=== PATIENT | female | born 1955 | race Caucasian/White ===

== ENCOUNTER 2018-02-05 11:41 | Inpatient (IN) | payer BC, OTHER ==
[2018-02-05] MEDS ORDERED: IBUPROFEN 600 MG TAB PO STA (12:27)
[2018-02-05] MEDS ORDERED: ACETAMINOPHEN TAB 500 MG TAB PO STA (12:27)
[2018-02-05] MEDS ORDERED: IPRATROPIUM-ALBUTEROL 3 ML NEB INHALATION STA (12:29)
--- NOTE | 2018-02-05 12:31 | ED ---
General Adult HPI - General Chief complaint: Shortness of Breath Stated complaint: SOB/Congestion Time Seen by Provider: 02/05/18 11:50 Source: patient, RN notes reviewed Mode of arrival: EMS Limitations: physical limitation - History of Present Illness Initial comments: This is a 62-year-old female who presents emergency Department complaining of difficulty breathing. Patient states symptoms started 2 days been worsening over the last 2 days. Patient states she believes she's had a fever but she's also had the chills. Patient denies any palpitations or chest pain. Patient states she is coughing. No sputum production. Patient states she has edema on her legs but is no worse than normal. Patient denies any headache patient denies numbness weakness. Patient denies any abdominal pain patient denies nausea vomiting diarrhea. - Related Data Home Medications Medication Instructions Recorded Confirmed Aspirin EC [Ecotrin Low Dose] 81 mg PO DAILY 02/05/18 02/05/18 Furosemide [Lasix] 20 mg PO DAILY 02/05/18 02/05/18 Allergies Allergy/AdvReac Type Severity Reaction Status Date / Time metoprolol [From Toprol XL] AdvReac Itching Verified 02/05/18 13:15 band aids Allergy Rash/Hives Uncoded 02/05/18 12:12 Review of Systems ROS Statement: Those systems with pertinent positive or pertinent negative responses have been documented in the HPI. ROS Other: All systems not noted in ROS Statement are negative. Past Medical History Past Medical History: Cancer, COPD, Hypertension, Sleep Apnea/CPAP/BIPAP History of Any Multi-Drug Resistant Organisms: None Reported Additional Past Surgical History / Comment(s): Lung resection for her lung cancer. Resection of a brain metastasis without radiation therapy. Past Anesthesia/Blood Transfusion Reactions: No Reported Reaction Past Psychological History: No Psychological Hx Reported Smoking Status: Former smoker Past Alcohol Use History: None Reported Past Drug Use History: None Reported - Past Family History Father Family Medical History: Cancer General Exam - General Exam Comments Initial Comments: GENERAL: Patient is well-developed and well-nourished. Patient is nontoxic and well- hydrated and is in mild distress. ENT: Neck is soft and supple. No significant lymphadenopathy is noted. Oropharynx is clear. Moist mucous membranes. Neck has full range of motion without eliciting any pain. EYES: The sclera were anicteric and conjunctiva were pink and moist. Extraocular movements were intact and pupils were equal round and reactive to light. Eyelids were unremarkable. PULMONARY: Minutes breath sounds with expiratory wheezing diffusely CARDIOVASCULAR: There is a regular rate and rhythm without any murmurs gallops or rubs. ABDOMEN: Soft and nontender with normal bowel sounds. No palpable organomegaly was noted. There is no palpable pulsatile mass. SKIN: Skin is clear with no lesions or rashes and otherwise unremarkable. NEUROLOGIC: Patient is alert and oriented x3. Cranial nerves II through XII are grossly intact. Motor and sensory are also intact. Normal speech, volume and content. Symmetrical smile. MUSCULOSKELETAL: Normal extremities with adequate strength and full range of motion. 1+ edema bilaterally LYMPHATICS: No significant lymphadenopathy is noted PSYCHIATRIC: Normal psychiatric evaluation. Normal interpersonal interactions appears functionally intact in deals appropriately with others. No signs of depression. No signs of anxiety. Limitations: physical limitation Course Vital Signs 02/05/18 02/05/18 02/05/18 11:50 12:10 12:54 Temperature 100.1 F H Pulse Rate 122 H 115 H Respiratory 32 H Rate Blood Pressure 138/73 O2 Sat by Pulse 65 L 97 Oximetry 02/05/18 13:03 Temperature Pulse Rate 110 H Respiratory Rate Blood Pressure O2 Sat by Pulse Oximetry Medical Decision Making - Medical Decision Making EKG shows sinus tachycardia with occasional PAC at 131 bpm UT interval 124 QRS is 82 QT interval 04 QTC is 448. Patient's EKG shows no ST segment elevation or depression. Patient's chest x-ray is consistent with congestive heart failure and possible infiltrate I started the patient on Rocephin for the possible pneumonia, I started the patient Lasix Nitropaste for congestive heart failure. I spoke with Dr. Moreno he agreed to admit the patient admitted the patient I wrote admitting orders. - Lab Data Result diagrams: 02/05/18 13:00 02/05/18 13:00 Lab Results 02/05/18 02/05/18 02/05/18 Range/Units 13:00 13:00 13:00 WBC 13.2 H (3.8-10.6) k/uL RBC 5.07 (3.80-5.40) m/uL Hgb 14.7 (11.4-16.0) gm/dL Hct 46.3 H (34.0-46.0) % MCV 91.2 (80.0-100.0) fL MCH 29.0 (25.0-35.0) pg MCHC 31.8 (31.0-37.0) g/dL RDW 14.8 (11.5-15.5) % Plt Count 434 (150-450) k/uL Neutrophils % 84 % Lymphocytes % 5 % Monocytes % 8 % Eosinophils % 0 % Basophils % 0 % Neutrophils # 11.1 H (1.3-7.7) k/uL Lymphocytes # 0.7 L (1.0-4.8) k/uL Monocytes # 1.1 H (0-1.0) k/uL Eosinophils # 0.1 (0-0.7) k/uL Basophils # 0.0 (0-0.2) k/uL Hypochromasia Slight PT 10.4 (9.0-12.0) sec INR 1.1 (<1.2) APTT 20.3 L (22.0-30.0) sec Sodium 136 L (137-145) mmol/L Potassium 5.2 H (3.5-5.1) mmol/L Chloride 96 L (98-107) mmol/L Carbon Dioxide 26 (22-30) mmol/L Anion Gap 14 mmol/L BUN 35 H (7-17) mg/dL Creatinine 0.99 (0.52-1.04) mg/dL Est GFR (CKD-EPI)AfAm 70 (>60 ml/min/1.73 sqM) Est GFR (CKD-EPI)NonAf 61 (>60 ml/min/1.73 sqM) Glucose 150 H (74-99) mg/dL Plasma Lactic Acid Tong (0.7-2.0) mmol/L Calcium 8.5 (8.4-10.2) mg/dL Total Bilirubin 1.1 (0.2-1.3) mg/dL AST 70 H (14-36) U/L ALT 37 (9-52) U/L Alkaline Phosphatase 87 (38-126) U/L Total Creatine Kinase (30-135) U/L CK-MB (CK-2) (0.0-2.4) ng/mL CK-MB (CK-2) Rel Index Troponin I (0.000-0.034) ng/mL Total Protein 6.6 (6.3-8.2) g/dL Albumin 3.5 (3.5-5.0) g/dL Urine Color Urine Appearance (Clear) Urine pH (5.0-8.0) Ur Specific [place] (1.001-1.035) Urine Protein (Negative) Urine Glucose (UA) (Negative) Urine Ketones (Negative) Urine Blood (Negative) Urine Nitrite (Negative) Urine Bilirubin (Negative) Urine Urobilinogen (<2.0) mg/dL Ur Leukocyte Esterase (Negative) Urine RBC (0-5) /hpf Urine WBC (0-5) /hpf Ur Squamous Epith Cells (0-4) /hpf Hyaline Casts (0-2) /lpf Granular Casts (0) /lpf Urine Mucus (None) /hpf 02/05/18 02/05/18 02/05/18 Range/Units 13:00 13:00 13:15 WBC (3.8-10.6) k/uL RBC (3.80-5.40) m/uL Hgb (11.4-16.0) gm/dL Hct (34.0-46.0) % MCV (80.0-100.0) fL MCH (25.0-35.0) pg MCHC (31.0-37.0) g/dL RDW (11.5-15.5) % Plt Count (150-450) k/uL Neutrophils % % Lymphocytes % % Monocytes % % Eosinophils % % Basophils % % Neutrophils # (1.3-7.7) k/uL Lymphocytes # (1.0-4.8) k/uL Monocytes # (0-1.0) k/uL Eosinophils # (0-0.7) k/uL Basophils # (0-0.2) k/uL Hypochromasia PT (9.0-12.0) sec INR (<1.2) APTT (22.0-30.0) sec Sodium (137-145) mmol/L Potassium (3.5-5.1) mmol/L Chloride (98-107) mmol/L Carbon Dioxide (22-30) mmol/L Anion Gap mmol/L BUN (7-17) mg/dL Creatinine (0.52-1.04) mg/dL Est GFR (CKD-EPI)AfAm (>60 ml/min/1.73 sqM) Est GFR (CKD-EPI)NonAf (>60 ml/min/1.73 sqM) Glucose (74-99) mg/dL Plasma Lactic Acid Tong 1.3 (0.7-2.0) mmol/L Calcium (8.4-10.2) mg/dL Total Bilirubin (0.2-1.3) mg/dL AST (14-36) U/L ALT (9-52) U/L Alkaline Phosphatase (38-126) U/L Total Creatine Kinase 751 H (30-135) U/L CK-MB (CK-2) 9.7 H* (0.0-2.4) ng/mL CK-MB (CK-2) Rel Index 1.3 Troponin I 0.180 H* (0.000-0.034) ng/mL Total Protein (6.3-8.2) g/dL Albumin (3.5-5.0) g/dL Urine Color Yellow Urine Appearance Cloudy H (Clear) Urine pH 6.0 (5.0-8.0) Ur Specific [place] 1.025 (1.001-1.035) Urine Protein 2+ H (Negative) Urine Glucose (UA) Negative (Negative) Urine Ketones Trace H (Negative) Urine Blood Small H (Negative) Urine Nitrite Negative (Negative) Urine Bilirubin 1+ H (Negative) Urine Urobilinogen 3.0 (<2.0) mg/dL Ur Leukocyte Esterase Negative (Negative) Urine RBC 1 (0-5) /hpf Urine WBC 4 (0-5) /hpf Ur Squamous Epith Cells 1 (0-4) /hpf Hyaline Casts 3 H (0-2) /lpf Granular Casts 3 (0) /lpf Urine Mucus Occasional H (None) /hpf Critical Care Time Critical Care Time: Yes Total Critical Care Time: 35 Disposition Clinical Impression: Acute pulmonary edema, Pneumonia Disposition: ADMITTED IP TO THIS HOSP Referrals: Carmen Dc DO [Primary Care Provider] - 1-2 days Time of Disposition: 14:16
[2018-02-05 13:31] LABS: Basophils % (A) 0 %; Eosinophils # (A) 0.1 k/uL (0-0.7); Eosinophils % (A) 0 %; HCT 46.3 % (34.0-46.0); HGB 14.7 gm/dL (11.4-16.0); Hypochromasia Slight; Lymphocytes # (A) 0.7 k/uL (1.0-4.8); Lymphocytes % (A) 5 %; MCHC 31.8 g/dL (31.0-37.0); MCV 91.2 fL (80.0-100.0); Mean Platelet Volume 7.1; Monocytes # (A) 1.1 k/uL (0-1.0); Monocytes % (A) 8 %; Neutrophils # (A) 11.1 k/uL (1.3-7.7); Neutrophils % (A) 84 %; Platelet Count 434 k/uL (150-450); RBC 5.07 m/uL (3.80-5.40); RDW 14.8 % (11.5-15.5); WBC 13.2 k/uL (3.8-10.6)
[2018-02-05 13:39] LABS: Appearance,Urine Cloudy (Clear); Bilirubin,Urine 1+ (Negative); Blood,Urine Small (Negative); Color,Urine Yellow; Glucose,Urine (UA) Negative (Negative); Granular Casts,Urine 3 /lpf (0); Hyaline Casts,Urine 3 /lpf (0-2); Ketones,Urine Trace (Negative); Leukocyte Esterase,Urine Negative (Negative); Mucus,Urine Occasional /hpf; Nitrite,Urine Negative (Negative); Protein,Urine 2+ (Negative); RBC,Urine 1 /hpf (0-5); Specific Gravity,Urine 1.025 (1.001-1.035); Squamous Epithelial Cell,Urine 1 /hpf (0-4); WBC,Urine 4 /hpf (0-5)
[2018-02-05 13:42] LABS: Albumin 3.5 g/dL (3.5-5.0); Calcium 8.5 mg/dL (8.4-10.2); Total Bilirubin 1.1 mg/dL (0.2-1.3); Total Protein 6.6 g/dL (6.3-8.2)
[2018-02-05 13:48] LABS: Potassium 5.2 mmol/L (3.5-5.1)
--- NOTE | 2018-02-05 13:50 | XR ---
EXAMINATION TYPE: XR chest 2V DATE OF EXAM: 02/05/2018 COMPARISON: Prior chest 05/23/2011 HISTORY: Fever, shortness of breath TECHNIQUE: Frontal and lateral views of the chest are obtained. FINDINGS: Central vascularity is prominent. Interstitium is increased. No evident pneumothorax. Diff icult to exclude small effusion. Heart is enlarged. Patient is rotated. Mixed patchy density is prese nt in the perihilar locations. IMPRESSION: Findings could represent congestive heart failure, pneumonia not excluded. There may be pulmonary artery hypertension, follow-up is recommended.
[2018-02-05 13:56] LABS: Creatine Kinase MB 9.7 ng/mL (0.0-2.4); Troponin I 0.18 ng/mL (0.000-0.034)
[2018-02-05 14:03] LABS: INR 1.1 (<1.2); Prothrombin Time 10.4 sec (9.0-12.0)
[2018-02-05 14:08] LABS: Partial Thromboplastin Time 20.3 sec (22.0-30.0)
[2018-02-05] MEDS ORDERED: FUROSEMIDE 10 MG/ML 4 ML VIAL IV STA ×2 (14:14→19:58)
[2018-02-05] MEDS ORDERED: cefTRIAXone 2,000 MG in SODIUM CHLORIDE 0.9% 100 ML IVPB STA (14:14)
[2018-02-05] MEDS ORDERED: NITROGLYCERIN OINT 1 INCH/GM PACKET TOPICAL STA (14:14)
[2018-02-05] MEDS ORDERED: cefTRIAXone IN SWFI 2,000 MG/20 ML SYRINGE IVP STA (14:15)
[2018-02-05] MEDS ORDERED: PNEUMONIA PROTOCOL UTILIZED 1 EACH MISC PO PRN (14:17)
[2018-02-05] MEDS: AZITHROMYCIN 500 MG TAB PO SCH (15:03)
--- NOTE | 2018-02-05 18:02 | P.HPIM ---
History of Present Illness H&P Date: 02/05/18 Chief Complaint: Shortness of breath Ophelia Ruffin is a 62-year-old female who presented to [facility] emergency room with a chief complaint of worsening shortness of breath patient states that her symptoms started 2 days ago and has been worsening she stated that she had some fever and chills and cough and developed worsening shortness of breath otherwise she denies any other complaints there was no headache no dizziness no chest pain no nausea or vomiting no abdominal pain and no urinary symptoms patient denies having any sputum production was her cough. Patient has a history of lung cancer she underwent partial lung resection in 2000 she also underwent brain metastatic disease removal, she states that she has been stable and cancer free since 2000. Past Medical History Past Medical History: Cancer, COPD, Hypertension, Sleep Apnea/CPAP/BIPAP History of Any Multi-Drug Resistant Organisms: None Reported Additional Past Surgical History / Comment(s): Lung resection for her lung cancer. Resection of a brain metastasis without radiation therapy. Past Anesthesia/Blood Transfusion Reactions: No Reported Reaction Past Psychological History: No Psychological Hx Reported Additional Psychological History / Comment(s): . Lives in the family home with her . 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 Stop tobacco use about 5 years ago. No alcohol use. Has a pet dog and cat in the home that are not new. Tetanus vaccine updated in the emergency center. No international travels. No experience Smoking Status: Former smoker Past Alcohol Use History: None Reported Past Drug Use History: None Reported - Past Family History Father Family Medical History: Cancer Medications and Allergies Home Medications Medication Instructions Recorded Confirmed Type Aspirin EC [Ecotrin Low Dose] 81 mg PO DAILY 02/05/18 02/05/18 History Furosemide [Lasix] 20 mg PO DAILY 02/05/18 02/05/18 History Allergies Allergy/AdvReac Type Severity Reaction Status Date / Time metoprolol [From Toprol XL] AdvReac Itching Verified 02/05/18 13:15 band aids Allergy Rash/Hives Uncoded 02/05/18 12:12 Physical Exam Vitals: Vital Signs Temp Pulse Pulse Resp BP BP Pulse Ox 02/05/18 17:26 98.9 F 96 24 133/86 90 L 02/05/18 16:45 98.0 F 95 24 116/60 94 L 02/05/18 15:08 98.9 F 98 32 H 168/99 95 02/05/18 14:12 99.2 F 101 H 30 H 165/78 96 02/05/18 13:12 99 28 H 155/65 96 02/05/18 13:03 110 H 02/05/18 12:54 115 H 02/05/18 12:10 97 02/05/18 11:50 100.1 F H 122 H 32 H 138/73 65 L Intake and Output 02/05/18 02/05/18 02/05/18 06:59 14:59 22:59 Other: Weight 122.47 kg 122.47 kg In general patient is alert and oriented 3 in no apparent distress HEENT head normocephalic and atraumatic Neck is supple no JVD no goiter no lymphadenopathy Chest exam reveals a scattered crackles bilaterally no wheezing Cardiac exam reveals regular heart sounds S1 and S2 no gallops no murmurs Abdomen is soft nontender no organomegaly with normal bowel sounds Extremity exam reveals minimal edema no cyanosis or clubbing Results CBC & Chem 7: 02/05/18 13:00 02/05/18 13:00 Labs: Abnormal Lab Results - Last 24 Hours (Table) 02/05/18 02/05/18 02/05/18 Range/Units 13:00 13:00 13:00 WBC 13.2 H (3.8-10.6) k/uL Hct 46.3 H (34.0-46.0) % Neutrophils # 11.1 H (1.3-7.7) k/uL Lymphocytes # 0.7 L (1.0-4.8) k/uL Monocytes # 1.1 H (0-1.0) k/uL APTT 20.3 L (22.0-30.0) sec Sodium 136 L (137-145) mmol/L Potassium 5.2 H (3.5-5.1) mmol/L Chloride 96 L (98-107) mmol/L BUN 35 H (7-17) mg/dL Glucose 150 H (74-99) mg/dL AST 70 H (14-36) U/L Total Creatine Kinase (30-135) U/L CK-MB (CK-2) (0.0-2.4) ng/mL Troponin I (0.000-0.034) ng/mL Urine Appearance (Clear) Urine Protein (Negative) Urine Ketones (Negative) Urine Blood (Negative) Urine Bilirubin (Negative) Hyaline Casts (0-2) /lpf Urine Mucus (None) /hpf 02/05/18 02/05/18 Range/Units 13:00 13:15 WBC (3.8-10.6) k/uL Hct (34.0-46.0) % Neutrophils # (1.3-7.7) k/uL Lymphocytes # (1.0-4.8) k/uL Monocytes # (0-1.0) k/uL APTT (22.0-30.0) sec Sodium (137-145) mmol/L Potassium (3.5-5.1) mmol/L Chloride (98-107) mmol/L BUN (7-17) mg/dL Glucose (74-99) mg/dL AST (14-36) U/L Total Creatine Kinase 751 H (30-135) U/L CK-MB (CK-2) 9.7 H* (0.0-2.4) ng/mL Troponin I 0.180 H* (0.000-0.034) ng/mL Urine Appearance Cloudy H (Clear) Urine Protein 2+ H (Negative) Urine Ketones Trace H (Negative) Urine Blood Small H (Negative) Urine Bilirubin 1+ H (Negative) Hyaline Casts 3 H (0-2) /lpf Urine Mucus Occasional H (None) /hpf Thrombosis Risk Factor Assmnt - Choose All That Apply Each Factor Represents 1 point: Heart failure (<1month), Obesity (BMI >25) Each Risk Factor Represents 2 Points: Age 61-74 years Thrombosis Risk Factor Assessment Total Risk Factor Score: 4 Thrombosis Risk Factor Assessment Level: Moderate Risk Assessment and Plan Plan: #1 worsening shortness of breath, multifactorial, could be related to lung infection as evidenced by low grade fever, cough, and leukocytosis, she was started on IV Rocephin and Zithromax in the emergency room will continue with same antibiotic at this time will try to obtain sputum sample for culture and Gram stain. #2 evidence of acute congestive heart failure exacerbation with shortness of breath, chest x-ray evidence of pulmonary congestion, and elevated BNP at 14,100 , at this time patient is receiving IV Lasix will monitor closely, will check echocardiogram #3 previous history of lung cancer status post partial lung resection and resection of metastatic brain disease in 2000. #4 underlying history of COPD patient is a former smoker #5 underlying history of obstructive sleep apnea #6 elevated troponin level at 0.18H and denies chest pain Will obtain repeat troponin level cardiology consultation has been requested At this time continue with current antibiotic and IV Lasix Cardiology and pulmonary consultation are requested Will follow closely
[2018-02-05] MEDS: ASPIRIN 81 MG PO SCH (18:26)
[2018-02-05] MEDS: ALBUTEROL NEBULIZED 2.5 MG/3 ML INHALATION SCH ×2 (19:49→19:56)
[2018-02-06 05:37] LABS: ABG Base Excess 5.6 mmol/L; ABG HCO3 34 mmol/L (21-25); ABG Oxygen Saturation 99.3 % (94-97); ABG PO2 143 mmHg (83-108); ABG TCO2 37 mmol/L (19-24)
[2018-02-06 05:41] LABS: ABG PCO2 90 mmHg (35-45)
[2018-02-06] MEDS: PANTOPRAZOLE 40 MG TABLET PO SCH (05:56)
[2018-02-06] MEDS ORDERED: PROPOFOL 100 ML IV ONE (05:57)
[2018-02-06] MEDS ORDERED: NOREPINEPHRIN 4 MG-0.9% NS PMX 4 MG/250 ML ML IV ONE ×3 (06:19→08:26)
[2018-02-06] MEDS ORDERED: PROPOFOL 10 MG/ML 20 ML VIAL IV ONE (06:30)
[2018-02-06 07:01] LABS: Glucose,Whole Blood 107 mg/dL (75-99)
[2018-02-06] MEDS ORDERED: CISATRACURIUM 2 MG/ML 5 ML VIAL IV ONE ×2 (07:40→07:50)
[2018-02-06] MEDS: PROPOFOL 1,000 MG in EMPTY BAG 1 BAG IV SCH ×5 (08:00→23:30)
--- NOTE | 2018-02-06 08:31 | XR ---
EXAMINATION TYPE: XR chest 1V portable DATE OF EXAM: 02/06/2018 COMPARISON: Prior chest x-ray 02/05/2018 HISTORY: Intubated TECHNIQUE: Single frontal view of the chest is obtained. FINDINGS: There is been interval placement of an endotracheal and NG tube are overlying appropriate positions. No other interval change. IMPRESSION: No evident complication status post intubation.
[2018-02-06 08:46] LABS: ABG Base Excess -0.1 mmol/L; ABG HCO3 28 mmol/L (21-25); ABG PCO2 68 mmHg (35-45); ABG PH 7.22 (7.35-7.45); ABG PO2 >400 mmHg (83-108); ABG TCO2 30 mmol/L (19-24)
[2018-02-06] MEDS ORDERED: cefTRIAXone IN SWFI 1,000 MG/10 ML SYRINGE IVP SCH (09:00)
[2018-02-06] MEDS: SODIUM CHLORIDE 0.9% 1,000 ML IV SCH (09:00)
[2018-02-06 09:18] LABS: Glucose,Whole Blood 163 mg/dL (75-99)
[2018-02-06] MEDS: SODIUM CHLORIDE 0.9% 99 ML with VASOPRESSIN 20 UNIT IV SCH ×4 (09:23→20:27)
[2018-02-06 09:38] LABS: HCT 43.1 % (34.0-46.0); HGB 13.1 gm/dL (11.4-16.0); Hypochromasia Marked; MCH 29.1 pg (25.0-35.0); MCHC 30.4 g/dL (31.0-37.0); MCV 95.8 fL (80.0-100.0); Mean Platelet Volume 6.9; Platelet Count 339 k/uL (150-450)
[2018-02-06 09:41] LABS: Albumin 2.6 g/dL (3.5-5.0); Calcium 7.2 mg/dL (8.4-10.2); Magnesium 2.1 mg/dL (1.6-2.3); Total Bilirubin 0.5 mg/dL (0.2-1.3); Total Protein 5.2 g/dL (6.3-8.2)
[2018-02-06] MEDS ORDERED: SODIUM CHLORIDE 0.9% 1,000 ML IV ONE ×3 (09:56→13:51)
[2018-02-06 10:11] LABS: Creatine Kinase MB 7.7 ng/mL (0.0-2.4); Troponin I 0.048 ng/mL (0.000-0.034)
[2018-02-06] MEDS ORDERED: NALOXONE 0.4 MG/ML 1 ML VIAL IV PRN (10:13)
[2018-02-06] MEDS: ENOXAPARIN 40 MG/0.4 ML SYRINGE SQ SCH (10:30)
[2018-02-06] MEDS: AZITHROMYCIN 500 MG TAB PO SCH (10:31)
[2018-02-06] MEDS: CHLORHEXIDINE GLUCONATE 15 ML CUP MUCOUS MEM SCH ×2 (10:31→20:28)
[2018-02-06 10:52] LABS: Poikilocytosis (M) Present; Polychromasia Present
[2018-02-06 10:56] LABS: Band Neutrophils % 3 %; Lymphocytes # (M) 0.52 k/uL (1.0-4.8); Metamyelocytes # (M) 0.21 k/uL (0); Metamyelocytes % 2 %; Monocytes # (M) 0.72 k/uL (0-1.0); Myelocytes % 1 %; Neutrophils % (M) 84 %; Nucleated Red Blood Cells 1 /100 WBC (0-0); Total Cells Counted 200; WBC 10.3 k/uL (3.8-10.6)
[2018-02-06] MEDS: NOREPINEPHRINE 16 MG in DEXTROSE 5% IN WATER 250 ML IV SCH ×4 (11:17→18:37)
[2018-02-06] MEDS: ALBUTEROL NEBULIZED 2.5 MG/3 ML INHALATION SCH (11:21)
[2018-02-06] MEDS: IPRATROPIUM-ALBUTEROL 3 ML NEB INHALATION SCH ×4 (11:22→23:36)
--- NOTE | 2018-02-06 12:28 | PCN ---
PROCEDURE NOTE PROCEDURE PERFORMED: Placement of a right femoral triple-lumen catheter. PREOPERATIVE DIAGNOSIS: Acute hypercapnic respiratory failure. POSTOPERATIVE DIAGNOSIS: Acute hypercapnic respiratory failure. ANESTHESIA USED: 2 mL of 1% lidocaine. DESCRIPTION OF PROCEDURE: Patient was placed in a supine position, and the right groin was prepared in a sterile fashion and drapes were applied. The right femoral vein was easily cannulated medial to the right femoral artery, and a guidewire was placed. The area over the guidewire was dilated using a dilator, then a triple-lumen catheter was inserted over the guidewire, the guidewire was removed. Good blood flow noted in the 3 different ports of the triple-lumen catheter. The line was secured using 3.0 silk sutures. The procedure was well tolerated, no evidence of any immediate complications. MMODL / IJN: [id number] /
--- NOTE | 2018-02-06 12:28 | PCN ---
PROCEDURE NOTE PROCEDURE PERFORMED: Placement of a left femoral arterial line. PREOPERATIVE DIAGNOSIS: Acute hypercapnic respiratory failure and hypotension. POSTOPERATIVE DIAGNOSIS: Acute hypercapnic respiratory failure and hypotension. ANESTHESIA: None deployed. DESCRIPTION OF PROCEDURE: The area of the left groin was prepared in a sterile fashion and drapes were applied. The left femoral artery was palpated, cannulated, a guidewire was placed, and a femoral catheter was inserted over the guidewire, the guidewire was removed. Good blood flow and good waveform were noted in the arterial tracing, and the line was secured using 3.0 silk sutures. Procedure was well tolerated. No evidence of any immediate complication. MMODL / IJN: [id number] /
--- NOTE | 2018-02-06 12:39 | P.CNPUL ---
History of Present Illness Consult date: 02/06/18 Requesting physician: Erica Moreno Reason for consult: dyspnea, COPD, pneumonia Chief complaint: Shortness of breath and congestion History of present illness: This is a 62-year-old female admitted on 02/05/2018, presented to the ER with mostly a few days' history of increased shortness of breath and congestion. She also had intermittent fever and chills, cough, but no significant sputum production. She had no complaints of chest pain, no palpitations, has been complaining of significant swelling in her lower extremities. She had no headaches, no blurred vision, no dizziness. No abdominal pain no nausea no vomiting. Patient is known to have history of COPD, hypertension, obstructive sleep apnea syndrome. Chest x-ray showed bilateral interstitial infiltrates, admitted with the impression of congestive heart failure, however the possibility of pneumonia was felt to be very likely. Patient was placed on diuretics, she was also placed on empiric antibiotics in the form of Rocephin and Zithromax. While on the medical floor, her condition deteriorated apparently last night, had to be placed on BiPAP. Early this morning the patient became unresponsive, ABG done on BiPAP, 50% FiO2 showed a pO2 of 143 pCO2 of 90 pH of 7.18. I was notified about the patient being unresponsive on BiPAP, I recommended immediate transfer to the ICU and immediate intubation. Patient was intubated, however after intubation she became hypotensive, required high dose of norepinephrine via a peripheral line, and no other lines could be established, and no arterial line could be established by anesthesia. Hence I came in and upon arrival I was able to establish a right femoral triple- lumen catheter, and a left femoral arterial line were both done immediately. Patient was kept on norepinephrine, and this would be titrated, however I was able to cut down on the dose significantly after the lines were established, and after fluid boluses were given. Reviewed the post intubation chest x-ray, and clearly felt that the patient had probably a combination of pneumonia and congestive heart failure. Hence I recommended broadening the spectrum of antibiotics coverage I cut down on her diuretics because of the hypotension, repeated ABG and it showed a pO2 of more than 400 pCO2 of 68, pH of 7.22, this was on 100% FiO2 and PEEP of 8. Hence I cut down her FiO2 to 45%, adjusted her ventilator settings, repeat ABG is pending. Based on the arterial blood gases, the patient developed what seemed to be a picture of hypercapnic respiratory failure most likely the patient has significant underlying COPD, definite obstructive sleep apnea syndrome, and obesity hypoventilation syndrome and clearly she went into CO2 narcosis requiring intubation and mechanical ventilation. All her labs were reviewed, troponin was noted to be slightly elevated, proBNP level was quite elevated upon admission at 14,100. Review of Systems ROS unobtainable: due to endotracheal tube (Review of systems could not be obtained, no family members available, patient is sedated, on mechanical ventilation, I did review the review of system of other physicians on admission. ) Past Medical History Past Medical History: Cancer, COPD, Hypertension, Sleep Apnea/CPAP/BIPAP History of Any Multi-Drug Resistant Organisms: None Reported Additional Past Surgical History / Comment(s): Lung resection for her lung cancer. Resection of a brain metastasis without radiation therapy. Past Anesthesia/Blood Transfusion Reactions: No Reported Reaction Past Psychological History: No Psychological Hx Reported Additional Psychological History / Comment(s): . Lives in the family home with her . 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 Stop tobacco use about 5 years ago. No alcohol use. Has a pet dog and cat in the home that are not new. Tetanus vaccine updated in the emergency center. No international travels. No experience Smoking Status: Former smoker Past Alcohol Use History: None Reported Past Drug Use History: None Reported - Past Family History Father Family Medical History: Cancer Medications and Allergies Home Medications Medication Instructions Recorded Confirmed Type Aspirin EC [Ecotrin Low Dose] 81 mg PO DAILY 02/05/18 02/05/18 History Furosemide [Lasix] 20 mg PO DAILY 02/05/18 02/05/18 History Allergies Allergy/AdvReac Type Severity Reaction Status Date / Time metoprolol [From Toprol XL] AdvReac Itching Verified 02/05/18 13:15 band aids Allergy Rash/Hives Uncoded 02/05/18 12:12 Physical Exam Vitals: Vital Signs Temp Pulse Pulse Resp BP BP Pulse Ox 02/06/18 11:42 85 02/06/18 11:25 86 02/06/18 11:00 72 13 95/57 92 L 02/06/18 10:30 73 13 92/53 95 02/06/18 10:00 81 14 100/55 100 02/06/18 09:30 82 14 83 L 02/06/18 09:20 85 13 93/57 02/06/18 09:00 90 24 99/57 84 L 02/06/18 08:52 28 H 02/06/18 08:40 80 19 101/63 93 L 02/06/18 08:20 91 22 193/84 88 L 02/06/18 08:00 70 21 99/53 91 L 02/06/18 07:40 75 30 H 118/61 98 02/06/18 07:30 71 120/65 100 02/06/18 07:20 78 91/79 02/06/18 07:10 73 86/70 76 L 02/06/18 07:00 70 118/63 100 02/06/18 06:50 75 97 02/06/18 06:40 75 99 02/06/18 06:30 82 95/46 99 02/06/18 06:20 85 83/61 99 02/06/18 06:12 89 100 02/06/18 04:00 96 28 H 126/93 99 02/06/18 00:00 97 F L 80 27 H 144/70 95 02/05/18 20:07 92 02/05/18 20:00 96 26 H 02/05/18 19:58 95 02/05/18 19:43 97 F L 96 26 H 108/66 92 L 02/05/18 17:26 98.9 F 96 24 133/86 90 L 02/05/18 16:45 98.0 F 95 24 116/60 94 L 02/05/18 15:08 98.9 F 98 32 H 168/99 95 02/05/18 14:12 99.2 F 101 H 30 H 165/78 96 02/05/18 13:12 99 28 H 155/65 96 02/05/18 13:03 110 H 02/05/18 12:54 115 H Intake and Output 02/05/18 02/06/18 02/06/18 22:59 06:59 14:59 Intake Total 290 1358.456 Output Total 550 270 Balance 290 -550 1088.456 Intake: Intake, IV Titration 1358.456 Amount Norepinephrine 16 mg In 5.624 Dextrose 5% in Water 250 ml @ Titrate IV .Q0M [facility] Rx#:[id number] Propofol 1,000 mg In 52.832 Empty Bag 1 bag @ Titrate IV .Q0M [facility] Rx#: [id number] Sodium Chloride 0.9% 1, 1300 000 ml @ 100 mls/hr IV . Q10H [facility] Rx#:[id number] Oral 290 Output: Urine 550 270 Other: Voiding Method Bedside Commode Bedside Commode Bedside Commode Weight 122.47 kg 127 kg 127 kg ABP, PAP, CO, CI - Last 8 Hours Arterial Blood Pressure 138/72 Arterial Blood Pressure 124/65 Arterial Blood Pressure 119/60 Arterial Blood Pressure 133/62 Arterial Blood Pressure 134/66 Arterial Blood Pressure 136/67 Arterial Blood Pressure 136/62 Physical Exam: Revealed a 62-year-old female, on mechanical ventilation, sedated , intubated, in no distress. Head: Atraumatic, normocephalic. HEENT:[Neck is supple.] [No neck masses.] [No thyromegaly.] [No JVD.]. PERRLA, EOMI, no icterus, endotracheal tube and orogastric tube were noted to be intact. Chest: [Minimal fine crackles at the bases, no rhonchi, no wheezes. Large chest , evidence of previous right sided chest surgery noted possibly a thoracoscopic surgery done for presumably lung cancer in the past..] Cardiac Exam: [Distant S1 and S2 no S3 gallop, no murmur.] Abdomen: [Obese, Soft, nontender, no megaly, no rebound, no guarding, normal bowel sounds.] Extremities: [1+ bipedal edema, no clubbing, no cyanosis, distal pulses are diminished bilaterally. Neurological Exam: Sedated could not be addressed. Psychiatric: Sedated could not be addressed. Lymphatics: No lymphadenopathy. Results - Laboratory Findings CBC and BMP: 02/06/18 09:17 02/06/18 09:17 ABG ABG pH 7.22 (7.35-7.45) L 02/06/18 08:44 ABG pCO2 68 mmHg (35-45) H 02/06/18 08:44 ABG pO2 >400 mmHg (83-108) H 02/06/18 08:44 ABG O2 Saturation 99.0 % (94-97) H 02/06/18 08:44 PT/INR, D-dimer PT 10.4 sec (9.0-12.0) 02/05/18 13:00 INR 1.1 (<1.2) 02/05/18 13:00 Abnormal lab findings: Abnormal Labs 02/05/18 02/05/18 02/05/18 13:00 13:00 13:00 WBC 13.2 H Hct 46.3 H MCHC Neutrophils # 11.1 H Neutrophils # (Manual) Lymphocytes # 0.7 L Lymphocytes # (Manual) Monocytes # 1.1 H Metamyelocytes # (Man) Myelocytes # (Manual) Nucleated RBCs APTT 20.3 L ABG pH ABG pCO2 ABG pO2 ABG HCO3 ABG Total CO2 ABG O2 Saturation Sodium 136 L Potassium 5.2 H Chloride 96 L BUN 35 H Creatinine Glucose 150 H POC Glucose (mg/dL) Calcium AST 70 H Total Creatine Kinase CK-MB (CK-2) Troponin I Total Protein Albumin Urine Appearance Urine Protein Urine Ketones Urine Blood Urine Bilirubin Hyaline Casts Urine Mucus 02/05/18 02/05/18 02/05/18 13:00 13:15 18:07 WBC Hct MCHC Neutrophils # Neutrophils # (Manual) Lymphocytes # Lymphocytes # (Manual) Monocytes # Metamyelocytes # (Man) Myelocytes # (Manual) Nucleated RBCs APTT ABG pH ABG pCO2 ABG pO2 ABG HCO3 ABG Total CO2 ABG O2 Saturation Sodium Potassium Chloride BUN Creatinine Glucose POC Glucose (mg/dL) Calcium AST Total Creatine Kinase 751 H CK-MB (CK-2) 9.7 H* Troponin I 0.180 H* 0.166 H* Total Protein Albumin Urine Appearance Cloudy H Urine Protein 2+ H Urine Ketones Trace H Urine Blood Small H Urine Bilirubin 1+ H Hyaline Casts 3 H Urine Mucus Occasional H 02/06/18 02/06/18 02/06/18 05:35 07:00 08:44 WBC Hct MCHC Neutrophils # Neutrophils # (Manual) Lymphocytes # Lymphocytes # (Manual) Monocytes # Metamyelocytes # (Man) Myelocytes # (Manual) Nucleated RBCs APTT ABG pH 7.18 L* 7.22 L ABG pCO2 90 H* 68 H ABG pO2 143 H >400 H ABG HCO3 34 H 28 H ABG Total CO2 37 H 30 H ABG O2 Saturation 99.3 H 99.0 H Sodium Potassium Chloride BUN Creatinine Glucose POC Glucose (mg/dL) 107 H Calcium AST Total Creatine Kinase CK-MB (CK-2) Troponin I Total Protein Albumin Urine Appearance Urine Protein Urine Ketones Urine Blood Urine Bilirubin Hyaline Casts Urine Mucus 02/06/18 02/06/18 02/06/18 09:14 09:17 09:17 WBC Hct MCHC 30.4 L Neutrophils # Neutrophils # (Manual) 8.90 H Lymphocytes # Lymphocytes # (Manual) 0.52 L Monocytes # Metamyelocytes # (Man) 0.21 H Myelocytes # (Manual) 0.10 H Nucleated RBCs 1 H APTT ABG pH ABG pCO2 ABG pO2 ABG HCO3 ABG Total CO2 ABG O2 Saturation Sodium Potassium Chloride BUN 39 H Creatinine 1.13 H Glucose 170 H POC Glucose (mg/dL) 163 H Calcium 7.2 L AST 42 H Total Creatine Kinase CK-MB (CK-2) Troponin I Total Protein 5.2 L Albumin 2.6 L Urine Appearance Urine Protein Urine Ketones Urine Blood Urine Bilirubin Hyaline Casts Urine Mucus 02/06/18 09:17 WBC Hct MCHC Neutrophils # Neutrophils # (Manual) Lymphocytes # Lymphocytes # (Manual) Monocytes # Metamyelocytes # (Man) Myelocytes # (Manual) Nucleated RBCs APTT ABG pH ABG pCO2 ABG pO2 ABG HCO3 ABG Total CO2 ABG O2 Saturation Sodium Potassium Chloride BUN Creatinine Glucose POC Glucose (mg/dL) Calcium AST Total Creatine Kinase CK-MB (CK-2) 7.7 H* Troponin I 0.048 H* Total Protein Albumin Urine Appearance Urine Protein Urine Ketones Urine Blood Urine Bilirubin Hyaline Casts Urine Mucus - Diagnostic Findings Chest x-ray: image reviewed (Bilateral interstitial infiltrates, improved compared to the admission chest x-ray.) Assessment and Plan Assessment: Impression: 1 acute hypercapnic respiratory failure secondary to chronic obstructive pulmonary disease, obstructive sleep apnea syndrome and obesity hypoventilation syndrome, congestive heart failure, and possible underlying community-acquired pneumonia. 2 suspect severe underlying COPD and acute hypercapnic respiratory failure 3 suspect diastolic congestive heart failure 4 suspect community-acquired pneumonia 5 obesity hypoventilation syndrome 6 history of lung cancer, previous lobectomy and resection of brain metastasis. This was in 2000. Recommendation: Continue mechanical ventilation, continue antibiotics in the form of Zosyn and Levaquin, fluid boluses were given for hypertension, possibility of sepsis is not entirely ruled out but felt to be less likely, her hypertension was only noted shortly after she was intubated, and could be related to medications given prior to intubation. We will taper and discontinue norepinephrine. Lines were established including a right femoral triple-lumen catheter, and a left femoral arterial line, patient will be closely monitored in the ICU, updrafts were ordered, antibiotics were ordered, GI and DVT prophylaxis ordered. We'll continue to follow closely. Patient is critically ill, critical care time is 45 minutes, not including the time spent on procedures done early this morning upon arrival. Time with Patient: Greater than 30
[2018-02-06] MEDS ORDERED: FUROSEMIDE 10 MG/ML 4 ML VIAL IV SCH ×2 (12:45)
[2018-02-06] MEDS: PIPERACILLIN-TAZOBACTAM 3.375 GM in DEXTROSE/WATER 1 50ML.BAG IVPB SCH (13:07)
[2018-02-06] MEDS: ASPIRIN 81 MG PO SCH (13:12)
[2018-02-06] MEDS: LEVOFLOXACIN 500MG-D5W PMX 500 MG in DEXTROSE/WATER 1 100ML.BAG IVPB SCH (14:31)
--- NOTE | 2018-02-06 14:52 | P.CRDCN ---
History of Present Illness Consult date: 02/06/18 History of present illness: This is a pleasant 62-year-old female patient with a past medical history significant for history of lung cancer with metastasis to the brain and the patient did undergo lung and brain surgery in the past presented to the hospital complaining of shortness of breath. I came in to evaluate the patient but currently the patient is intubated and she is on ventilator. The history was taking from the chart as well as from the family. The patient presented with a worsening shortness of breath without any symptoms of chest pain or chest discomfort. She did have some fever and chills at home. No dizziness or lightheadedness and no syncope. Initially the patient was admitted to selective unit and she was getting treated for pneumonia but her symptoms have gotten worse and she developed change in mental status. For that reason she was brought to the intensive care unit. The patient was intubated. She developed also hypotension requiring vasopressors. After she was intubated it was noticed that the patient has been producing significant amount of sputum. She was seen and evaluated by the intensive care team and currently the patient has been receiving antibiotic for what it seems to be pneumonia. We get involved in her care for possible congestive heart failure. The BNP came in to be elevated around 10,000. Initially the patient was receiving Lasix IV but the Lasix was systolic because of the hypotension requiring high dose of vasopressors. The cardiac enzymes were checked and came in to be slightly abnormal. The EKG did not show any significant ST or T-wave abnormalities concerning for ischemia. The patient does not have any history of coronary artery disease but according to her family she does have history of congestive heart failure but she never follow-up with any endo tech in the past. Past Medical History Past Medical History: Cancer, COPD, Hypertension, Sleep Apnea/CPAP/BIPAP History of Any Multi-Drug Resistant Organisms: None Reported Additional Past Surgical History / Comment(s): Lung resection for her lung cancer. Resection of a brain metastasis without radiation therapy. Past Anesthesia/Blood Transfusion Reactions: No Reported Reaction Past Psychological History: No Psychological Hx Reported Additional Psychological History / Comment(s): . Lives in the family home with her . 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 Stop tobacco use about 5 years ago. No alcohol use. Has a pet dog and cat in the home that are not new. Tetanus vaccine updated in the emergency center. No international travels. No experience Smoking Status: Former smoker Past Alcohol Use History: None Reported Past Drug Use History: None Reported - Past Family History Father Family Medical History: Cancer Medications and Allergies Home Medications Medication Instructions Recorded Confirmed Type Aspirin EC [Ecotrin Low Dose] 81 mg PO DAILY 02/05/18 02/05/18 History Furosemide [Lasix] 20 mg PO DAILY 02/05/18 02/05/18 History Allergies Allergy/AdvReac Type Severity Reaction Status Date / Time metoprolol [From Toprol XL] AdvReac Itching Verified 02/05/18 13:15 band aids Allergy Rash/Hives Uncoded 02/05/18 12:12 Physical Exam Vitals: Vital Signs Temp Pulse Pulse Resp BP BP Pulse Ox 02/06/18 14:00 81 11 L 103/45 97 02/06/18 13:30 81 14 111/61 91 L 02/06/18 13:00 98.5 F 81 14 109/54 93 L 02/06/18 12:30 77 14 121/57 92 L 02/06/18 12:00 87 12 93 L 02/06/18 11:42 85 02/06/18 11:30 87 17 133/64 94 L 02/06/18 11:25 86 02/06/18 11:00 72 13 95/57 92 L 02/06/18 10:30 73 13 92/53 95 02/06/18 10:00 81 14 100/55 100 02/06/18 09:30 82 14 83 L 02/06/18 09:20 85 13 93/57 02/06/18 09:00 90 24 99/57 84 L 02/06/18 08:52 28 H 02/06/18 08:40 80 19 101/63 93 L 02/06/18 08:20 91 22 193/84 88 L 02/06/18 08:00 70 21 99/53 91 L 02/06/18 07:40 75 30 H 118/61 98 02/06/18 07:30 71 120/65 100 02/06/18 07:20 78 91/79 02/06/18 07:10 73 86/70 76 L 02/06/18 07:00 70 118/63 100 02/06/18 06:50 75 97 02/06/18 06:40 75 99 02/06/18 06:30 82 95/46 99 02/06/18 06:20 85 83/61 99 02/06/18 06:12 89 100 02/06/18 04:00 96 28 H 126/93 99 02/06/18 00:00 97 F L 80 27 H 144/70 95 02/05/18 20:07 92 02/05/18 20:00 96 26 H 02/05/18 19:58 95 02/05/18 19:43 97 F L 96 26 H 108/66 92 L 02/05/18 17:26 98.9 F 96 24 133/86 90 L 02/05/18 16:45 98.0 F 95 24 116/60 94 L 02/05/18 15:08 98.9 F 98 32 H 168/99 95 Intake and Output 02/05/18 02/06/18 02/06/18 22:59 06:59 14:59 Intake Total 290 2755.179 Output Total 550 400 Balance 290 -550 2355.179 Intake: Intake, IV Titration 2755.179 Amount Norepinephrine 16 mg In 63.739 Dextrose 5% in Water 250 ml @ Titrate IV .Q0M [facility] Rx#:[id number] Propofol 1,000 mg In 91.440 Empty Bag 1 bag @ Titrate IV .Q0M [facility] Rx#: [id number] Sodium Chloride 0.9% 1, 1600 000 ml @ 100 mls/hr IV . Q10H [facility] Rx#:[id number] Sodium Chloride 0.9% 1, 1000 000 ml @ 999 mls/hr IV . Q1H1M [facility] Rx#:[id number] Oral 290 Output: Urine 550 400 Other: Voiding Method Bedside Commode Bedside Commode Bedside Commode Weight 122.47 kg 127 kg 127 kg ABP, PAP, CO, CI - Last 8 Hours Arterial Blood Pressure 141/73 Arterial Blood Pressure 156/78 Arterial Blood Pressure 169/86 Arterial Blood Pressure 138/72 Arterial Blood Pressure 124/65 Arterial Blood Pressure 119/60 Arterial Blood Pressure 133/62 Arterial Blood Pressure 134/66 Arterial Blood Pressure 136/67 Arterial Blood Pressure 136/62 - Constitutional General appearance: mild distress - Respiratory Respiratory: bilateral: diminished - Cardiovascular Rhythm: regular Heart sounds: normal: S1, S2 Results 02/06/18 09:17 02/06/18 09:17 Cardiac Enzymes 02/05/18 02/06/18 02/06/18 Range/Units 18:07 09:17 09:17 AST 42 H (14-36) U/L CK-MB (CK-2) 7.7 H* (0.0-2.4) ng/mL Troponin I 0.166 H* 0.048 H* (0.000-0.034) ng/mL CBC 02/06/18 Range/Units 09:17 WBC 10.3 (3.8-10.6) k/uL RBC 4.50 (3.80-5.40) m/uL Hgb 13.1 (11.4-16.0) gm/dL Hct 43.1 (34.0-46.0) % Plt Count 339 (150-450) k/uL Comprehensive Metabolic Panel 02/06/18 Range/Units 09:17 Sodium 139 (137-145) mmol/L Potassium 4.0 (3.5-5.1) mmol/L Chloride 100 (98-107) mmol/L Carbon Dioxide 26 (22-30) mmol/L BUN 39 H (7-17) mg/dL Creatinine 1.13 H (0.52-1.04) mg/dL Glucose 170 H (74-99) mg/dL Calcium 7.2 L (8.4-10.2) mg/dL AST 42 H (14-36) U/L ALT 42 (9-52) U/L Alkaline Phosphatase 75 (38-126) U/L Total Protein 5.2 L (6.3-8.2) g/dL Albumin 2.6 L (3.5-5.0) g/dL Current Medications Generic Name Dose Route Start Last Admin Trade Name Freq PRN Reason Stop Dose Admin Albuterol/Ipratropium 3 ml 02/06/18 12:00 02/06/18 11:22 Duoneb 0.5 Mg-3 Mg/3 Ml Soln INHALATION 3 ml RT-Q4H [facility] Administration Aspirin 81 mg 02/05/18 18:15 02/06/18 13:12 Aspirin PO 81 mg DAILY [facility] Administration Chlorhexidine Gluconate 15 ml 02/06/18 09:00 02/06/18 10:31 Peridex MUCOUS MEM 15 ml BID [facility] Administration Enoxaparin Sodium 40 mg 02/06/18 09:00 02/06/18 10:30 Lovenox SQ 40 mg DAILY [facility] Administration Vasopressin 20 unit/ Sodium 100 mls @ 9 mls/hr 02/06/18 08:30 02/06/18 09:23 Chloride IV Not Given .Q11H7M [facility] 0.03 UNITS/MIN Norepinephrine Bitartrate 16 250 mls @ 0 mls/hr 02/06/18 08:30 02/06/18 13:33 mg/ Dextrose/Water IV 39 mcg/min .Q0M [facility] 36.56 mls/hr Titration Protocol Titrate Sodium Chloride 1,000 mls @ 100 mls/hr 02/06/18 10:00 02/06/18 09:00 Saline 0.9% IV 100 mls/hr .Q10H [facility] Administration Propofol 1,000 mg/ IV Solution 100 mls @ 0 mls/hr 02/06/18 08:00 02/06/18 14: 00 IV 32 mcg/kg/min .Q0M [facility] 24.38 mls/hr Titration Protocol Titrate Piperacillin/Tazobactam/ 50 mls @ 12.5 mls/hr 02/06/18 14:00 02/06/18 13:07 Dextrose 3.375 gm/ IV Solution IVPB 12.5 mls/hr Q8HR [facility] Administration Levofloxacin 500 mg/ IV 100 mls @ 100 mls/hr 02/06/18 13:00 02/06/18 14:31 Solution IVPB 100 mls/hr Q24H [facility] Administration Sodium Chloride 1,000 mls @ 999 mls/hr 02/06/18 13:51 02/06/18 14:07 Saline 0.9% IV 02/06/18 14:51 Not Given .Q1H1M [facility] Miscellaneous Information 1 each 02/05/18 14:17 Pneumonia Protocol Utilized PO ONCE PRN Per Protocol Naloxone HCl 0.2 mg 02/06/18 10:13 Narcan IV Q2M PRN Opioid Reversal Pantoprazole Sodium 40 mg 02/06/18 07:30 02/06/18 05:56 Protonix PO Not Given AC-[id number] [facility] Intake and Output 02/05/18 02/06/18 02/06/18 22:59 06:59 14:59 Intake Total 290 2755.179 Output Total 550 400 Balance 290 -550 2355.179 Intake: Intake, IV Titration 2755.179 Amount Norepinephrine 16 mg In 63.739 Dextrose 5% in Water 250 ml @ Titrate IV .Q0M [facility] Rx#:[id number] Propofol 1,000 mg In 91.440 Empty Bag 1 bag @ Titrate IV .Q0M [facility] Rx#: [id number] Sodium Chloride 0.9% 1, 1600 000 ml @ 100 mls/hr IV . Q10H [facility] Rx#:[id number] Sodium Chloride 0.9% 1, 1000 000 ml @ 999 mls/hr IV . Q1H1M [facility] Rx#:[id number] Oral 290 Output: Urine 550 400 Other: Voiding Method Bedside Commode Bedside Commode Bedside Commode Weight 122.47 kg 127 kg 127 kg Patient Weight 02/07/18 06:59 Weight 127 kg 02/06/18 09:17 02/06/18 09:17 Assessment and Plan Assessment: Assessment #1 acute hypoxic respiratory failure #2 pneumonia/sepsis #3 probably septic shock #4 congestive heart failure exacerbation and known if he is due to systolic or diastolic dysfunction #5 mildly abnormal cardiac enzymes likely related to hypotension #6 history of lung cancer and metastasis to the brain Plan #1 agree to hold the Lasix at this point in view of the low blood pressure requiring vasopressors #2 continue supporting the blood pressure with vasopressors #3 follow-up on the echocardiogram which was performed earlier today #5 the abnormal cardiac enzymes is not consistent with acute coronary syndrome. More importantly the patient did not have any symptoms of chest pain or chest discomfort #6 she is on aspirin and we will continue Thank you for allowing us participate in her care and we'll continue following up with the patient
--- NOTE | 2018-02-06 15:57 | P.PN ---
Subjective Progress Note Date: 02/06/18 Ophelia Ruffin is a 62-year-old female who presented to [facility] emergency room with a chief complaint of worsening shortness of breath patient states that her symptoms started 2 days ago and has been worsening she stated that she had some fever and chills and cough and developed worsening shortness of breath otherwise she denies any other complaints there was no headache no dizziness no chest pain no nausea or vomiting no abdominal pain and no urinary symptoms patient denies having any sputum production was her cough. Patient has a history of lung cancer she underwent partial lung resection in 2000 she also underwent brain metastatic disease removal, she states that she has been stable and cancer free since 2000. On 02/06/2018 patient is seen and examined in the intensive care unit, during last night patient developed worsening shortness of breath and unresponsiveness , she was transferred to intensive care unit initially she was started on BiPAP however she required intubation and mechanical ventilation, patient was hypotensive and required pressure support. Objective - Vital Signs Vital signs: Vital Signs Temp 98.5 F 02/06/18 13:00 Pulse 96 02/06/18 15:30 Resp 14 02/06/18 15:00 BP 128/65 02/06/18 15:00 Pulse Ox 95 02/06/18 15:00 Intake & Output 02/05/18 02/06/18 02/06/18 18:59 06:59 18:59 Intake Total 216 10 3926.518 Output Total 550 440 Balance 240 -500 2489.518 Weight 122.47 kg 127 kg 127 kg Intake: Intake, IV Titration 2929.518 Amount Norepinephrine 16 mg In 138.078 Dextrose 5% in Water 250 ml @ Titrate IV .Q0M [facility] Rx#:[id number] Propofol 1,000 mg In 91.440 Empty Bag 1 bag @ Titrate IV .Q0M [facility] Rx#: [id number] Sodium Chloride 0.9% 1, 1700 000 ml @ 100 mls/hr IV . Q10H [facility] Rx#:[id number] Sodium Chloride 0.9% 1, 1000 000 ml @ 999 mls/hr IV . Q1H1M [facility] Rx#:[id number] Oral 240 50 Output: Urine 550 440 Other: Voiding Method Bedside Commode Indwelling Catheter ABP, PAP, CO, CI - Last Documented Arterial Blood Pressure 141/73 - Exam Patient is intubated sedated maintained on mechanical ventilation HEENT head without any acute abnormality Neck is supple no JVD no goiter no lymphadenopathy Chest exam reveals a few scattered crackles bilaterally no wheezing Cardiac exam reveals regular heart sounds no murmurs Abdomen is soft nontender no organomegaly Extremity exam reveals minimal edema - Labs CBC & Chem 7: 02/06/18 09:17 02/06/18 09:17 Labs: Abnormal Lab Results - Last 24 Hours (Table) 02/05/18 02/06/18 02/06/18 Range/Units 18:07 05:35 07:00 MCHC (31.0-37.0) g/dL Neutrophils # (Manual) (1.3-7.7) k/uL Lymphocytes # (Manual) (1.0-4.8) k/uL Metamyelocytes # (Man) (0) k/uL Myelocytes # (Manual) (0) k/uL Nucleated RBCs (0-0) /100 WBC ABG pH 7.18 L* (7.35-7.45) ABG pCO2 90 H* (35-45) mmHg ABG pO2 143 H (83-108) mmHg ABG HCO3 34 H (21-25) mmol/L ABG Total CO2 37 H (19-24) mmol/L ABG O2 Saturation 99.3 H (94-97) % BUN (7-17) mg/dL Creatinine (0.52-1.04) mg/dL Glucose (74-99) mg/dL POC Glucose (mg/dL) 107 H (75-99) mg/dL Calcium (8.4-10.2) mg/dL AST (14-36) U/L CK-MB (CK-2) (0.0-2.4) ng/mL Troponin I 0.166 H* (0.000-0.034) ng/mL Total Protein (6.3-8.2) g/dL Albumin (3.5-5.0) g/dL 02/06/18 02/06/18 02/06/18 Range/Units 08:44 09:14 09:17 MCHC 30.4 L (31.0-37.0) g/dL Neutrophils # (Manual) 8.90 H (1.3-7.7) k/uL Lymphocytes # (Manual) 0.52 L (1.0-4.8) k/uL Metamyelocytes # (Man) 0.21 H (0) k/uL Myelocytes # (Manual) 0.10 H (0) k/uL Nucleated RBCs 1 H (0-0) /100 WBC ABG pH 7.22 L (7.35-7.45) ABG pCO2 68 H (35-45) mmHg ABG pO2 >400 H (83-108) mmHg ABG HCO3 28 H (21-25) mmol/L ABG Total CO2 30 H (19-24) mmol/L ABG O2 Saturation 99.0 H (94-97) % BUN (7-17) mg/dL Creatinine (0.52-1.04) mg/dL Glucose (74-99) mg/dL POC Glucose (mg/dL) 163 H (75-99) mg/dL Calcium (8.4-10.2) mg/dL AST (14-36) U/L CK-MB (CK-2) (0.0-2.4) ng/mL Troponin I (0.000-0.034) ng/mL Total Protein (6.3-8.2) g/dL Albumin (3.5-5.0) g/dL 18 02/06/18 Range/Units 09:17 09:17 MCHC (31.0-37.0) g/dL Neutrophils # (Manual) (1.3-7.7) k/uL Lymphocytes # (Manual) (1.0-4.8) k/uL Metamyelocytes # (Man) (0) k/uL Myelocytes # (Manual) (0) k/uL Nucleated RBCs (0-0) /100 WBC ABG pH (7.35-7.45) ABG pCO2 (35-45) mmHg ABG pO2 (83-108) mmHg ABG HCO3 (21-25) mmol/L ABG Total CO2 (19-24) mmol/L ABG O2 Saturation (94-97) % BUN 39 H (7-17) mg/dL Creatinine 1.13 H (0.52-1.04) mg/dL Glucose 170 H (74-99) mg/dL POC Glucose (mg/dL) (75-99) mg/dL Calcium 7.2 L (8.4-10.2) mg/dL AST 42 H (14-36) U/L CK-MB (CK-2) 7.7 H* (0.0-2.4) ng/mL Troponin I 0.048 H* (0.000-0.034) ng/mL Total Protein 5.2 L (6.3-8.2) g/dL Albumin 2.6 L (3.5-5.0) g/dL Microbiology - Last 24 Hours (Table) 02/05/18 13:00 Blood Culture - Preliminary Blood No Growth after 24 hours 02/06/18 06:30 Gram Stain - Preliminary Sputum Sputum Culture - Preliminary 02/05/18 13:15 Urine Culture - Preliminary Urine,Catheterized Assessment and Plan Plan: #1 worsening shortness of breath, multifactorial, could be related to lung infection as evidenced by low grade fever, cough, and leukocytosis, she was started on IV Rocephin and Zithromax in the emergency room will continue with same antibiotic at this time will try to obtain sputum sample for culture and Gram stain. During the last night condition worsens significantly and patient became unresponsive she was initially started on BiPAP subsequently she was transferred to intensive care unit and was started on mechanical ventilation, patient had hypotension and was started on pressure support. IV antibiotics switched to Zosyn and Levaquin #2 evidence of acute congestive heart failure exacerbation with shortness of breath, chest x-ray evidence of pulmonary congestion, and elevated BNP at 14,100 , at this time patient is receiving IV Lasix will monitor closely, will check echocardiogram. 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 #4 underlying history of COPD patient is a former smoker #5 underlying history of obstructive sleep apnea #6 elevated troponin level at 0.18H and denies chest pain Will obtain repeat troponin level cardiology consultation has been requested Currently patient is intubated and maintained on mechanical ventilation and pressure support Family aware of condition and agreeable with current management, initially patient was no code however, family agreed to aggressive treatment at this time Will continue with current management will follow in a.m. pulmonary critical care and cardiology are following
--- NOTE | 2018-02-06 20:45 | ECHOF ---
Referral Reason: MEASUREMENTS -------- HEIGHT: 160.0 cm WEIGHT: 127.0 kg BP: RVIDd: 3.5 cm (< 3.3) IVSd: 1.7 cm (0.6 - 1.1) LVIDd: 2.7 cm (3.9 - 5.3) LVPWd: 1.9 cm (0.6 - 1.1) IVSs: 1.7 cm LVIDs: 1.8 cm LVPWs: 1.9 cm Ao Diam: 3.2 cm (2.0 - 3.7) AV Cusp: 1.7 cm (1.5 - 2.6) LA Diam: 3.5 cm (2.7 - 3.8) MV EXCURSION: 14.056 mm (> 18.000) MV EF SLOPE: 45 mm/s (70 - 150) EPSS: 0.4 cm MV E Rory: 0.50 m/s MV DecT: 187 ms MV A Rory: 0.43 m/s MV E/A Ratio: 1.16 RAP: 20.00 mmHg RVSP: 26.68 mmHg FINDINGS -------- Sinus rhythm. This was a technically difficult study with suboptimal views. This was a technically difficult stud y with suboptimal apical views. Pt. on a vent. The left ventricular size is normal. There is severe concentric left ventricular hypertrophy. Ove rall left ventricular systolic function is normal with, an EF between 55 - 60 %. The right ventricle is mildly enlarged. The left atrium is normal in size. The right atrium is normal in size. The aortic valve is trileaflet, and appears structurally normal. No aortic stenosis or regurgitation. The mitral valve leaflets are mildly thickened. There is trace mitral regurgitation. Mild tricuspid regurgitation present. The right ventricular systolic pressure, as measured by Doppl er, is 26.68mmHg. Pulmonic valve appears structurally normal. The aortic root size is normal. The inferior vena cava is dilated with no significant inspiratory collapse which is consistent estima carlos a right atrial pressure of >20 mmHg. There is a trivial pericardial effusion present. CONCLUSIONS -------- 1. Sinus rhythm. 2. This was a technically difficult study with suboptimal views. 3. This was a technically difficult study with suboptimal apical views. 4. Pt. on a vent. 5. The left ventricular size is normal. 6. There is severe concentric left ventricular hypertrophy. 7. Overall left ventricular systolic function is normal with, an EF between 55 - 60 %. 8. The right ventricle is mildly enlarged. 9. The left atrium is normal in size. 10. The right atrium is normal in size. 11. The aortic valve is trileaflet, and appears structurally normal. No aortic stenosis or regurgitat ion. 12. The mitral valve leaflets are mildly thickened. 13. There is trace mitral regurgitation. 14. Mild tricuspid regurgitation present. 15. The right ventricular systolic pressure, as measured by Doppler, is 26.68mmHg. 16. Pulmonic valve appears structurally normal. 17. The aortic root size is normal. 18. The inferior vena cava is dilated with no significant inspiratory collapse which is consistent es timated right atrial pressure of >20 mmHg. 19. There is a trivial pericardial effusion present. EDUCATIONAL PSYCHOLOGY TEACHER: Louise Campbell RDCS
[2018-02-07] MEDS: SODIUM CHLORIDE 0.9% 1,000 ML IV SCH ×3 (00:14→19:24)
[2018-02-07] MEDS: PIPERACILLIN-TAZOBACTAM 3.375 GM in DEXTROSE/WATER 1 50ML.BAG IVPB SCH ×4 (00:22→23:27)
[2018-02-07] MEDS: IPRATROPIUM-ALBUTEROL 3 ML NEB INHALATION SCH ×6 (03:01→23:39)
[2018-02-07] MEDS: NOREPINEPHRINE 16 MG in DEXTROSE 5% IN WATER 250 ML IV SCH ×2 (03:23)
[2018-02-07] MEDS: PROPOFOL 1,000 MG in EMPTY BAG 1 BAG IV SCH ×2 (03:55→06:06)
[2018-02-07 05:18] LABS: Anion Gap 10 mmol/L; Blood Urea Nitrogen 22 mg/dL (7-17); Calcium 8.1 mg/dL (8.4-10.2); Carbon Dioxide 27 mmol/L (22-30); Chloride 102 mmol/L (98-107); Glucose 201 mg/dL (74-99); Magnesium 2.2 mg/dL (1.6-2.3); Phosphorus 1.9 mg/dL (2.5-4.5); Potassium 4.5 mmol/L (3.5-5.1); Sodium 139 mmol/L (137-145)
[2018-02-07 05:27] LABS: HCT 41.8 % (34.0-46.0); HGB 12.8 gm/dL (11.4-16.0); Hypochromasia Marked; MCH 29.1 pg (25.0-35.0); MCHC 30.6 g/dL (31.0-37.0); MCV 95.2 fL (80.0-100.0); Mean Platelet Volume 7.1; Platelet Count 400 k/uL (150-450); RBC 4.39 m/uL (3.80-5.40); RDW 15.1 % (11.5-15.5); WBC 16.3 k/uL (3.8-10.6)
[2018-02-07] MEDS ORDERED: Phosphorus Replacement Protoco 1 EACH MISC MISCELLANE PRN (05:32)
[2018-02-07] MEDS: SODIUM CHLORIDE 0.9% 99 ML with VASOPRESSIN 20 UNIT IV SCH ×2 (05:52)
[2018-02-07] MEDS: SODIUM PHOSPHATE 10 MMOL in SODIUM CHLORIDE 0.9% 100 ML IVPB SCH ×2 (06:27→09:40)
[2018-02-07 07:28] LABS: ABG PH 7.18 (7.35-7.45)
[2018-02-07 07:54] LABS: Glucose,Whole Blood 177 mg/dL (75-99)
[2018-02-07 07:57] LABS: Band Neutrophils % 2 %; Lymphocytes # (M) 0.82 k/uL (1.0-4.8); Metamyelocytes # (M) 0.16 k/uL (0); Metamyelocytes % 1 %; Monocytes # (M) 1.47 k/uL (0-1.0); Myelocytes # (M) 0.49 k/uL (0); Myelocytes % 3 %; Neutrophils % (M) 82 %; Nucleated Red Blood Cells 0 /100 WBC (0-0); Total Cells Counted 200
[2018-02-07 07:58] LABS: Toxic Granulation Present
[2018-02-07 07:59] LABS: Poikilocytosis (M) Present
--- NOTE | 2018-02-07 08:50 | XR ---
EXAMINATION TYPE: XR chest 1V portable DATE OF EXAM: 02/07/2018 COMPARISON: 02/06/2018 HISTORY: Postintubation TECHNIQUE: Single frontal view of the chest is obtained. FINDINGS: ET tube is approximately 1.8 cm above the thu. NG tube is seen coursing into the abdome n. Exam is nearly nondiagnostic due to severe motion artifact. Bilateral infiltrates are suspected to be similar. Atherosclerotic change aorta. Arthropathy of the shoulders. Interstitial mild prominence is stable. IMPRESSION: 1. Markedly limited exam due to motion artifact demonstrates a stable appearing NG tube, ET tube and bilateral infiltrates with suspected underlying interstitial lung disease.
[2018-02-07] MEDS: ENOXAPARIN 40 MG/0.4 ML SYRINGE SQ SCH (09:40)
[2018-02-07] MEDS: ASPIRIN 81 MG PO SCH (09:41)
[2018-02-07] MEDS: PANTOPRAZOLE 40 MG TABLET PO SCH (09:41)
[2018-02-07] MEDS: INSULIN ASPART 100 UNIT/ML 1 ML 10 ML VIAL SQ SCH ×3 (09:41→19:47)
[2018-02-07] MEDS: CHLORHEXIDINE GLUCONATE 15 ML CUP MUCOUS MEM SCH ×2 (09:41→20:13)
--- NOTE | 2018-02-07 09:57 | P.PN ---
Subjective Progress Note Date: 02/07/18 Principal diagnosis: Heart failure, respiratory failure, pneumonia Progress note dated 02/07/2018 This is a 62-year-old female who was admitted on February 05. The patient came to the ICU on February 06 and was intubated on February 06. The patient's diagnoses including acute hypercapnic respiratory failure secondary to COPD sleep apnea syndrome and pickwickian syndrome as well as heart failure and possible community-acquired pneumonia. The patient also has suspected diastolic heart failure pneumonia pickwickian syndrome and a previous history of lung cancer, status post right-sided lobectomy as well as with brain metastases and brain resection. Currently, the patient is on the volume assist control mode with a rate of 14, tidal volume 500, FiO2 35%, and PEEP of 8. Arterial blood gases could not be obtained. The patient's previous blood gases showed a pO2 of greater than 400 PaCO2 of 68 and a pH of 7.22. The patient is currently on Zosyn and Levaquin and microbiology is still negative. Currently the patient is a full code although there was some discussion with family members about DO NOT RESUSCITATE. Vent changes included a rate of 22, tidal volume of 350, and PEEP of 5. The patient is currently on norepinephrine at 20 mics per minute propofol at 25 mics per kilogram per minute saline IV 100 mL an hour and tube feeds with vital high protein of 45 which is goal. We did trial the patient on some PSV and CPAP. She did well but in my opinion is probably not ready for extubation. Objective - Vital Signs Vital signs: Vital Signs Temp 98.6 F 02/07/18 00:00 Pulse 84 02/07/18 08:07 Resp 14 02/07/18 07:00 BP 85/52 02/07/18 07:00 Pulse Ox 97 02/07/18 07:00 Intake & Output 02/06/18 02/07/18 02/07/18 18:59 06:59 18:59 Intake Total 3523.285 2649.250 Output Total 630 1140 Balance 2893.285 1509.250 Weight 127 kg 134.4 kg Intake: IV 100 1350.0 Levofloxacin 500Mg-D5w 100 Pmx 500 mg In Dextrose/ Water 1 100ml.bag @ 100 mls/hr IVPB Q24H [facility] Rx#: [id number] Piperacillin-Tazobactam 3 50.0 .375 gm In Dextrose/Water 1 50ml.bag @ 12.5 mls/hr IVPB Q8HR [facility] Rx#: [id number] Sodium Chloride 0.9% 1, 1200 000 ml @ 100 mls/hr IV . Q10H [facility] Rx#:[id number] Sodium Phosphate 10 mmol 100 In Sodium Chloride 0.9% 100 ml @ 50 mls/hr IVPB Q2H [facility] Rx#:[id number] Intake, IV Titration 3393.285 784.250 Amount Norepinephrine 16 mg In 240.453 302.437 Dextrose 5% in Water 250 ml @ Titrate IV .Q0M [facility] Rx#:[id number] Propofol 1,000 mg In 152.832 381.813 Empty Bag 1 bag @ Titrate IV .Q0M [facility] Rx#: [id number] Sodium Chloride 0.9% 1, 2000 100 000 ml @ 100 mls/hr IV . Q10H [facility] Rx#:[id number] Sodium Chloride 0.9% 1, 1000 000 ml @ 999 mls/hr IV . Q1H1M [facility] Rx#:[id number] Tube Feeding 30 455 Other 60 Output: Urine 630 1140 Other: Voiding Method Indwelling Catheter Indwelling Catheter ABP, PAP, CO, CI - Last Documented Arterial Blood Pressure 141/73 - Exam No acute distress, vented, with an orally place NG tube and endotracheal tube. HEENT examination is grossly unremarkable. Mucous membranes are moist. No oral lesions. Neck supple. Full range of motion. No adenopathy thyromegaly or neck vein distention. Cardiovascular examination reveals regular rhythm rate. S1-S2 normal. No S3 or S4. No discernible murmur noted. Heart sounds are distant. Lungs reveal fairly clear breath sounds. A few scattered rhonchi. Breath sounds are equal bilaterally. Abdomen is obese and soft. Bowel sounds are noted. No tenderness. Extremities are intact. Mild edema is noted. Skin is without rash or lesion. Neurologic examination is difficult to assess. - Labs CBC & Chem 7: 02/07/18 03:53 02/07/18 03:53 Labs: Abnormal Lab Results - Last 24 Hours (Table) 02/06/18 02/06/18 02/06/18 Range/Units 05:35 09:17 09:17 WBC (3.8-10.6) k/uL MCHC 30.4 L (31.0-37.0) g/dL Neutrophils # (Manual) 8.90 H (1.3-7.7) k/uL Lymphocytes # (Manual) 0.52 L (1.0-4.8) k/uL Monocytes # (Manual) (0-1.0) k/uL Metamyelocytes # (Man) 0.21 H (0) k/uL Myelocytes # (Manual) 0.10 H (0) k/uL Nucleated RBCs 1 H (0-0) /100 WBC ABG pH 7.18 L* (7.35-7.45) BUN 39 H (7-17) mg/dL Creatinine 1.13 H (0.52-1.04) mg/dL Glucose 170 H (74-99) mg/dL POC Glucose (mg/dL) (75-99) mg/dL Calcium 7.2 L (8.4-10.2) mg/dL Phosphorus (2.5-4.5) mg/dL AST 42 H (14-36) U/L CK-MB (CK-2) (0.0-2.4) ng/mL Troponin I (0.000-0.034) ng/mL Total Protein 5.2 L (6.3-8.2) g/dL Albumin 2.6 L (3.5-5.0) g/dL 02/06/18 02/07/18 02/07/18 Range/Units 09:17 03:53 03:53 WBC 16.3 H (3.8-10.6) k/uL MCHC 30.6 L (31.0-37.0) g/dL Neutrophils # (Manual) 13.60 H (1.3-7.7) k/uL Lymphocytes # (Manual) 0.82 L (1.0-4.8) k/uL Monocytes # (Manual) 1.47 H (0-1.0) k/uL Metamyelocytes # (Man) 0.16 H (0) k/uL Myelocytes # (Manual) 0.49 H (0) k/uL Nucleated RBCs (0-0) /100 WBC ABG pH (7.35-7.45) BUN 22 H (7-17) mg/dL Creatinine (0.52-1.04) mg/dL Glucose 201 H (74-99) mg/dL POC Glucose (mg/dL) (75-99) mg/dL Calcium 8.1 L (8.4-10.2) mg/dL Phosphorus 1.9 L (2.5-4.5) mg/dL AST (14-36) U/L CK-MB (CK-2) 7.7 H* (0.0-2.4) ng/mL Troponin I 0.048 H* (0.000-0.034) ng/mL Total Protein (6.3-8.2) g/dL Albumin (3.5-5.0) g/dL 02/07/18 Range/Units 07:52 WBC (3.8-10.6) k/uL MCHC (31.0-37.0) g/dL Neutrophils # (Manual) (1.3-7.7) k/uL Lymphocytes # (Manual) (1.0-4.8) k/uL Monocytes # (Manual) (0-1.0) k/uL Metamyelocytes # (Man) (0) k/uL Myelocytes # (Manual) (0) k/uL Nucleated RBCs (0-0) /100 WBC ABG pH (7.35-7.45) BUN (7-17) mg/dL Creatinine (0.52-1.04) mg/dL Glucose (74-99) mg/dL POC Glucose (mg/dL) 177 H (75-99) mg/dL Calcium (8.4-10.2) mg/dL Phosphorus (2.5-4.5) mg/dL AST (14-36) U/L CK-MB (CK-2) (0.0-2.4) ng/mL Troponin I (0.000-0.034) ng/mL Total Protein (6.3-8.2) g/dL Albumin (3.5-5.0) g/dL Microbiology - Last 24 Hours (Table) 02/05/18 13:15 Urine Culture - Final Urine,Catheterized 02/05/18 13:00 Blood Culture - Preliminary Blood No Growth after 24 hours 02/06/18 06:30 Gram Stain - Preliminary Sputum Sputum Culture - Preliminary Assessment and Plan Assessment: Assessment Acute respiratory failure, both hypoxemic and hypercapnic in nature, secondary to COPD, sleep apnea syndrome, possible pickwickian syndrome, congestive heart failure, and possible pneumonia. Suspect severe underlying COPD with chronic hypercapnic respiratory failure Diastolic heart failure Community-acquired pneumonia Possible pickwickian syndrome History of metastatic lung cancer, with previous right-sided lobectomy and brain metastases with previous brain resection. History of sleep apnea syndrome Morbid obesity. History of hypertension Plan: Plan dated 02/07/2018 Chest x-ray shows a endotracheal tube about 2 cm above the tracheal thu. There is diffuse bilateral infiltrates with a relatively normal sized heart. There may be small bilateral effusions. Vent changes ready have been made. The patient's sedation was held. She did reasonably well on a PSV and CPAP trial. She is currently getting nourishment with vital high protein. Antibiotics include both Zosyn and Levaquin. We will talk to family about CODE STATUS. We'll see if we can get another art line in. White count is 16.3, hemoglobin 12.8, platelet count 400,000, sodium potassium chloride CO2 all normal, BUN/creatinine normal at 22 and 0.8, and the rest of the labs looking pretty normal. The patient's overall prognosis is guarded. We will have a discussion with the family about CODE STATUS. Apparently she may not available wanted to be on life support. Probably not ready for weaning a ship. She did reasonably well with her weaning trial. Additional recommendations and suggestions are forthcoming. We'll continue to follow closely. Critical care time 32 minutes. Time with Patient: Greater than 30
[2018-02-07 10:07] LABS: Hemoglobin A1C 5.7 % (4.0-6.0)
[2018-02-07] MEDS ORDERED: LORazepam 2 MG/ML INJ ONE (11:07)
[2018-02-07] MEDS ORDERED: CISATRACURIUM 2 MG/ML 5 ML VIAL IV ONE ×2 (11:08→11:12)
[2018-02-07] MEDS ORDERED: LORazepam 2 MG/ML INJ IV STA (11:12)
--- NOTE | 2018-02-07 11:38 | P.PN ---
Subjective Progress Note Date: 02/07/18 Ophelia Ruffin is a 62-year-old female who presented to [facility] emergency room with a chief complaint of worsening shortness of breath patient states that her symptoms started 2 days ago and has been worsening she stated that she had some fever and chills and cough and developed worsening shortness of breath otherwise she denies any other complaints there was no headache no dizziness no chest pain no nausea or vomiting no abdominal pain and no urinary symptoms patient denies having any sputum production was her cough. Patient has a history of lung cancer she underwent partial lung resection in 2000 she also underwent brain metastatic disease removal, she states that she has been stable and cancer free since 2000. On 02/06/2018 patient is seen and examined in the intensive care unit, during last night patient developed worsening shortness of breath and unresponsiveness , she was transferred to intensive care unit initially she was started on BiPAP however she required intubation and mechanical ventilation, patient was hypotensive and required pressure support. On 02/07/2018 patient is seen in the ICU remained on mechanical ventilation. Patient currently on hold and patient following commands. Patient remains on norepinephrine for blood pressure support. Per nursing staff extubation hopefully tomorrow. Pulmonary services and critical care team following. Lasix remains on hold due to hypotension. Cardiology services are following Objective - Vital Signs Vital signs: Vital Signs Temp 98.6 F 02/07/18 00:00 Pulse 94 02/07/18 11:04 Resp 14 02/07/18 07:00 BP 85/52 02/07/18 07:00 Pulse Ox 97 02/07/18 07:00 Intake & Output 02/06/18 02/07/18 02/07/18 18:59 06:59 18:59 Intake Total 3523.285 2649.250 118.659 Output Total 630 1140 Balance 2893.285 1509.250 118.659 Weight 127 kg 134.4 kg Intake: IV 100 1350.0 Levofloxacin 500Mg-D5w 100 Pmx 500 mg In Dextrose/ Water 1 100ml.bag @ 100 mls/hr IVPB Q24H [facility] Rx#: [id number] Piperacillin-Tazobactam 3 50.0 .375 gm In Dextrose/Water 1 50ml.bag @ 12.5 mls/hr IVPB Q8HR [facility] Rx#: [id number] Sodium Chloride 0.9% 1, 1200 000 ml @ 100 mls/hr IV . Q10H [facility] Rx#:[id number] Sodium Phosphate 10 mmol 100 In Sodium Chloride 0.9% 100 ml @ 50 mls/hr IVPB Q2H [facility] Rx#:[id number] Intake, IV Titration 3393.285 784.250 118.659 Amount Norepinephrine 16 mg In 240.453 302.437 71.348 Dextrose 5% in Water 250 ml @ Titrate IV .Q0M [facility] Rx#:[id number] Propofol 1,000 mg In 152.832 381.813 47.311 Empty Bag 1 bag @ Titrate IV .Q0M [facility] Rx#: [id number] Sodium Chloride 0.9% 1, 2000 100 000 ml @ 100 mls/hr IV . Q10H [facility] Rx#:[id number] Sodium Chloride 0.9% 1, 1000 000 ml @ 999 mls/hr IV . Q1H1M [facility] Rx#:[id number] Tube Feeding 30 455 Other 60 Output: Urine 630 1140 Other: Voiding Method Indwelling Catheter Indwelling Catheter ABP, PAP, CO, CI - Last Documented Arterial Blood Pressure 141/73 - Exam Head normocephalic Neck supple Lungs patient currently on mechanical ventilation. Few scattered crackles bilaterally no wheezing Heart regular rate and rhythm S1-S2, no rub or gallop Abdomen is soft nontender nondistended positive bowel sounds no hepatosplenomegaly Extremities no edema Neuro patient currently off sedation and is alert on the mechanical ventilator - Labs CBC & Chem 7: 02/07/18 03:53 02/07/18 03:53 Labs: Abnormal Lab Results - Last 24 Hours (Table) 02/06/18 02/07/18 02/07/18 Range/Units 05:35 03:53 03:53 WBC 16.3 H (3.8-10.6) k/uL MCHC 30.6 L (31.0-37.0) g/dL Neutrophils # (Manual) 13.60 H (1.3-7.7) k/uL Lymphocytes # (Manual) 0.82 L (1.0-4.8) k/uL Monocytes # (Manual) 1.47 H (0-1.0) k/uL Metamyelocytes # (Man) 0.16 H (0) k/uL Myelocytes # (Manual) 0.49 H (0) k/uL ABG pH 7.18 L* (7.35-7.45) BUN 22 H (7-17) mg/dL Glucose 201 H (74-99) mg/dL POC Glucose (mg/dL) (75-99) mg/dL Calcium 8.1 L (8.4-10.2) mg/dL Phosphorus 1.9 L (2.5-4.5) mg/dL 02/07/18 Range/Units 07:52 WBC (3.8-10.6) k/uL MCHC (31.0-37.0) g/dL Neutrophils # (Manual) (1.3-7.7) k/uL Lymphocytes # (Manual) (1.0-4.8) k/uL Monocytes # (Manual) (0-1.0) k/uL Metamyelocytes # (Man) (0) k/uL Myelocytes # (Manual) (0) k/uL ABG pH (7.35-7.45) BUN (7-17) mg/dL Glucose (74-99) mg/dL POC Glucose (mg/dL) 177 H (75-99) mg/dL Calcium (8.4-10.2) mg/dL Phosphorus (2.5-4.5) mg/dL Microbiology - Last 24 Hours (Table) 02/05/18 13:15 Urine Culture - Final Urine,Catheterized 02/05/18 13:00 Blood Culture - Preliminary Blood No Growth after 24 hours 02/06/18 06:30 Gram Stain - Preliminary Sputum Sputum Culture - Preliminary Assessment and Plan Assessment: #1 acute hypercapnic respiratory failure secondary to chronic obstructive pulmonary disease, obstructive sleep apnea syndrome and obesity hypoventilation syndrome, congestive heart failure and possible underlining community-acquired pneumonia. patient currently on mechanical ventilation.. Requiring levophed for pressure support. IV antibiotics switched to Zosyn and Levaquin. WBC today 16.3. Blood Culture and sputum culture negative so far. Urine culture negative #2 evidence of acute congestive heart failure exacerbation with shortness of breath, chest x-ray evidence of pulmonary congestion, and elevated BNP at 14,100 , at this time patient is receiving IV Lasix will monitor closely. 2-D echo completed EF between 50-60%. IV Lasix was held due to hypotension, patient is followed by rehab nursing tech #3 previous history of lung cancer status post partial lung resection and resection of metastatic brain disease in 2000. #4 underlying history of COPD patient is a former smoker #5 underlying history of obstructive sleep apnea #6 elevated troponin level at 0.18H and denies chest pain. Per cardiology abnormal cardiac enzymes is not consistent with acute coronary syndrome and likely related to hypotension. Currently patient is intubated and maintained on mechanical ventilation and pressure support Family aware of condition and agreeable with current management, initially patient was no code however, family agreed to aggressive treatment at this time Will continue with current management will follow in a.m. pulmonary critical care and cardiology are following I performed an examination of the patient and discussed their management with the Nurse Practitioner. I have reviewed the Nurse Practitioner's notes and agree with the documented findings and plan of care
[2018-02-07 12:06] LABS: ABG Base Excess 5.1 mmol/L; ABG HCO3 32 mmol/L (21-25); ABG Oxygen Saturation 91.8 % (94-97); ABG PCO2 66 mmHg (35-45); ABG PH 7.29 (7.35-7.45); ABG PO2 60 mmHg (83-108); ABG TCO2 34 mmol/L (19-24)
[2018-02-07 12:22] LABS: Glucose,Whole Blood 157 mg/dL (75-99)
--- NOTE | 2018-02-07 13:02 | PN ---
PROGRESS NOTE Ophelia is a 62-year-old lady who is admitted to hospital with respiratory failure and had to be intubated. Her initial episode of shortness of breath was thought to be due to multiple ideological possibilities including possible respiratory tract infection and congestive heart failure. She was treated with Lasix, but subsequently the Lasix had been on hold and she became hypotensive. An echocardiogram shows normal LV function. Talking to her today, her episode of illness started few days ago when she met up with her [id number] up nan who herself had respiratory tract infection. Both she and her became ill on their way back, felt had fever, diarrhea, not felt well and subsequently developed the respiratory illness. Her whole clinical presentation is consistent more with possible viral infection with respiratory failure than acute onset pulmonary edema. The elevated BNP is probably related with the acute systemic illness more than anything. At the time of my evaluation, she is intubated, awake, alert, on antibiotics, remains in sinus rhythm and is overall doing well. PHYSICAL EXAMINATION: On exam, comfortable at rest. Heart rate is 80 beats per minute. Blood pressure is 85/50. tells me she usually runs a low blood pressure. There is no jugular venous distention. Chest exam reveals diminished air entry bilaterally. Heart exam reveals first and second heart sounds. No gallop. Examination of the extremities did not reveal any edema. Peripheral pulses are felt. LABS: Labs show that the hemoglobin is 12.8, white cell count is up, platelet count is 400. Potassium is 4.5. Creatinine is 0.8. Her troponin is elevated at 0.1, 0.1 and 0.04, probably related to the underlying systemic illness and supply demand mismatch. ASSESSMENT: 1. Respiratory failure. 2. Acute diastolic heart failure. 3. Elevated troponin. PLAN: Continue with the supportive care. When patient's respiratory status is stable, we may consider an outpatient stress test on her to evaluate for ischemic heart disease. MMODL / IJN: [id number] /
[2018-02-07] MEDS: LEVOFLOXACIN 500MG-D5W PMX 500 MG in DEXTROSE/WATER 1 100ML.BAG IVPB SCH (14:28)
--- NOTE | 2018-02-07 17:29 | PCN ---
PROCEDURE NOTE PROCEDURE: Right radial arterial line PREOP DIAGNOSES: Frequent blood draws and blood gas monitoring. POSTOP DIAGNOSES: Frequent blood draws and blood gas monitoring. ARTERIAL LINE PLACEMENT: Indications: Hemodynamic monitoring. A time-out was completed verifying correct patient, procedure, site, positioning, and implant(s) or special equipment if applicable. Eleno's test was performed to ensure adequate perfusion. The patient's right wrist was prepped and draped in sterile fashion. 1% Lidocaine was used to anesthetize the area. An 18G Arrow arterial line was introduced into the right radial artery. The catheter was threaded over the guide wire and the needle was removed with appropriate pulsatile blood return. Blood loss was minimal. The catheter was then sutured in place to the skin and a sterile dressing applied. Perfusion to the extremity distal to the point of catheter insertion was checked and found to be adequate. The patient tolerated the procedure well and there were no complications. There was no immediate complications. Right radial art line was used. The catheter was sutured in place. There was good waveform and blood pressure reading. The patient tolerated the procedure well. Sterile dressing was applied by the nurse. MMODL / IJN: [id number] /
[2018-02-07 19:13] LABS: Glucose,Whole Blood 118 mg/dL (75-99)
[2018-02-08 00:49] LABS: Glucose,Whole Blood 131 mg/dL (75-99)
[2018-02-08] MEDS: INSULIN ASPART 100 UNIT/ML 1 ML 10 ML VIAL SQ SCH ×4 (02:02→18:04)
[2018-02-08] MEDS: IPRATROPIUM-ALBUTEROL 3 ML NEB INHALATION SCH ×6 (03:29→23:30)
[2018-02-08 04:09] LABS: Basophils # (A) 0.1 k/uL (0-0.2); Basophils % (A) 0 %; Eosinophils # (A) 0.1 k/uL (0-0.7); Eosinophils % (A) 1 %; HCT 37.1 % (34.0-46.0); HGB 11.4 gm/dL (11.4-16.0); Hypochromasia Marked; Lymphocytes # (A) 0.8 k/uL (1.0-4.8); Lymphocytes % (A) 6 %; MCHC 30.8 g/dL (31.0-37.0); MCV 94.2 fL (80.0-100.0); Monocytes # (A) 0.6 k/uL (0-1.0); Monocytes % (A) 4 %; Neutrophils # (A) 11.6 k/uL (1.3-7.7); Neutrophils % (A) 87 %; Platelet Count 302 k/uL (150-450); RBC 3.94 m/uL (3.80-5.40); RDW 15.2 % (11.5-15.5); WBC 13.3 k/uL (3.8-10.6)
[2018-02-08] MEDS: SODIUM CHLORIDE 0.9% 1,000 ML IV SCH ×2 (04:16→15:30)
[2018-02-08 04:28] LABS: Anion Gap 6 mmol/L; Blood Urea Nitrogen 18 mg/dL (7-17); Calcium 8.1 mg/dL (8.4-10.2); Carbon Dioxide 32 mmol/L (22-30); Chloride 103 mmol/L (98-107); Glucose 153 mg/dL (74-99); Magnesium 2.5 mg/dL (1.6-2.3); Phosphorus 2.1 mg/dL (2.5-4.5); Potassium 4.3 mmol/L (3.5-5.1); Sodium 141 mmol/L (137-145)
[2018-02-08 04:39] LABS: ABG Base Excess 6.8 mmol/L; ABG HCO3 33 mmol/L (21-25); ABG Oxygen Saturation 98.2 % (94-97); ABG PCO2 65 mmHg (35-45); ABG PH 7.31 (7.35-7.45); ABG PO2 99 mmHg (83-108); ABG TCO2 35 mmol/L (19-24)
[2018-02-08 06:19] LABS: Glucose,Whole Blood 142 mg/dL (75-99)
--- NOTE | 2018-02-08 06:31 | P.PN ---
Subjective Progress Note Date: 02/08/18 Principal diagnosis: Heart failure, respiratory failure, pneumonia Progress note dated 02/07/2018 This is a 62-year-old female who was admitted on February 05. The patient came to the ICU on February 06 and was intubated on February 06. The patient's diagnoses including acute hypercapnic respiratory failure secondary to COPD sleep apnea syndrome and pickwickian syndrome as well as heart failure and possible community-acquired pneumonia. The patient also has suspected diastolic heart failure pneumonia pickwickian syndrome and a previous history of lung cancer, status post right-sided lobectomy as well as with brain metastases and brain resection. Currently, the patient is on the volume assist control mode with a rate of 14, tidal volume 500, FiO2 35%, and PEEP of 8. Arterial blood gases could not be obtained. The patient's previous blood gases showed a pO2 of greater than 400 PaCO2 of 68 and a pH of 7.22. The patient is currently on Zosyn and Levaquin and microbiology is still negative. Currently the patient is a full code although there was some discussion with family members about DO NOT RESUSCITATE. Vent changes included a rate of 22, tidal volume of 350, and PEEP of 5. The patient is currently on norepinephrine at 20 mics per minute propofol at 25 mics per kilogram per minute saline IV 100 mL an hour and tube feeds with vital high protein of 45 which is goal. We did trial the patient on some PSV and CPAP. She did well but in my opinion is probably not ready for extubation. Progress note dated 02/08/2018 This is a 62-year-old female who was admitted on February 05. She came to the ICU on February 06 and was intubated on February 06. The patient's diagnoses included hypercapnic respiratory failure secondary to COPD, sleep apnea syndrome, and pickwickian syndrome, as well as possible heart failure and possible community- acquired pneumonia. The patient's doing reasonably well. Currently she remains on the ventilator on the volume assist control mode, rate is 26, tidal volume 750, FiO2 40%, PEEP of 5. Arterial blood gases show a PaO2 of 99 a PaCO2 of 65 and a pH 7.31. She remains on saline at 100 mL an hour. The norepinephrine and the propofol had been off for quite some time. She is receiving vital high protein at a goal of 45 mL an hour. White blood count is 13.3. Hemoglobin and hematocrit and platelet count are all normal. Sodium potassium chloride normal CO2 32 BUN and creatinine were 18 and 0.7. Microbiology is all negative. Labs x-rays a medications are all reviewed. She remains on Zosyn and Levaquin. We will again attempt a spontaneous breathing trial today. Objective - Vital Signs Vital signs: Vital Signs Temp 99 F 02/08/18 04:00 Pulse 84 02/08/18 06:00 Resp 25 H 02/08/18 06:00 BP 93/54 02/07/18 13:00 Pulse Ox 96 02/08/18 06:00 Intake & Output 02/07/18 02/07/18 02/08/18 06:59 18:59 06:59 Intake Total 2649.250 1742.996 795 Output Total 1140 683 580 Balance 2746.578 9961.996 215 Weight 134.4 kg 133.9 kg Intake: IV 1350.0 1225 300 Piperacillin-Tazobactam 3 50.0 125 .375 gm In Dextrose/Water 1 50ml.bag @ 12.5 mls/hr IVPB Q8HR [facility] Rx#: [id number] Sodium Chloride 0.9% 1, 1200 1000 300 000 ml @ 100 mls/hr IV . Q10H [facility] Rx#:[id number] Sodium Phosphate 10 mmol 100 100 In Sodium Chloride 0.9% 100 ml @ 50 mls/hr IVPB Q2H [facility] Rx#:[id number] Intake, IV Titration 784.250 187.996 Amount Norepinephrine 16 mg In 302.437 113.805 Dextrose 5% in Water 250 ml @ Titrate IV .Q0M [facility] Rx#:[id number] Propofol 1,000 mg In 381.813 74.191 Empty Bag 1 bag @ Titrate IV .Q0M [facility] Rx#: [id number] Sodium Chloride 0.9% 1, 100 000 ml @ 100 mls/hr IV . Q10H [facility] Rx#:[id number] Tube Feeding 455 270 405 Other 60 60 90 Output: Urine 1140 683 580 Other: Voiding Method Indwelling Catheter Indwelling Catheter Indwelling Catheter ABP, PAP, CO, CI - Last Documented Arterial Blood Pressure 116/60 - Exam No acute distress, vented, with an orally place NG tube and endotracheal tube. HEENT examination is grossly unremarkable. Mucous membranes are moist. No oral lesions. Neck supple. Full range of motion. No adenopathy thyromegaly or neck vein distention. Cardiovascular examination reveals regular rhythm rate. S1-S2 normal. No S3 or S4. No discernible murmur noted. Heart sounds are distant. Lungs reveal fairly clear breath sounds. A few scattered rhonchi. Breath sounds are equal bilaterally. Abdomen is obese and soft. Bowel sounds are noted. No tenderness. Extremities are intact. Mild edema is noted. Skin is without rash or lesion. Neurologic examination is difficult to assess. She moves all 4 extremities. - Labs CBC & Chem 7: 02/08/18 03:55 02/08/18 03:55 Labs: Abnormal Lab Results - Last 24 Hours (Table) 02/06/18 02/07/18 02/07/18 Range/Units 05:35 03:53 07:52 WBC (3.8-10.6) k/uL MCHC (31.0-37.0) g/dL Neutrophils # (1.3-7.7) k/uL Neutrophils # (Manual) 13.60 H (1.3-7.7) k/uL Lymphocytes # (1.0-4.8) k/uL Lymphocytes # (Manual) 0.82 L (1.0-4.8) k/uL Monocytes # (Manual) 1.47 H (0-1.0) k/uL Metamyelocytes # (Man) 0.16 H (0) k/uL Myelocytes # (Manual) 0.49 H (0) k/uL ABG pH 7.18 L* (7.35-7.45) ABG pCO2 (35-45) mmHg ABG pO2 (83-108) mmHg ABG HCO3 (21-25) mmol/L ABG Total CO2 (19-24) mmol/L ABG O2 Saturation (94-97) % Carbon Dioxide (22-30) mmol/L BUN (7-17) mg/dL Glucose (74-99) mg/dL POC Glucose (mg/dL) 177 H (75-99) mg/dL Calcium (8.4-10.2) mg/dL Phosphorus (2.5-4.5) mg/dL Magnesium (1.6-2.3) mg/dL 02/07/18 02/07/18 02/07/18 Range/Units 12:00 12:20 19:11 WBC (3.8-10.6) k/uL MCHC (31.0-37.0) g/dL Neutrophils # (1.3-7.7) k/uL Neutrophils # (Manual) (1.3-7.7) k/uL Lymphocytes # (1.0-4.8) k/uL Lymphocytes # (Manual) (1.0-4.8) k/uL Monocytes # (Manual) (0-1.0) k/uL Metamyelocytes # (Man) (0) k/uL Myelocytes # (Manual) (0) k/uL ABG pH 7.29 L (7.35-7.45) ABG pCO2 66 H (35-45) mmHg ABG pO2 60 L (83-108) mmHg ABG HCO3 32 H (21-25) mmol/L ABG Total CO2 34 H (19-24) mmol/L ABG O2 Saturation 91.8 L (94-97) % Carbon Dioxide (22-30) mmol/L BUN (7-17) mg/dL Glucose (74-99) mg/dL POC Glucose (mg/dL) 157 H 118 H (75-99) mg/dL Calcium (8.4-10.2) mg/dL Phosphorus (2.5-4.5) mg/dL Magnesium (1.6-2.3) mg/dL 02/08/18 02/08/18 02/08/18 Range/Units 00:47 03:55 03:55 WBC 13.3 H (3.8-10.6) k/uL MCHC 30.8 L (31.0-37.0) g/dL Neutrophils # 11.6 H (1.3-7.7) k/uL Neutrophils # (Manual) (1.3-7.7) k/uL Lymphocytes # 0.8 L (1.0-4.8) k/uL Lymphocytes # (Manual) (1.0-4.8) k/uL Monocytes # (Manual) (0-1.0) k/uL Metamyelocytes # (Man) (0) k/uL Myelocytes # (Manual) (0) k/uL ABG pH (7.35-7.45) ABG pCO2 (35-45) mmHg ABG pO2 (83-108) mmHg ABG HCO3 (21-25) mmol/L ABG Total CO2 (19-24) mmol/L ABG O2 Saturation (94-97) % Carbon Dioxide 32 H (22-30) mmol/L BUN 18 H (7-17) mg/dL Glucose 153 H (74-99) mg/dL POC Glucose (mg/dL) 131 H (75-99) mg/dL Calcium 8.1 L (8.4-10.2) mg/dL Phosphorus 2.1 L (2.5-4.5) mg/dL Magnesium 2.5 H (1.6-2.3) mg/dL 02/08/18 02/08/18 Range/Units 04:35 06:09 WBC (3.8-10.6) k/uL MCHC (31.0-37.0) g/dL Neutrophils # (1.3-7.7) k/uL Neutrophils # (Manual) (1.3-7.7) k/uL Lymphocytes # (1.0-4.8) k/uL Lymphocytes # (Manual) (1.0-4.8) k/uL Monocytes # (Manual) (0-1.0) k/uL Metamyelocytes # (Man) (0) k/uL Myelocytes # (Manual) (0) k/uL ABG pH 7.31 L (7.35-7.45) ABG pCO2 65 H (35-45) mmHg ABG pO2 (83-108) mmHg ABG HCO3 33 H (21-25) mmol/L ABG Total CO2 35 H (19-24) mmol/L ABG O2 Saturation 98.2 H (94-97) % Carbon Dioxide (22-30) mmol/L BUN (7-17) mg/dL Glucose (74-99) mg/dL POC Glucose (mg/dL) 142 H (75-99) mg/dL Calcium (8.4-10.2) mg/dL Phosphorus (2.5-4.5) mg/dL Magnesium (1.6-2.3) mg/dL Microbiology - Last 24 Hours (Table) 02/05/18 13:00 Blood Culture - Preliminary Blood No Growth after 48 hours Assessment and Plan Assessment: Assessment Acute respiratory failure, both hypoxemic and hypercapnic in nature, secondary to COPD, sleep apnea syndrome, possible pickwickian syndrome, congestive heart failure, and possible pneumonia. Suspect severe underlying COPD with chronic hypercapnic respiratory failure Diastolic heart failure Community-acquired pneumonia Possible pickwickian syndrome History of metastatic lung cancer, with previous right-sided lobectomy and brain metastases with previous brain resection. History of sleep apnea syndrome Morbid obesity. History of hypertension Plan: Plan dated 02/07/2018 Chest x-ray shows a endotracheal tube about 2 cm above the tracheal thu. There is diffuse bilateral infiltrates with a relatively normal sized heart. There may be small bilateral effusions. Vent changes ready have been made. The patient's sedation was held. She did reasonably well on a PSV and CPAP trial. She is currently getting nourishment with vital high protein. Antibiotics include both Zosyn and Levaquin. We will talk to family about CODE STATUS. We'll see if we can get another art line in. White count is 16.3, hemoglobin 12.8, platelet count 400,000, sodium potassium chloride CO2 all normal, BUN/creatinine normal at 22 and 0.8, and the rest of the labs looking pretty normal. The patient's overall prognosis is guarded. We will have a discussion with the family about CODE STATUS. Apparently she may not available wanted to be on life support. Probably not ready for weaning a ship. She did reasonably well with her weaning trial. Additional recommendations and suggestions are forthcoming. We'll continue to follow closely. Critical care time 32 minutes. Plan dated 02/08/2018 The patient will get a spontaneous breathing trial today. She's been off the pressor and the sedation since yesterday. She is receiving nutrition. Vent settings are appropriate. Blood gases are reasonable. She did reasonably well yesterday on pressure support and CPAP. We'll attempt that again today. Labs x -rays a medications are all reviewed. We'll continue to follow closely. Prognosis is very guarded. And I am was placed yesterday in the right radial artery. Critical care time 34 minutes. Time with Patient: Greater than 30
[2018-02-08] MEDS: SODIUM PHOSPHATE 10 MMOL in SODIUM CHLORIDE 0.9% 100 ML IVPB SCH ×2 (06:57→08:21)
[2018-02-08] MEDS: ENOXAPARIN 40 MG/0.4 ML SYRINGE SQ SCH (08:20)
[2018-02-08] MEDS: ASPIRIN 81 MG PO SCH (08:20)
[2018-02-08] MEDS: CHLORHEXIDINE GLUCONATE 15 ML CUP MUCOUS MEM SCH ×2 (08:20→20:03)
[2018-02-08] MEDS: PANTOPRAZOLE 40 MG TABLET PO SCH (08:21)
[2018-02-08] MEDS: PROPOFOL 1,000 MG in EMPTY BAG 1 BAG IV SCH ×2 (08:23→13:32)
--- NOTE | 2018-02-08 08:40 | XR ---
EXAMINATION TYPE: XR chest 1V portable DATE OF EXAM: 02/08/2018 COMPARISON: Prior chest x-ray 02/07/2018 HISTORY: Intubated TECHNIQUE: Single frontal view of the chest is obtained. FINDINGS: Motion is again noted. Endotracheal tube is over the tracheal air column however the margoth a is not well localized due to rotation, NG tube is overlying appropriate position. No evident pneumo thorax. Pleural parenchymal changes are similar, heart size is stable. IMPRESSION: Martha not well localized to assess for endotracheal tube positioning, follow-up. Suspec t interstitial lung disease.
[2018-02-08] MEDS: PIPERACILLIN-TAZOBACTAM 3.375 GM in DEXTROSE/WATER 1 50ML.BAG IVPB SCH ×2 (09:04→15:32)
--- NOTE | 2018-02-08 12:53 | PN ---
PROGRESS NOTE Ophelia is a 62-year-old lady who was admitted to hospital with acute respiratory failure. We were consulted initially because it was felt that she had a combination of congestive heart failure and respiratory failure. She had an echocardiogram that showed normal LV function and initially she was on Lasix that has since been stopped. She failed weaning this morning. Chest x-ray does not reveal any pulmonary congestion. PHYSICAL EXAM: Heart rate is 76 beats per minute. Blood pressure is 100/60, respiratory rate is 14. Chest exam reveals diminished air entry bilaterally. Heart exam reveals first and second heart sounds. No gallop. Abdomen is soft exam extremities reveals mild edema. LABS: Show a hemoglobin of 11.4 potassium is 4.3 creatinine is 0.7. The patient is currently on aspirin, Lovenox, Protonix, and IV antibiotics. ASSESSMENT: Respiratory failure probably related to acute infection, probably viral. This does not seem to be due to congestive heart failure. No further cardiac. No further cardiac followup at this time. Please call us back if you have any new concerns. MMODL / IJN: [id number] /
--- NOTE | 2018-02-08 13:26 | P.PN ---
Subjective Progress Note Date: 02/08/18 Ophelia Ruffin is a 62-year-old female who presented to [facility] emergency room with a chief complaint of worsening shortness of breath patient states that her symptoms started 2 days ago and has been worsening she stated that she had some fever and chills and cough and developed worsening shortness of breath otherwise she denies any other complaints there was no headache no dizziness no chest pain no nausea or vomiting no abdominal pain and no urinary symptoms patient denies having any sputum production was her cough. Patient has a history of lung cancer she underwent partial lung resection in 2000 she also underwent brain metastatic disease removal, she states that she has been stable and cancer free since 2000. On 02/06/2018 patient is seen and examined in the intensive care unit, during last night patient developed worsening shortness of breath and unresponsiveness , she was transferred to intensive care unit initially she was started on BiPAP however she required intubation and mechanical ventilation, patient was hypotensive and required pressure support. On 02/07/2018 patient is seen in the ICU remained on mechanical ventilation. Patient currently on hold and patient following commands. Patient remains on norepinephrine for blood pressure support. Per nursing staff extubation hopefully tomorrow. Pulmonary services and critical care team following. Lasix remains on hold due to hypotension. Cardiology services are following 02/08/2018 patient remains in the ICU and on mechanical ventilation. Patient failed weaning trial today. Vasopressors were discontinued yesterday. Patient had a low-grade temp of 100 yesterday evening. White count has decreased from 16.3-13.3. Urine culture negative and blood culture negative so far. Sputum culture also negative Objective - Vital Signs Vital signs: Vital Signs Temp 99 F 02/08/18 04:00 Pulse 76 02/08/18 11:20 Resp 17 02/08/18 09:00 BP 93/54 02/07/18 13:00 Pulse Ox 97 02/08/18 09:00 Intake & Output 02/07/18 02/08/18 02/08/18 18:59 06:59 18:59 Intake Total 1742.996 795 440 Output Total 683 580 155 Balance 1059.996 215 285 Weight 133.9 kg 133.9 kg Intake: IV 1225 300 270 Piperacillin-Tazobactam 3 125 .375 gm In Dextrose/Water 1 50ml.bag @ 12.5 mls/hr IVPB Q8HR [facility] Rx#: [id number] Sodium Chloride 0.9% 1, 1000 300 120 000 ml @ 100 mls/hr IV . Q10H [facility] Rx#:[id number] Sodium Phosphate 10 mmol 100 150 In Sodium Chloride 0.9% 100 ml @ 50 mls/hr IVPB Q2H [facility] Rx#:[id number] Intake, IV Titration 187.996 50 Amount Norepinephrine 16 mg In 113.805 Dextrose 5% in Water 250 ml @ Titrate IV .Q0M [facility] Rx#:[id number] Piperacillin-Tazobactam 3 50 .375 gm In Dextrose/Water 1 50ml.bag @ 12.5 mls/hr IVPB Q8HR [facility] Rx#: [id number] Propofol 1,000 mg In 74.191 0 Empty Bag 1 bag @ Titrate IV .Q0M [facility] Rx#: [id number] Tube Feeding 270 405 90 Other 60 90 30 Output: Urine 683 580 155 Other: Voiding Method Indwelling Catheter Indwelling Catheter Indwelling Catheter ABP, PAP, CO, CI - Last Documented Arterial Blood Pressure 99/50 - Exam Head normocephalic Neck supple Lungs no wheezing or crackles noted Heart regular rate and rhythm S1-S2, no rub or gallop Abdomen is soft nontender nondistended positive bowel sounds no hepatosplenomegaly Extremities no edema Neuro patient is on the vent and sedated - Labs CBC & Chem 7: 02/08/18 03:55 02/08/18 03:55 Labs: Abnormal Lab Results - Last 24 Hours (Table) 02/07/18 02/08/18 02/08/18 Range/Units 19:11 00:47 03:55 WBC (3.8-10.6) k/uL MCHC (31.0-37.0) g/dL Neutrophils # (1.3-7.7) k/uL Lymphocytes # (1.0-4.8) k/uL ABG pH (7.35-7.45) ABG pCO2 (35-45) mmHg ABG HCO3 (21-25) mmol/L ABG Total CO2 (19-24) mmol/L ABG O2 Saturation (94-97) % Carbon Dioxide 32 H (22-30) mmol/L BUN 18 H (7-17) mg/dL Glucose 153 H (74-99) mg/dL POC Glucose (mg/dL) 118 H 131 H (75-99) mg/dL Calcium 8.1 L (8.4-10.2) mg/dL Phosphorus 2.1 L (2.5-4.5) mg/dL Magnesium 2.5 H (1.6-2.3) mg/dL 02/08/18 02/08/18 02/08/18 Range/Units 03:55 04:35 06:09 WBC 13.3 H (3.8-10.6) k/uL MCHC 30.8 L (31.0-37.0) g/dL Neutrophils # 11.6 H (1.3-7.7) k/uL Lymphocytes # 0.8 L (1.0-4.8) k/uL ABG pH 7.31 L (7.35-7.45) ABG pCO2 65 H (35-45) mmHg ABG HCO3 33 H (21-25) mmol/L ABG Total CO2 35 H (19-24) mmol/L ABG O2 Saturation 98.2 H (94-97) % Carbon Dioxide (22-30) mmol/L BUN (7-17) mg/dL Glucose (74-99) mg/dL POC Glucose (mg/dL) 142 H (75-99) mg/dL Calcium (8.4-10.2) mg/dL Phosphorus (2.5-4.5) mg/dL Magnesium (1.6-2.3) mg/dL Microbiology - Last 24 Hours (Table) 02/06/18 06:30 Gram Stain - Final Sputum Sputum Culture - Final 02/05/18 13:00 Blood Culture - Preliminary Blood No Growth after 48 hours Assessment and Plan Assessment: #1 acute hypoxic and hypercapnic respiratory failure secondary to chronic obstructive pulmonary disease, obstructive sleep apnea syndrome and obesity hypoventilation syndrome, congestive heart failure and possible underlining community-acquired pneumonia. patient currently on mechanical ventilation. Failed weaning trial this morning. Continue IV antibiotics Zosyn and Levaquin. 30 C trending down to 13.3. Blood Culture and sputum culture negative so far. Urine culture negative #2 evidence of acute diastolic congestive heart failure exacerbation with shortness of breath, chest x-ray evidence of pulmonary congestion, and elevated BNP at 14,100, at this time patient is receiving IV Lasix will monitor closely. 2-D echo completed EF between 50-60%. Patient is currently off of Lasix. Cardiology has signed off. #3 previous history of lung cancer status post partial lung resection and resection of metastatic brain disease in 2000. #4 underlying history of COPD patient is a former smoker #5 underlying history of obstructive sleep apnea #6 elevated troponin level at 0.18H and denies chest pain. Per cardiology abnormal cardiac enzymes is not consistent with acute coronary syndrome and likely related to hypotension. #7 community-acquired pneumonia continue Zosyn and Levaquin DVT prophylaxis Lovenox and GI prophylaxis Protonix I performed an examination of the patient and discussed their management with the physician Food Supervisor. I have reviewed the Physician Food Supervisor's notes and agree with the documented findings and plan of care
[2018-02-08] MEDS: LEVOFLOXACIN 500MG-D5W PMX 500 MG in DEXTROSE/WATER 1 100ML.BAG IVPB SCH (13:32)
[2018-02-08 18:30] LABS: Glucose,Whole Blood 129 mg/dL (75-99)
[2018-02-08 20:10] LABS: Glucose,Whole Blood 97 mg/dL (75-99)
[2018-02-09] MEDS: NOREPINEPHRINE 16 MG in DEXTROSE 5% IN WATER 250 ML IV SCH ×2 (00:12)
[2018-02-09] MEDS: PROPOFOL 1,000 MG in EMPTY BAG 1 BAG IV SCH ×2 (00:13→05:29)
[2018-02-09] MEDS: SODIUM CHLORIDE 0.9% 1,000 ML IV SCH ×3 (00:14→19:59)
[2018-02-09] MEDS: PIPERACILLIN-TAZOBACTAM 3.375 GM in DEXTROSE/WATER 1 50ML.BAG IVPB SCH ×3 (00:15→16:24)
[2018-02-09] MEDS: INSULIN ASPART 100 UNIT/ML 1 ML 10 ML VIAL SQ SCH ×4 (00:18→19:11)
[2018-02-09 00:24] LABS: Glucose,Whole Blood 96 mg/dL (75-99)
[2018-02-09] MEDS: IPRATROPIUM-ALBUTEROL 3 ML NEB INHALATION SCH ×5 (03:30→20:17)
[2018-02-09 04:56] LABS: Basophils # (A) 0.1 k/uL (0-0.2); Basophils % (A) 0 %; Eosinophils # (A) 0.3 k/uL (0-0.7); Eosinophils % (A) 2 %; HCT 36.7 % (34.0-46.0); HGB 11.2 gm/dL (11.4-16.0); Hypochromasia Marked; Lymphocytes % (A) 7 %; MCH 28.6 pg (25.0-35.0); MCHC 30.4 g/dL (31.0-37.0); MCV 94.1 fL (80.0-100.0); Mean Platelet Volume 7.2; Monocytes # (A) 0.5 k/uL (0-1.0); Monocytes % (A) 4 %; Neutrophils # (A) 12.2 k/uL (1.3-7.7); Neutrophils % (A) 86 %; Platelet Count 307 k/uL (150-450); WBC 14.3 k/uL (3.8-10.6)
[2018-02-09 05:03] LABS: Anion Gap 5 mmol/L; Blood Urea Nitrogen 22 mg/dL (7-17); Calcium 8.2 mg/dL (8.4-10.2); Carbon Dioxide 36 mmol/L (22-30); Chloride 101 mmol/L (98-107); Glucose 165 mg/dL (74-99); Phosphorus 2.9 mg/dL (2.5-4.5); Sodium 142 mmol/L (137-145)
[2018-02-09 06:15] LABS: ABG Base Excess 11.1 mmol/L; ABG HCO3 36 mmol/L (21-25); ABG PCO2 62 mmHg (35-45); ABG PH 7.38 (7.35-7.45); ABG PO2 82 mmHg (83-108); ABG TCO2 38 mmol/L (19-24)
[2018-02-09] MEDS: PANTOPRAZOLE 40 MG TABLET PO SCH (06:39)
--- NOTE | 2018-02-09 07:15 | XR ---
EXAMINATION TYPE: XR chest 1V portable DATE OF EXAM: 02/09/2018 COMPARISON: Prior portable x-ray dated 02/08/2018 at 6:29 AM HISTORY: Tube placement TECHNIQUE: Single frontal view of the chest is obtained. FINDINGS: Stable position of the endotracheal tube and nasogastric tube. No pneumothorax. Increased d ensity of the left lung base consistent with infiltrate and/or atelectatic change. Suspected small le ft-sided pleural effusion. IMPRESSION: Stable findings as compared with the prior portable x-ray.
[2018-02-09] MEDS: CHLORHEXIDINE GLUCONATE 15 ML CUP MUCOUS MEM SCH (07:35)
[2018-02-09] MEDS: ASPIRIN 81 MG PO SCH (07:35)
[2018-02-09] MEDS: ENOXAPARIN 40 MG/0.4 ML SYRINGE SQ SCH (07:35)
[2018-02-09] MEDS ORDERED: DEXAMETHASONE SOD PHOSPHATE 10 MG/ML 1 ML VIAL IV STA (08:22)
[2018-02-09] MEDS ORDERED: FUROSEMIDE 10 MG/ML 4 ML VIAL IV STA (08:31)
--- NOTE | 2018-02-09 08:53 | P.PN ---
Subjective Progress Note Date: 02/09/18 Principal diagnosis: Heart failure, respiratory failure, pneumonia Progress note dated 02/07/2018 This is a 62-year-old female who was admitted on February 05. The patient came to the ICU on February 06 and was intubated on February 06. The patient's diagnoses including acute hypercapnic respiratory failure secondary to COPD sleep apnea syndrome and pickwickian syndrome as well as heart failure and possible community-acquired pneumonia. The patient also has suspected diastolic heart failure pneumonia pickwickian syndrome and a previous history of lung cancer, status post right-sided lobectomy as well as with brain metastases and brain resection. Currently, the patient is on the volume assist control mode with a rate of 14, tidal volume 500, FiO2 35%, and PEEP of 8. Arterial blood gases could not be obtained. The patient's previous blood gases showed a pO2 of greater than 400 PaCO2 of 68 and a pH of 7.22. The patient is currently on Zosyn and Levaquin and microbiology is still negative. Currently the patient is a full code although there was some discussion with family members about DO NOT RESUSCITATE. Vent changes included a rate of 22, tidal volume of 350, and PEEP of 5. The patient is currently on norepinephrine at 20 mics per minute propofol at 25 mics per kilogram per minute saline IV 100 mL an hour and tube feeds with vital high protein of 45 which is goal. We did trial the patient on some PSV and CPAP. She did well but in my opinion is probably not ready for extubation. Progress note dated 02/08/2018 This is a 62-year-old female who was admitted on February 05. She came to the ICU on February 06 and was intubated on February 06. The patient's diagnoses included hypercapnic respiratory failure secondary to COPD, sleep apnea syndrome, and pickwickian syndrome, as well as possible heart failure and possible community- acquired pneumonia. The patient's doing reasonably well. Currently she remains on the ventilator on the volume assist control mode, rate is 26, tidal volume 750, FiO2 40%, PEEP of 5. Arterial blood gases show a PaO2 of 99 a PaCO2 of 65 and a pH 7.31. She remains on saline at 100 mL an hour. The norepinephrine and the propofol had been off for quite some time. She is receiving vital high protein at a goal of 45 mL an hour. White blood count is 13.3. Hemoglobin and hematocrit and platelet count are all normal. Sodium potassium chloride normal CO2 32 BUN and creatinine were 18 and 0.7. Microbiology is all negative. Labs x-rays a medications are all reviewed. She remains on Zosyn and Levaquin. We will again attempt a spontaneous breathing trial today. Progress note dated 02/09/2018 62-year-old female was admitted on February 05. She came to the ICU on February 06 and was intubated on February 06. She's had a couple days of daily eruption of sedation with. Previously, she did not do as well. Today she looks pretty good and her numbers look good and should a positive cuff leak. For that reason we chose to extubate the patient. She previously was on the volume assist control mode rate 26, tidal volume 350, FiO2 40% and PEEP of 5. Arterial blood gases show a PaO2 of 82 PaCO2 of 60 to pH 7.38. She's on a saline IV at 50 propofol and norepinephrine are on hold. She's getting vital AF 45 which is goal. The patient seemed to be very stable post extubation. She is on nasal prongs. She will be nothing by mouth for 6 hours. After 6 hours, we will start sips of water and chips of ice. We'll change the updrafts 4 times a day and when necessary. We'll DC the chlorhexidine. We will DC the sedatives. The patient' s chest x-ray shows evidence of fluid overload and she'll get Lasix 40 mg IV push. Microbiology has been negative. Chest x-ray shows stable findings. Lab data includes a white count of 14.3 hemoglobin 11.2 hematocrit 36.7 and a platelet count which is normal. Sodium 142 potassium 4 chloride is 101 CO2 is 36 BUN and creatinine were 22 and 0.7. Objective - Vital Signs Vital signs: Vital Signs Temp 97.9 F 02/09/18 08:00 Pulse 75 02/09/18 08:00 Resp 31 H 02/09/18 08:00 BP 107/56 02/09/18 08:00 Pulse Ox 99 02/09/18 08:00 Intake & Output 02/08/18 02/09/18 02/09/18 18:59 06:59 18:59 Intake Total 2869.657 1319.083 365.115 Output Total 1605 595 70 Balance 57.709 1077.083 295.115 Weight 133.9 kg 135.5 kg 135.5 kg Intake: IV 1000 722.5 160 Levofloxacin 500Mg-D5w 100 Pmx 500 mg In Dextrose/ Water 1 100ml.bag @ 100 mls/hr IVPB Q24H [facility] Rx#: [id number] Piperacillin-Tazobactam 3 50 62.5 50 .375 gm In Dextrose/Water 1 50ml.bag @ 12.5 mls/hr IVPB Q8HR [facility] Rx#: [id number] Sodium Chloride 0.9% 1, 700 660 110 000 ml @ 100 mls/hr IV . Q10H [facility] Rx#:[id number] Sodium Phosphate 10 mmol 150 In Sodium Chloride 0.9% 100 ml @ 50 mls/hr IVPB Q2H [facility] Rx#:[id number] Intake, IV Titration 132.709 184.583 70.115 Amount Norepinephrine 16 mg In 0 37.192 Dextrose 5% in Water 250 ml @ Titrate IV .Q0M [facility] Rx#:[id number] Piperacillin-Tazobactam 3 50 .375 gm In Dextrose/Water 1 50ml.bag @ 12.5 mls/hr IVPB Q8HR [facility] Rx#: [id number] Propofol 1,000 mg In 82.709 184.583 32.923 Empty Bag 1 bag @ Titrate IV .Q0M [facility] Rx#: [id number] Oral 50 Tube Feeding 450 675 135 Other 30 90 Output: Urine 1605 595 70 Other: Voiding Method Indwelling Catheter Indwelling Catheter Indwelling Catheter ABP, PAP, CO, CI - Last Documented Arterial Blood Pressure 116/54 - Exam No acute distress, vented, with an orally place NG tube and endotracheal tube. HEENT examination is grossly unremarkable. Mucous membranes are moist. No oral lesions. Neck supple. Full range of motion. No adenopathy thyromegaly or neck vein distention. Cardiovascular examination reveals regular rhythm rate. S1-S2 normal. No S3 or S4. No discernible murmur noted. Heart sounds are distant. Lungs reveal fairly clear breath sounds. A few scattered rhonchi. Breath sounds are equal bilaterally. Abdomen is obese and soft. Bowel sounds are noted. No tenderness. Extremities are intact. Mild edema is noted. Skin is without rash or lesion. Neurologic examination is difficult to assess. She moves all 4 extremities. - Labs CBC & Chem 7: 02/09/18 04:40 02/09/18 04:40 Labs: Abnormal Lab Results - Last 24 Hours (Table) 02/08/18 02/09/18 02/09/18 Range/Units 18:04 04:40 04:40 WBC 14.3 H (3.8-10.6) k/uL Hgb 11.2 L (11.4-16.0) gm/dL MCHC 30.4 L (31.0-37.0) g/dL Neutrophils # 12.2 H (1.3-7.7) k/uL ABG pCO2 (35-45) mmHg ABG pO2 (83-108) mmHg ABG HCO3 (21-25) mmol/L ABG Total CO2 (19-24) mmol/L Carbon Dioxide 36 H (22-30) mmol/L BUN 22 H (7-17) mg/dL Glucose 165 H (74-99) mg/dL POC Glucose (mg/dL) 129 H (75-99) mg/dL Calcium 8.2 L (8.4-10.2) mg/dL 02/09/18 Range/Units 06:10 WBC (3.8-10.6) k/uL Hgb (11.4-16.0) gm/dL MCHC (31.0-37.0) g/dL Neutrophils # (1.3-7.7) k/uL ABG pCO2 62 H (35-45) mmHg ABG pO2 82 L (83-108) mmHg ABG HCO3 36 H (21-25) mmol/L ABG Total CO2 38 H (19-24) mmol/L Carbon Dioxide (22-30) mmol/L BUN (7-17) mg/dL Glucose (74-99) mg/dL POC Glucose (mg/dL) (75-99) mg/dL Calcium (8.4-10.2) mg/dL Microbiology - Last 24 Hours (Table) 02/05/18 13:00 Blood Culture - Preliminary Blood No Growth after 72 hours 02/06/18 06:30 Gram Stain - Final Sputum Sputum Culture - Final Assessment and Plan Assessment: Assessment Acute respiratory failure, both hypoxemic and hypercapnic in nature, secondary to COPD, sleep apnea syndrome, possible pickwickian syndrome, congestive heart failure, and possible pneumonia. Status post extubation on 02/09/2018 Suspect severe underlying COPD with chronic hypercapnic respiratory failure Diastolic heart failure Community-acquired pneumonia Possible pickwickian syndrome History of metastatic lung cancer, with previous right-sided lobectomy and brain metastases with previous brain resection. History of sleep apnea syndrome Morbid obesity. History of hypertension Plan: Plan dated 02/07/2018 Chest x-ray shows a endotracheal tube about 2 cm above the tracheal thu. There is diffuse bilateral infiltrates with a relatively normal sized heart. There may be small bilateral effusions. Vent changes ready have been made. The patient's sedation was held. She did reasonably well on a PSV and CPAP trial. She is currently getting nourishment with vital high protein. Antibiotics include both Zosyn and Levaquin. We will talk to family about CODE STATUS. We'll see if we can get another art line in. White count is 16.3, hemoglobin 12.8, platelet count 400,000, sodium potassium chloride CO2 all normal, BUN/creatinine normal at 22 and 0.8, and the rest of the labs looking pretty normal. The patient's overall prognosis is guarded. We will have a discussion with the family about CODE STATUS. Apparently she may not available wanted to be on life support. Probably not ready for weaning a ship. She did reasonably well with her weaning trial. Additional recommendations and suggestions are forthcoming. We'll continue to follow closely. Critical care time 32 minutes. Plan dated 02/08/2018 The patient will get a spontaneous breathing trial today. She's been off the pressor and the sedation since yesterday. She is receiving nutrition. Vent settings are appropriate. Blood gases are reasonable. She did reasonably well yesterday on pressure support and CPAP. We'll attempt that again today. Labs x -rays a medications are all reviewed. We'll continue to follow closely. Prognosis is very guarded. And I am was placed yesterday in the right radial artery. Critical care time 34 minutes. Plan dated 02/09/2018 The patient did well on spontaneous breathing trial today. Weaning parameters are reasonable and she did have a cuff leak. Attention was extubated. Postextubation, she looks good. Head of bed will be elevated. Nothing to eat or drink for 6 hours. After 6 hours sips of water chips of ice. The patient some chest x-ray shows diffuse bilateral infiltrates. She will get Lasix 40 mg IV push times one. The patient's labs x-rays a medications are all reviewed. Microbiology is negative. Hopefully she'll do well. A.m. labs and x-rays. Critical care time 37 minutes. Time with Patient: Greater than 30
[2018-02-09 12:01] LABS: Glucose,Whole Blood 125 mg/dL (75-99)
[2018-02-09] MEDS: LEVOFLOXACIN 500MG-D5W PMX 500 MG in DEXTROSE/WATER 1 100ML.BAG IVPB SCH (12:24)
--- NOTE | 2018-02-09 13:44 | P.PN ---
Subjective Progress Note Date: 02/09/18 Ophelia Ruffin is a 62-year-old female who presented to [facility] emergency room with a chief complaint of worsening shortness of breath patient states that her symptoms started 2 days ago and has been worsening she stated that she had some fever and chills and cough and developed worsening shortness of breath otherwise she denies any other complaints there was no headache no dizziness no chest pain no nausea or vomiting no abdominal pain and no urinary symptoms patient denies having any sputum production was her cough. Patient has a history of lung cancer she underwent partial lung resection in 2000 she also underwent brain metastatic disease removal, she states that she has been stable and cancer free since 2000. On 02/06/2018 patient is seen and examined in the intensive care unit, during last night patient developed worsening shortness of breath and unresponsiveness , she was transferred to intensive care unit initially she was started on BiPAP however she required intubation and mechanical ventilation, patient was hypotensive and required pressure support. On 02/07/2018 patient is seen in the ICU remained on mechanical ventilation. Patient currently on hold and patient following commands. Patient remains on norepinephrine for blood pressure support. Per nursing staff extubation hopefully tomorrow. Pulmonary services and critical care team following. Lasix remains on hold due to hypotension. Cardiology services are following 02/08/2018 patient remains in the ICU and on mechanical ventilation. Patient failed weaning trial today. Vasopressors were discontinued yesterday. Patient had a low-grade temp of 100 yesterday evening. White count has decreased from 16.3-13.3. Urine culture negative and blood culture negative so far. Sputum culture also negative 02/09/2018 patient remains in ICU but has been extubated. Currently on 4 L NC. Per nursing staff patient did have some expiratory stridor upon extubation and was given Decadron and IV Lasix per critical care team. Patient's WBC today 14.3. Urine, blood and sputum are negative so far. Patient has remained afebrile. Objective - Vital Signs Vital signs: Vital Signs Temp 98.3 F 02/09/18 12:00 Pulse 85 02/09/18 12:00 Resp 26 H 02/09/18 12:00 BP 107/56 02/09/18 08:00 Pulse Ox 97 02/09/18 12:00 Intake & Output 02/08/18 02/09/1818 18:59 06:59 18:59 Intake Total 5610.576 7579.083 565.115 Output Total 5688 309 6588 Balance 57.709 1077.083 -1404.885 Weight 133.9 kg 135.5 kg 135.5 kg Intake: IV 1000 722.5 360 Levofloxacin 500Mg-D5w 100 Pmx 500 mg In Dextrose/ Water 1 100ml.bag @ 100 mls/hr IVPB Q24H [facility] Rx#: [id number] Piperacillin-Tazobactam 3 50 62.5 50 .375 gm In Dextrose/Water 1 50ml.bag @ 12.5 mls/hr IVPB Q8HR [facility] Rx#: [id number] Sodium Chloride 0.9% 1, 700 660 310 000 ml @ 50 mls/hr IV . Q20H [facility] Rx#:[id number] Sodium Phosphate 10 mmol 150 In Sodium Chloride 0.9% 100 ml @ 50 mls/hr IVPB Q2H [facility] Rx#:[id number] Intake, IV Titration 132.709 184.583 70.115 Amount Norepinephrine 16 mg In 0 37.192 Dextrose 5% in Water 250 ml @ Titrate IV .Q0M [facility] Rx#:[id number] Piperacillin-Tazobactam 3 50 .375 gm In Dextrose/Water 1 50ml.bag @ 12.5 mls/hr IVPB Q8HR [facility] Rx#: [id number] Propofol 1,000 mg In 82.709 184.583 32.923 Empty Bag 1 bag @ Titrate IV .Q0M [facility] Rx#: [id number] Oral 50 Tube Feeding 450 675 135 Other 30 90 Output: Urine 6731 844 0893 Other: Voiding Method Indwelling Catheter Indwelling Catheter Indwelling Catheter ABP, PAP, CO, CI - Last Documented Arterial Blood Pressure 133/66 - Exam Head normocephalic Neck supple Lungs expiratory wheezes Heart regular rate and rhythm S1-S2, no rub or gallop Abdomen is soft nontender nondistended positive bowel sounds no hepatosplenomegaly Extremities no edema Neuro alert and orientated to 3 - Labs CBC & Chem 7: 02/09/18 04:40 02/09/18 04:40 Labs: Abnormal Lab Results - Last 24 Hours (Table) 02/08/18 02/09/18 02/09/18 Range/Units 18:04 04:40 04:40 WBC 14.3 H (3.8-10.6) k/uL Hgb 11.2 L (11.4-16.0) gm/dL MCHC 30.4 L (31.0-37.0) g/dL Neutrophils # 12.2 H (1.3-7.7) k/uL ABG pCO2 (35-45) mmHg ABG pO2 (83-108) mmHg ABG HCO3 (21-25) mmol/L ABG Total CO2 (19-24) mmol/L Carbon Dioxide 36 H (22-30) mmol/L BUN 22 H (7-17) mg/dL Glucose 165 H (74-99) mg/dL POC Glucose (mg/dL) 129 H (75-99) mg/dL Calcium 8.2 L (8.4-10.2) mg/dL 02/09/18 02/09/18 Range/Units 06:10 11:54 WBC (3.8-10.6) k/uL Hgb (11.4-16.0) gm/dL MCHC (31.0-37.0) g/dL Neutrophils # (1.3-7.7) k/uL ABG pCO2 62 H (35-45) mmHg ABG pO2 82 L (83-108) mmHg ABG HCO3 36 H (21-25) mmol/L ABG Total CO2 38 H (19-24) mmol/L Carbon Dioxide (22-30) mmol/L BUN (7-17) mg/dL Glucose (74-99) mg/dL POC Glucose (mg/dL) 125 H (75-99) mg/dL Calcium (8.4-10.2) mg/dL Microbiology - Last 24 Hours (Table) 02/05/18 13:00 Blood Culture - Preliminary Blood No Growth after 72 hours Assessment and Plan Assessment: #1 acute hypoxic and hypercapnic respiratory failure secondary to chronic obstructive pulmonary disease, obstructive sleep apnea syndrome and obesity hypoventilation syndrome, congestive heart failure and possible underlining community-acquired pneumonia. patient currently on mechanical ventilation. Failed weaning trial this morning. Continue IV antibiotics Zosyn and Levaquin. 30 C trending down to 13.3. Blood Culture and sputum culture negative so far. Urine culture negative. Patient has been extubated today to 4 L. Patient was given 40 mg Lasix per pulmonary team. Bloody urine and sputum cultures remain negative #2 evidence of acute diastolic congestive heart failure exacerbation with shortness of breath, chest x-ray evidence of pulmonary congestion, and elevated BNP at 14,100, at this time patient is receiving IV Lasix will monitor closely. 2-D echo completed EF between 50-60%. Patient is currently off of Lasix. Cardiology has signed off. #3 previous history of lung cancer status post partial lung resection and resection of metastatic brain disease in 2000. #4 underlying history of COPD patient is a former smoker #5 underlying history of obstructive sleep apnea #6 elevated troponin level at 0.18H and denies chest pain. Per cardiology abnormal cardiac enzymes is not consistent with acute coronary syndrome and likely related to hypotension. #7 community-acquired pneumonia continue Zosyn and Levaquin DVT prophylaxis Lovenox and GI prophylaxis Protonix I performed an examination of the patient and discussed their management with the Nurse Practitioner. I have reviewed the Nurse Practitioner's notes and agree with the documented findings and plan of care
[2018-02-10] MEDS: INSULIN ASPART 100 UNIT/ML 1 ML 10 ML VIAL SQ SCH ×5 (00:15→21:06)
[2018-02-10] MEDS: PIPERACILLIN-TAZOBACTAM 3.375 GM in DEXTROSE/WATER 1 50ML.BAG IVPB SCH ×4 (00:15→23:06)
[2018-02-10 00:16] LABS: Glucose,Whole Blood 130 mg/dL (75-99)
[2018-02-10 04:27] LABS: Basophils % (A) 0 %; Eosinophils # (A) 0.1 k/uL (0-0.7); Eosinophils % (A) 1 %; HCT 34.7 % (34.0-46.0); HGB 10.9 gm/dL (11.4-16.0); Hypochromasia Moderate; Lymphocytes # (A) 0.7 k/uL (1.0-4.8); Lymphocytes % (A) 8 %; MCH 29.2 pg (25.0-35.0); MCHC 31.3 g/dL (31.0-37.0); MCV 93.2 fL (80.0-100.0); Monocytes # (A) 0.6 k/uL (0-1.0); Monocytes % (A) 7 %; Neutrophils # (A) 7.9 k/uL (1.3-7.7); Neutrophils % (A) 84 %; Platelet Count 287 k/uL (150-450); RBC 3.73 m/uL (3.80-5.40); WBC 9.4 k/uL (3.8-10.6)
[2018-02-10 04:34] LABS: Blood Urea Nitrogen 25 mg/dL (7-17); Calcium 8.2 mg/dL (8.4-10.2); Chloride 99 mmol/L (98-107); Glucose 105 mg/dL (74-99); Phosphorus 3.2 mg/dL (2.5-4.5); Potassium 4.3 mmol/L (3.5-5.1); Sodium 143 mmol/L (137-145)
[2018-02-10 04:40] LABS: Anion Gap 5 mmol/L
[2018-02-10 04:42] LABS: Carbon Dioxide 39 mmol/L (22-30)
[2018-02-10 07:08] LABS: Glucose,Whole Blood 86 mg/dL (75-99)
[2018-02-10] MEDS: IPRATROPIUM-ALBUTEROL 3 ML NEB INHALATION SCH ×4 (07:50→18:53)
[2018-02-10] MEDS: ASPIRIN 81 MG PO SCH (08:10)
[2018-02-10] MEDS: PANTOPRAZOLE 40 MG TABLET PO SCH (08:10)
[2018-02-10] MEDS: ENOXAPARIN 40 MG/0.4 ML SYRINGE SQ SCH (08:10)
--- NOTE | 2018-02-10 08:46 | P.PN ---
Subjective Progress Note Date: 02/10/18 Principal diagnosis: Heart failure, respiratory failure, pneumonia Progress note dated 02/07/2018 This is a 62-year-old female who was admitted on February 05. The patient came to the ICU on February 06 and was intubated on February 06. The patient's diagnoses including acute hypercapnic respiratory failure secondary to COPD sleep apnea syndrome and pickwickian syndrome as well as heart failure and possible community-acquired pneumonia. The patient also has suspected diastolic heart failure pneumonia pickwickian syndrome and a previous history of lung cancer, status post right-sided lobectomy as well as with brain metastases and brain resection. Currently, the patient is on the volume assist control mode with a rate of 14, tidal volume 500, FiO2 35%, and PEEP of 8. Arterial blood gases could not be obtained. The patient's previous blood gases showed a pO2 of greater than 400 PaCO2 of 68 and a pH of 7.22. The patient is currently on Zosyn and Levaquin and microbiology is still negative. Currently the patient is a full code although there was some discussion with family members about DO NOT RESUSCITATE. Vent changes included a rate of 22, tidal volume of 350, and PEEP of 5. The patient is currently on norepinephrine at 20 mics per minute propofol at 25 mics per kilogram per minute saline IV 100 mL an hour and tube feeds with vital high protein of 45 which is goal. We did trial the patient on some PSV and CPAP. She did well but in my opinion is probably not ready for extubation. Progress note dated 02/08/2018 This is a 62-year-old female who was admitted on February 05. She came to the ICU on February 06 and was intubated on February 06. The patient's diagnoses included hypercapnic respiratory failure secondary to COPD, sleep apnea syndrome, and pickwickian syndrome, as well as possible heart failure and possible community- acquired pneumonia. The patient's doing reasonably well. Currently she remains on the ventilator on the volume assist control mode, rate is 26, tidal volume 750, FiO2 40%, PEEP of 5. Arterial blood gases show a PaO2 of 99 a PaCO2 of 65 and a pH 7.31. She remains on saline at 100 mL an hour. The norepinephrine and the propofol had been off for quite some time. She is receiving vital high protein at a goal of 45 mL an hour. White blood count is 13.3. Hemoglobin and hematocrit and platelet count are all normal. Sodium potassium chloride normal CO2 32 BUN and creatinine were 18 and 0.7. Microbiology is all negative. Labs x-rays a medications are all reviewed. She remains on Zosyn and Levaquin. We will again attempt a spontaneous breathing trial today. Progress note dated 02/09/2018 62-year-old female was admitted on February 05. She came to the ICU on February 06 and was intubated on February 06. She's had a couple days of daily eruption of sedation with. Previously, she did not do as well. Today she looks pretty good and her numbers look good and should a positive cuff leak. For that reason we chose to extubate the patient. She previously was on the volume assist control mode rate 26, tidal volume 350, FiO2 40% and PEEP of 5. Arterial blood gases show a PaO2 of 82 PaCO2 of 60 to pH 7.38. She's on a saline IV at 50 propofol and norepinephrine are on hold. She's getting vital AF 45 which is goal. The patient seemed to be very stable post extubation. She is on nasal prongs. She will be nothing by mouth for 6 hours. After 6 hours, we will start sips of water and chips of ice. We'll change the updrafts 4 times a day and when necessary. We'll DC the chlorhexidine. We will DC the sedatives. The patient' s chest x-ray shows evidence of fluid overload and she'll get Lasix 40 mg IV push. Microbiology has been negative. Chest x-ray shows stable findings. Lab data includes a white count of 14.3 hemoglobin 11.2 hematocrit 36.7 and a platelet count which is normal. Sodium 142 potassium 4 chloride is 101 CO2 is 36 BUN and creatinine were 22 and 0.7. Progress note dated 02/10/2018 62-year-old female admitted back on February 05. She came to the ICU on February 06 was intubated on February 06 because of respiratory failure. She was extubated on yesterday. She's been doing relatively well since. She remains on O2 at 4 L by nasal cannula and a saline IV at 50 mL an hour. The patient feels better. Feeling much improved. The patient still is a long way to go. Very weak from her stay here in the ICU. She denies any chest pain or chest discomfort. No shortness of breath or difficulty breathing. No coughing wheezing. No nausea vomiting or diarrhea noted. Microbiology is completely negative. Lab data includes a white count of 9.4, hemoglobin 10.9 hematocrit 24.7 and platelet count 287,000. Sodium potassium and chlorides are normal. CO2 39 BUN and creatinine were 25 and 0.5 respectively. Chest x-ray continues to show diffuse bilateral infiltrates. I believe her chest x-ray has improved. Objective - Vital Signs Vital signs: Vital Signs Temp 98.1 F 02/10/18 08:00 Pulse 89 02/10/18 08:02 Resp 26 H 02/10/18 08:00 BP 107/56 02/09/18 08:00 Pulse Ox 99 02/10/18 08:00 Intake & Output 02/09/18 02/10/18 02/10/18 18:59 06:59 18:59 Intake Total 1515.115 700 100 Output Total 2580 520 65 Balance -1064.885 180 35 Weight 135.5 kg 135.1 kg Intake: IV 710 700 100 Piperacillin-Tazobactam 3 100 100 .375 gm In Dextrose/Water 1 50ml.bag @ 12.5 mls/hr IVPB Q8HR [facility] Rx#: [id number] Sodium Chloride 0.9% 1, 610 600 100 000 ml @ 50 mls/hr IV . Q20H [facility] Rx#:[id number] Intake, IV Titration 170.115 Amount Levofloxacin 500Mg-D5w 100 Pmx 500 mg In Dextrose/ Water 1 100ml.bag @ 100 mls/hr IVPB Q24H [facility] Rx#: [id number] Norepinephrine 16 mg In 37.192 Dextrose 5% in Water 250 ml @ Titrate IV .Q0M [facility] Rx#:[id number] Propofol 1,000 mg In 32.923 Empty Bag 1 bag @ Titrate IV .Q0M [facility] Rx#: [id number] Oral 500 Tube Feeding 135 Output: Urine 2580 520 65 Other: Voiding Method Indwelling Catheter Indwelling Catheter ABP, PAP, CO, CI - Last Documented Arterial Blood Pressure 122/67 - Exam No acute distress, on nasal O2, and no acute distress, oriented 3. HEENT examination is grossly unremarkable. Mucous membranes are moist. No oral lesions. Neck supple. Full range of motion. No adenopathy thyromegaly or neck vein distention. Cardiovascular examination reveals regular rhythm rate. S1-S2 normal. No S3 or S4. No discernible murmur noted. Heart sounds are distant. Lungs reveal fairly clear breath sounds. A few scattered rhonchi. Breath sounds are equal bilaterally. Abdomen is obese and soft. Bowel sounds are noted. No tenderness. Extremities are intact. Mild edema is noted. Skin is without rash or lesion. Neurologic examination is completely normal. - Labs CBC & Chem 7: 02/10/18 04:15 02/10/18 04:15 Labs: Abnormal Lab Results - Last 24 Hours (Table) 02/09/18 02/10/18 02/10/18 Range/Units 11:54 00:07 04:15 RBC (3.80-5.40) m/uL Hgb (11.4-16.0) gm/dL Neutrophils # (1.3-7.7) k/uL Lymphocytes # (1.0-4.8) k/uL Carbon Dioxide 39 H (22-30) mmol/L BUN 25 H (7-17) mg/dL Creatinine 0.50 L (0.52-1.04) mg/dL Glucose 105 H (74-99) mg/dL POC Glucose (mg/dL) 125 H 130 H (75-99) mg/dL Calcium 8.2 L (8.4-10.2) mg/dL 02/10/18 Range/Units 04:15 RBC 3.73 L (3.80-5.40) m/uL Hgb 10.9 L (11.4-16.0) gm/dL Neutrophils # 7.9 H (1.3-7.7) k/uL Lymphocytes # 0.7 L (1.0-4.8) k/uL Carbon Dioxide (22-30) mmol/L BUN (7-17) mg/dL Creatinine (0.52-1.04) mg/dL Glucose (74-99) mg/dL POC Glucose (mg/dL) (75-99) mg/dL Calcium (8.4-10.2) mg/dL Microbiology - Last 24 Hours (Table) 02/05/18 13:00 Blood Culture - Preliminary Blood No Growth after 96 hours Assessment and Plan Assessment: Assessment Acute respiratory failure, both hypoxemic and hypercapnic in nature, secondary to COPD, sleep apnea syndrome, possible pickwickian syndrome, congestive heart failure, and possible pneumonia. Status post extubation on 02/09/2018 Suspect severe underlying COPD with chronic hypercapnic respiratory failure Diastolic heart failure Community-acquired pneumonia Possible pickwickian syndrome History of metastatic lung cancer, with previous right-sided lobectomy and brain metastases with previous brain resection. History of sleep apnea syndrome Morbid obesity. History of hypertension Plan: Plan dated 02/07/2018 Chest x-ray shows a endotracheal tube about 2 cm above the tracheal thu. There is diffuse bilateral infiltrates with a relatively normal sized heart. There may be small bilateral effusions. Vent changes ready have been made. The patient's sedation was held. She did reasonably well on a PSV and CPAP trial. She is currently getting nourishment with vital high protein. Antibiotics include both Zosyn and Levaquin. We will talk to family about CODE STATUS. We'll see if we can get another art line in. White count is 16.3, hemoglobin 12.8, platelet count 400,000, sodium potassium chloride CO2 all normal, BUN/creatinine normal at 22 and 0.8, and the rest of the labs looking pretty normal. The patient's overall prognosis is guarded. We will have a discussion with the family about CODE STATUS. Apparently she may not available wanted to be on life support. Probably not ready for weaning a ship. She did reasonably well with her weaning trial. Additional recommendations and suggestions are forthcoming. We'll continue to follow closely. Critical care time 32 minutes. Plan dated 02/08/2018 The patient will get a spontaneous breathing trial today. She's been off the pressor and the sedation since yesterday. She is receiving nutrition. Vent settings are appropriate. Blood gases are reasonable. She did reasonably well yesterday on pressure support and CPAP. We'll attempt that again today. Labs x -rays a medications are all reviewed. We'll continue to follow closely. Prognosis is very guarded. And I am was placed yesterday in the right radial artery. Critical care time 34 minutes. Plan dated 02/09/2018 The patient did well on spontaneous breathing trial today. Weaning parameters are reasonable and she did have a cuff leak. Attention was extubated. Postextubation, she looks good. Head of bed will be elevated. Nothing to eat or drink for 6 hours. After 6 hours sips of water chips of ice. The patient some chest x-ray shows diffuse bilateral infiltrates. She will get Lasix 40 mg IV push times one. The patient's labs x-rays a medications are all reviewed. Microbiology is negative. Hopefully she'll do well. A.m. labs and x-rays. Critical care time 37 minutes. Plan dated 02/10/2018 The patient was extubated yesterday. She's doing very well. The patient may likely move out of the ICU either later today or tomorrow. The patient needs to be a get out of bed. The patient needs deep breathing coughing clearing secretions. We recommend hourly use of the incentive spirometer. Additional recommendations and suggestions are forthcoming. Prognosis is guarded. Critical care time 34 minutes Time with Patient: Greater than 30
--- NOTE | 2018-02-10 09:24 | XR ---
EXAMINATION TYPE: XR chest 1V portable DATE OF EXAM: 02/10/2018 COMPARISON: Prior chest x-ray 02/09/2018 HISTORY: Extubated, abnormal chest x-ray TECHNIQUE: Single frontal view of the chest is obtained. FINDINGS: There is been interval removal of endotracheal and NG tube. Pleural parenchymal changes wi thin the lungs is stable. No pneumothorax or sizable effusion evident. Cardiomediastinal silhouette, pulmonary vascularity and karen not significantly changed. IMPRESSION: Interval extubation. Suspect underlying interstitial lung disease, possible reticular no dular pattern, chest CT may be of benefit.
[2018-02-10] MEDS ORDERED: SENNOSIDES 8.6 MG TAB PO PRN (10:42)
--- NOTE | 2018-02-10 11:18 | P.PN ---
Subjective Progress Note Date: 02/10/18 Ophelia Ruffin is a 62-year-old female who presented to [facility] emergency room with a chief complaint of worsening shortness of breath patient states that her symptoms started 2 days ago and has been worsening she stated that she had some fever and chills and cough and developed worsening shortness of breath otherwise she denies any other complaints there was no headache no dizziness no chest pain no nausea or vomiting no abdominal pain and no urinary symptoms patient denies having any sputum production was her cough. Patient has a history of lung cancer she underwent partial lung resection in 2000 she also underwent brain metastatic disease removal, she states that she has been stable and cancer free since 2000. On 02/06/2018 patient is seen and examined in the intensive care unit, during last night patient developed worsening shortness of breath and unresponsiveness , she was transferred to intensive care unit initially she was started on BiPAP however she required intubation and mechanical ventilation, patient was hypotensive and required pressure support. On 02/07/2018 patient is seen in the ICU remained on mechanical ventilation. Patient currently on hold and patient following commands. Patient remains on norepinephrine for blood pressure support. Per nursing staff extubation hopefully tomorrow. Pulmonary services and critical care team following. Lasix remains on hold due to hypotension. Cardiology services are following 02/08/2018 patient remains in the ICU and on mechanical ventilation. Patient failed weaning trial today. Vasopressors were discontinued yesterday. Patient had a low-grade temp of 100 yesterday evening. White count has decreased from 16.3-13.3. Urine culture negative and blood culture negative so far. Sputum culture also negative 02/09/2018 patient remains in ICU but has been extubated. Currently on 4 L NC. Per nursing staff patient did have some expiratory stridor upon extubation and was given Decadron and IV Lasix per critical care team. Patient's WBC today 14.3. Urine, blood and sputum are negative so far. Patient has remained afebrile. 02/10/2018 patient remains in the ICU. She is requiring 4 to 6 L of oxygen. She becomes very short of breath with any activity. Patient denies any chest pain. Denies any nausea or vomiting. Patient did have a small bowel movement this morning Objective - Vital Signs Vital signs: Vital Signs Temp 98.1 F 02/10/18 08:00 Pulse 85 02/10/18 10:00 Resp 19 02/10/18 10:00 BP 107/56 02/09/18 08:00 Pulse Ox 97 02/10/18 10:00 Intake & Output 02/09/18 02/10/18 02/10/18 18:59 06:59 18:59 Intake Total 1515.115 700 225.0 Output Total 2580 520 140 Balance -1064.885 180 85.0 Weight 135.5 kg 135.1 kg Intake: IV 710 700 225.0 Piperacillin-Tazobactam 3 100 100 25.0 .375 gm In Dextrose/Water 1 50ml.bag @ 12.5 mls/hr IVPB Q8HR [facility] Rx#: [id number] Sodium Chloride 0.9% 1, 610 600 200 000 ml @ 50 mls/hr IV . Q20H [facility] Rx#:[id number] Intake, IV Titration 170.115 Amount Levofloxacin 500Mg-D5w 100 Pmx 500 mg In Dextrose/ Water 1 100ml.bag @ 100 mls/hr IVPB Q24H [facility] Rx#: [id number] Norepinephrine 16 mg In 37.192 Dextrose 5% in Water 250 ml @ Titrate IV .Q0M [facility] Rx#:[id number] Propofol 1,000 mg In 32.923 Empty Bag 1 bag @ Titrate IV .Q0M [facility] Rx#: [id number] Oral 500 Tube Feeding 135 Output: Urine 2580 520 140 Other: Voiding Method Indwelling Catheter Indwelling Catheter Indwelling Catheter ABP, PAP, CO, CI - Last Documented Arterial Blood Pressure 139/77 - Exam Head normocephalic Neck supple Lungs wheezing with coarse breath sounds bilaterally Heart regular rate and rhythm S1-S2, no rub or gallop Abdomen is soft nontender nondistended positive bowel sounds no hepatosplenomegaly Extremities no edema Neuro alert and orientated to 3 sitting up in bed - Labs CBC & Chem 7: 02/10/18 04:15 02/10/18 04:15 Labs: Abnormal Lab Results - Last 24 Hours (Table) 02/09/18 02/10/18 02/10/18 Range/Units 11:54 00:07 04:15 RBC (3.80-5.40) m/uL Hgb (11.4-16.0) gm/dL Neutrophils # (1.3-7.7) k/uL Lymphocytes # (1.0-4.8) k/uL Carbon Dioxide 39 H (22-30) mmol/L BUN 25 H (7-17) mg/dL Creatinine 0.50 L (0.52-1.04) mg/dL Glucose 105 H (74-99) mg/dL POC Glucose (mg/dL) 125 H 130 H (75-99) mg/dL Calcium 8.2 L (8.4-10.2) mg/dL 02/10/18 Range/Units 04:15 RBC 3.73 L (3.80-5.40) m/uL Hgb 10.9 L (11.4-16.0) gm/dL Neutrophils # 7.9 H (1.3-7.7) k/uL Lymphocytes # 0.7 L (1.0-4.8) k/uL Carbon Dioxide (22-30) mmol/L BUN (7-17) mg/dL Creatinine (0.52-1.04) mg/dL Glucose (74-99) mg/dL POC Glucose (mg/dL) (75-99) mg/dL Calcium (8.4-10.2) mg/dL Microbiology - Last 24 Hours (Table) 02/05/18 13:00 Blood Culture - Preliminary Blood No Growth after 96 hours Assessment and Plan Assessment: #1 acute hypoxic and hypercapnic respiratory failure secondary to chronic obstructive pulmonary disease, obstructive sleep apnea syndrome and obesity hypoventilation syndrome, congestive heart failure and possible underlining community-acquired pneumonia. Patient was extubated on 02/09/2018. #2 evidence of acute diastolic congestive heart failure exacerbation with shortness of breath, chest x-ray evidence of pulmonary congestion, and elevated BNP at 14,100. 2-D echo completed EF between 50-60%. Patient is currently off of Lasix. Cardiology has signed off. #3 previous history of lung cancer status post partial lung resection and resection of metastatic brain disease in 2000. #4 underlying history of COPD patient is a former smoker #5 underlying history of obstructive sleep apnea #6 elevated troponin level at 0.18H and denies chest pain. Per cardiology abnormal cardiac enzymes is not consistent with acute coronary syndrome and likely related to hypotension. #7 community-acquired pneumonia continue Zosyn and Levaquin DVT prophylaxis Lovenox and GI prophylaxis Protonix I performed an examination of the patient and discussed their management with the physician Tree Pruner. I have reviewed the Physician Tree Pruner's notes and agree with the documented findings and plan of care
[2018-02-10 12:06] LABS: Glucose,Whole Blood 113 mg/dL (75-99)
[2018-02-10] MEDS: LEVOFLOXACIN 500MG-D5W PMX 500 MG in DEXTROSE/WATER 1 100ML.BAG IVPB SCH (12:46)
[2018-02-10] MEDS: SODIUM CHLORIDE 0.9% 1,000 ML IV SCH (16:10)
[2018-02-10 17:15] LABS: Glucose,Whole Blood 120 mg/dL (75-99)
[2018-02-10 21:12] LABS: Glucose,Whole Blood 120 mg/dL (75-99)
[2018-02-11 04:28] LABS: Basophils % (A) 0 %; Eosinophils # (A) 0.3 k/uL (0-0.7); Eosinophils % (A) 3 %; HCT 38.7 % (34.0-46.0); HGB 11.8 gm/dL (11.4-16.0); Hypochromasia Moderate; Lymphocytes # (A) 0.6 k/uL (1.0-4.8); Lymphocytes % (A) 5 %; MCH 28.6 pg (25.0-35.0); MCHC 30.5 g/dL (31.0-37.0); MCV 93.8 fL (80.0-100.0); Monocytes # (A) 0.6 k/uL (0-1.0); Monocytes % (A) 6 %; Neutrophils # (A) 9.4 k/uL (1.3-7.7); Neutrophils % (A) 85 %; Platelet Count 311 k/uL (150-450); RBC 4.13 m/uL (3.80-5.40); RDW 14.9 % (11.5-15.5); WBC 11.1 k/uL (3.8-10.6)
[2018-02-11 04:38] LABS: Anion Gap 6 mmol/L; Blood Urea Nitrogen 24 mg/dL (7-17); Calcium 8.3 mg/dL (8.4-10.2); Carbon Dioxide 38 mmol/L (22-30); Chloride 98 mmol/L (98-107); Glucose 108 mg/dL (74-99); Phosphorus 3.7 mg/dL (2.5-4.5); Potassium 4.2 mmol/L (3.5-5.1); Sodium 142 mmol/L (137-145)
[2018-02-11 06:59] LABS: Glucose,Whole Blood 99 mg/dL (75-99)
[2018-02-11] MEDS: IPRATROPIUM-ALBUTEROL 3 ML NEB INHALATION SCH ×4 (07:16→19:14)
--- NOTE | 2018-02-11 08:41 | P.PN ---
Subjective Progress Note Date: 02/11/18 Principal diagnosis: Heart failure, respiratory failure, pneumonia Progress note dated 02/07/2018 This is a 62-year-old female who was admitted on February 05. The patient came to the ICU on February 06 and was intubated on February 06. The patient's diagnoses including acute hypercapnic respiratory failure secondary to COPD sleep apnea syndrome and pickwickian syndrome as well as heart failure and possible community-acquired pneumonia. The patient also has suspected diastolic heart failure pneumonia pickwickian syndrome and a previous history of lung cancer, status post right-sided lobectomy as well as with brain metastases and brain resection. Currently, the patient is on the volume assist control mode with a rate of 14, tidal volume 500, FiO2 35%, and PEEP of 8. Arterial blood gases could not be obtained. The patient's previous blood gases showed a pO2 of greater than 400 PaCO2 of 68 and a pH of 7.22. The patient is currently on Zosyn and Levaquin and microbiology is still negative. Currently the patient is a full code although there was some discussion with family members about DO NOT RESUSCITATE. Vent changes included a rate of 22, tidal volume of 350, and PEEP of 5. The patient is currently on norepinephrine at 20 mics per minute propofol at 25 mics per kilogram per minute saline IV 100 mL an hour and tube feeds with vital high protein of 45 which is goal. We did trial the patient on some PSV and CPAP. She did well but in my opinion is probably not ready for extubation. Progress note dated 02/08/2018 This is a 62-year-old female who was admitted on February 05. She came to the ICU on February 06 and was intubated on February 06. The patient's diagnoses included hypercapnic respiratory failure secondary to COPD, sleep apnea syndrome, and pickwickian syndrome, as well as possible heart failure and possible community- acquired pneumonia. The patient's doing reasonably well. Currently she remains on the ventilator on the volume assist control mode, rate is 26, tidal volume 750, FiO2 40%, PEEP of 5. Arterial blood gases show a PaO2 of 99 a PaCO2 of 65 and a pH 7.31. She remains on saline at 100 mL an hour. The norepinephrine and the propofol had been off for quite some time. She is receiving vital high protein at a goal of 45 mL an hour. White blood count is 13.3. Hemoglobin and hematocrit and platelet count are all normal. Sodium potassium chloride normal CO2 32 BUN and creatinine were 18 and 0.7. Microbiology is all negative. Labs x-rays a medications are all reviewed. She remains on Zosyn and Levaquin. We will again attempt a spontaneous breathing trial today. Progress note dated 02/09/2018 62-year-old female was admitted on February 05. She came to the ICU on February 06 and was intubated on February 06. She's had a couple days of daily eruption of sedation with. Previously, she did not do as well. Today she looks pretty good and her numbers look good and should a positive cuff leak. For that reason we chose to extubate the patient. She previously was on the volume assist control mode rate 26, tidal volume 350, FiO2 40% and PEEP of 5. Arterial blood gases show a PaO2 of 82 PaCO2 of 60 to pH 7.38. She's on a saline IV at 50 propofol and norepinephrine are on hold. She's getting vital AF 45 which is goal. The patient seemed to be very stable post extubation. She is on nasal prongs. She will be nothing by mouth for 6 hours. After 6 hours, we will start sips of water and chips of ice. We'll change the updrafts 4 times a day and when necessary. We'll DC the chlorhexidine. We will DC the sedatives. The patient' s chest x-ray shows evidence of fluid overload and she'll get Lasix 40 mg IV push. Microbiology has been negative. Chest x-ray shows stable findings. Lab data includes a white count of 14.3 hemoglobin 11.2 hematocrit 36.7 and a platelet count which is normal. Sodium 142 potassium 4 chloride is 101 CO2 is 36 BUN and creatinine were 22 and 0.7. Progress note dated 02/10/2018 62-year-old female admitted back on February 05. She came to the ICU on February 06 was intubated on February 06 because of respiratory failure. She was extubated on yesterday. She's been doing relatively well since. She remains on O2 at 4 L by nasal cannula and a saline IV at 50 mL an hour. The patient feels better. Feeling much improved. The patient still is a long way to go. Very weak from her stay here in the ICU. She denies any chest pain or chest discomfort. No shortness of breath or difficulty breathing. No coughing wheezing. No nausea vomiting or diarrhea noted. Microbiology is completely negative. Lab data includes a white count of 9.4, hemoglobin 10.9 hematocrit 24.7 and platelet count 287,000. Sodium potassium and chlorides are normal. CO2 39 BUN and creatinine were 25 and 0.5 respectively. Chest x-ray continues to show diffuse bilateral infiltrates. I believe her chest x-ray has improved. Progress note dated 02/11/2018 62-year-old female admitted back on February 05. She came to the ICU on February 06 and was intubated on February 06 because of respiratory failure. She was extubated on February 09. Since that time, she's been doing reasonably well. She is improving day by day. Currently, receiving O2 by nasal cannula between 5 and 6 L. Her IV is a saline IV at 50 mL an hour. Today regarding discontinue the art line. We'll get her out of bed and transfer her over to the stepdown unit. Lab data includes a white count of 11.1 hemoglobin is 11.8 hematocrit 38.7 platelet count 311,000 her sodium is 142 potassium 4.2 chloride 98 CO2 38 BUN and creatinine of 24 and 0.6 Chest x-ray continues to show some bilateral infiltrates primarily in the lower lobes. Microbiology data is currently negative. Objective - Vital Signs Vital signs: Vital Signs Temp 97.8 F 02/10/18 20:00 Pulse 84 02/11/18 07:28 Resp 24 02/11/18 07:00 BP 124/69 02/11/18 07:00 Pulse Ox 97 02/11/18 07:16 Intake & Output 02/10/18 02/11/18 02/11/18 18:59 06:59 18:59 Intake Total 815.0 652.5 Output Total 435 480 Balance 380.0 172.5 Weight 135.5 kg Intake: IV 715.0 602.5 Levofloxacin 500Mg-D5w 100 Pmx 500 mg In Dextrose/ Water 1 100ml.bag @ 100 mls/hr IVPB Q24H [facility] Rx#: [id number] Piperacillin-Tazobactam 3 75.0 12.5 .375 gm In Dextrose/Water 1 50ml.bag @ 12.5 mls/hr IVPB Q8HR [facility] Rx#: [id number] Sodium Chloride 0.9% 1, 540 590 000 ml @ 50 mls/hr IV . Q20H [facility] Rx#:[id number] Intake, IV Titration 50 Amount Sodium Chloride 0.9% 1, 50 000 ml @ 50 mls/hr IV . Q20H [facility] Rx#:[id number] Oral 100 Output: Urine 435 480 Other: Voiding Method Indwelling Catheter Indwelling Catheter # Bowel Movements 1 ABP, PAP, CO, CI - Last Documented Arterial Blood Pressure 160/75 - Exam No acute distress, on nasal O2, and no acute distress, oriented 3. HEENT examination is grossly unremarkable. Mucous membranes are moist. No oral lesions. Neck supple. Full range of motion. No adenopathy thyromegaly or neck vein distention. Cardiovascular examination reveals regular rhythm rate. S1-S2 normal. No S3 or S4. No discernible murmur noted. Heart sounds are distant. Lungs reveal fairly clear breath sounds. A few scattered rhonchi. Breath sounds are equal bilaterally. Abdomen is obese and soft. Bowel sounds are noted. No tenderness. Extremities are intact. Mild edema is noted. Skin is without rash or lesion. Neurologic examination is completely normal. - Labs CBC & Chem 7: 02/11/18 04:15 02/11/18 04:15 Labs: Abnormal Lab Results - Last 24 Hours (Table) 02/10/18 02/10/18 02/10/18 Range/Units 11:58 16:54 21:01 WBC (3.8-10.6) k/uL MCHC (31.0-37.0) g/dL Neutrophils # (1.3-7.7) k/uL Lymphocytes # (1.0-4.8) k/uL Carbon Dioxide (22-30) mmol/L BUN (7-17) mg/dL Glucose (74-99) mg/dL POC Glucose (mg/dL) 113 H 120 H 120 H (75-99) mg/dL Calcium (8.4-10.2) mg/dL 02/11/18 02/11/18 Range/Units 04:15 04:15 WBC 11.1 H (3.8-10.6) k/uL MCHC 30.5 L (31.0-37.0) g/dL Neutrophils # 9.4 H (1.3-7.7) k/uL Lymphocytes # 0.6 L (1.0-4.8) k/uL Carbon Dioxide 38 H (22-30) mmol/L BUN 24 H (7-17) mg/dL Glucose 108 H (74-99) mg/dL POC Glucose (mg/dL) (75-99) mg/dL Calcium 8.3 L (8.4-10.2) mg/dL Microbiology - Last 24 Hours (Table) 02/05/18 13:00 Blood Culture - Preliminary Blood No Growth after 120 hours Assessment and Plan Assessment: Assessment Acute respiratory failure, both hypoxemic and hypercapnic in nature, secondary to COPD, sleep apnea syndrome, possible pickwickian syndrome, congestive heart failure, and possible pneumonia. Status post extubation on 02/09/2018 Suspect severe underlying COPD with chronic hypercapnic respiratory failure Diastolic heart failure Community-acquired pneumonia Possible pickwickian syndrome History of metastatic lung cancer, with previous right-sided lobectomy and brain metastases with previous brain resection. History of sleep apnea syndrome Morbid obesity. History of hypertension Plan: Plan dated 02/07/2018 Chest x-ray shows a endotracheal tube about 2 cm above the tracheal thu. There is diffuse bilateral infiltrates with a relatively normal sized heart. There may be small bilateral effusions. Vent changes ready have been made. The patient's sedation was held. She did reasonably well on a PSV and CPAP trial. She is currently getting nourishment with vital high protein. Antibiotics include both Zosyn and Levaquin. We will talk to family about CODE STATUS. We'll see if we can get another art line in. White count is 16.3, hemoglobin 12.8, platelet count 400,000, sodium potassium chloride CO2 all normal, BUN/creatinine normal at 22 and 0.8, and the rest of the labs looking pretty normal. The patient's overall prognosis is guarded. We will have a discussion with the family about CODE STATUS. Apparently she may not available wanted to be on life support. Probably not ready for weaning a ship. She did reasonably well with her weaning trial. Additional recommendations and suggestions are forthcoming. We'll continue to follow closely. Critical care time 32 minutes. Plan dated 02/08/2018 The patient will get a spontaneous breathing trial today. She's been off the pressor and the sedation since yesterday. She is receiving nutrition. Vent settings are appropriate. Blood gases are reasonable. She did reasonably well yesterday on pressure support and CPAP. We'll attempt that again today. Labs x -rays a medications are all reviewed. We'll continue to follow closely. Prognosis is very guarded. And I am was placed yesterday in the right radial artery. Critical care time 34 minutes. Plan dated 02/09/2018 The patient did well on spontaneous breathing trial today. Weaning parameters are reasonable and she did have a cuff leak. Attention was extubated. Postextubation, she looks good. Head of bed will be elevated. Nothing to eat or drink for 6 hours. After 6 hours sips of water chips of ice. The patient some chest x-ray shows diffuse bilateral infiltrates. She will get Lasix 40 mg IV push times one. The patient's labs x-rays a medications are all reviewed. Microbiology is negative. Hopefully she'll do well. A.m. labs and x-rays. Critical care time 37 minutes. Plan dated 02/10/2018 The patient was extubated yesterday. She's doing very well. The patient may likely move out of the ICU either later today or tomorrow. The patient needs to be a get out of bed. The patient needs deep breathing coughing clearing secretions. We recommend hourly use of the incentive spirometer. Additional recommendations and suggestions are forthcoming. Prognosis is guarded. Critical care time 34 minutes Plan dated 02/11/2018 The patient was extubated on February 09. Since that time, she is doing well. She is still requiring relatively higher concentrations of oxygen. Chest x-ray continues to show bilateral infiltrates. Labs microbiology medications and other information is reviewed. Prognosis is still guarded. We'll see if we can move out of the ICU today. Additional recommendations and suggestions are forthcoming. Medications are reviewed extensively. Critical care time 36 minutes Time with Patient: Greater than 30
[2018-02-11] MEDS: ASPIRIN 81 MG PO SCH (08:52)
[2018-02-11] MEDS: ENOXAPARIN 40 MG/0.4 ML SYRINGE SQ SCH (08:52)
[2018-02-11] MEDS: INSULIN ASPART 100 UNIT/ML 1 ML 10 ML VIAL SQ SCH ×4 (08:52→21:40)
[2018-02-11] MEDS: PANTOPRAZOLE 40 MG TABLET PO SCH (08:52)
[2018-02-11] MEDS: PIPERACILLIN-TAZOBACTAM 3.375 GM in DEXTROSE/WATER 1 50ML.BAG IVPB SCH ×2 (08:53→17:06)
--- NOTE | 2018-02-11 08:55 | XR ---
EXAMINATION TYPE: XR chest 1V portable DATE OF EXAM: 02/11/2018 COMPARISON: 02/10/2018 HISTORY: Tube placement TECHNIQUE: Single frontal view of the chest is obtained. FINDINGS: Coarsened interstitium with basilar consolidation and pleural thickening or tiny effusions noted. No obvious pneumothorax. Arthropathy of the shoulders. Mild cardiomegaly. Prominence of the h ilum are stable. IMPRESSION: 1. Stable pleural-parenchymal disease unchanged from prior exam. May be on the basis of a interstitia l pneumonitis or congestion with underlying chronic interstitial lung disease. More consolidative pro cess at the lung bases and pleural effusion noted. Venous congestion in the differential diagnosis.
--- NOTE | 2018-02-11 10:41 | P.PN ---
Subjective Progress Note Date: 02/11/18 Ophelia Ruffin is a 62-year-old female who presented to [facility] emergency room with a chief complaint of worsening shortness of breath patient states that her symptoms started 2 days ago and has been worsening she stated that she had some fever and chills and cough and developed worsening shortness of breath otherwise she denies any other complaints there was no headache no dizziness no chest pain no nausea or vomiting no abdominal pain and no urinary symptoms patient denies having any sputum production was her cough. Patient has a history of lung cancer she underwent partial lung resection in 2000 she also underwent brain metastatic disease removal, she states that she has been stable and cancer free since 2000. On 02/06/2018 patient is seen and examined in the intensive care unit, during last night patient developed worsening shortness of breath and unresponsiveness , she was transferred to intensive care unit initially she was started on BiPAP however she required intubation and mechanical ventilation, patient was hypotensive and required pressure support. On 02/07/2018 patient is seen in the ICU remained on mechanical ventilation. Patient currently on hold and patient following commands. Patient remains on norepinephrine for blood pressure support. Per nursing staff extubation hopefully tomorrow. Pulmonary services and critical care team following. Lasix remains on hold due to hypotension. Cardiology services are following 02/08/2018 patient remains in the ICU and on mechanical ventilation. Patient failed weaning trial today. Vasopressors were discontinued yesterday. Patient had a low-grade temp of 100 yesterday evening. White count has decreased from 16.3-13.3. Urine culture negative and blood culture negative so far. Sputum culture also negative 02/09/2018 patient remains in ICU but has been extubated. Currently on 4 L NC. Per nursing staff patient did have some expiratory stridor upon extubation and was given Decadron and IV Lasix per critical care team. Patient's WBC today 14.3. Urine, blood and sputum are negative so far. Patient has remained afebrile. 02/10/2018 patient remains in the ICU. Patient was extubated yesterday .She is requiring 4 to 6 L of oxygen. She becomes very short of breath with any activity. Patient denies any chest pain. Denies any nausea or vomiting. Patient did have a small bowel movement this morning 02/11/2018 patient requiring about 6 L of oxygen. She is short of breath with activity. She denies any chest pain. Denies any nausea or vomiting. Reports having bowel movements. She will likely be transferred out of the ICU later today. She does report some cough and having difficulty breaking up the phlegm. Mucinex added Objective - Vital Signs Vital signs: Vital Signs Temp 97.6 F 02/11/18 08:00 Pulse 92 02/11/18 09:00 Resp 20 02/11/18 09:00 BP 124/69 02/11/18 08:00 Pulse Ox 94 L 02/11/18 09:00 Intake & Output 02/10/18 02/11/18 02/11/18 18:59 06:59 18:59 Intake Total 815.0 652.5 100 Output Total 435 480 75 Balance 380.0 172.5 25 Weight 135.5 kg Intake: IV 715.0 602.5 100 Levofloxacin 500Mg-D5w 100 Pmx 500 mg In Dextrose/ Water 1 100ml.bag @ 100 mls/hr IVPB Q24H [facility] Rx#: [id number] Piperacillin-Tazobactam 3 75.0 12.5 .375 gm In Dextrose/Water 1 50ml.bag @ 12.5 mls/hr IVPB Q8HR [facility] Rx#: [id number] Sodium Chloride 0.9% 1, 540 590 100 000 ml @ 50 mls/hr IV . Q20H [facility] Rx#:[id number] Intake, IV Titration 50 Amount Sodium Chloride 0.9% 1, 50 000 ml @ 50 mls/hr IV . Q20H [facility] Rx#:[id number] Oral 100 Output: Urine 435 480 75 Other: Voiding Method Indwelling Catheter Indwelling Catheter Indwelling Catheter # Bowel Movements 1 ABP, PAP, CO, CI - Last Documented Arterial Blood Pressure 151/71 - Exam Head normocephalic Neck supple Lungs wheezing with coarse breath sounds bilaterally Heart regular rate and rhythm S1-S2, no rub or gallop Abdomen is soft nontender nondistended positive bowel sounds no hepatosplenomegaly Extremities no edema Neuro alert and orientated to 3 sitting up in bed - Labs CBC & Chem 7: 02/11/18 04:15 02/11/18 04:15 Labs: Abnormal Lab Results - Last 24 Hours (Table) 02/10/18 02/10/18 02/10/18 Range/Units 11:58 16:54 21:01 WBC (3.8-10.6) k/uL MCHC (31.0-37.0) g/dL Neutrophils # (1.3-7.7) k/uL Lymphocytes # (1.0-4.8) k/uL Carbon Dioxide (22-30) mmol/L BUN (7-17) mg/dL Glucose (74-99) mg/dL POC Glucose (mg/dL) 113 H 120 H 120 H (75-99) mg/dL Calcium (8.4-10.2) mg/dL 02/11/18 02/11/18 Range/Units 04:15 04:15 WBC 11.1 H (3.8-10.6) k/uL MCHC 30.5 L (31.0-37.0) g/dL Neutrophils # 9.4 H (1.3-7.7) k/uL Lymphocytes # 0.6 L (1.0-4.8) k/uL Carbon Dioxide 38 H (22-30) mmol/L BUN 24 H (7-17) mg/dL Glucose 108 H (74-99) mg/dL POC Glucose (mg/dL) (75-99) mg/dL Calcium 8.3 L (8.4-10.2) mg/dL Microbiology - Last 24 Hours (Table) 02/05/18 13:00 Blood Culture - Preliminary Blood No Growth after 120 hours Assessment and Plan Assessment: #1 acute hypoxic and hypercapnic respiratory failure secondary to chronic obstructive pulmonary disease, obstructive sleep apnea syndrome and obesity hypoventilation syndrome, congestive heart failure and possible underlining community-acquired pneumonia. Patient was extubated on 02/09/2018. Still requiring about 6 L of oxygen. Followed by pulmonary service. #2 evidence of acute diastolic congestive heart failure exacerbation with shortness of breath, chest x-ray evidence of pulmonary congestion, and elevated BNP at 14,100. 2-D echo completed EF between 50-60%. Patient is currently off of Lasix. Cardiology has signed off. #3 previous history of lung cancer status post partial lung resection and resection of metastatic brain disease in 2000. #4 underlying history of COPD patient is a former smoker #5 underlying history of obstructive sleep apnea #6 elevated troponin level at 0.18H and denies chest pain. Per cardiology abnormal cardiac enzymes is not consistent with acute coronary syndrome and likely related to hypotension. #7 community-acquired pneumonia continue Zosyn and Levaquin. Add Mucinex DVT prophylaxis Lovenox and GI prophylaxis Protonix Patient will be transferred out of the ICU today I performed an examination of the patient and discussed their management with the physician [employer] Super[employer]. I have reviewed the Physician [employer] Supervisor's notes and agree with the documented findings and plan of care
[2018-02-11 11:55] LABS: Glucose,Whole Blood 107 mg/dL (75-99)
[2018-02-11] MEDS: SODIUM CHLORIDE 0.9% 1,000 ML IV SCH ×4 (12:04→21:41)
[2018-02-11 17:07] LABS: Glucose,Whole Blood 105 mg/dL (75-99)
[2018-02-11 21:23] LABS: Glucose,Whole Blood 140 mg/dL (75-99)
[2018-02-11] MEDS: guaiFENesin 600 MG TABLET.ER PO SCH (21:40)
[2018-02-12] MEDS: PIPERACILLIN-TAZOBACTAM 3.375 GM in DEXTROSE/WATER 1 50ML.BAG IVPB SCH ×3 (01:10→16:28)
[2018-02-12 05:35] LABS: Basophils # (A) 0.1 k/uL (0-0.2); Basophils % (A) 1 %; Eosinophils # (A) 0.3 k/uL (0-0.7); Eosinophils % (A) 3 %; HCT 39.7 % (34.0-46.0); HGB 12.2 gm/dL (11.4-16.0); Hypochromasia Marked; Lymphocytes # (A) 0.5 k/uL (1.0-4.8); Lymphocytes % (A) 5 %; MCHC 30.8 g/dL (31.0-37.0); MCV 94.4 fL (80.0-100.0); Mean Platelet Volume 6.7; Monocytes # (A) 0.6 k/uL (0-1.0); Monocytes % (A) 6 %; Neutrophils # (A) 8.7 k/uL (1.3-7.7); Neutrophils % (A) 85 %; Platelet Count 304 k/uL (150-450); WBC 10.3 k/uL (3.8-10.6)
[2018-02-12 05:51] LABS: Anion Gap 6 mmol/L; Blood Urea Nitrogen 20 mg/dL (7-17); Calcium 8.5 mg/dL (8.4-10.2); Chloride 97 mmol/L (98-107); Glucose 106 mg/dL (74-99); Phosphorus 3.8 mg/dL (2.5-4.5); Potassium 4.5 mmol/L (3.5-5.1); Sodium 143 mmol/L (137-145)
[2018-02-12 06:00] LABS: Carbon Dioxide 40 mmol/L (22-30)
[2018-02-12] MEDS: SODIUM CHLORIDE 0.9% 1,000 ML IV SCH ×2 (06:52→16:29)
--- NOTE | 2018-02-12 06:56 | XR ---
EXAMINATION TYPE: XR chest 1V portable DATE OF EXAM: 02/12/2018 HISTORY: shortness of breath. REFERENCE: Previous study dated 02/11/2018. FINDINGS: There is vascular congestion and alveolar edema. The heart is enlarged. I suspect small eff usions. IMPRESSION: WORSENING CHANGES OF CONGESTIVE HEART FAILURE.
[2018-02-12 06:58] LABS: Glucose,Whole Blood 113 mg/dL (75-99)
[2018-02-12] MEDS: INSULIN ASPART 100 UNIT/ML 1 ML 10 ML VIAL SQ SCH ×4 (06:59→21:18)
[2018-02-12] MEDS: IPRATROPIUM-ALBUTEROL 3 ML NEB INHALATION SCH ×4 (07:35→19:59)
--- NOTE | 2018-02-12 08:24 | P.PN ---
Subjective Progress Note Date: 02/12/18 Principal diagnosis: Heart failure, respiratory failure, pneumonia Progress note dated 02/07/2018 This is a 62-year-old female who was admitted on February 05. The patient came to the ICU on February 06 and was intubated on February 06. The patient's diagnoses including acute hypercapnic respiratory failure secondary to COPD sleep apnea syndrome and pickwickian syndrome as well as heart failure and possible community-acquired pneumonia. The patient also has suspected diastolic heart failure pneumonia pickwickian syndrome and a previous history of lung cancer, status post right-sided lobectomy as well as with brain metastases and brain resection. Currently, the patient is on the volume assist control mode with a rate of 14, tidal volume 500, FiO2 35%, and PEEP of 8. Arterial blood gases could not be obtained. The patient's previous blood gases showed a pO2 of greater than 400 PaCO2 of 68 and a pH of 7.22. The patient is currently on Zosyn and Levaquin and microbiology is still negative. Currently the patient is a full code although there was some discussion with family members about DO NOT RESUSCITATE. Vent changes included a rate of 22, tidal volume of 350, and PEEP of 5. The patient is currently on norepinephrine at 20 mics per minute propofol at 25 mics per kilogram per minute saline IV 100 mL an hour and tube feeds with vital high protein of 45 which is goal. We did trial the patient on some PSV and CPAP. She did well but in my opinion is probably not ready for extubation. Progress note dated 02/08/2018 This is a 62-year-old female who was admitted on February 05. She came to the ICU on February 06 and was intubated on February 06. The patient's diagnoses included hypercapnic respiratory failure secondary to COPD, sleep apnea syndrome, and pickwickian syndrome, as well as possible heart failure and possible community- acquired pneumonia. The patient's doing reasonably well. Currently she remains on the ventilator on the volume assist control mode, rate is 26, tidal volume 750, FiO2 40%, PEEP of 5. Arterial blood gases show a PaO2 of 99 a PaCO2 of 65 and a pH 7.31. She remains on saline at 100 mL an hour. The norepinephrine and the propofol had been off for quite some time. She is receiving vital high protein at a goal of 45 mL an hour. White blood count is 13.3. Hemoglobin and hematocrit and platelet count are all normal. Sodium potassium chloride normal CO2 32 BUN and creatinine were 18 and 0.7. Microbiology is all negative. Labs x-rays a medications are all reviewed. She remains on Zosyn and Levaquin. We will again attempt a spontaneous breathing trial today. Progress note dated 02/09/2018 62-year-old female was admitted on February 05. She came to the ICU on February 06 and was intubated on February 06. She's had a couple days of daily eruption of sedation with. Previously, she did not do as well. Today she looks pretty good and her numbers look good and should a positive cuff leak. For that reason we chose to extubate the patient. She previously was on the volume assist control mode rate 26, tidal volume 350, FiO2 40% and PEEP of 5. Arterial blood gases show a PaO2 of 82 PaCO2 of 60 to pH 7.38. She's on a saline IV at 50 propofol and norepinephrine are on hold. She's getting vital AF 45 which is goal. The patient seemed to be very stable post extubation. She is on nasal prongs. She will be nothing by mouth for 6 hours. After 6 hours, we will start sips of water and chips of ice. We'll change the updrafts 4 times a day and when necessary. We'll DC the chlorhexidine. We will DC the sedatives. The patient' s chest x-ray shows evidence of fluid overload and she'll get Lasix 40 mg IV push. Microbiology has been negative. Chest x-ray shows stable findings. Lab data includes a white count of 14.3 hemoglobin 11.2 hematocrit 36.7 and a platelet count which is normal. Sodium 142 potassium 4 chloride is 101 CO2 is 36 BUN and creatinine were 22 and 0.7. Progress note dated 02/10/2018 62-year-old female admitted back on February 05. She came to the ICU on February 06 was intubated on February 06 because of respiratory failure. She was extubated on yesterday. She's been doing relatively well since. She remains on O2 at 4 L by nasal cannula and a saline IV at 50 mL an hour. The patient feels better. Feeling much improved. The patient still is a long way to go. Very weak from her stay here in the ICU. She denies any chest pain or chest discomfort. No shortness of breath or difficulty breathing. No coughing wheezing. No nausea vomiting or diarrhea noted. Microbiology is completely negative. Lab data includes a white count of 9.4, hemoglobin 10.9 hematocrit 24.7 and platelet count 287,000. Sodium potassium and chlorides are normal. CO2 39 BUN and creatinine were 25 and 0.5 respectively. Chest x-ray continues to show diffuse bilateral infiltrates. I believe her chest x-ray has improved. Progress note dated 02/11/2018 62-year-old female admitted back on February 05. She came to the ICU on February 06 and was intubated on February 06 because of respiratory failure. She was extubated on February 09. Since that time, she's been doing reasonably well. She is improving day by day. Currently, receiving O2 by nasal cannula between 5 and 6 L. Her IV is a saline IV at 50 mL an hour. Today regarding discontinue the art line. We'll get her out of bed and transfer her over to the stepdown unit. Lab data includes a white count of 11.1 hemoglobin is 11.8 hematocrit 38.7 platelet count 311,000 her sodium is 142 potassium 4.2 chloride 98 CO2 38 BUN and creatinine of 24 and 0.6 Chest x-ray continues to show some bilateral infiltrates primarily in the lower lobes. Microbiology data is currently negative. Progress note dated 02/12/2018 62-year-old female admitted back on February 05. She came to the ICU on February 06 was intubated on February 06 for respiratory failure. She was extubated 3 days later on February 09. Since that time, she's been doing reasonably well. She seemed be improving a small bit every day although she states that she has a respiratory status which is "up and down". Currently receiving oxygen by nasal cannula at 4 L/m. Yesterday she was 5 or 6 L/m. Her ID is some a saline IV at 20 mL an hour. She's developed some mild diarrhea. Chest x-ray shows diffuse bilateral infiltrates which have really not changed all that much. His heart to say whether or not it relates to infection versus some fluid overload versus pulmonary fibrosis. Anyway, she is some reasonably stable. She is getting updrafts. We'll add Symbicort. She was a smoker in the past. All her microbiologic cultures are negative thus far. She remains on antibiotic. White count 10.3 hemoglobin and hematocrit and platelet count all normal. Sodium and potassium are normal. Chloride 97 CO2 40 BUN 20 creatinine 0.7. Chest x-ray is unchanged and microbiology is all negative. Objective - Vital Signs Vital signs: Vital Signs Temp 97.5 F L 02/12/18 04:00 Pulse 84 02/12/18 07:46 Resp 26 H 02/12/18 04:00 BP 131/59 02/12/18 03:00 Pulse Ox 94 L 02/12/18 04:00 Intake & Output 02/11/18 02/12/18 02/12/18 18:59 06:59 18:59 Intake Total 220 150 Output Total 375 220 Balance -155 -70 Weight 135.5 kg 134.4 kg Intake: IV 220 150 Piperacillin-Tazobactam 3 50 .375 gm In Dextrose/Water 1 50ml.bag @ 12.5 mls/hr IVPB Q8HR [facility] Rx#: [id number] Sodium Chloride 0.9% 1, 220 100 000 ml @ 20 mls/hr IV . Q24H [facility] Rx#:[id number] Output: Urine 375 220 Other: Voiding Method Indwelling Catheter Indwelling Catheter ABP, PAP, CO, CI - Last Documented Arterial Blood Pressure 151/71 - Exam No acute distress, on nasal O2, and no acute distress, oriented 3. HEENT examination is grossly unremarkable. Mucous membranes are moist. No oral lesions. Neck supple. Full range of motion. No adenopathy thyromegaly or neck vein distention. Cardiovascular examination reveals regular rhythm rate. S1-S2 normal. No S3 or S4. No discernible murmur noted. Heart sounds are distant. Lungs reveal fairly clear breath sounds. A few scattered rhonchi. Breath sounds are equal bilaterally. Abdomen is obese and soft. Bowel sounds are noted. No tenderness. Extremities are intact. Mild edema is noted. Skin is without rash or lesion. Neurologic examination is completely normal. - Labs CBC & Chem 7: 02/12/18 05:25 02/12/18 05:25 Labs: Abnormal Lab Results - Last 24 Hours (Table) 02/11/18 02/11/18 02/11/18 Range/Units 11:54 16:57 21:02 MCHC (31.0-37.0) g/dL Neutrophils # (1.3-7.7) k/uL Lymphocytes # (1.0-4.8) k/uL Chloride (98-107) mmol/L Carbon Dioxide (22-30) mmol/L BUN (7-17) mg/dL Glucose (74-99) mg/dL POC Glucose (mg/dL) 107 H 105 H 140 H (75-99) mg/dL 02/12/18 02/12/18 02/12/18 Range/Units 05:25 05:25 06:57 MCHC 30.8 L (31.0-37.0) g/dL Neutrophils # 8.7 H (1.3-7.7) k/uL Lymphocytes # 0.5 L (1.0-4.8) k/uL Chloride 97 L (98-107) mmol/L Carbon Dioxide 40 H* (22-30) mmol/L BUN 20 H (7-17) mg/dL Glucose 106 H (74-99) mg/dL POC Glucose (mg/dL) 113 H (75-99) mg/dL Microbiology - Last 24 Hours (Table) 02/05/18 13:00 Blood Culture - Final Blood No Growth after 144 hours Assessment and Plan Assessment: Assessment Acute respiratory failure, both hypoxemic and hypercapnic in nature, secondary to COPD, sleep apnea syndrome, possible pickwickian syndrome, congestive heart failure, and possible pneumonia. Status post extubation on 02/09/2018 Suspect severe underlying COPD with chronic hypercapnic respiratory failure Diastolic heart failure Community-acquired pneumonia Possible pickwickian syndrome History of metastatic lung cancer, with previous right-sided lobectomy and brain metastases with previous brain resection. History of sleep apnea syndrome Morbid obesity. History of hypertension Plan: Plan dated 02/07/2018 Chest x-ray shows a endotracheal tube about 2 cm above the tracheal thu. There is diffuse bilateral infiltrates with a relatively normal sized heart. There may be small bilateral effusions. Vent changes ready have been made. The patient's sedation was held. She did reasonably well on a PSV and CPAP trial. She is currently getting nourishment with vital high protein. Antibiotics include both Zosyn and Levaquin. We will talk to family about CODE STATUS. We'll see if we can get another art line in. White count is 16.3, hemoglobin 12.8, platelet count 400,000, sodium potassium chloride CO2 all normal, BUN/creatinine normal at 22 and 0.8, and the rest of the labs looking pretty normal. The patient's overall prognosis is guarded. We will have a discussion with the family about CODE STATUS. Apparently she may not available wanted to be on life support. Probably not ready for weaning a ship. She did reasonably well with her weaning trial. Additional recommendations and suggestions are forthcoming. We'll continue to follow closely. Critical care time 32 minutes. Plan dated 02/08/2018 The patient will get a spontaneous breathing trial today. She's been off the pressor and the sedation since yesterday. She is receiving nutrition. Vent settings are appropriate. Blood gases are reasonable. She did reasonably well yesterday on pressure support and CPAP. We'll attempt that again today. Labs x -rays a medications are all reviewed. We'll continue to follow closely. Prognosis is very guarded. And I am was placed yesterday in the right radial artery. Critical care time 34 minutes. Plan dated 02/09/2018 The patient did well on spontaneous breathing trial today. Weaning parameters are reasonable and she did have a cuff leak. Attention was extubated. Postextubation, she looks good. Head of bed will be elevated. Nothing to eat or drink for 6 hours. After 6 hours sips of water chips of ice. The patient some chest x-ray shows diffuse bilateral infiltrates. She will get Lasix 40 mg IV push times one. The patient's labs x-rays a medications are all reviewed. Microbiology is negative. Hopefully she'll do well. A.m. labs and x-rays. Critical care time 37 minutes. Plan dated 02/10/2018 The patient was extubated yesterday. She's doing very well. The patient may likely move out of the ICU either later today or tomorrow. The patient needs to be a get out of bed. The patient needs deep breathing coughing clearing secretions. We recommend hourly use of the incentive spirometer. Additional recommendations and suggestions are forthcoming. Prognosis is guarded. Critical care time 34 minutes Plan dated 02/11/2018 The patient was extubated on February 09. Since that time, she is doing well. She is still requiring relatively higher concentrations of oxygen. Chest x-ray continues to show bilateral infiltrates. Labs microbiology medications and other information is reviewed. Prognosis is still guarded. We'll see if we can move out of the ICU today. Additional recommendations and suggestions are forthcoming. Medications are reviewed extensively. Critical care time 36 minutes Plan dated 02/12/2018 Overall, the patient seems be doing reasonably well. She is receiving O2 at 4 L and an IV of saline at 20 mL an hour. We'll send stool for C. diff sampling. Microbiology is negative. We add Symbicort 160/4.52 puffs twice a day because she does have a substantial smoking history. She'll continue on updrafts. Labs x-rays a medications are all reviewed. Prognosis is guarded. Critical care time 32 minutes Time with Patient: Greater than 30
[2018-02-12] MEDS: SYMBICORT 160-4.5 MCG INHALER INHALATION SCH ×2 (08:37→20:00)
[2018-02-12] MEDS: ASPIRIN 81 MG PO SCH (08:38)
[2018-02-12] MEDS: guaiFENesin 600 MG TABLET.ER PO SCH ×2 (08:38→21:17)
[2018-02-12] MEDS: PANTOPRAZOLE 40 MG TABLET PO SCH (08:38)
[2018-02-12] MEDS: ENOXAPARIN 40 MG/0.4 ML SYRINGE SQ SCH (08:38)
[2018-02-12 12:08] LABS: Glucose,Whole Blood 121 mg/dL (75-99)
--- NOTE | 2018-02-12 13:45 | P.PN ---
Subjective Progress Note Date: 02/12/18 Ophelia Ruffin is a 62-year-old female who presented to [facility] emergency room with a chief complaint of worsening shortness of breath patient states that her symptoms started 2 days ago and has been worsening she stated that she had some fever and chills and cough and developed worsening shortness of breath otherwise she denies any other complaints there was no headache no dizziness no chest pain no nausea or vomiting no abdominal pain and no urinary symptoms patient denies having any sputum production was her cough. Patient has a history of lung cancer she underwent partial lung resection in 2000 she also underwent brain metastatic disease removal, she states that she has been stable and cancer free since 2000. On 02/06/2018 patient is seen and examined in the intensive care unit, during last night patient developed worsening shortness of breath and unresponsiveness , she was transferred to intensive care unit initially she was started on BiPAP however she required intubation and mechanical ventilation, patient was hypotensive and required pressure support. On 02/07/2018 patient is seen in the ICU remained on mechanical ventilation. Patient currently on hold and patient following commands. Patient remains on norepinephrine for blood pressure support. Per nursing staff extubation hopefully tomorrow. Pulmonary services and critical care team following. Lasix remains on hold due to hypotension. Cardiology services are following 02/08/2018 patient remains in the ICU and on mechanical ventilation. Patient failed weaning trial today. Vasopressors were discontinued yesterday. Patient had a low-grade temp of 100 yesterday evening. White count has decreased from 16.3-13.3. Urine culture negative and blood culture negative so far. Sputum culture also negative 02/09/2018 patient remains in ICU but has been extubated. Currently on 4 L NC. Per nursing staff patient did have some expiratory stridor upon extubation and was given Decadron and IV Lasix per critical care team. Patient's WBC today 14.3. Urine, blood and sputum are negative so far. Patient has remained afebrile. 02/10/2018 patient remains in the ICU. Patient was extubated yesterday .She is requiring 4 to 6 L of oxygen. She becomes very short of breath with any activity. Patient denies any chest pain. Denies any nausea or vomiting. Patient did have a small bowel movement this morning 02/11/2018 patient requiring about 6 L of oxygen. She is short of breath with activity. She denies any chest pain. Denies any nausea or vomiting. Reports having bowel movements. She will likely be transferred out of the ICU later today. She does report some cough and having difficulty breaking up the phlegm. Mucinex added On 02/12/2018 patient is alert and oriented 3 in no apparent distress, she is sitting up in a chair, vitals are stable, pulse ox 94% on 4 L nasal cannula, CO2 level elevated at 40 patient denies any fever or chills no headache or dizziness no chest pain no shortness of breath at rest with oxygen, there is minimal cough without sputum production, no nausea or vomiting no abdominal pain , she is complaining of diarrhea, no burning was urination no frequency or urgency and no hematuria. Objective - Vital Signs Vital signs: Vital Signs Temp 97.6 F 02/12/18 08:00 Pulse 80 02/12/18 11:21 Resp 25 H 02/12/18 12:00 BP 114/70 02/12/18 11:00 Pulse Ox 96 02/12/18 11:00 Intake & Output 02/11/18 02/12/18 02/12/18 18:59 06:59 18:59 Intake Total 220 150 490 Output Total 375 220 400 Balance -155 -70 90 Weight 135.5 kg 134.4 kg 134.4 kg Intake: IV 220 150 130 Piperacillin-Tazobactam 3 50 50 .375 gm In Dextrose/Water 1 50ml.bag @ 12.5 mls/hr IVPB Q8HR [facility] Rx#: [id number] Sodium Chloride 0.9% 1, 220 100 80 000 ml @ 20 mls/hr IV . Q24H [facility] Rx#:[id number] Oral 360 Output: Urine 375 220 400 Other: Voiding Method Indwelling Catheter Indwelling Catheter Indwelling Catheter # Bowel Movements 1 ABP, PAP, CO, CI - Last Documented Arterial Blood Pressure 151/71 - Exam Patient is intubated sedated maintained on mechanical ventilation HEENT head without any acute abnormality Neck is supple no JVD no goiter no lymphadenopathy Chest exam reveals a few scattered crackles bilaterally no wheezing Cardiac exam reveals regular heart sounds no murmurs Abdomen is soft nontender no organomegaly Extremity exam reveals minimal edema - Labs CBC & Chem 7: 02/12/18 05:25 02/12/18 05:25 Labs: Abnormal Lab Results - Last 24 Hours (Table) 02/11/18 02/11/18 02/12/18 Range/Units 16:57 21:02 05:25 MCHC 30.8 L (31.0-37.0) g/dL Neutrophils # 8.7 H (1.3-7.7) k/uL Lymphocytes # 0.5 L (1.0-4.8) k/uL Chloride (98-107) mmol/L Carbon Dioxide (22-30) mmol/L BUN (7-17) mg/dL Glucose (74-99) mg/dL POC Glucose (mg/dL) 105 H 140 H (75-99) mg/dL 02/12/18 02/12/18 02/12/18 Range/Units 05:25 06:57 12:05 MCHC (31.0-37.0) g/dL Neutrophils # (1.3-7.7) k/uL Lymphocytes # (1.0-4.8) k/uL Chloride 97 L (98-107) mmol/L Carbon Dioxide 40 H* (22-30) mmol/L BUN 20 H (7-17) mg/dL Glucose 106 H (74-99) mg/dL POC Glucose (mg/dL) 113 H 121 H (75-99) mg/dL Microbiology - Last 24 Hours (Table) 02/05/18 13:00 Blood Culture - Final Blood No Growth after 144 hours Assessment and Plan Plan: #1 acute hypoxic and hypercapnic respiratory failure secondary to chronic obstructive pulmonary disease, obstructive sleep apnea syndrome and obesity hypoventilation syndrome, congestive heart failure and possible underlining community-acquired pneumonia. Patient was extubated on 02/09/2018. Still requiring about 6 L of oxygen. Followed by pulmonary service. #2 evidence of acute diastolic congestive heart failure exacerbation with shortness of breath, chest x-ray evidence of pulmonary congestion, and elevated BNP at 14,100. 2-D echo completed EF between 50-60%. Patient is currently off of Lasix. Cardiology has signed off. #3 previous history of lung cancer status post partial lung resection and resection of metastatic brain disease in 2000. #4 underlying history of COPD patient is a former smoker #5 underlying history of obstructive sleep apnea #6 elevated troponin level at 0.18H and denies chest pain. Per cardiology abnormal cardiac enzymes is not consistent with acute coronary syndrome and likely related to hypotension. #7 community-acquired pneumonia continue Zosyn and Levaquin. Add Mucinex DVT prophylaxis Lovenox and GI prophylaxis Protonix Patient improving gradually possible transfer out of ICU today Will follow closely
[2018-02-12 17:15] LABS: Glucose,Whole Blood 127 mg/dL (75-99)
[2018-02-12 20:51] LABS: Glucose,Whole Blood 169 mg/dL (75-99)
[2018-02-13] MEDS: PIPERACILLIN-TAZOBACTAM 3.375 GM in DEXTROSE/WATER 1 50ML.BAG IVPB SCH ×3 (00:03→17:21)
[2018-02-13] MEDS: SODIUM CHLORIDE 0.9% 1,000 ML IV SCH ×2 (02:27→17:21)
[2018-02-13] MEDS: IPRATROPIUM-ALBUTEROL 3 ML NEB INHALATION SCH ×4 (07:13→19:07)
[2018-02-13] MEDS: SYMBICORT 160-4.5 MCG INHALER INHALATION SCH ×2 (07:13→19:07)
[2018-02-13 07:31] LABS: Glucose,Whole Blood 100 mg/dL (75-99)
[2018-02-13] MEDS: INSULIN ASPART 100 UNIT/ML 1 ML 10 ML VIAL SQ SCH ×4 (07:34→21:42)
[2018-02-13 07:41] LABS: Anion Gap 8 mmol/L; Blood Urea Nitrogen 16 mg/dL (7-17); Calcium 8.5 mg/dL (8.4-10.2); Carbon Dioxide 36 mmol/L (22-30); Chloride 95 mmol/L (98-107); Glucose 104 mg/dL (74-99); Potassium 4.3 mmol/L (3.5-5.1); Sodium 139 mmol/L (137-145)
[2018-02-13] MEDS: ASPIRIN 81 MG PO SCH (09:51)
[2018-02-13] MEDS: PANTOPRAZOLE 40 MG TABLET PO SCH (09:51)
[2018-02-13] MEDS: guaiFENesin 600 MG TABLET.ER PO SCH ×2 (09:51→21:42)
[2018-02-13] MEDS: ENOXAPARIN 40 MG/0.4 ML SYRINGE SQ SCH (09:51)
--- NOTE | 2018-02-13 11:33 | P.PN ---
Subjective Progress Note Date: 02/13/18 Principal diagnosis: Heart failure, respiratory failure, pneumonia Progress note dated 02/07/2018 This is a 62-year-old female who was admitted on February 05. The patient came to the ICU on February 06 and was intubated on February 06. The patient's diagnoses including acute hypercapnic respiratory failure secondary to COPD sleep apnea syndrome and pickwickian syndrome as well as heart failure and possible community-acquired pneumonia. The patient also has suspected diastolic heart failure pneumonia pickwickian syndrome and a previous history of lung cancer, status post right-sided lobectomy as well as with brain metastases and brain resection. Currently, the patient is on the volume assist control mode with a rate of 14, tidal volume 500, FiO2 35%, and PEEP of 8. Arterial blood gases could not be obtained. The patient's previous blood gases showed a pO2 of greater than 400 PaCO2 of 68 and a pH of 7.22. The patient is currently on Zosyn and Levaquin and microbiology is still negative. Currently the patient is a full code although there was some discussion with family members about DO NOT RESUSCITATE. Vent changes included a rate of 22, tidal volume of 350, and PEEP of 5. The patient is currently on norepinephrine at 20 mics per minute propofol at 25 mics per kilogram per minute saline IV 100 mL an hour and tube feeds with vital high protein of 45 which is goal. We did trial the patient on some PSV and CPAP. She did well but in my opinion is probably not ready for extubation. Progress note dated 02/08/2018 This is a 62-year-old female who was admitted on February 05. She came to the ICU on February 06 and was intubated on February 06. The patient's diagnoses included hypercapnic respiratory failure secondary to COPD, sleep apnea syndrome, and pickwickian syndrome, as well as possible heart failure and possible community- acquired pneumonia. The patient's doing reasonably well. Currently she remains on the ventilator on the volume assist control mode, rate is 26, tidal volume 750, FiO2 40%, PEEP of 5. Arterial blood gases show a PaO2 of 99 a PaCO2 of 65 and a pH 7.31. She remains on saline at 100 mL an hour. The norepinephrine and the propofol had been off for quite some time. She is receiving vital high protein at a goal of 45 mL an hour. White blood count is 13.3. Hemoglobin and hematocrit and platelet count are all normal. Sodium potassium chloride normal CO2 32 BUN and creatinine were 18 and 0.7. Microbiology is all negative. Labs x-rays a medications are all reviewed. She remains on Zosyn and Levaquin. We will again attempt a spontaneous breathing trial today. Progress note dated 02/09/2018 62-year-old female was admitted on February 05. She came to the ICU on February 06 and was intubated on February 06. She's had a couple days of daily eruption of sedation with. Previously, she did not do as well. Today she looks pretty good and her numbers look good and should a positive cuff leak. For that reason we chose to extubate the patient. She previously was on the volume assist control mode rate 26, tidal volume 350, FiO2 40% and PEEP of 5. Arterial blood gases show a PaO2 of 82 PaCO2 of 60 to pH 7.38. She's on a saline IV at 50 propofol and norepinephrine are on hold. She's getting vital AF 45 which is goal. The patient seemed to be very stable post extubation. She is on nasal prongs. She will be nothing by mouth for 6 hours. After 6 hours, we will start sips of water and chips of ice. We'll change the updrafts 4 times a day and when necessary. We'll DC the chlorhexidine. We will DC the sedatives. The patient' s chest x-ray shows evidence of fluid overload and she'll get Lasix 40 mg IV push. Microbiology has been negative. Chest x-ray shows stable findings. Lab data includes a white count of 14.3 hemoglobin 11.2 hematocrit 36.7 and a platelet count which is normal. Sodium 142 potassium 4 chloride is 101 CO2 is 36 BUN and creatinine were 22 and 0.7. Progress note dated 02/10/2018 62-year-old female admitted back on February 05. She came to the ICU on February 06 was intubated on February 06 because of respiratory failure. She was extubated on yesterday. She's been doing relatively well since. She remains on O2 at 4 L by nasal cannula and a saline IV at 50 mL an hour. The patient feels better. Feeling much improved. The patient still is a long way to go. Very weak from her stay here in the ICU. She denies any chest pain or chest discomfort. No shortness of breath or difficulty breathing. No coughing wheezing. No nausea vomiting or diarrhea noted. Microbiology is completely negative. Lab data includes a white count of 9.4, hemoglobin 10.9 hematocrit 24.7 and platelet count 287,000. Sodium potassium and chlorides are normal. CO2 39 BUN and creatinine were 25 and 0.5 respectively. Chest x-ray continues to show diffuse bilateral infiltrates. I believe her chest x-ray has improved. Progress note dated 02/11/2018 62-year-old female admitted back on February 05. She came to the ICU on February 06 and was intubated on February 06 because of respiratory failure. She was extubated on February 09. Since that time, she's been doing reasonably well. She is improving day by day. Currently, receiving O2 by nasal cannula between 5 and 6 L. Her IV is a saline IV at 50 mL an hour. Today regarding discontinue the art line. We'll get her out of bed and transfer her over to the stepdown unit. Lab data includes a white count of 11.1 hemoglobin is 11.8 hematocrit 38.7 platelet count 311,000 her sodium is 142 potassium 4.2 chloride 98 CO2 38 BUN and creatinine of 24 and 0.6 Chest x-ray continues to show some bilateral infiltrates primarily in the lower lobes. Microbiology data is currently negative. Progress note dated 02/12/2018 62-year-old female admitted back on February 05. She came to the ICU on February 06 was intubated on February 06 for respiratory failure. She was extubated 3 days later on February 09. Since that time, she's been doing reasonably well. She seemed be improving a small bit every day although she states that she has a respiratory status which is "up and down". Currently receiving oxygen by nasal cannula at 4 L/m. Yesterday she was 5 or 6 L/m. Her ID is some a saline IV at 20 mL an hour. She's developed some mild diarrhea. Chest x-ray shows diffuse bilateral infiltrates which have really not changed all that much. His heart to say whether or not it relates to infection versus some fluid overload versus pulmonary fibrosis. Anyway, she is some reasonably stable. She is getting updrafts. We'll add Symbicort. She was a smoker in the past. All her microbiologic cultures are negative thus far. She remains on antibiotic. White count 10.3 hemoglobin and hematocrit and platelet count all normal. Sodium and potassium are normal. Chloride 97 CO2 40 BUN 20 creatinine 0.7. Chest x-ray is unchanged and microbiology is all negative. Progress note dated 02/13/2018 62-year-old female admitted back on February 05. She came into the ICU on February 06 and was intubated on the same day for acute respiratory failure. She was extubated later on February 09. Since that time, she's been doing reasonably well and she was moved out of the ICU yesterday. She had been weaned down to 4 L by nasal cannula. Chest x-ray shows continued bilateral infiltrates which could be consistent with pulmonary fibrosis pneumonia or acute lung injury. The patient's microbiologic studies were all negative thus far. She improves on a daily basis. Basic metabolic profile is today except for a chloride of 95 and a CO2 of 36. No new chest x-ray to report on today. Microbiologic studies all been negative. Objective - Vital Signs Vital signs: Vital Signs Temp 98.0 F 02/13/18 05:45 Pulse 66 02/13/18 11:25 Resp 20 02/13/18 05:45 BP 145/89 02/13/18 05:45 Pulse Ox 91 L 02/13/18 07:13 Intake & Output 02/12/18 02/13/18 02/13/18 18:59 06:59 18:59 Intake Total 980 Output Total 600 300 Balance 380 -300 Weight 134.4 kg 135 kg Intake: IV 260 Piperacillin-Tazobactam 3 100 .375 gm In Dextrose/Water 1 50ml.bag @ 12.5 mls/hr IVPB Q8HR [facility] Rx#: [id number] Sodium Chloride 0.9% 1, 160 000 ml @ 20 mls/hr IV . Q24H [facility] Rx#:[id number] Oral 720 Output: Urine 600 300 Other: Voiding Method Indwelling Catheter # Voids 1 # Bowel Movements 2 1 ABP, PAP, CO, CI - Last Documented Arterial Blood Pressure 151/71 - Exam No acute distress, on nasal O2, and no acute distress, oriented 3. HEENT examination is grossly unremarkable. Mucous membranes are moist. No oral lesions. Neck supple. Full range of motion. No adenopathy thyromegaly or neck vein distention. Cardiovascular examination reveals regular rhythm rate. S1-S2 normal. No S3 or S4. No discernible murmur noted. Heart sounds are distant. Lungs reveal fairly clear breath sounds. A few scattered rhonchi. Breath sounds are equal bilaterally. Abdomen is obese and soft. Bowel sounds are noted. No tenderness. Extremities are intact. Mild edema is noted. Skin is without rash or lesion. Neurologic examination is completely normal. - Labs CBC & Chem 7: 02/12/18 05:25 02/13/18 06:47 Labs: Abnormal Lab Results - Last 24 Hours (Table) 02/12/18 02/12/18 02/12/18 Range/Units 12:05 17:13 20:50 Chloride (98-107) mmol/L Carbon Dioxide (22-30) mmol/L Glucose (74-99) mg/dL POC Glucose (mg/dL) 121 H 127 H 169 H (75-99) mg/dL 02/13/18 02/13/18 Range/Units 06:47 07:28 Chloride 95 L (98-107) mmol/L Carbon Dioxide 36 H (22-30) mmol/L Glucose 104 H (74-99) mg/dL POC Glucose (mg/dL) 100 H (75-99) mg/dL Assessment and Plan Assessment: Assessment Acute respiratory failure, both hypoxemic and hypercapnic in nature, secondary to COPD, sleep apnea syndrome, possible pickwickian syndrome, congestive heart failure, and possible pneumonia. Status post extubation on 02/09/2018 Suspect severe underlying COPD with chronic hypercapnic respiratory failure Diastolic heart failure Community-acquired pneumonia Possible pickwickian syndrome History of metastatic lung cancer, with previous right-sided lobectomy and brain metastases with previous brain resection. History of sleep apnea syndrome Morbid obesity. History of hypertension Plan: Plan dated 02/07/2018 Chest x-ray shows a endotracheal tube about 2 cm above the tracheal thu. There is diffuse bilateral infiltrates with a relatively normal sized heart. There may be small bilateral effusions. Vent changes ready have been made. The patient's sedation was held. She did reasonably well on a PSV and CPAP trial. She is currently getting nourishment with vital high protein. Antibiotics include both Zosyn and Levaquin. We will talk to family about CODE STATUS. We'll see if we can get another art line in. White count is 16.3, hemoglobin 12.8, platelet count 400,000, sodium potassium chloride CO2 all normal, BUN/creatinine normal at 22 and 0.8, and the rest of the labs looking pretty normal. The patient's overall prognosis is guarded. We will have a discussion with the family about CODE STATUS. Apparently she may not available wanted to be on life support. Probably not ready for weaning a ship. She did reasonably well with her weaning trial. Additional recommendations and suggestions are forthcoming. We'll continue to follow closely. Critical care time 32 minutes. Plan dated 02/08/2018 The patient will get a spontaneous breathing trial today. She's been off the pressor and the sedation since yesterday. She is receiving nutrition. Vent settings are appropriate. Blood gases are reasonable. She did reasonably well yesterday on pressure support and CPAP. We'll attempt that again today. Labs x -rays a medications are all reviewed. We'll continue to follow closely. Prognosis is very guarded. And I am was placed yesterday in the right radial artery. Critical care time 34 minutes. Plan dated 02/09/2018 The patient did well on spontaneous breathing trial today. Weaning parameters are reasonable and she did have a cuff leak. Attention was extubated. Postextubation, she looks good. Head of bed will be elevated. Nothing to eat or drink for 6 hours. After 6 hours sips of water chips of ice. The patient some chest x-ray shows diffuse bilateral infiltrates. She will get Lasix 40 mg IV push times one. The patient's labs x-rays a medications are all reviewed. Microbiology is negative. Hopefully she'll do well. A.m. labs and x-rays. Critical care time 37 minutes. Plan dated 02/10/2018 The patient was extubated yesterday. She's doing very well. The patient may likely move out of the ICU either later today or tomorrow. The patient needs to be a get out of bed. The patient needs deep breathing coughing clearing secretions. We recommend hourly use of the incentive spirometer. Additional recommendations and suggestions are forthcoming. Prognosis is guarded. Critical care time 34 minutes Plan dated 02/11/2018 The patient was extubated on February 09. Since that time, she is doing well. She is still requiring relatively higher concentrations of oxygen. Chest x-ray continues to show bilateral infiltrates. Labs microbiology medications and other information is reviewed. Prognosis is still guarded. We'll see if we can move out of the ICU today. Additional recommendations and suggestions are forthcoming. Medications are reviewed extensively. Critical care time 36 minutes Plan dated 02/12/2018 Overall, the patient seems be doing reasonably well. She is receiving O2 at 4 L and an IV of saline at 20 mL an hour. We'll send stool for C. diff sampling. Microbiology is negative. We add Symbicort 160/4.52 puffs twice a day because she does have a substantial smoking history. She'll continue on updrafts. Labs x-rays a medications are all reviewed. Prognosis is guarded. Critical care time 32 minutes Plan dated 02/13/2018 The patient continues to show improvement. She's been weaned down to 3 L by nasal cannula. Microbiology studies are negative. Symbicort was added to the regimen. She'll continue on updrafts. Medications labs and other data are reviewed. Prognosis is guarded but she has shown significant improvement from when she was first admitted. Time with Patient: Less than 30
[2018-02-13 12:17] LABS: Glucose,Whole Blood 135 mg/dL (75-99)
--- NOTE | 2018-02-13 15:22 | P.PN ---
Subjective Ophelia Ruffin is a 62-year-old female who presented to [facility] emergency room with a chief complaint of worsening shortness of breath patient states that her symptoms started 2 days ago and has been worsening she stated that she had some fever and chills and cough and developed worsening shortness of breath otherwise she denies any other complaints there was no headache no dizziness no chest pain no nausea or vomiting no abdominal pain and no urinary symptoms patient denies having any sputum production was her cough. Patient has a history of lung cancer she underwent partial lung resection in 2000 she also underwent brain metastatic disease removal, she states that she has been stable and cancer free since 2000. On 02/06/2018 patient is seen and examined in the intensive care unit, during last night patient developed worsening shortness of breath and unresponsiveness , she was transferred to intensive care unit initially she was started on BiPAP however she required intubation and mechanical ventilation, patient was hypotensive and required pressure support. On 02/07/2018 patient is seen in the ICU remained on mechanical ventilation. Patient currently on hold and patient following commands. Patient remains on norepinephrine for blood pressure support. Per nursing staff extubation hopefully tomorrow. Pulmonary services and critical care team following. Lasix remains on hold due to hypotension. Cardiology services are following 02/08/2018 patient remains in the ICU and on mechanical ventilation. Patient failed weaning trial today. Vasopressors were discontinued yesterday. Patient had a low-grade temp of 100 yesterday evening. White count has decreased from 16.3-13.3. Urine culture negative and blood culture negative so far. Sputum culture also negative 02/09/2018 patient remains in ICU but has been extubated. Currently on 4 L NC. Per nursing staff patient did have some expiratory stridor upon extubation and was given Decadron and IV Lasix per critical care team. Patient's WBC today 14.3. Urine, blood and sputum are negative so far. Patient has remained afebrile. 02/10/2018 patient remains in the ICU. Patient was extubated yesterday .She is requiring 4 to 6 L of oxygen. She becomes very short of breath with any activity. Patient denies any chest pain. Denies any nausea or vomiting. Patient did have a small bowel movement this morning 02/11/2018 patient requiring about 6 L of oxygen. She is short of breath with activity. She denies any chest pain. Denies any nausea or vomiting. Reports having bowel movements. She will likely be transferred out of the ICU later today. She does report some cough and having difficulty breaking up the phlegm. Mucinex added On 02/12/2018 patient is alert and oriented 3 in no apparent distress, she is sitting up in a chair, vitals are stable, pulse ox 94% on 4 L nasal cannula, CO2 level elevated at 40 patient denies any fever or chills no headache or dizziness no chest pain no shortness of breath at rest with oxygen, there is minimal cough without sputum production, no nausea or vomiting no abdominal pain , she is complaining of diarrhea, no burning was urination no frequency or urgency and no hematuria. On 02/13/2018 patient is alert and oriented 3 having shortness of breath with activity, also complaining of diarrhea otherwise no complaints at this time there is no fever or chills, no chest pain no cough no nausea or vomiting no abdominal pain and no urinary symptoms. Objective - Vital Signs Vital signs: Vital Signs Temp 98.0 F 02/13/18 05:45 Pulse 66 02/13/18 11:25 Resp 20 02/13/18 05:45 BP 145/89 02/13/18 05:45 Pulse Ox 91 L 02/13/18 07:13 Intake & Output 02/12/18 02/13/18 02/13/18 18:59 06:59 18:59 Intake Total 980 650 Output Total 600 300 Balance 380 -300 650 Weight 134.4 kg 135 kg Intake: IV 260 50 Piperacillin-Tazobactam 3 100 50 .375 gm In Dextrose/Water 1 50ml.bag @ 12.5 mls/hr IVPB Q8HR [facility] Rx#: [id number] Sodium Chloride 0.9% 1, 160 000 ml @ 20 mls/hr IV . Q24H [facility] Rx#:[id number] Oral 720 600 Output: Urine 600 300 Other: Voiding Method Indwelling Catheter # Voids 1 2 # Bowel Movements 2 1 2 ABP, PAP, CO, CI - Last Documented Arterial Blood Pressure 151/71 - Exam Patient is intubated sedated maintained on mechanical ventilation HEENT head without any acute abnormality Neck is supple no JVD no goiter no lymphadenopathy Chest exam reveals a few scattered crackles bilaterally no wheezing Cardiac exam reveals regular heart sounds no murmurs Abdomen is soft nontender no organomegaly Extremity exam reveals minimal edema - Labs CBC & Chem 7: 02/12/18 05:25 02/13/18 06:47 Labs: Abnormal Lab Results - Last 24 Hours (Table) 02/12/18 02/12/18 02/13/18 Range/Units 17:13 20:50 06:47 Chloride 95 L (98-107) mmol/L Carbon Dioxide 36 H (22-30) mmol/L Glucose 104 H (74-99) mg/dL POC Glucose (mg/dL) 127 H 169 H (75-99) mg/dL 02/13/18 02/13/18 Range/Units 07:28 12:14 Chloride (98-107) mmol/L Carbon Dioxide (22-30) mmol/L Glucose (74-99) mg/dL POC Glucose (mg/dL) 100 H 135 H (75-99) mg/dL Assessment and Plan Plan: #1 acute hypoxic and hypercapnic respiratory failure secondary to chronic obstructive pulmonary disease, obstructive sleep apnea syndrome and obesity hypoventilation syndrome, congestive heart failure and possible underlining community-acquired pneumonia. Patient was extubated on 02/09/2018. Still requiring about 6 L of oxygen. Followed by pulmonary service. #2 evidence of acute diastolic congestive heart failure exacerbation with shortness of breath, chest x-ray evidence of pulmonary congestion, and elevated BNP at 14,100. 2-D echo completed EF between 50-60%. Patient is currently off of Lasix. Cardiology has signed off. #3 previous history of lung cancer status post partial lung resection and resection of metastatic brain disease in 2000. #4 underlying history of COPD patient is a former smoker #5 underlying history of obstructive sleep apnea #6 elevated troponin level at 0.18H and denies chest pain. Per cardiology abnormal cardiac enzymes is not consistent with acute coronary syndrome and likely related to hypotension. #7 community-acquired pneumonia continue Zosyn and Levaquin. Add Mucinex #8 diarrhea will check stool for C. diff DVT prophylaxis Lovenox and GI prophylaxis Protonix Patient improving gradually possible transfer out of ICU today Will follow closely
[2018-02-13 17:30] LABS: Glucose,Whole Blood 122 mg/dL (75-99)
[2018-02-13 21:20] LABS: Glucose,Whole Blood 170 mg/dL (75-99)
[2018-02-14] MEDS: SODIUM CHLORIDE 0.9% 1,000 ML IV SCH ×3 (00:04→17:39)
[2018-02-14] MEDS: PIPERACILLIN-TAZOBACTAM 3.375 GM in DEXTROSE/WATER 1 50ML.BAG IVPB SCH ×3 (00:07→15:41)
[2018-02-14 07:15] LABS: Glucose,Whole Blood 90 mg/dL (75-99)
[2018-02-14] MEDS: IPRATROPIUM-ALBUTEROL 3 ML NEB INHALATION SCH ×4 (07:22→19:54)
[2018-02-14] MEDS: SYMBICORT 160-4.5 MCG INHALER INHALATION SCH ×2 (07:22→19:54)
[2018-02-14] MEDS: INSULIN ASPART 100 UNIT/ML 1 ML 10 ML VIAL SQ SCH ×4 (07:39→20:23)
[2018-02-14] MEDS: ASPIRIN 81 MG PO SCH (08:41)
[2018-02-14] MEDS: PANTOPRAZOLE 40 MG TABLET PO SCH (08:41)
[2018-02-14] MEDS: guaiFENesin 600 MG TABLET.ER PO SCH ×2 (08:41→20:23)
[2018-02-14] MEDS: ENOXAPARIN 40 MG/0.4 ML SYRINGE SQ SCH (08:41)
[2018-02-14 10:02] LABS: Anion Gap 10 mmol/L; Calcium 8.5 mg/dL (8.4-10.2); Carbon Dioxide 32 mmol/L (22-30); Chloride 99 mmol/L (98-107); Glucose 105 mg/dL (74-99); Sodium 141 mmol/L (137-145); Total Bilirubin 0.9 mg/dL (0.2-1.3); Total Protein 6.3 g/dL (6.3-8.2)
[2018-02-14 10:09] LABS: ALT 135 U/L (9-52); AST 110 U/L (14-36); Alkaline Phosphatase 56 U/L (38-126); Blood Urea Nitrogen 11 mg/dL (7-17); Potassium 4.7 mmol/L (3.5-5.1)
--- NOTE | 2018-02-14 10:40 | P.PN ---
Subjective Progress Note Date: 02/14/18 Ophelia Ruffin is a 62-year-old female who presented to [facility] emergency room with a chief complaint of worsening shortness of breath patient states that her symptoms started 2 days ago and has been worsening she stated that she had some fever and chills and cough and developed worsening shortness of breath otherwise she denies any other complaints there was no headache no dizziness no chest pain no nausea or vomiting no abdominal pain and no urinary symptoms patient denies having any sputum production was her cough. Patient has a history of lung cancer she underwent partial lung resection in 2000 she also underwent brain metastatic disease removal, she states that she has been stable and cancer free since 2000. On 02/06/2018 patient is seen and examined in the intensive care unit, during last night patient developed worsening shortness of breath and unresponsiveness , she was transferred to intensive care unit initially she was started on BiPAP however she required intubation and mechanical ventilation, patient was hypotensive and required pressure support. On 02/07/2018 patient is seen in the ICU remained on mechanical ventilation. Patient currently on hold and patient following commands. Patient remains on norepinephrine for blood pressure support. Per nursing staff extubation hopefully tomorrow. Pulmonary services and critical care team following. Lasix remains on hold due to hypotension. Cardiology services are following 02/08/2018 patient remains in the ICU and on mechanical ventilation. Patient failed weaning trial today. Vasopressors were discontinued yesterday. Patient had a low-grade temp of 100 yesterday evening. White count has decreased from 16.3-13.3. Urine culture negative and blood culture negative so far. Sputum culture also negative 02/09/2018 patient remains in ICU but has been extubated. Currently on 4 L NC. Per nursing staff patient did have some expiratory stridor upon extubation and was given Decadron and IV Lasix per critical care team. Patient's WBC today 14.3. Urine, blood and sputum are negative so far. Patient has remained afebrile. 02/10/2018 patient remains in the ICU. Patient was extubated yesterday .She is requiring 4 to 6 L of oxygen. She becomes very short of breath with any activity. Patient denies any chest pain. Denies any nausea or vomiting. Patient did have a small bowel movement this morning 02/11/2018 patient requiring about 6 L of oxygen. She is short of breath with activity. She denies any chest pain. Denies any nausea or vomiting. Reports having bowel movements. She will likely be transferred out of the ICU later today. She does report some cough and having difficulty breaking up the phlegm. Mucinex added On 02/12/2018 patient is alert and oriented 3 in no apparent distress, she is sitting up in a chair, vitals are stable, pulse ox 94% on 4 L nasal cannula, CO2 level elevated at 40 patient denies any fever or chills no headache or dizziness no chest pain no shortness of breath at rest with oxygen, there is minimal cough without sputum production, no nausea or vomiting no abdominal pain , she is complaining of diarrhea, no burning was urination no frequency or urgency and no hematuria. On 02/13/2018 patient is alert and oriented 3 having shortness of breath with activity, also complaining of diarrhea otherwise no complaints at this time there is no fever or chills, no chest pain no cough no nausea or vomiting no abdominal pain and no urinary symptoms. 02/14/2018 patient sitting up in bedside chair. She reports improvement in her shortness of breath. She is down to 3 L of oxygen satting at 96%. She is complaining of some lower extremity edema bilaterally. And will be restarted on her home Lasix. Stool for C. diff was negative. She had one loose stool this morning. But the diarrhea is slowing down. Elevation in her LFTs AST 110 and ALT 135. Reports no abdominal pain. Patient was transferred out of the ICU over the weekend Objective - Vital Signs Vital signs: Vital Signs Temp 97.8 F 02/14/18 05:40 Pulse 82 02/14/18 08:00 Resp 16 02/14/18 08:00 BP 129/80 02/14/18 05:40 Pulse Ox 96 02/14/18 07:22 Intake & Output 02/13/18 02/14/18 02/14/18 18:59 06:59 18:59 Intake Total 650 400 Balance 650 400 Intake: IV 50 Piperacillin-Tazobactam 3 50 .375 gm In Dextrose/Water 1 50ml.bag @ 12.5 mls/hr IVPB Q8HR [facility] Rx#: [id number] Oral 600 400 Other: Voiding Method Toilet # Voids 1 1 # Bowel Movements 2 ABP, PAP, CO, CI - Last Documented Arterial Blood Pressure 151/71 - Exam Head normocephalic Neck supple Lungs improvement in air movement. Wheezing noted bilaterally Heart regular rate and rhythm S1-S2, no rub or gallop Abdomen is soft nontender nondistended positive bowel sounds no hepatosplenomegaly Extremities +1 lower extremity edema bilaterally Neuro alert and orientated to 3 sitting up in bed - Labs CBC & Chem 7: 02/12/18 05:25 02/14/18 09:10 Labs: Abnormal Lab Results - Last 24 Hours (Table) 02/13/18 02/13/18 02/13/18 Range/Units 12:14 17:27 21:17 Carbon Dioxide (22-30) mmol/L Creatinine (0.52-1.04) mg/dL Glucose (74-99) mg/dL POC Glucose (mg/dL) 135 H 122 H 170 H (75-99) mg/dL AST (14-36) U/L ALT (9-52) U/L Albumin (3.5-5.0) g/dL 02/14/18 Range/Units 09:10 Carbon Dioxide 32 H (22-30) mmol/L Creatinine 0.50 L (0.52-1.04) mg/dL Glucose 105 H (74-99) mg/dL POC Glucose (mg/dL) (75-99) mg/dL AST 110 H (14-36) U/L ALT 135 H (9-52) U/L Albumin 3.0 L (3.5-5.0) g/dL Assessment and Plan Assessment: #1 acute hypoxic and hypercapnic respiratory failure secondary to chronic obstructive pulmonary disease, obstructive sleep apnea syndrome and obesity hypoventilation syndrome, congestive heart failure and possible underlining community-acquired pneumonia. Patient was extubated on 02/09/2018. Pulmonary following. Patient is down to 3 L of oxygen satting at 96% #2 evidence of acute diastolic congestive heart failure exacerbation with shortness of breath, chest x-ray evidence of pulmonary congestion, and elevated BNP at 14,100. 2-D echo completed EF between 50-60%. Cardiology has signed off. Patient is now having some lower extremity edema will resume her home Lasix 20 mg daily. #3 previous history of lung cancer status post partial lung resection and resection of metastatic brain disease in 2000. #4 underlying history of COPD patient is a former smoker #5 underlying history of obstructive sleep apnea #6 elevated troponin level at 0.18H and denies chest pain. Per cardiology abnormal cardiac enzymes is not consistent with acute coronary syndrome and likely related to hypotension. #7 community-acquired pneumonia continue Zosyn #8 diarrhea: Improving. Stool for C. diff negative. #9 mildly elevated LFTs AST 110 ALT 135. No abdominal pain. Possibly related to liver congestion. Lasix has been restarted. Repeat levels in a.m. DVT prophylaxis Lovenox and GI prophylaxis Protonix Consult physical therapy I performed an examination of the patient and discussed their management with the physician Seismographer. I have reviewed the Physician Seismographer's notes and agree with the documented findings and plan of care
[2018-02-14] MEDS ORDERED: FUROSEMIDE 20 MG TAB PO SCH (10:45)
[2018-02-14 11:49] LABS: Glucose,Whole Blood 105 mg/dL (75-99)
[2018-02-14 11:55] LABS: Basophils % (A) 0 %; Eosinophils # (A) 0.2 k/uL (0-0.7); Eosinophils % (A) 3 %; HCT 35.8 % (34.0-46.0); HGB 11.6 gm/dL (11.4-16.0); Hypochromasia Slight; Lymphocytes # (A) 0.7 k/uL (1.0-4.8); Lymphocytes % (A) 8 %; MCH 29.8 pg (25.0-35.0); MCHC 32.4 g/dL (31.0-37.0); Monocytes # (A) 0.6 k/uL (0-1.0); Monocytes % (A) 6 %; Neutrophils # (A) 7.7 k/uL (1.3-7.7); Neutrophils % (A) 82 %; Platelet Count 272 k/uL (150-450); RBC 3.89 m/uL (3.80-5.40); RDW 15.6 % (11.5-15.5); WBC 9.4 k/uL (3.8-10.6)
[2018-02-14] MEDS: FUROSEMIDE 10 MG/ML 2 ML VIAL IV SCH ×2 (13:24→20:20)
--- NOTE | 2018-02-14 15:56 | P.PN ---
Subjective Progress Note Date: 02/14/18 Principal diagnosis: acute hypoxemic and hypercapnic respiratory failure secondary to COPD exacerbation, sleep apnea syndrome, possible pickwickian syndrome, congestive heart failure and pneumonia Heart failure, respiratory failure, pneumonia Progress note dated 02/07/2018 This is a 62-year-old female who was admitted on February 05. The patient came to the ICU on February 06 and was intubated on February 06. The patient's diagnoses including acute hypercapnic respiratory failure secondary to COPD sleep apnea syndrome and pickwickian syndrome as well as heart failure and possible community-acquired pneumonia. The patient also has suspected diastolic heart failure pneumonia pickwickian syndrome and a previous history of lung cancer, status post right-sided lobectomy as well as with brain metastases and brain resection. Currently, the patient is on the volume assist control mode with a rate of 14, tidal volume 500, FiO2 35%, and PEEP of 8. Arterial blood gases could not be obtained. The patient's previous blood gases showed a pO2 of greater than 400 PaCO2 of 68 and a pH of 7.22. The patient is currently on Zosyn and Levaquin and microbiology is still negative. Currently the patient is a full code although there was some discussion with family members about DO NOT RESUSCITATE. Vent changes included a rate of 22, tidal volume of 350, and PEEP of 5. The patient is currently on norepinephrine at 20 mics per minute propofol at 25 mics per kilogram per minute saline IV 100 mL an hour and tube feeds with vital high protein of 45 which is goal. We did trial the patient on some PSV and CPAP. She did well but in my opinion is probably not ready for extubation. Progress note dated 02/08/2018 This is a 62-year-old female who was admitted on February 05. She came to the ICU on February 06 and was intubated on February 06. The patient's diagnoses included hypercapnic respiratory failure secondary to COPD, sleep apnea syndrome, and pickwickian syndrome, as well as possible heart failure and possible community- acquired pneumonia. The patient's doing reasonably well. Currently she remains on the ventilator on the volume assist control mode, rate is 26, tidal volume 750, FiO2 40%, PEEP of 5. Arterial blood gases show a PaO2 of 99 a PaCO2 of 65 and a pH 7.31. She remains on saline at 100 mL an hour. The norepinephrine and the propofol had been off for quite some time. She is receiving vital high protein at a goal of 45 mL an hour. White blood count is 13.3. Hemoglobin and hematocrit and platelet count are all normal. Sodium potassium chloride normal CO2 32 BUN and creatinine were 18 and 0.7. Microbiology is all negative. Labs x-rays a medications are all reviewed. She remains on Zosyn and Levaquin. We will again attempt a spontaneous breathing trial today. Progress note dated 02/09/2018 62-year-old female was admitted on February 05. She came to the ICU on February 06 and was intubated on February 06. She's had a couple days of daily eruption of sedation with. Previously, she did not do as well. Today she looks pretty good and her numbers look good and should a positive cuff leak. For that reason we chose to extubate the patient. She previously was on the volume assist control mode rate 26, tidal volume 350, FiO2 40% and PEEP of 5. Arterial blood gases show a PaO2 of 82 PaCO2 of 60 to pH 7.38. She's on a saline IV at 50 propofol and norepinephrine are on hold. She's getting vital AF 45 which is goal. The patient seemed to be very stable post extubation. She is on nasal prongs. She will be nothing by mouth for 6 hours. After 6 hours, we will start sips of water and chips of ice. We'll change the updrafts 4 times a day and when necessary. We'll DC the chlorhexidine. We will DC the sedatives. The patient' s chest x-ray shows evidence of fluid overload and she'll get Lasix 40 mg IV push. Microbiology has been negative. Chest x-ray shows stable findings. Lab data includes a white count of 14.3 hemoglobin 11.2 hematocrit 36.7 and a platelet count which is normal. Sodium 142 potassium 4 chloride is 101 CO2 is 36 BUN and creatinine were 22 and 0.7. Progress note dated 02/10/2018 62-year-old female admitted back on February 05. She came to the ICU on February 06 was intubated on February 06 because of respiratory failure. She was extubated on yesterday. She's been doing relatively well since. She remains on O2 at 4 L by nasal cannula and a saline IV at 50 mL an hour. The patient feels better. Feeling much improved. The patient still is a long way to go. Very weak from her stay here in the ICU. She denies any chest pain or chest discomfort. No shortness of breath or difficulty breathing. No coughing wheezing. No nausea vomiting or diarrhea noted. Microbiology is completely negative. Lab data includes a white count of 9.4, hemoglobin 10.9 hematocrit 24.7 and platelet count 287,000. Sodium potassium and chlorides are normal. CO2 39 BUN and creatinine were 25 and 0.5 respectively. Chest x-ray continues to show diffuse bilateral infiltrates. I believe her chest x-ray has improved. Progress note dated 02/11/2018 62-year-old female admitted back on February 05. She came to the ICU on February 06 and was intubated on February 06 because of respiratory failure. She was extubated on February 09. Since that time, she's been doing reasonably well. She is improving day by day. Currently, receiving O2 by nasal cannula between 5 and 6 L. Her IV is a saline IV at 50 mL an hour. Today regarding discontinue the art line. We'll get her out of bed and transfer her over to the stepdown unit. Lab data includes a white count of 11.1 hemoglobin is 11.8 hematocrit 38.7 platelet count 311,000 her sodium is 142 potassium 4.2 chloride 98 CO2 38 BUN and creatinine of 24 and 0.6 Chest x-ray continues to show some bilateral infiltrates primarily in the lower lobes. Microbiology data is currently negative. Progress note dated 02/12/2018 62-year-old female admitted back on February 05. She came to the ICU on February 06 was intubated on February 06 for respiratory failure. She was extubated 3 days later on February 09. Since that time, she's been doing reasonably well. She seemed be improving a small bit every day although she states that she has a respiratory status which is "up and down". Currently receiving oxygen by nasal cannula at 4 L/m. Yesterday she was 5 or 6 L/m. Her ID is some a saline IV at 20 mL an hour. She's developed some mild diarrhea. Chest x-ray shows diffuse bilateral infiltrates which have really not changed all that much. His heart to say whether or not it relates to infection versus some fluid overload versus pulmonary fibrosis. Anyway, she is some reasonably stable. She is getting updrafts. We'll add Symbicort. She was a smoker in the past. All her microbiologic cultures are negative thus far. She remains on antibiotic. White count 10.3 hemoglobin and hematocrit and platelet count all normal. Sodium and potassium are normal. Chloride 97 CO2 40 BUN 20 creatinine 0.7. Chest x-ray is unchanged and microbiology is all negative. Progress note dated 02/13/2018 62-year-old female admitted back on February 05. She came into the ICU on February 06 and was intubated on the same day for acute respiratory failure. She was extubated later on February 09. Since that time, she's been doing reasonably well and she was moved out of the ICU yesterday. She had been weaned down to 4 L by nasal cannula. Chest x-ray shows continued bilateral infiltrates which could be consistent with pulmonary fibrosis pneumonia or acute lung injury. On 02/14/2018 patient seen again in follow-up on medical surgical floor.Pulse ox on 3 L per nasal cannula is 94%, patient is afebrile, hemodynamically stable , denies any worsening dyspnea, lung sounds are positive for bibasilar crackles , patient is receiving oral Lasix, we will switch to IV Lasix was 24 hours as the patient still has 2+ bilateral lower extremity edema latest chest x-ray from 02/12/2018 showed worsening changes of congestive heart failure.no fever, no chills, has been treated with empiric antibiotics in the form of Zosyn for possibility of pneumonia. No chest congestion, no significant sputum production. his lab work has been reviewed, no leukocytosis. Objective - Vital Signs Vital signs: Vital Signs Temp 97.7 F 02/14/18 13:42 Pulse 94 02/14/18 13:42 Resp 20 02/14/18 15:26 BP 128/96 02/14/18 13:42 Pulse Ox 94 L 02/14/18 13:42 Intake & Output 02/13/18 02/14/18 02/14/18 18:59 06:59 18:59 Intake Total 650 400 Balance 650 400 Intake: IV 50 Piperacillin-Tazobactam 3 50 .375 gm In Dextrose/Water 1 50ml.bag @ 12.5 mls/hr IVPB Q8HR [facility] Rx#: [id number] Oral 600 400 Other: Voiding Method Toilet # Voids 1 1 1 # Bowel Movements 2 ABP, PAP, CO, CI - Last Documented Arterial Blood Pressure 151/71 - Exam No acute distress, on nasal O2, and no acute distress, oriented 3. HEENT examination is grossly unremarkable. Mucous membranes are moist. No oral lesions. Neck supple. Full range of motion. No adenopathy thyromegaly or neck vein distention. Cardiovascular examination reveals regular rhythm rate. S1-S2 normal. No S3 or S4. No discernible murmur noted. Heart sounds are distant. Lungs reveal bibasilar crackles, or, no wheezes noted Abdomen is obese and soft. Bowel sounds are noted. No tenderness. Extremities are intact. 2+ bilateral lower extremity edema is present Skin is without rash or lesion. Neurologic examination is completely normal. - Labs CBC & Chem 7: 02/14/18 11:04 02/14/18 09:10 Labs: Abnormal Lab Results - Last 24 Hours (Table) 02/13/18 02/13/18 02/14/18 Range/Units 17:27 21:17 09:10 RDW (11.5-15.5) % Lymphocytes # (1.0-4.8) k/uL Carbon Dioxide 32 H (22-30) mmol/L Creatinine 0.50 L (0.52-1.04) mg/dL Glucose 105 H (74-99) mg/dL POC Glucose (mg/dL) 122 H 170 H (75-99) mg/dL AST 110 H (14-36) U/L ALT 135 H (9-52) U/L Albumin 3.0 L (3.5-5.0) g/dL 02/14/18 02/14/18 Range/Units 11:04 11:17 RDW 15.6 H (11.5-15.5) % Lymphocytes # 0.7 L (1.0-4.8) k/uL Carbon Dioxide (22-30) mmol/L Creatinine (0.52-1.04) mg/dL Glucose (74-99) mg/dL POC Glucose (mg/dL) 105 H (75-99) mg/dL AST (14-36) U/L ALT (9-52) U/L Albumin (3.5-5.0) g/dL Assessment and Plan Plan: Assessment: Acute respiratory failure, both hypoxemic and hypercapnic in nature, secondary to COPD, sleep apnea syndrome, possible pickwickian syndrome, congestive heart failure, and possible pneumonia. Status post extubation on 02/09/2018 Suspect severe underlying COPD with chronic hypercapnic respiratory failure Diastolic heart failure Community-acquired pneumonia Possible pickwickian syndrome History of metastatic lung cancer, with previous right-sided lobectomy and brain metastases with previous brain resection. History of sleep apnea syndrome Morbid obesity. History of hypertension Plan: We will switch to oral Lasix to IV Lasix for next 24 hours, we'll obtain follow- up chest x-ray in the morning, we will stop the Zosyn, patient has received 7 days of empiric antibiotics, is currently afebrile, cultures are negative. I'll repeat chest x-ray in the morning, we'll continue to follow. I performed a history & physical examination of the patient and discussed their management with my nurse practitioner, Birgit Barajas. I reviewed the nurse practitioner's note and agree with the documented findings and plan of care. Lung sounds are positive for bibasilar rales. The findings and the impression was discussed with the patient. I attest to the documentation by the nurse practitioner. Time with Patient: Less than 30
[2018-02-14 17:09] LABS: Glucose,Whole Blood 167 mg/dL (75-99)
[2018-02-14 20:30] LABS: Glucose,Whole Blood 137 mg/dL (75-99)
[2018-02-15] MEDS: SODIUM CHLORIDE 0.9% 1,000 ML IV SCH (05:18)
[2018-02-15 07:25] LABS: Glucose,Whole Blood 108 mg/dL (75-99)
[2018-02-15] MEDS: INSULIN ASPART 100 UNIT/ML 1 ML 10 ML VIAL SQ SCH ×4 (07:26→21:56)
[2018-02-15] MEDS: SYMBICORT 160-4.5 MCG INHALER INHALATION SCH ×2 (07:41→18:50)
[2018-02-15] MEDS: IPRATROPIUM-ALBUTEROL 3 ML NEB INHALATION SCH ×4 (07:41→18:50)
[2018-02-15] MEDS: ENOXAPARIN 40 MG/0.4 ML SYRINGE SQ SCH (07:56)
[2018-02-15] MEDS: guaiFENesin 600 MG TABLET.ER PO SCH ×2 (07:56→20:57)
[2018-02-15] MEDS: FUROSEMIDE 10 MG/ML 2 ML VIAL IV SCH ×2 (07:57→17:38)
[2018-02-15] MEDS: ASPIRIN 81 MG PO SCH (07:57)
[2018-02-15] MEDS: PANTOPRAZOLE 40 MG TABLET PO SCH (07:57)
[2018-02-15 09:03] LABS: Basophils % (A) 0 %; Eosinophils # (A) 0.3 k/uL (0-0.7); Eosinophils % (A) 3 %; HCT 38.9 % (34.0-46.0); Hypochromasia Moderate; Lymphocytes % (A) 10 %; MCHC 30.9 g/dL (31.0-37.0); MCV 93.8 fL (80.0-100.0); Mean Platelet Volume 6.9; Monocytes # (A) 0.5 k/uL (0-1.0); Monocytes % (A) 5 %; Neutrophils # (A) 8.1 k/uL (1.3-7.7); Neutrophils % (A) 80 %; Platelet Count 385 k/uL (150-450); RBC 4.15 m/uL (3.80-5.40); RDW 15.1 % (11.5-15.5); WBC 10.1 k/uL (3.8-10.6)
[2018-02-15 09:16] LABS: ALT 138 U/L (9-52); AST 93 U/L (14-36); Albumin 3.3 g/dL (3.5-5.0); Alkaline Phosphatase 69 U/L (38-126); Anion Gap 9 mmol/L; Blood Urea Nitrogen 11 mg/dL (7-17); Calcium 8.8 mg/dL (8.4-10.2); Carbon Dioxide 39 mmol/L (22-30); Chloride 94 mmol/L (98-107); Glucose 107 mg/dL (74-99); Potassium 4.3 mmol/L (3.5-5.1); Sodium 142 mmol/L (137-145); Total Bilirubin 0.8 mg/dL (0.2-1.3); Total Protein 6.5 g/dL (6.3-8.2)
[2018-02-15 11:22] LABS: Glucose,Whole Blood 176 mg/dL (75-99)
--- NOTE | 2018-02-15 13:15 | XR ---
EXAMINATION TYPE: XR chest 2V DATE OF EXAM: 02/15/2018 COMPARISON: Prior chest 02/12/2018 HISTORY: Follow-up congestive heart failure, pneumonia TECHNIQUE: Frontal and lateral views of the chest are obtained. FINDINGS: Findings are similar to prior exam. Heart size is stable. Postop changes again noted. Inte rstitium is prominent. Questionable airspace disease in the lower lobe noted as increased density on the lateral exam. No pneumothorax or pleural effusion. There are overlying cardiac leads. IMPRESSION: Findings are similar to prior exam. Suspect chronic interstitial lung disease. Postop ch anges. Difficult to exclude pneumonia. Consider chest CT for better evaluation.
--- NOTE | 2018-02-15 13:23 | P.PN ---
Subjective Progress Note Date: 02/15/18 Principal diagnosis: acute hypoxemic and hypercapnic respiratory failure secondary to COPD exacerbation, sleep apnea syndrome, possible pickwickian syndrome, congestive heart failure and pneumonia Heart failure, respiratory failure, pneumonia Progress note dated 02/07/2018 This is a 62-year-old female who was admitted on February 05. The patient came to the ICU on February 06 and was intubated on February 06. The patient's diagnoses including acute hypercapnic respiratory failure secondary to COPD sleep apnea syndrome and pickwickian syndrome as well as heart failure and possible community-acquired pneumonia. The patient also has suspected diastolic heart failure pneumonia pickwickian syndrome and a previous history of lung cancer, status post right-sided lobectomy as well as with brain metastases and brain resection. Currently, the patient is on the volume assist control mode with a rate of 14, tidal volume 500, FiO2 35%, and PEEP of 8. Arterial blood gases could not be obtained. The patient's previous blood gases showed a pO2 of greater than 400 PaCO2 of 68 and a pH of 7.22. The patient is currently on Zosyn and Levaquin and microbiology is still negative. Currently the patient is a full code although there was some discussion with family members about DO NOT RESUSCITATE. Vent changes included a rate of 22, tidal volume of 350, and PEEP of 5. The patient is currently on norepinephrine at 20 mics per minute propofol at 25 mics per kilogram per minute saline IV 100 mL an hour and tube feeds with vital high protein of 45 which is goal. We did trial the patient on some PSV and CPAP. She did well but in my opinion is probably not ready for extubation. Progress note dated 02/08/2018 This is a 62-year-old female who was admitted on February 05. She came to the ICU on February 06 and was intubated on February 06. The patient's diagnoses included hypercapnic respiratory failure secondary to COPD, sleep apnea syndrome, and pickwickian syndrome, as well as possible heart failure and possible community- acquired pneumonia. The patient's doing reasonably well. Currently she remains on the ventilator on the volume assist control mode, rate is 26, tidal volume 750, FiO2 40%, PEEP of 5. Arterial blood gases show a PaO2 of 99 a PaCO2 of 65 and a pH 7.31. She remains on saline at 100 mL an hour. The norepinephrine and the propofol had been off for quite some time. She is receiving vital high protein at a goal of 45 mL an hour. White blood count is 13.3. Hemoglobin and hematocrit and platelet count are all normal. Sodium potassium chloride normal CO2 32 BUN and creatinine were 18 and 0.7. Microbiology is all negative. Labs x-rays a medications are all reviewed. She remains on Zosyn and Levaquin. We will again attempt a spontaneous breathing trial today. Progress note dated 02/09/2018 62-year-old female was admitted on February 05. She came to the ICU on February 06 and was intubated on February 06. She's had a couple days of daily eruption of sedation with. Previously, she did not do as well. Today she looks pretty good and her numbers look good and should a positive cuff leak. For that reason we chose to extubate the patient. She previously was on the volume assist control mode rate 26, tidal volume 350, FiO2 40% and PEEP of 5. Arterial blood gases show a PaO2 of 82 PaCO2 of 60 to pH 7.38. She's on a saline IV at 50 propofol and norepinephrine are on hold. She's getting vital AF 45 which is goal. The patient seemed to be very stable post extubation. She is on nasal prongs. She will be nothing by mouth for 6 hours. After 6 hours, we will start sips of water and chips of ice. We'll change the updrafts 4 times a day and when necessary. We'll DC the chlorhexidine. We will DC the sedatives. The patient' s chest x-ray shows evidence of fluid overload and she'll get Lasix 40 mg IV push. Microbiology has been negative. Chest x-ray shows stable findings. Lab data includes a white count of 14.3 hemoglobin 11.2 hematocrit 36.7 and a platelet count which is normal. Sodium 142 potassium 4 chloride is 101 CO2 is 36 BUN and creatinine were 22 and 0.7. Progress note dated 02/10/2018 62-year-old female admitted back on February 05. She came to the ICU on February 06 was intubated on February 06 because of respiratory failure. She was extubated on yesterday. She's been doing relatively well since. She remains on O2 at 4 L by nasal cannula and a saline IV at 50 mL an hour. The patient feels better. Feeling much improved. The patient still is a long way to go. Very weak from her stay here in the ICU. She denies any chest pain or chest discomfort. No shortness of breath or difficulty breathing. No coughing wheezing. No nausea vomiting or diarrhea noted. Microbiology is completely negative. Lab data includes a white count of 9.4, hemoglobin 10.9 hematocrit 24.7 and platelet count 287,000. Sodium potassium and chlorides are normal. CO2 39 BUN and creatinine were 25 and 0.5 respectively. Chest x-ray continues to show diffuse bilateral infiltrates. I believe her chest x-ray has improved. Progress note dated 02/11/2018 62-year-old female admitted back on February 05. She came to the ICU on February 06 and was intubated on February 06 because of respiratory failure. She was extubated on February 09. Since that time, she's been doing reasonably well. She is improving day by day. Currently, receiving O2 by nasal cannula between 5 and 6 L. Her IV is a saline IV at 50 mL an hour. Today regarding discontinue the art line. We'll get her out of bed and transfer her over to the stepdown unit. Lab data includes a white count of 11.1 hemoglobin is 11.8 hematocrit 38.7 platelet count 311,000 her sodium is 142 potassium 4.2 chloride 98 CO2 38 BUN and creatinine of 24 and 0.6 Chest x-ray continues to show some bilateral infiltrates primarily in the lower lobes. Microbiology data is currently negative. Progress note dated 02/12/2018 62-year-old female admitted back on February 05. She came to the ICU on February 06 was intubated on February 06 for respiratory failure. She was extubated 3 days later on February 09. Since that time, she's been doing reasonably well. She seemed be improving a small bit every day although she states that she has a respiratory status which is "up and down". Currently receiving oxygen by nasal cannula at 4 L/m. Yesterday she was 5 or 6 L/m. Her ID is some a saline IV at 20 mL an hour. She's developed some mild diarrhea. Chest x-ray shows diffuse bilateral infiltrates which have really not changed all that much. His heart to say whether or not it relates to infection versus some fluid overload versus pulmonary fibrosis. Anyway, she is some reasonably stable. She is getting updrafts. We'll add Symbicort. She was a smoker in the past. All her microbiologic cultures are negative thus far. She remains on antibiotic. White count 10.3 hemoglobin and hematocrit and platelet count all normal. Sodium and potassium are normal. Chloride 97 CO2 40 BUN 20 creatinine 0.7. Chest x-ray is unchanged and microbiology is all negative. Progress note dated 02/13/2018 62-year-old female admitted back on February 05. She came into the ICU on February 06 and was intubated on the same day for acute respiratory failure. She was extubated later on February 09. Since that time, she's been doing reasonably well and she was moved out of the ICU yesterday. She had been weaned down to 4 L by nasal cannula. Chest x-ray shows continued bilateral infiltrates which could be consistent with pulmonary fibrosis pneumonia or acute lung injury. On 02/14/2018 patient seen again in follow-up on medical surgical floor.Pulse ox on 3 L per nasal cannula is 94%, patient is afebrile, hemodynamically stable , denies any worsening dyspnea, lung sounds are positive for bibasilar crackles , patient is receiving oral Lasix, we will switch to IV Lasix was 24 hours as the patient still has 2+ bilateral lower extremity edema latest chest x-ray from 02/12/2018 showed worsening changes of congestive heart failure.no fever, no chills, has been treated with empiric antibiotics in the form of Zosyn for possibility of pneumonia. No chest congestion, no significant sputum production. his lab work has been reviewed, no leukocytosis. On 02/15/2018 patient seen again in follow-up on medical surgical floor. Her weight today is 128.5 kg, and it is down 7 kg in the last 48 hours, patient's dry weight on admission was 122 kg which subsequently peaked to 135.5 kg while the patient was in the ICU. Patient is responding to diuretics, the swelling in her legs has decreased, the patient still has significant amount of residual edema. Lung sounds are positive for minimal crackles, wheezing, some 3 L per nasal cannula is 93%, vital signs are stable, patient is afebrile, yesterday we discontinued Zosyn, today's lab work has been reviewed, no leukocytosis, renal profile is within normal limits, chloride is 94, CO2 is 39, sodium and potassium are within normal limits. Irritated repeat 2 view chest x-ray today, which has not been completed yet. No fever or chills, denies dyspnea, denies any chest pain. Microbiology results have been reviewed, and remain negative thus far. Continue current medical treatment, will continue another 24 hours of IV diuresis. Objective - Vital Signs Vital signs: Vital Signs Temp 97.0 F L 02/15/18 05:50 Pulse 82 02/15/18 11:33 Resp 16 02/15/18 05:50 BP 159/91 02/15/18 05:50 Pulse Ox 93 L 02/15/18 07:41 Intake & Output 02/14/18 02/15/18 02/15/18 18:59 06:59 18:59 Weight 127 kg 128.5 kg Other: Voiding Method Toilet # Voids 2 2 3 # Bowel Movements 2 1 1 ABP, PAP, CO, CI - Last Documented Arterial Blood Pressure 151/71 - Exam No acute distress, on nasal O2, and no acute distress, oriented 3. HEENT examination is grossly unremarkable. Mucous membranes are moist. No oral lesions. Neck supple. Full range of motion. No adenopathy thyromegaly or neck vein distention. Cardiovascular examination reveals regular rhythm rate. S1-S2 normal. No S3 or S4. No discernible murmur noted. Heart sounds are distant. Lungs reveal minimal bibasilar crackles, or, no wheezes noted Abdomen is obese and soft. Bowel sounds are noted. No tenderness. Extremities are intact. 2+ bilateral lower extremity edema is present Skin is without rash or lesion. Neurologic examination is completely normal. - Labs CBC & Chem 7: 02/15/18 08:22 02/15/18 08:22 Labs: Abnormal Lab Results - Last 24 Hours (Table) 02/14/18 02/14/18 02/15/18 Range/Units 16:48 20:21 07:06 MCHC (31.0-37.0) g/dL Neutrophils # (1.3-7.7) k/uL Chloride (98-107) mmol/L Carbon Dioxide (22-30) mmol/L Glucose (74-99) mg/dL POC Glucose (mg/dL) 167 H 137 H 108 H (75-99) mg/dL AST (14-36) U/L ALT (9-52) U/L Albumin (3.5-5.0) g/dL 02/15/18 02/15/18 02/15/18 Range/Units 08:22 08:22 10:56 MCHC 30.9 L (31.0-37.0) g/dL Neutrophils # 8.1 H (1.3-7.7) k/uL Chloride 94 L (98-107) mmol/L Carbon Dioxide 39 H (22-30) mmol/L Glucose 107 H (74-99) mg/dL POC Glucose (mg/dL) 176 H (75-99) mg/dL AST 93 H (14-36) U/L ALT 138 H (9-52) U/L Albumin 3.3 L (3.5-5.0) g/dL Assessment and Plan Plan: Assessment: Acute respiratory failure, both hypoxemic and hypercapnic in nature, secondary to COPD, sleep apnea syndrome, possible pickwickian syndrome, congestive heart failure, and possible pneumonia. Status post extubation on 02/09/2018 Suspect severe underlying COPD with chronic hypercapnic respiratory failure Diastolic heart failure Community-acquired pneumonia Possible pickwickian syndrome History of metastatic lung cancer, with previous right-sided lobectomy and brain metastases with previous brain resection. History of sleep apnea syndrome Morbid obesity. History of hypertension Plan: We'll continue IV diuresis for another 24 hours, chest x-ray has been ordered for today, and has not been completed yet. Clinically patient remains stable, she is improving, she is ambulating about the room, and tolerating activity well , no fever or chills, vital signs are within normal limits, lab work has been reviewed. Continue nebulized bronchodilators, continue Symbicort, we'll continue to follow. I performed a history & physical examination of the patient and discussed their management with my nurse practitioner, Birgit Barajas. I reviewed the nurse practitioner's note and agree with the documented findings and plan of care. Lung sounds are positive for minimal bibasilar rales. The findings and the impression was discussed with the patient. I attest to the documentation by the nurse practitioner. Time with Patient: Less than 30
--- NOTE | 2018-02-15 13:29 | P.PN ---
Subjective Progress Note Date: 02/15/18 Ophelia Ruffin is a 62-year-old female who presented to [facility] emergency room with a chief complaint of worsening shortness of breath patient states that her symptoms started 2 days ago and has been worsening she stated that she had some fever and chills and cough and developed worsening shortness of breath otherwise she denies any other complaints there was no headache no dizziness no chest pain no nausea or vomiting no abdominal pain and no urinary symptoms patient denies having any sputum production was her cough. Patient has a history of lung cancer she underwent partial lung resection in 2000 she also underwent brain metastatic disease removal, she states that she has been stable and cancer free since 2000. On 02/06/2018 patient is seen and examined in the intensive care unit, during last night patient developed worsening shortness of breath and unresponsiveness , she was transferred to intensive care unit initially she was started on BiPAP however she required intubation and mechanical ventilation, patient was hypotensive and required pressure support. On 02/07/2018 patient is seen in the ICU remained on mechanical ventilation. Patient currently on hold and patient following commands. Patient remains on norepinephrine for blood pressure support. Per nursing staff extubation hopefully tomorrow. Pulmonary services and critical care team following. Lasix remains on hold due to hypotension. Cardiology services are following 02/08/2018 patient remains in the ICU and on mechanical ventilation. Patient failed weaning trial today. Vasopressors were discontinued yesterday. Patient had a low-grade temp of 100 yesterday evening. White count has decreased from 16.3-13.3. Urine culture negative and blood culture negative so far. Sputum culture also negative 02/09/2018 patient remains in ICU but has been extubated. Currently on 4 L NC. Per nursing staff patient did have some expiratory stridor upon extubation and was given Decadron and IV Lasix per critical care team. Patient's WBC today 14.3. Urine, blood and sputum are negative so far. Patient has remained afebrile. 02/10/2018 patient remains in the ICU. Patient was extubated yesterday .She is requiring 4 to 6 L of oxygen. She becomes very short of breath with any activity. Patient denies any chest pain. Denies any nausea or vomiting. Patient did have a small bowel movement this morning 02/11/2018 patient requiring about 6 L of oxygen. She is short of breath with activity. She denies any chest pain. Denies any nausea or vomiting. Reports having bowel movements. She will likely be transferred out of the ICU later today. She does report some cough and having difficulty breaking up the phlegm. Mucinex added On 02/12/2018 patient is alert and oriented 3 in no apparent distress, she is sitting up in a chair, vitals are stable, pulse ox 94% on 4 L nasal cannula, CO2 level elevated at 40 patient denies any fever or chills no headache or dizziness no chest pain no shortness of breath at rest with oxygen, there is minimal cough without sputum production, no nausea or vomiting no abdominal pain , she is complaining of diarrhea, no burning was urination no frequency or urgency and no hematuria. On 02/13/2018 patient is alert and oriented 3 having shortness of breath with activity, also complaining of diarrhea otherwise no complaints at this time there is no fever or chills, no chest pain no cough no nausea or vomiting no abdominal pain and no urinary symptoms. 02/14/2018 patient sitting up in bedside chair. She reports improvement in her shortness of breath. She is down to 3 L of oxygen satting at 96%. She is complaining of some lower extremity edema bilaterally. And will be restarted on her home Lasix. Stool for C. diff was negative. She had one loose stool this morning. But the diarrhea is slowing down. Elevation in her LFTs AST 110 and ALT 135. Reports no abdominal pain. Patient was transferred out of the ICU over the weekend 02/15/2018 patient was started on IV Lasix yesterday pulmonary service. She is still having lower extremity edema with some improvement. She is still requiring 3 L of oxygen satting at 93%. Denies any chest pain. Has worked with physical therapy, they're reporting patient can go home at time of discharge. She denies any chest pain. Denies any nausea or vomiting. Stools are more formed today. Denies any difficulty urinating. Objective - Vital Signs Vital signs: Vital Signs Temp 97.0 F L 02/15/18 05:50 Pulse 82 02/15/18 11:33 Resp 16 02/15/18 05:50 BP 159/91 02/15/18 05:50 Pulse Ox 93 L 02/15/18 07:41 Intake & Output 02/14/18 02/15/1818 18:59 06:59 18:59 Weight 127 kg 128.5 kg Other: Voiding Method Toilet # Voids 2 2 3 # Bowel Movements 2 1 1 ABP, PAP, CO, CI - Last Documented Arterial Blood Pressure 151/71 - Exam Head normocephalic Neck supple Lungs improvement in air movement. No wheezing or crackles. A few coarse breath sounds improved with cough Heart regular rate and rhythm S1-S2, no rub or gallop Abdomen is soft nontender nondistended positive bowel sounds no hepatosplenomegaly Extremities +1 lower extremity edema bilaterally Neuro alert and orientated to 3 sitting up in bed - Labs CBC & Chem 7: 02/15/18 08:22 02/15/18 08:22 Labs: Abnormal Lab Results - Last 24 Hours (Table) 02/14/18 02/14/18 02/15/18 Range/Units 16:48 20:21 07:06 MCHC (31.0-37.0) g/dL Neutrophils # (1.3-7.7) k/uL Chloride (98-107) mmol/L Carbon Dioxide (22-30) mmol/L Glucose (74-99) mg/dL POC Glucose (mg/dL) 167 H 137 H 108 H (75-99) mg/dL AST (14-36) U/L ALT (9-52) U/L Albumin (3.5-5.0) g/dL 02/15/18 02/15/18 02/15/18 Range/Units 08:22 08:22 10:56 MCHC 30.9 L (31.0-37.0) g/dL Neutrophils # 8.1 H (1.3-7.7) k/uL Chloride 94 L (98-107) mmol/L Carbon Dioxide 39 H (22-30) mmol/L Glucose 107 H (74-99) mg/dL POC Glucose (mg/dL) 176 H (75-99) mg/dL AST 93 H (14-36) U/L ALT 138 H (9-52) U/L Albumin 3.3 L (3.5-5.0) g/dL Assessment and Plan Assessment: #1 acute hypoxic and hypercapnic respiratory failure secondary to chronic obstructive pulmonary disease, obstructive sleep apnea syndrome and obesity hypoventilation syndrome, congestive heart failure and possible underlining community-acquired pneumonia. Patient was extubated on 02/09/2018. Pulmonary following. Patient is down to 3 L of oxygen satting at 96% #2 evidence of acute diastolic congestive heart failure exacerbation with shortness of breath, chest x-ray evidence of pulmonary congestion, and elevated BNP at 14,100. 2-D echo completed EF between 50-60%. Cardiology has signed off. Pulmonary service recommending to continue IV Lasix for another 24 hours. Patient still having lower extremity edema. Pulmonary repeated chest x-ray. #3 previous history of lung cancer status post partial lung resection and resection of metastatic brain disease in 2000. #4 underlying history of COPD patient is a former smoker #5 underlying history of obstructive sleep apnea #6 elevated troponin level at 0.18H and denies chest pain. Per cardiology abnormal cardiac enzymes is not consistent with acute coronary syndrome and likely related to hypotension. #7 community-acquired pneumonia continue Zosyn #8 diarrhea: Improving. Stool for C. diff negative. #9 mildly elevated LFTs AST 110 ALT 135. No abdominal pain. Possibly related to liver congestion. Continue Lasix. LFTs trending down. DVT prophylaxis Lovenox and GI prophylaxis Protonix Anticipate discharge home possibly tomorrow I performed an examination of the patient and discussed their management with the physician Spray Gun Repairer. I have reviewed the Physician Spray Gun Repairer's notes and agree with the documented findings and plan of care
[2018-02-15 17:12] LABS: Glucose,Whole Blood 117 mg/dL (75-99)
[2018-02-15 21:48] LABS: Glucose,Whole Blood 172 mg/dL (75-99)
[2018-02-16] MEDS: FUROSEMIDE 10 MG/ML 2 ML VIAL IV SCH ×2 (05:50→16:23)
[2018-02-16] MEDS: SYMBICORT 160-4.5 MCG INHALER INHALATION SCH ×2 (07:22→19:35)
[2018-02-16] MEDS: IPRATROPIUM-ALBUTEROL 3 ML NEB INHALATION SCH ×4 (07:22→19:35)
[2018-02-16] MEDS: INSULIN ASPART 100 UNIT/ML 1 ML 10 ML VIAL SQ SCH ×4 (07:26→21:24)
[2018-02-16 07:27] LABS: Glucose,Whole Blood 94 mg/dL (75-99)
[2018-02-16 08:27] LABS: Basophils % (A) 0 %; Eosinophils # (A) 0.3 k/uL (0-0.7); Eosinophils % (A) 3 %; HCT 40.4 % (34.0-46.0); HGB 12.3 gm/dL (11.4-16.0); Hypochromasia Marked; Lymphocytes # (A) 1.1 k/uL (1.0-4.8); Lymphocytes % (A) 10 %; MCH 28.6 pg (25.0-35.0); MCHC 30.5 g/dL (31.0-37.0); MCV 93.8 fL (80.0-100.0); Mean Platelet Volume 6.9; Monocytes # (A) 0.5 k/uL (0-1.0); Monocytes % (A) 5 %; Neutrophils % (A) 81 %; Platelet Count 426 k/uL (150-450); RBC 4.31 m/uL (3.80-5.40); RDW 15.1 % (11.5-15.5); WBC 11.2 k/uL (3.8-10.6)
[2018-02-16] MEDS: guaiFENesin 600 MG TABLET.ER PO SCH ×2 (08:30→20:37)
[2018-02-16] MEDS: PANTOPRAZOLE 40 MG TABLET PO SCH (08:31)
[2018-02-16] MEDS: ASPIRIN 81 MG PO SCH (08:31)
[2018-02-16] MEDS: ENOXAPARIN 40 MG/0.4 ML SYRINGE SQ SCH (08:31)
[2018-02-16 08:48] LABS: ALT 128 U/L (9-52); AST 78 U/L (14-36); Albumin 3.4 g/dL (3.5-5.0); Alkaline Phosphatase 68 U/L (38-126); Anion Gap 9 mmol/L; Blood Urea Nitrogen 12 mg/dL (7-17); Carbon Dioxide 39 mmol/L (22-30); Chloride 94 mmol/L (98-107); Glucose 129 mg/dL (74-99); Potassium 4.4 mmol/L (3.5-5.1); Sodium 142 mmol/L (137-145); Total Bilirubin 0.8 mg/dL (0.2-1.3); Total Protein 6.6 g/dL (6.3-8.2)
[2018-02-16 10:00] VITALS: BMI 47.8
[2018-02-16 12:08] LABS: Glucose,Whole Blood 171 mg/dL (75-99)
--- NOTE | 2018-02-16 13:37 | P.PN ---
Subjective Progress Note Date: 02/16/18 Ophelia Ruffin is a 62-year-old female who presented to [facility] emergency room with a chief complaint of worsening shortness of breath patient states that her symptoms started 2 days ago and has been worsening she stated that she had some fever and chills and cough and developed worsening shortness of breath otherwise she denies any other complaints there was no headache no dizziness no chest pain no nausea or vomiting no abdominal pain and no urinary symptoms patient denies having any sputum production was her cough. Patient has a history of lung cancer she underwent partial lung resection in 2000 she also underwent brain metastatic disease removal, she states that she has been stable and cancer free since 2000. On 02/06/2018 patient is seen and examined in the intensive care unit, during last night patient developed worsening shortness of breath and unresponsiveness , she was transferred to intensive care unit initially she was started on BiPAP however she required intubation and mechanical ventilation, patient was hypotensive and required pressure support. On 02/07/2018 patient is seen in the ICU remained on mechanical ventilation. Patient currently on hold and patient following commands. Patient remains on norepinephrine for blood pressure support. Per nursing staff extubation hopefully tomorrow. Pulmonary services and critical care team following. Lasix remains on hold due to hypotension. Cardiology services are following 02/08/2018 patient remains in the ICU and on mechanical ventilation. Patient failed weaning trial today. Vasopressors were discontinued yesterday. Patient had a low-grade temp of 100 yesterday evening. White count has decreased from 16.3-13.3. Urine culture negative and blood culture negative so far. Sputum culture also negative 02/09/2018 patient remains in ICU but has been extubated. Currently on 4 L NC. Per nursing staff patient did have some expiratory stridor upon extubation and was given Decadron and IV Lasix per critical care team. Patient's WBC today 14.3. Urine, blood and sputum are negative so far. Patient has remained afebrile. 02/10/2018 patient remains in the ICU. Patient was extubated yesterday .She is requiring 4 to 6 L of oxygen. She becomes very short of breath with any activity. Patient denies any chest pain. Denies any nausea or vomiting. Patient did have a small bowel movement this morning 02/11/2018 patient requiring about 6 L of oxygen. She is short of breath with activity. She denies any chest pain. Denies any nausea or vomiting. Reports having bowel movements. She will likely be transferred out of the ICU later today. She does report some cough and having difficulty breaking up the phlegm. Mucinex added On 02/12/2018 patient is alert and oriented 3 in no apparent distress, she is sitting up in a chair, vitals are stable, pulse ox 94% on 4 L nasal cannula, CO2 level elevated at 40 patient denies any fever or chills no headache or dizziness no chest pain no shortness of breath at rest with oxygen, there is minimal cough without sputum production, no nausea or vomiting no abdominal pain , she is complaining of diarrhea, no burning was urination no frequency or urgency and no hematuria. On 02/13/2018 patient is alert and oriented 3 having shortness of breath with activity, also complaining of diarrhea otherwise no complaints at this time there is no fever or chills, no chest pain no cough no nausea or vomiting no abdominal pain and no urinary symptoms. 02/14/2018 patient sitting up in bedside chair. She reports improvement in her shortness of breath. She is down to 3 L of oxygen satting at 96%. She is complaining of some lower extremity edema bilaterally. And will be restarted on her home Lasix. Stool for C. diff was negative. She had one loose stool this morning. But the diarrhea is slowing down. Elevation in her LFTs AST 110 and ALT 135. Reports no abdominal pain. Patient was transferred out of the ICU over the weekend 02/15/2018 patient was started on IV Lasix yesterday pulmonary service. She is still having lower extremity edema with some improvement. She is still requiring 3 L of oxygen satting at 93%. Denies any chest pain. Has worked with physical therapy, they're reporting patient can go home at time of discharge. She denies any chest pain. Denies any nausea or vomiting. Stools are more formed today. Denies any difficulty urinating. 02/16/2018 patient is currently resting comfortably in bed stating improvement with her lower extremity edema. Patient is still receiving IV Lasix 20mg every 12 hours. She is currently down to 2 L of oxygen satting 90-93%. Chest x-ray completed showing findings related to prior exam. Suspect chronic interstitial lung disease. Difficult to exclude pneumonia. Patient denies chest pain, shortness of breath. Denies any nausea or vomiting at this time Objective - Vital Signs Vital signs: Vital Signs Temp 98.0 F 02/16/18 07:00 Pulse 82 02/16/18 11:04 Resp 16 02/16/18 07:00 BP 150/71 02/16/18 07:00 Pulse Ox 90 L 02/16/18 07:00 Intake & Output 02/15/18 02/16/18 02/16/18 18:59 06:59 18:59 Intake Total 840 Output Total 300 Balance 840 -300 Weight 122.5 kg 122.5 kg Intake: Oral 840 Output: Urine 300 Other: Voiding Method Toilet Toilet # Voids 1 1 1 # Bowel Movements 1 1 ABP, PAP, CO, CI - Last Documented Arterial Blood Pressure 151/71 - Exam Head normocephalic Neck supple Lungs improvement in air movement. No wheezing or crackles. A few coarse breath sounds improved with cough Heart regular rate and rhythm S1-S2, no rub or gallop Abdomen is soft nontender nondistended positive bowel sounds no hepatosplenomegaly Extremities +1 lower extremity edema bilaterally Neuro alert and orientated to 3 sitting up in bed - Labs CBC & Chem 7: 02/16/18 08:07 02/16/18 08:07 Labs: Abnormal Lab Results - Last 24 Hours (Table) 02/15/18 02/15/18 02/16/18 Range/Units 17:09 21:36 08:07 WBC 11.2 H (3.8-10.6) k/uL MCHC 30.5 L (31.0-37.0) g/dL Neutrophils # 9.0 H (1.3-7.7) k/uL Chloride (98-107) mmol/L Carbon Dioxide (22-30) mmol/L Glucose (74-99) mg/dL POC Glucose (mg/dL) 117 H 172 H (75-99) mg/dL AST (14-36) U/L ALT (9-52) U/L Albumin (3.5-5.0) g/dL 02/16/18 02/16/18 Range/Units 08:07 12:00 WBC (3.8-10.6) k/uL MCHC (31.0-37.0) g/dL Neutrophils # (1.3-7.7) k/uL Chloride 94 L (98-107) mmol/L Carbon Dioxide 39 H (22-30) mmol/L Glucose 129 H (74-99) mg/dL POC Glucose (mg/dL) 171 H (75-99) mg/dL AST 78 H (14-36) U/L ALT 128 H (9-52) U/L Albumin 3.4 L (3.5-5.0) g/dL Assessment and Plan Assessment: #1 acute hypoxic and hypercapnic respiratory failure secondary to chronic obstructive pulmonary disease, obstructive sleep apnea syndrome and obesity hypoventilation syndrome, congestive heart failure and possible underlining community-acquired pneumonia. Patient was extubated on 02/09/2018. Pulmonary following. Patient is down to 2L of oxygen satting at 90%-93%. #2 evidence of acute diastolic congestive heart failure exacerbation with shortness of breath, chest x-ray evidence of pulmonary congestion, and elevated BNP at 14,100. 2-D echo completed EF between 50-60%. Cardiology has signed off. Pulmonary service recommending to continue IV Lasix for another 24 hours. Patient still having lower extremity edema. chest xray completed showing findings similar to prior exam. Suspect chronic interstitial lung disease. Postop changes. Difficult to exclude pneumonia. Consider chest CT for better evaluation. Pulmonary service is following. Patient remains on IV Lasix #3 previous history of lung cancer status post partial lung resection and resection of metastatic brain disease in 2000. #4 underlying history of COPD patient is a former smoker #5 underlying history of obstructive sleep apnea #6 elevated troponin level at 0.18H and denies chest pain. Per cardiology abnormal cardiac enzymes is not consistent with acute coronary syndrome and likely related to hypotension. #7 community-acquired pneumonia continue Zosyn. Zosyn has been discontinued #8 diarrhea: Improving. Stool for C. diff negative. #9 mildly elevated LFTs AST 110 ALT 135. No abdominal pain. Possibly related to liver congestion. Continue Lasix. LFTs trending down. AST 78, ALT 120 DVT prophylaxis Lovenox and GI prophylaxis Protonix Anticipate discharge home possibly tomorrow
--- NOTE | 2018-02-16 14:41 | P.PN ---
Subjective Progress Note Date: 02/16/18 Principal diagnosis: acute hypoxemic and hypercapnic respiratory failure secondary to COPD exacerbation, sleep apnea syndrome, possible pickwickian syndrome, congestive heart failure and pneumonia Heart failure, respiratory failure, pneumonia Progress note dated 02/07/2018 This is a 62-year-old female who was admitted on February 05. The patient came to the ICU on February 06 and was intubated on February 06. The patient's diagnoses including acute hypercapnic respiratory failure secondary to COPD sleep apnea syndrome and pickwickian syndrome as well as heart failure and possible community-acquired pneumonia. The patient also has suspected diastolic heart failure pneumonia pickwickian syndrome and a previous history of lung cancer, status post right-sided lobectomy as well as with brain metastases and brain resection. Currently, the patient is on the volume assist control mode with a rate of 14, tidal volume 500, FiO2 35%, and PEEP of 8. Arterial blood gases could not be obtained. The patient's previous blood gases showed a pO2 of greater than 400 PaCO2 of 68 and a pH of 7.22. The patient is currently on Zosyn and Levaquin and microbiology is still negative. Currently the patient is a full code although there was some discussion with family members about DO NOT RESUSCITATE. Vent changes included a rate of 22, tidal volume of 350, and PEEP of 5. The patient is currently on norepinephrine at 20 mics per minute propofol at 25 mics per kilogram per minute saline IV 100 mL an hour and tube feeds with vital high protein of 45 which is goal. We did trial the patient on some PSV and CPAP. She did well but in my opinion is probably not ready for extubation. Progress note dated 02/08/2018 This is a 62-year-old female who was admitted on February 05. She came to the ICU on February 06 and was intubated on February 06. The patient's diagnoses included hypercapnic respiratory failure secondary to COPD, sleep apnea syndrome, and pickwickian syndrome, as well as possible heart failure and possible community- acquired pneumonia. The patient's doing reasonably well. Currently she remains on the ventilator on the volume assist control mode, rate is 26, tidal volume 750, FiO2 40%, PEEP of 5. Arterial blood gases show a PaO2 of 99 a PaCO2 of 65 and a pH 7.31. She remains on saline at 100 mL an hour. The norepinephrine and the propofol had been off for quite some time. She is receiving vital high protein at a goal of 45 mL an hour. White blood count is 13.3. Hemoglobin and hematocrit and platelet count are all normal. Sodium potassium chloride normal CO2 32 BUN and creatinine were 18 and 0.7. Microbiology is all negative. Labs x-rays a medications are all reviewed. She remains on Zosyn and Levaquin. We will again attempt a spontaneous breathing trial today. Progress note dated 02/09/2018 62-year-old female was admitted on February 05. She came to the ICU on February 06 and was intubated on February 06. She's had a couple days of daily eruption of sedation with. Previously, she did not do as well. Today she looks pretty good and her numbers look good and should a positive cuff leak. For that reason we chose to extubate the patient. She previously was on the volume assist control mode rate 26, tidal volume 350, FiO2 40% and PEEP of 5. Arterial blood gases show a PaO2 of 82 PaCO2 of 60 to pH 7.38. She's on a saline IV at 50 propofol and norepinephrine are on hold. She's getting vital AF 45 which is goal. The patient seemed to be very stable post extubation. She is on nasal prongs. She will be nothing by mouth for 6 hours. After 6 hours, we will start sips of water and chips of ice. We'll change the updrafts 4 times a day and when necessary. We'll DC the chlorhexidine. We will DC the sedatives. The patient' s chest x-ray shows evidence of fluid overload and she'll get Lasix 40 mg IV push. Microbiology has been negative. Chest x-ray shows stable findings. Lab data includes a white count of 14.3 hemoglobin 11.2 hematocrit 36.7 and a platelet count which is normal. Sodium 142 potassium 4 chloride is 101 CO2 is 36 BUN and creatinine were 22 and 0.7. Progress note dated 02/10/2018 62-year-old female admitted back on February 05. She came to the ICU on February 06 was intubated on February 06 because of respiratory failure. She was extubated on yesterday. She's been doing relatively well since. She remains on O2 at 4 L by nasal cannula and a saline IV at 50 mL an hour. The patient feels better. Feeling much improved. The patient still is a long way to go. Very weak from her stay here in the ICU. She denies any chest pain or chest discomfort. No shortness of breath or difficulty breathing. No coughing wheezing. No nausea vomiting or diarrhea noted. Microbiology is completely negative. Lab data includes a white count of 9.4, hemoglobin 10.9 hematocrit 24.7 and platelet count 287,000. Sodium potassium and chlorides are normal. CO2 39 BUN and creatinine were 25 and 0.5 respectively. Chest x-ray continues to show diffuse bilateral infiltrates. I believe her chest x-ray has improved. Progress note dated 02/11/2018 62-year-old female admitted back on February 05. She came to the ICU on February 06 and was intubated on February 06 because of respiratory failure. She was extubated on February 09. Since that time, she's been doing reasonably well. She is improving day by day. Currently, receiving O2 by nasal cannula between 5 and 6 L. Her IV is a saline IV at 50 mL an hour. Today regarding discontinue the art line. We'll get her out of bed and transfer her over to the stepdown unit. Lab data includes a white count of 11.1 hemoglobin is 11.8 hematocrit 38.7 platelet count 311,000 her sodium is 142 potassium 4.2 chloride 98 CO2 38 BUN and creatinine of 24 and 0.6 Chest x-ray continues to show some bilateral infiltrates primarily in the lower lobes. Microbiology data is currently negative. Progress note dated 02/12/2018 62-year-old female admitted back on February 05. She came to the ICU on February 06 was intubated on February 06 for respiratory failure. She was extubated 3 days later on February 09. Since that time, she's been doing reasonably well. She seemed be improving a small bit every day although she states that she has a respiratory status which is "up and down". Currently receiving oxygen by nasal cannula at 4 L/m. Yesterday she was 5 or 6 L/m. Her ID is some a saline IV at 20 mL an hour. She's developed some mild diarrhea. Chest x-ray shows diffuse bilateral infiltrates which have really not changed all that much. His heart to say whether or not it relates to infection versus some fluid overload versus pulmonary fibrosis. Anyway, she is some reasonably stable. She is getting updrafts. We'll add Symbicort. She was a smoker in the past. All her microbiologic cultures are negative thus far. She remains on antibiotic. White count 10.3 hemoglobin and hematocrit and platelet count all normal. Sodium and potassium are normal. Chloride 97 CO2 40 BUN 20 creatinine 0.7. Chest x-ray is unchanged and microbiology is all negative. Progress note dated 02/13/2018 62-year-old female admitted back on February 05. She came into the ICU on February 06 and was intubated on the same day for acute respiratory failure. She was extubated later on February 09. Since that time, she's been doing reasonably well and she was moved out of the ICU yesterday. She had been weaned down to 4 L by nasal cannula. Chest x-ray shows continued bilateral infiltrates which could be consistent with pulmonary fibrosis pneumonia or acute lung injury. On 02/14/2018 patient seen again in follow-up on medical surgical floor.Pulse ox on 3 L per nasal cannula is 94%, patient is afebrile, hemodynamically stable , denies any worsening dyspnea, lung sounds are positive for bibasilar crackles , patient is receiving oral Lasix, we will switch to IV Lasix was 24 hours as the patient still has 2+ bilateral lower extremity edema latest chest x-ray from 02/12/2018 showed worsening changes of congestive heart failure.no fever, no chills, has been treated with empiric antibiotics in the form of Zosyn for possibility of pneumonia. No chest congestion, no significant sputum production. his lab work has been reviewed, no leukocytosis. On 02/15/2018 patient seen again in follow-up on medical surgical floor. Her weight today is 128.5 kg, and it is down 7 kg in the last 48 hours, patient's dry weight on admission was 122 kg which subsequently peaked to 135.5 kg while the patient was in the ICU. Patient is responding to diuretics, the swelling in her legs has decreased, the patient still has significant amount of residual edema. Lung sounds are positive for minimal crackles, wheezing, some 3 L per nasal cannula is 93%, vital signs are stable, patient is afebrile, yesterday we discontinued Zosyn, today's lab work has been reviewed, no leukocytosis, renal profile is within normal limits, chloride is 94, CO2 is 39, sodium and potassium are within normal limits. Irritated repeat 2 view chest x-ray today, which has not been completed yet. No fever or chills, denies dyspnea, denies any chest pain. Microbiology results have been reviewed, and remain negative thus far. Continue current medical treatment, will continue another 24 hours of IV diuresis. On 02/16/2017 patient's follow-up on medical surgical floor. She continues to diurese, and her weight is down another 6 kg in the 24 hours. She is back to her baseline dry weight of 122.5 kg. Reports being less short of breath, FiO2 down to 2 L per nasal cannula, pulse ox 90-96%, remains afebrile, microbiology remains negative, fever, no chills, no chest tenderness. Yesterday his chest x- ray was reviewed by Dr. Reinoso, and showed stable findings of prominent interstitium, which could be chronic. She still has significant amount of bilateral lower extremity edema, although this is improving in response to diuretics. Continue current plan of care, continue IV diuresis for 24 hours. Obtain room air pulse ox, increase activity as tolerated. Objective - Vital Signs Vital signs: Vital Signs Temp 98.0 F 02/16/18 07:00 Pulse 82 02/16/18 11:04 Resp 16 02/16/18 07:00 BP 150/71 02/16/18 07:00 Pulse Ox 90 L 02/16/18 07:00 Intake & Output 02/15/18 02/16/18 02/16/18 18:59 06:59 18:59 Intake Total 840 Output Total 300 Balance 840 -300 Weight 122.5 kg 122.5 kg Intake: Oral 840 Output: Urine 300 Other: Voiding Method Toilet Toilet # Voids 1 1 1 # Bowel Movements 1 1 ABP, PAP, CO, CI - Last Documented Arterial Blood Pressure 151/71 - Exam No acute distress, on nasal O2, and no acute distress, oriented 3. HEENT examination is grossly unremarkable. Mucous membranes are moist. No oral lesions. Neck supple. Full range of motion. No adenopathy thyromegaly or neck vein distention. Cardiovascular examination reveals regular rhythm rate. S1-S2 normal. No S3 or S4. No discernible murmur noted. Heart sounds are distant. Lungs reveal minimal wheezes, no crackles noted Abdomen is obese and soft. Bowel sounds are noted. No tenderness. Extremities are intact. 2+ bilateral lower extremity edema is present Skin is without rash or lesion. Neurologic examination is completely normal. - Labs CBC & Chem 7: 02/16/18 08:07 02/16/18 08:07 Labs: Abnormal Lab Results - Last 24 Hours (Table) 02/15/18 02/15/18 02/16/18 Range/Units 17:09 21:36 08:07 WBC 11.2 H (3.8-10.6) k/uL MCHC 30.5 L (31.0-37.0) g/dL Neutrophils # 9.0 H (1.3-7.7) k/uL Chloride (98-107) mmol/L Carbon Dioxide (22-30) mmol/L Glucose (74-99) mg/dL POC Glucose (mg/dL) 117 H 172 H (75-99) mg/dL AST (14-36) U/L ALT (9-52) U/L Albumin (3.5-5.0) g/dL 02/16/18 02/16/18 Range/Units 08:07 12:00 WBC (3.8-10.6) k/uL MCHC (31.0-37.0) g/dL Neutrophils # (1.3-7.7) k/uL Chloride 94 L (98-107) mmol/L Carbon Dioxide 39 H (22-30) mmol/L Glucose 129 H (74-99) mg/dL POC Glucose (mg/dL) 171 H (75-99) mg/dL AST 78 H (14-36) U/L ALT 128 H (9-52) U/L Albumin 3.4 L (3.5-5.0) g/dL Assessment and Plan Plan: Assessment: Acute respiratory failure, both hypoxemic and hypercapnic in nature, secondary to COPD, sleep apnea syndrome, possible pickwickian syndrome, congestive heart failure, and possible pneumonia. Status post extubation on 02/09/2018 Suspect severe underlying COPD with chronic hypercapnic respiratory failure Diastolic heart failure Community-acquired pneumonia Possible pickwickian syndrome History of metastatic lung cancer, with previous right-sided lobectomy and brain metastases with previous brain resection. History of sleep apnea syndrome Morbid obesity. History of hypertension Plan: We'll continue IV diuretics for another 24 hours, continue nebulized bronchodilators. Patient still has significant amount of bilateral lower extremity edema, continue weaning FiO2, obtain room air pulse ox, increase activity as tolerated. I performed a history & physical examination of the patient and discussed their management with my nurse practitioner, Birgit Barajas. I reviewed the nurse practitioner's note and agree with the documented findings and plan of care. Lung sounds are positive for minimal bibasilar rales. The findings and the impression was discussed with the patient. I attest to the documentation by the nurse practitioner. Time with Patient: Less than 30
[2018-02-16 17:27] LABS: Glucose,Whole Blood 122 mg/dL (75-99)
[2018-02-16 21:06] LABS: Glucose,Whole Blood 226 mg/dL (75-99)
[2018-02-17] MEDS: FUROSEMIDE 10 MG/ML 2 ML VIAL IV SCH (05:19)
[2018-02-17] MEDS: SYMBICORT 160-4.5 MCG INHALER INHALATION SCH ×2 (07:16→19:38)
[2018-02-17] MEDS: IPRATROPIUM-ALBUTEROL 3 ML NEB INHALATION SCH ×4 (07:16→19:38)
[2018-02-17] MEDS: INSULIN ASPART 100 UNIT/ML 1 ML 10 ML VIAL SQ SCH ×4 (07:21→21:13)
[2018-02-17 07:23] LABS: Glucose,Whole Blood 90 mg/dL (75-99)
[2018-02-17] MEDS: ENOXAPARIN 40 MG/0.4 ML SYRINGE SQ SCH (07:56)
[2018-02-17] MEDS: ASPIRIN 81 MG PO SCH (07:57)
[2018-02-17] MEDS: guaiFENesin 600 MG TABLET.ER PO SCH ×2 (07:57→20:33)
[2018-02-17] MEDS: PANTOPRAZOLE 40 MG TABLET PO SCH (07:57)
[2018-02-17 08:55] LABS: Basophils % (A) 0 %; Eosinophils # (A) 0.3 k/uL (0-0.7); Eosinophils % (A) 3 %; HCT 40.5 % (34.0-46.0); HGB 12.4 gm/dL (11.4-16.0); Hypochromasia Moderate; Lymphocytes # (A) 1.1 k/uL (1.0-4.8); Lymphocytes % (A) 12 %; MCH 28.9 pg (25.0-35.0); MCHC 30.7 g/dL (31.0-37.0); MCV 94.2 fL (80.0-100.0); Mean Platelet Volume 7.1; Monocytes # (A) 0.5 k/uL (0-1.0); Monocytes % (A) 5 %; Neutrophils # (A) 7.6 k/uL (1.3-7.7); Neutrophils % (A) 79 %; Platelet Count 488 k/uL (150-450); RDW 15.6 % (11.5-15.5); WBC 9.6 k/uL (3.8-10.6)
[2018-02-17 09:16] LABS: ALT 103 U/L (9-52); AST 60 U/L (14-36); Albumin 3.3 g/dL (3.5-5.0); Alkaline Phosphatase 58 U/L (38-126); Anion Gap 8 mmol/L; Blood Urea Nitrogen 14 mg/dL (7-17); Carbon Dioxide 36 mmol/L (22-30); Chloride 97 mmol/L (98-107); Glucose 132 mg/dL (74-99); Potassium 4.8 mmol/L (3.5-5.1); Sodium 141 mmol/L (137-145); Total Bilirubin 0.8 mg/dL (0.2-1.3); Total Protein 6.6 g/dL (6.3-8.2)
--- NOTE | 2018-02-17 10:42 | P.PN ---
Subjective Progress Note Date: 02/17/18 Ophelia Ruffin is a 62-year-old female who presented to [facility] emergency room with a chief complaint of worsening shortness of breath patient states that her symptoms started 2 days ago and has been worsening she stated that she had some fever and chills and cough and developed worsening shortness of breath otherwise she denies any other complaints there was no headache no dizziness no chest pain no nausea or vomiting no abdominal pain and no urinary symptoms patient denies having any sputum production was her cough. Patient has a history of lung cancer she underwent partial lung resection in 2000 she also underwent brain metastatic disease removal, she states that she has been stable and cancer free since 2000. On 02/06/2018 patient is seen and examined in the intensive care unit, during last night patient developed worsening shortness of breath and unresponsiveness , she was transferred to intensive care unit initially she was started on BiPAP however she required intubation and mechanical ventilation, patient was hypotensive and required pressure support. On 02/07/2018 patient is seen in the ICU remained on mechanical ventilation. Patient currently on hold and patient following commands. Patient remains on norepinephrine for blood pressure support. Per nursing staff extubation hopefully tomorrow. Pulmonary services and critical care team following. Lasix remains on hold due to hypotension. Cardiology services are following 02/08/2018 patient remains in the ICU and on mechanical ventilation. Patient failed weaning trial today. Vasopressors were discontinued yesterday. Patient had a low-grade temp of 100 yesterday evening. White count has decreased from 16.3-13.3. Urine culture negative and blood culture negative so far. Sputum culture also negative 02/09/2018 patient remains in ICU but has been extubated. Currently on 4 L NC. Per nursing staff patient did have some expiratory stridor upon extubation and was given Decadron and IV Lasix per critical care team. Patient's WBC today 14.3. Urine, blood and sputum are negative so far. Patient has remained afebrile. 02/10/2018 patient remains in the ICU. Patient was extubated yesterday .She is requiring 4 to 6 L of oxygen. She becomes very short of breath with any activity. Patient denies any chest pain. Denies any nausea or vomiting. Patient did have a small bowel movement this morning 02/11/2018 patient requiring about 6 L of oxygen. She is short of breath with activity. She denies any chest pain. Denies any nausea or vomiting. Reports having bowel movements. She will likely be transferred out of the ICU later today. She does report some cough and having difficulty breaking up the phlegm. Mucinex added On 02/12/2018 patient is alert and oriented 3 in no apparent distress, she is sitting up in a chair, vitals are stable, pulse ox 94% on 4 L nasal cannula, CO2 level elevated at 40 patient denies any fever or chills no headache or dizziness no chest pain no shortness of breath at rest with oxygen, there is minimal cough without sputum production, no nausea or vomiting no abdominal pain , she is complaining of diarrhea, no burning was urination no frequency or urgency and no hematuria. On 02/13/2018 patient is alert and oriented 3 having shortness of breath with activity, also complaining of diarrhea otherwise no complaints at this time there is no fever or chills, no chest pain no cough no nausea or vomiting no abdominal pain and no urinary symptoms. 02/14/2018 patient sitting up in bedside chair. She reports improvement in her shortness of breath. She is down to 3 L of oxygen satting at 96%. She is complaining of some lower extremity edema bilaterally. And will be restarted on her home Lasix. Stool for C. diff was negative. She had one loose stool this morning. But the diarrhea is slowing down. Elevation in her LFTs AST 110 and ALT 135. Reports no abdominal pain. Patient was transferred out of the ICU over the weekend 02/15/2018 patient was started on IV Lasix yesterday pulmonary service. She is still having lower extremity edema with some improvement. She is still requiring 3 L of oxygen satting at 93%. Denies any chest pain. Has worked with physical therapy, they're reporting patient can go home at time of discharge. She denies any chest pain. Denies any nausea or vomiting. Stools are more formed today. Denies any difficulty urinating. 02/16/2018 patient is currently resting comfortably in bed stating improvement with her lower extremity edema. Patient is still receiving IV Lasix 20mg every 12 hours. She is currently down to 2 L of oxygen satting 90-93%. Chest x-ray completed showing findings related to prior exam. Suspect chronic interstitial lung disease. Difficult to exclude pneumonia. Patient denies chest pain, shortness of breath. Denies any nausea or vomiting at this time 02/17/2018 patient still having bilateral lower extremity edema. There has been some improvement. She is maintained on the IV Lasix. She is down to 2 L of oxygen satting around 92%. She has been up and ambulating in the hallway. She does report some shortness of breath after walking and pressure in her legs after walking. Denies any chest pain. Reports urinating without burning. Denies any bowel movement changes Objective - Vital Signs Vital signs: Vital Signs Temp 98.0 F 02/17/18 06:00 Pulse 80 02/17/18 07:26 Resp 16 02/17/18 08:00 BP 155/81 02/17/18 06:00 Pulse Ox 92 L 02/17/18 07:16 Intake & Output 02/16/18 02/17/18 02/17/18 18:59 06:59 18:59 Intake Total 600 Output Total 600 Balance 0 Weight 122.5 kg 122 kg Intake: Oral 600 Tube Feeding 0 Output: Urine 600 Other: Voiding Method Toilet Toilet # Voids 3 2 # Bowel Movements 1 ABP, PAP, CO, CI - Last Documented Arterial Blood Pressure 151/71 - Exam Head normocephalic Neck supple Lungs improvement in air movement. No wheezing or crackles. A few coarse breath sounds improved with cough Heart regular rate and rhythm S1-S2, no rub or gallop Abdomen is soft nontender nondistended positive bowel sounds no hepatosplenomegaly Extremities +1 lower extremity edema bilaterally Neuro alert and orientated to 3 sitting up in bed - Labs CBC & Chem 7: 02/17/18 08:29 02/17/18 08:29 Labs: Abnormal Lab Results - Last 24 Hours (Table) 02/16/18 02/16/18 02/16/18 Range/Units 12:00 17:25 21:02 MCHC (31.0-37.0) g/dL RDW (11.5-15.5) % Plt Count (150-450) k/uL Chloride (98-107) mmol/L Carbon Dioxide (22-30) mmol/L Glucose (74-99) mg/dL POC Glucose (mg/dL) 171 H 122 H 226 H (75-99) mg/dL AST (14-36) U/L ALT (9-52) U/L Albumin (3.5-5.0) g/dL 02/17/18 02/17/18 Range/Units 08:29 08:29 MCHC 30.7 L (31.0-37.0) g/dL RDW 15.6 H (11.5-15.5) % Plt Count 488 H (150-450) k/uL Chloride 97 L (98-107) mmol/L Carbon Dioxide 36 H (22-30) mmol/L Glucose 132 H (74-99) mg/dL POC Glucose (mg/dL) (75-99) mg/dL AST 60 H (14-36) U/L ALT 103 H (9-52) U/L Albumin 3.3 L (3.5-5.0) g/dL Assessment and Plan Assessment: #1 acute hypoxic and hypercapnic respiratory failure secondary to chronic obstructive pulmonary disease, obstructive sleep apnea syndrome and obesity hypoventilation syndrome, congestive heart failure and possible underlining community-acquired pneumonia. Patient was extubated on 02/09/2018. Pulmonary following. Patient is down to 2 L of oxygen satting at 92% #2 evidence of acute diastolic congestive heart failure exacerbation with shortness of breath, chest x-ray evidence of pulmonary congestion, and elevated BNP at 14,100. 2-D echo completed EF between 50-60%. Cardiology has signed off. Pulmonary service recommending to continue IV Lasix for another 24 hours. Continue to wean down on O2. Patient still having lower extremity edema. Await further pulmonary recommendations #3 previous history of lung cancer status post partial lung resection and resection of metastatic brain disease in 2000. #4 underlying history of COPD patient is a former smoker #5 underlying history of obstructive sleep apnea #6 elevated troponin level at 0.18H and denies chest pain. Per cardiology abnormal cardiac enzymes is not consistent with acute coronary syndrome and likely related to hypotension. #7 community-acquired pneumonia continue Zosyn #8 diarrhea: Improving. Stool for C. diff negative. #9 mildly elevated LFTs AST 110 ALT 135. No abdominal pain. Possibly related to liver congestion. Continue Lasix. LFTs trending down. DVT prophylaxis Lovenox and GI prophylaxis Protonix Anticipate discharge home possibly tomorrow I performed an examination of the patient and discussed their management with the physician Travel Director. I have reviewed the Physician Travel Director's notes and agree with the documented findings and plan of care
[2018-02-17 11:59] LABS: Glucose,Whole Blood 84 mg/dL (75-99)
--- NOTE | 2018-02-17 15:07 | P.PN ---
Subjective Progress Note Date: 02/17/18 Principal diagnosis: acute hypoxemic and hypercapnic respiratory failure secondary to COPD exacerbation, sleep apnea syndrome, possible pickwickian syndrome, congestive heart failure and pneumonia Heart failure, respiratory failure, pneumonia Progress note dated 02/07/2018 This is a 62-year-old female who was admitted on February 05. The patient came to the ICU on February 06 and was intubated on February 06. The patient's diagnoses including acute hypercapnic respiratory failure secondary to COPD sleep apnea syndrome and pickwickian syndrome as well as heart failure and possible community-acquired pneumonia. The patient also has suspected diastolic heart failure pneumonia pickwickian syndrome and a previous history of lung cancer, status post right-sided lobectomy as well as with brain metastases and brain resection. Currently, the patient is on the volume assist control mode with a rate of 14, tidal volume 500, FiO2 35%, and PEEP of 8. Arterial blood gases could not be obtained. The patient's previous blood gases showed a pO2 of greater than 400 PaCO2 of 68 and a pH of 7.22. The patient is currently on Zosyn and Levaquin and microbiology is still negative. Currently the patient is a full code although there was some discussion with family members about DO NOT RESUSCITATE. Vent changes included a rate of 22, tidal volume of 350, and PEEP of 5. The patient is currently on norepinephrine at 20 mics per minute propofol at 25 mics per kilogram per minute saline IV 100 mL an hour and tube feeds with vital high protein of 45 which is goal. We did trial the patient on some PSV and CPAP. She did well but in my opinion is probably not ready for extubation. Progress note dated 02/08/2018 This is a 62-year-old female who was admitted on February 05. She came to the ICU on February 06 and was intubated on February 06. The patient's diagnoses included hypercapnic respiratory failure secondary to COPD, sleep apnea syndrome, and pickwickian syndrome, as well as possible heart failure and possible community- acquired pneumonia. The patient's doing reasonably well. Currently she remains on the ventilator on the volume assist control mode, rate is 26, tidal volume 750, FiO2 40%, PEEP of 5. Arterial blood gases show a PaO2 of 99 a PaCO2 of 65 and a pH 7.31. She remains on saline at 100 mL an hour. The norepinephrine and the propofol had been off for quite some time. She is receiving vital high protein at a goal of 45 mL an hour. White blood count is 13.3. Hemoglobin and hematocrit and platelet count are all normal. Sodium potassium chloride normal CO2 32 BUN and creatinine were 18 and 0.7. Microbiology is all negative. Labs x-rays a medications are all reviewed. She remains on Zosyn and Levaquin. We will again attempt a spontaneous breathing trial today. Progress note dated 02/09/2018 62-year-old female was admitted on February 05. She came to the ICU on February 06 and was intubated on February 06. She's had a couple days of daily eruption of sedation with. Previously, she did not do as well. Today she looks pretty good and her numbers look good and should a positive cuff leak. For that reason we chose to extubate the patient. She previously was on the volume assist control mode rate 26, tidal volume 350, FiO2 40% and PEEP of 5. Arterial blood gases show a PaO2 of 82 PaCO2 of 60 to pH 7.38. She's on a saline IV at 50 propofol and norepinephrine are on hold. She's getting vital AF 45 which is goal. The patient seemed to be very stable post extubation. She is on nasal prongs. She will be nothing by mouth for 6 hours. After 6 hours, we will start sips of water and chips of ice. We'll change the updrafts 4 times a day and when necessary. We'll DC the chlorhexidine. We will DC the sedatives. The patient' s chest x-ray shows evidence of fluid overload and she'll get Lasix 40 mg IV push. Microbiology has been negative. Chest x-ray shows stable findings. Lab data includes a white count of 14.3 hemoglobin 11.2 hematocrit 36.7 and a platelet count which is normal. Sodium 142 potassium 4 chloride is 101 CO2 is 36 BUN and creatinine were 22 and 0.7. Progress note dated 02/10/2018 62-year-old female admitted back on February 05. She came to the ICU on February 06 was intubated on February 06 because of respiratory failure. She was extubated on yesterday. She's been doing relatively well since. She remains on O2 at 4 L by nasal cannula and a saline IV at 50 mL an hour. The patient feels better. Feeling much improved. The patient still is a long way to go. Very weak from her stay here in the ICU. She denies any chest pain or chest discomfort. No shortness of breath or difficulty breathing. No coughing wheezing. No nausea vomiting or diarrhea noted. Microbiology is completely negative. Lab data includes a white count of 9.4, hemoglobin 10.9 hematocrit 24.7 and platelet count 287,000. Sodium potassium and chlorides are normal. CO2 39 BUN and creatinine were 25 and 0.5 respectively. Chest x-ray continues to show diffuse bilateral infiltrates. I believe her chest x-ray has improved. Progress note dated 02/11/2018 62-year-old female admitted back on February 05. She came to the ICU on February 06 and was intubated on February 06 because of respiratory failure. She was extubated on February 09. Since that time, she's been doing reasonably well. She is improving day by day. Currently, receiving O2 by nasal cannula between 5 and 6 L. Her IV is a saline IV at 50 mL an hour. Today regarding discontinue the art line. We'll get her out of bed and transfer her over to the stepdown unit. Lab data includes a white count of 11.1 hemoglobin is 11.8 hematocrit 38.7 platelet count 311,000 her sodium is 142 potassium 4.2 chloride 98 CO2 38 BUN and creatinine of 24 and 0.6 Chest x-ray continues to show some bilateral infiltrates primarily in the lower lobes. Microbiology data is currently negative. Progress note dated 02/12/2018 62-year-old female admitted back on February 05. She came to the ICU on February 06 was intubated on February 06 for respiratory failure. She was extubated 3 days later on February 09. Since that time, she's been doing reasonably well. She seemed be improving a small bit every day although she states that she has a respiratory status which is "up and down". Currently receiving oxygen by nasal cannula at 4 L/m. Yesterday she was 5 or 6 L/m. Her ID is some a saline IV at 20 mL an hour. She's developed some mild diarrhea. Chest x-ray shows diffuse bilateral infiltrates which have really not changed all that much. His heart to say whether or not it relates to infection versus some fluid overload versus pulmonary fibrosis. Anyway, she is some reasonably stable. She is getting updrafts. We'll add Symbicort. She was a smoker in the past. All her microbiologic cultures are negative thus far. She remains on antibiotic. White count 10.3 hemoglobin and hematocrit and platelet count all normal. Sodium and potassium are normal. Chloride 97 CO2 40 BUN 20 creatinine 0.7. Chest x-ray is unchanged and microbiology is all negative. Progress note dated 02/13/2018 62-year-old female admitted back on February 05. She came into the ICU on February 06 and was intubated on the same day for acute respiratory failure. She was extubated later on February 09. Since that time, she's been doing reasonably well and she was moved out of the ICU yesterday. She had been weaned down to 4 L by nasal cannula. Chest x-ray shows continued bilateral infiltrates which could be consistent with pulmonary fibrosis pneumonia or acute lung injury. On 02/14/2018 patient seen again in follow-up on medical surgical floor.Pulse ox on 3 L per nasal cannula is 94%, patient is afebrile, hemodynamically stable , denies any worsening dyspnea, lung sounds are positive for bibasilar crackles , patient is receiving oral Lasix, we will switch to IV Lasix was 24 hours as the patient still has 2+ bilateral lower extremity edema latest chest x-ray from 02/12/2018 showed worsening changes of congestive heart failure.no fever, no chills, has been treated with empiric antibiotics in the form of Zosyn for possibility of pneumonia. No chest congestion, no significant sputum production. his lab work has been reviewed, no leukocytosis. On 02/15/2018 patient seen again in follow-up on medical surgical floor. Her weight today is 128.5 kg, and it is down 7 kg in the last 48 hours, patient's dry weight on admission was 122 kg which subsequently peaked to 135.5 kg while the patient was in the ICU. Patient is responding to diuretics, the swelling in her legs has decreased, the patient still has significant amount of residual edema. Lung sounds are positive for minimal crackles, wheezing, some 3 L per nasal cannula is 93%, vital signs are stable, patient is afebrile, yesterday we discontinued Zosyn, today's lab work has been reviewed, no leukocytosis, renal profile is within normal limits, chloride is 94, CO2 is 39, sodium and potassium are within normal limits. Irritated repeat 2 view chest x-ray today, which has not been completed yet. No fever or chills, denies dyspnea, denies any chest pain. Microbiology results have been reviewed, and remain negative thus far. Continue current medical treatment, will continue another 24 hours of IV diuresis. On 02/16/2017 patient's follow-up on medical surgical floor. She continues to diurese, and her weight is down another 6 kg in the 24 hours. She is back to her baseline dry weight of 122.5 kg. Reports being less short of breath, FiO2 down to 2 L per nasal cannula, pulse ox 90-96%, remains afebrile, microbiology remains negative, fever, no chills, no chest tenderness. Yesterday his chest x- ray was reviewed by Dr. Reinoso, and showed stable findings of prominent interstitium, which could be chronic. She still has significant amount of bilateral lower extremity edema, although this is improving in response to diuretics. Continue current plan of care, continue IV diuresis for 24 hours. Obtain room air pulse ox, increase activity as tolerated. On 02/17/2018 patient seen again in follow-up. Her diuresis continues, this seems to be slowing down, patient is still has residual bilateral lower extremity edema. Renal profile and electrolytes are all within normal limits, vitals remained stable, lung sounds are positive for minimal end expiratory wheezes, no crackles. We'll continue with IV diuretics, we will increase the dose to 40 mg every 8 hours. Objective - Vital Signs Vital signs: Vital Signs Temp 98.0 F 02/17/18 06:00 Pulse 86 02/17/18 11:29 Resp 16 02/17/18 11:29 BP 155/81 02/17/18 06:00 Pulse Ox 92 L 02/17/18 07:16 Intake & Output 02/16/18 02/17/18 02/17/18 18:59 06:59 18:59 Intake Total 600 Output Total 600 Balance 0 Weight 122.5 kg 122 kg Intake: Oral 600 Tube Feeding 0 Output: Urine 600 Other: Voiding Method Toilet Toilet # Voids 3 2 2 # Bowel Movements 1 ABP, PAP, CO, CI - Last Documented Arterial Blood Pressure 151/71 - Exam No acute distress, on nasal O2, and no acute distress, oriented 3. HEENT examination is grossly unremarkable. Mucous membranes are moist. No oral lesions. Neck supple. Full range of motion. No adenopathy thyromegaly or neck vein distention. Cardiovascular examination reveals regular rhythm rate. S1-S2 normal. No S3 or S4. No discernible murmur noted. Heart sounds are distant. Lungs reveal minimal wheezes, no crackles noted Abdomen is obese and soft. Bowel sounds are noted. No tenderness. Extremities are intact. 2+ bilateral lower extremity edema is present Skin is without rash or lesion. Neurologic examination is completely normal. - Labs CBC & Chem 7: 02/17/18 08:29 02/17/18 08:29 Labs: Abnormal Lab Results - Last 24 Hours (Table) 02/16/18 02/16/18 02/17/18 Range/Units 17:25 21:02 08:29 MCHC 30.7 L (31.0-37.0) g/dL RDW 15.6 H (11.5-15.5) % Plt Count 488 H (150-450) k/uL Chloride (98-107) mmol/L Carbon Dioxide (22-30) mmol/L Glucose (74-99) mg/dL POC Glucose (mg/dL) 122 H 226 H (75-99) mg/dL AST (14-36) U/L ALT (9-52) U/L Albumin (3.5-5.0) g/dL 02/17/18 Range/Units 08:29 MCHC (31.0-37.0) g/dL RDW (11.5-15.5) % Plt Count (150-450) k/uL Chloride 97 L (98-107) mmol/L Carbon Dioxide 36 H (22-30) mmol/L Glucose 132 H (74-99) mg/dL POC Glucose (mg/dL) (75-99) mg/dL AST 60 H (14-36) U/L ALT 103 H (9-52) U/L Albumin 3.3 L (3.5-5.0) g/dL Assessment and Plan Plan: Assessment: Acute respiratory failure, both hypoxemic and hypercapnic in nature, secondary to COPD, sleep apnea syndrome, possible pickwickian syndrome, congestive heart failure, and possible pneumonia. Status post extubation on 02/09/2018 Suspect severe underlying COPD with chronic hypercapnic respiratory failure Diastolic heart failure Community-acquired pneumonia Possible pickwickian syndrome History of metastatic lung cancer, with previous right-sided lobectomy and brain metastases with previous brain resection. History of sleep apnea syndrome Morbid obesity. History of hypertension Plan: We will increase Lasix dose to 40 mg every 8 hours, continue IV diuresis for next 24 hours, patient still has some residual edema in bilateral lower extremities. Increase activity as tolerated. I performed a history & physical examination of the patient and discussed their management with my nurse practitioner, Birgit Barajas. I reviewed the nurse practitioner's note and agree with the documented findings and plan of care. Lung sounds are minimal wheezes. The findings and the impression was discussed with the patient. I attest to the documentation by the nurse practitioner. Time with Patient: Less than 30
[2018-02-17] MEDS: FUROSEMIDE 10 MG/ML 4 ML VIAL IV SCH ×2 (15:24→23:13)
[2018-02-17 17:36] LABS: Glucose,Whole Blood 166 mg/dL (75-99)
[2018-02-17 21:01] LABS: Glucose,Whole Blood 141 mg/dL (75-99)
[2018-02-18 07:16] LABS: Glucose,Whole Blood 103 mg/dL (75-99)
[2018-02-18] MEDS: IPRATROPIUM-ALBUTEROL 3 ML NEB INHALATION SCH ×4 (07:34→19:42)
[2018-02-18] MEDS: SYMBICORT 160-4.5 MCG INHALER INHALATION SCH ×2 (07:34→19:42)
[2018-02-18] MEDS: INSULIN ASPART 100 UNIT/ML 1 ML 10 ML VIAL SQ SCH ×4 (07:54→21:45)
[2018-02-18] MEDS: ENOXAPARIN 40 MG/0.4 ML SYRINGE SQ SCH (07:55)
[2018-02-18] MEDS: guaiFENesin 600 MG TABLET.ER PO SCH ×2 (07:55→21:44)
[2018-02-18] MEDS: FUROSEMIDE 10 MG/ML 4 ML VIAL IV SCH ×3 (07:55→23:20)
[2018-02-18] MEDS: PANTOPRAZOLE 40 MG TABLET PO SCH (07:55)
[2018-02-18] MEDS: ASPIRIN 81 MG PO SCH (07:55)
[2018-02-18 09:50] LABS: ALT 95 U/L (9-52); AST 51 U/L (14-36); Albumin 3.8 g/dL (3.5-5.0); Alkaline Phosphatase 66 U/L (38-126); Blood Urea Nitrogen 17 mg/dL (7-17); Calcium 9.5 mg/dL (8.4-10.2); Chloride 92 mmol/L (98-107); Glucose 196 mg/dL (74-99); Potassium 5.1 mmol/L (3.5-5.1); Sodium 143 mmol/L (137-145); Total Bilirubin 0.7 mg/dL (0.2-1.3); Total Protein 7.2 g/dL (6.3-8.2)
[2018-02-18 09:56] LABS: Anion Gap 12 mmol/L
[2018-02-18 10:05] LABS: Basophils # (A) 0.1 k/uL (0-0.2); Basophils % (A) 1 %; Eosinophils # (A) 0.3 k/uL (0-0.7); Eosinophils % (A) 3 %; HCT 39.8 % (34.0-46.0); HGB 12.5 gm/dL (11.4-16.0); Hypochromasia Marked; Lymphocytes # (A) 0.9 k/uL (1.0-4.8); Lymphocytes % (A) 11 %; MCHC 31.5 g/dL (31.0-37.0); Mean Platelet Volume 7.1; Monocytes # (A) 0.5 k/uL (0-1.0); Monocytes % (A) 6 %; Neutrophils # (A) 6.4 k/uL (1.3-7.7); Neutrophils % (A) 78 %; Platelet Count 567 k/uL (150-450); RBC 4.19 m/uL (3.80-5.40); RDW 15.7 % (11.5-15.5); WBC 8.3 k/uL (3.8-10.6)
[2018-02-18 10:06] LABS: Carbon Dioxide 39 mmol/L (22-30)
--- NOTE | 2018-02-18 10:37 | P.PN ---
Subjective Progress Note Date: 02/18/18 Ophelia Ruffin is a 62-year-old female who presented to [facility] emergency room with a chief complaint of worsening shortness of breath patient states that her symptoms started 2 days ago and has been worsening she stated that she had some fever and chills and cough and developed worsening shortness of breath otherwise she denies any other complaints there was no headache no dizziness no chest pain no nausea or vomiting no abdominal pain and no urinary symptoms patient denies having any sputum production was her cough. Patient has a history of lung cancer she underwent partial lung resection in 2000 she also underwent brain metastatic disease removal, she states that she has been stable and cancer free since 2000. On 02/06/2018 patient is seen and examined in the intensive care unit, during last night patient developed worsening shortness of breath and unresponsiveness , she was transferred to intensive care unit initially she was started on BiPAP however she required intubation and mechanical ventilation, patient was hypotensive and required pressure support. On 02/07/2018 patient is seen in the ICU remained on mechanical ventilation. Patient currently on hold and patient following commands. Patient remains on norepinephrine for blood pressure support. Per nursing staff extubation hopefully tomorrow. Pulmonary services and critical care team following. Lasix remains on hold due to hypotension. Cardiology services are following 02/08/2018 patient remains in the ICU and on mechanical ventilation. Patient failed weaning trial today. Vasopressors were discontinued yesterday. Patient had a low-grade temp of 100 yesterday evening. White count has decreased from 16.3-13.3. Urine culture negative and blood culture negative so far. Sputum culture also negative 02/09/2018 patient remains in ICU but has been extubated. Currently on 4 L NC. Per nursing staff patient did have some expiratory stridor upon extubation and was given Decadron and IV Lasix per critical care team. Patient's WBC today 14.3. Urine, blood and sputum are negative so far. Patient has remained afebrile. 02/10/2018 patient remains in the ICU. Patient was extubated yesterday .She is requiring 4 to 6 L of oxygen. She becomes very short of breath with any activity. Patient denies any chest pain. Denies any nausea or vomiting. Patient did have a small bowel movement this morning 02/11/2018 patient requiring about 6 L of oxygen. She is short of breath with activity. She denies any chest pain. Denies any nausea or vomiting. Reports having bowel movements. She will likely be transferred out of the ICU later today. She does report some cough and having difficulty breaking up the phlegm. Mucinex added On 02/12/2018 patient is alert and oriented 3 in no apparent distress, she is sitting up in a chair, vitals are stable, pulse ox 94% on 4 L nasal cannula, CO2 level elevated at 40 patient denies any fever or chills no headache or dizziness no chest pain no shortness of breath at rest with oxygen, there is minimal cough without sputum production, no nausea or vomiting no abdominal pain , she is complaining of diarrhea, no burning was urination no frequency or urgency and no hematuria. On 02/13/2018 patient is alert and oriented 3 having shortness of breath with activity, also complaining of diarrhea otherwise no complaints at this time there is no fever or chills, no chest pain no cough no nausea or vomiting no abdominal pain and no urinary symptoms. 02/14/2018 patient sitting up in bedside chair. She reports improvement in her shortness of breath. She is down to 3 L of oxygen satting at 96%. She is complaining of some lower extremity edema bilaterally. And will be restarted on her home Lasix. Stool for C. diff was negative. She had one loose stool this morning. But the diarrhea is slowing down. Elevation in her LFTs AST 110 and ALT 135. Reports no abdominal pain. Patient was transferred out of the ICU over the weekend 02/15/2018 patient was started on IV Lasix yesterday pulmonary service. She is still having lower extremity edema with some improvement. She is still requiring 3 L of oxygen satting at 93%. Denies any chest pain. Has worked with physical therapy, they're reporting patient can go home at time of discharge. She denies any chest pain. Denies any nausea or vomiting. Stools are more formed today. Denies any difficulty urinating. 02/16/2018 patient is currently resting comfortably in bed stating improvement with her lower extremity edema. Patient is still receiving IV Lasix 20mg every 12 hours. She is currently down to 2 L of oxygen satting 90-93%. Chest x-ray completed showing findings related to prior exam. Suspect chronic interstitial lung disease. Difficult to exclude pneumonia. Patient denies chest pain, shortness of breath. Denies any nausea or vomiting at this time 02/17/2018 patient still having bilateral lower extremity edema. There has been some improvement. She is maintained on the IV Lasix. She is down to 2 L of oxygen satting around 92%. She has been up and ambulating in the hallway. She does report some shortness of breath after walking and pressure in her legs after walking. Denies any chest pain. Reports urinating without burning. Denies any bowel movement changes 02/18/2018 patient reports feeling better. There is some improvement in her lower extremity edema. Pulmonary service had increased her IV Lasix to 40 mg every 8 hours. Patient is reporting improvement in her breathing. She is currently on 2 L. We'll try to wean her off of the oxygen. Her CO2 is 39. Patient denies any chest pain. Reports having bowel movements. Denies any difficulty urinating. Objective - Vital Signs Vital signs: Vital Signs Temp 97.8 F 02/18/18 06:25 Pulse 92 02/18/18 07:44 Resp 18 02/18/18 06:25 BP 112/69 02/18/18 06:25 Pulse Ox 97 02/18/18 06:25 Intake & Output 02/17/18 02/18/18 02/18/18 18:59 06:59 18:59 Weight 122 kg Other: Voiding Method Toilet # Voids 1 2 ABP, PAP, CO, CI - Last Documented Arterial Blood Pressure 151/71 - Exam Head normocephalic Neck supple Lungs improvement in air movement. No wheezing or crackles. Heart regular rate and rhythm S1-S2, no rub or gallop Abdomen is soft nontender nondistended positive bowel sounds no hepatosplenomegaly Extremities +2 lower extremity edema bilaterally Neuro alert and orientated to 3 sitting up in bed - Labs CBC & Chem 7: 02/18/18 09:08 02/18/18 09:08 Labs: Abnormal Lab Results - Last 24 Hours (Table) 02/17/18 02/17/18 02/18/18 Range/Units 17:07 21:00 07:15 RDW (11.5-15.5) % Plt Count (150-450) k/uL Chloride (98-107) mmol/L Carbon Dioxide (22-30) mmol/L Glucose (74-99) mg/dL POC Glucose (mg/dL) 166 H 141 H 103 H (75-99) mg/dL AST (14-36) U/L ALT (9-52) U/L 02/18/18 02/18/18 Range/Units 09:08 09:08 RDW 15.7 H (11.5-15.5) % Plt Count 567 H (150-450) k/uL Chloride 92 L (98-107) mmol/L Carbon Dioxide 39 H (22-30) mmol/L Glucose 196 H (74-99) mg/dL POC Glucose (mg/dL) (75-99) mg/dL AST 51 H (14-36) U/L ALT 95 H (9-52) U/L Assessment and Plan Assessment: #1 acute hypoxic and hypercapnic respiratory failure secondary to chronic obstructive pulmonary disease, obstructive sleep apnea syndrome and obesity hypoventilation syndrome, congestive heart failure and possible underlining community-acquired pneumonia. Patient was extubated on 02/09/2018. Pulmonary following. Patient is down to 2 L of oxygen satting at 92%. Evaluate patient to see if we can wean off of oxygen #2 evidence of acute diastolic congestive heart failure exacerbation with shortness of breath, chest x-ray evidence of pulmonary congestion, and elevated BNP at 14,100. 2-D echo completed EF between 50-60%. Cardiology has signed off. Pulmonary has started Lasix 40 mg IV every 8 hours yesterday. There is now some improvement in her lower extremity edema #3 previous history of lung cancer status post partial lung resection and resection of metastatic brain disease in 2000. #4 underlying history of COPD patient is a former smoker #5 underlying history of obstructive sleep apnea #6 elevated troponin level at 0.18H and denies chest pain. Per cardiology abnormal cardiac enzymes is not consistent with acute coronary syndrome and likely related to hypotension. #7 community-acquired pneumonia treated during her hospitalization and is off of antibiotics #8 diarrhea: Improving. Stool for C. diff negative. #9 mildly elevated LFTs AST 110 ALT 135. No abdominal pain. Possibly related to liver congestion. Continue Lasix. LFTs trending down. DVT prophylaxis Lovenox and GI prophylaxis Protonix I performed an examination of the patient and discussed their management with the physician Asbestos Coverer. I have reviewed the Physician Asbestos Coverer's notes and agree with the documented findings and plan of care
[2018-02-18 11:39] LABS: Anisocytosis (M) Present; Poikilocytosis (M) Present
[2018-02-18 11:44] LABS: Glucose,Whole Blood 93 mg/dL (75-99)
--- NOTE | 2018-02-18 14:41 | XR ---
EXAMINATION TYPE: XR chest 1V portable DATE OF EXAM: 02/18/2018 COMPARISON: Prior chest 02/15/2018 HISTORY: Follow-up congestive heart failure TECHNIQUE: Single frontal view of the chest is obtained. FINDINGS: There is improvement in the interstitium as compared to previous exam. No evident pneumoth orax or pleural effusion. Heart size is stable. IMPRESSION: Improvement in volume status, aeration.
[2018-02-18 16:57] LABS: Glucose,Whole Blood 126 mg/dL (75-99)
--- NOTE | 2018-02-18 17:17 | P.PN ---
Subjective Progress Note Date: 02/18/18 Principal diagnosis: acute hypoxemic and hypercapnic respiratory failure secondary to COPD exacerbation, sleep apnea syndrome, possible pickwickian syndrome, congestive heart failure and pneumonia Heart failure, respiratory failure, pneumonia Progress note dated 02/07/2018 This is a 62-year-old female who was admitted on February 05. The patient came to the ICU on February 06 and was intubated on February 06. The patient's diagnoses including acute hypercapnic respiratory failure secondary to COPD sleep apnea syndrome and pickwickian syndrome as well as heart failure and possible community-acquired pneumonia. The patient also has suspected diastolic heart failure pneumonia pickwickian syndrome and a previous history of lung cancer, status post right-sided lobectomy as well as with brain metastases and brain resection. Currently, the patient is on the volume assist control mode with a rate of 14, tidal volume 500, FiO2 35%, and PEEP of 8. Arterial blood gases could not be obtained. The patient's previous blood gases showed a pO2 of greater than 400 PaCO2 of 68 and a pH of 7.22. The patient is currently on Zosyn and Levaquin and microbiology is still negative. Currently the patient is a full code although there was some discussion with family members about DO NOT RESUSCITATE. Vent changes included a rate of 22, tidal volume of 350, and PEEP of 5. The patient is currently on norepinephrine at 20 mics per minute propofol at 25 mics per kilogram per minute saline IV 100 mL an hour and tube feeds with vital high protein of 45 which is goal. We did trial the patient on some PSV and CPAP. She did well but in my opinion is probably not ready for extubation. Progress note dated 02/08/2018 This is a 62-year-old female who was admitted on February 05. She came to the ICU on February 06 and was intubated on February 06. The patient's diagnoses included hypercapnic respiratory failure secondary to COPD, sleep apnea syndrome, and pickwickian syndrome, as well as possible heart failure and possible community- acquired pneumonia. The patient's doing reasonably well. Currently she remains on the ventilator on the volume assist control mode, rate is 26, tidal volume 750, FiO2 40%, PEEP of 5. Arterial blood gases show a PaO2 of 99 a PaCO2 of 65 and a pH 7.31. She remains on saline at 100 mL an hour. The norepinephrine and the propofol had been off for quite some time. She is receiving vital high protein at a goal of 45 mL an hour. White blood count is 13.3. Hemoglobin and hematocrit and platelet count are all normal. Sodium potassium chloride normal CO2 32 BUN and creatinine were 18 and 0.7. Microbiology is all negative. Labs x-rays a medications are all reviewed. She remains on Zosyn and Levaquin. We will again attempt a spontaneous breathing trial today. Progress note dated 02/09/2018 62-year-old female was admitted on February 05. She came to the ICU on February 06 and was intubated on February 06. She's had a couple days of daily eruption of sedation with. Previously, she did not do as well. Today she looks pretty good and her numbers look good and should a positive cuff leak. For that reason we chose to extubate the patient. She previously was on the volume assist control mode rate 26, tidal volume 350, FiO2 40% and PEEP of 5. Arterial blood gases show a PaO2 of 82 PaCO2 of 60 to pH 7.38. She's on a saline IV at 50 propofol and norepinephrine are on hold. She's getting vital AF 45 which is goal. The patient seemed to be very stable post extubation. She is on nasal prongs. She will be nothing by mouth for 6 hours. After 6 hours, we will start sips of water and chips of ice. We'll change the updrafts 4 times a day and when necessary. We'll DC the chlorhexidine. We will DC the sedatives. The patient' s chest x-ray shows evidence of fluid overload and she'll get Lasix 40 mg IV push. Microbiology has been negative. Chest x-ray shows stable findings. Lab data includes a white count of 14.3 hemoglobin 11.2 hematocrit 36.7 and a platelet count which is normal. Sodium 142 potassium 4 chloride is 101 CO2 is 36 BUN and creatinine were 22 and 0.7. Progress note dated 02/10/2018 62-year-old female admitted back on February 05. She came to the ICU on February 06 was intubated on February 06 because of respiratory failure. She was extubated on yesterday. She's been doing relatively well since. She remains on O2 at 4 L by nasal cannula and a saline IV at 50 mL an hour. The patient feels better. Feeling much improved. The patient still is a long way to go. Very weak from her stay here in the ICU. She denies any chest pain or chest discomfort. No shortness of breath or difficulty breathing. No coughing wheezing. No nausea vomiting or diarrhea noted. Microbiology is completely negative. Lab data includes a white count of 9.4, hemoglobin 10.9 hematocrit 24.7 and platelet count 287,000. Sodium potassium and chlorides are normal. CO2 39 BUN and creatinine were 25 and 0.5 respectively. Chest x-ray continues to show diffuse bilateral infiltrates. I believe her chest x-ray has improved. Progress note dated 02/11/2018 62-year-old female admitted back on February 05. She came to the ICU on February 06 and was intubated on February 06 because of respiratory failure. She was extubated on February 09. Since that time, she's been doing reasonably well. She is improving day by day. Currently, receiving O2 by nasal cannula between 5 and 6 L. Her IV is a saline IV at 50 mL an hour. Today regarding discontinue the art line. We'll get her out of bed and transfer her over to the stepdown unit. Lab data includes a white count of 11.1 hemoglobin is 11.8 hematocrit 38.7 platelet count 311,000 her sodium is 142 potassium 4.2 chloride 98 CO2 38 BUN and creatinine of 24 and 0.6 Chest x-ray continues to show some bilateral infiltrates primarily in the lower lobes. Microbiology data is currently negative. Progress note dated 02/12/2018 62-year-old female admitted back on February 05. She came to the ICU on February 06 was intubated on February 06 for respiratory failure. She was extubated 3 days later on February 09. Since that time, she's been doing reasonably well. She seemed be improving a small bit every day although she states that she has a respiratory status which is "up and down". Currently receiving oxygen by nasal cannula at 4 L/m. Yesterday she was 5 or 6 L/m. Her ID is some a saline IV at 20 mL an hour. She's developed some mild diarrhea. Chest x-ray shows diffuse bilateral infiltrates which have really not changed all that much. His heart to say whether or not it relates to infection versus some fluid overload versus pulmonary fibrosis. Anyway, she is some reasonably stable. She is getting updrafts. We'll add Symbicort. She was a smoker in the past. All her microbiologic cultures are negative thus far. She remains on antibiotic. White count 10.3 hemoglobin and hematocrit and platelet count all normal. Sodium and potassium are normal. Chloride 97 CO2 40 BUN 20 creatinine 0.7. Chest x-ray is unchanged and microbiology is all negative. Progress note dated 02/13/2018 62-year-old female admitted back on February 05. She came into the ICU on February 06 and was intubated on the same day for acute respiratory failure. She was extubated later on February 09. Since that time, she's been doing reasonably well and she was moved out of the ICU yesterday. She had been weaned down to 4 L by nasal cannula. Chest x-ray shows continued bilateral infiltrates which could be consistent with pulmonary fibrosis pneumonia or acute lung injury. On 02/14/2018 patient seen again in follow-up on medical surgical floor.Pulse ox on 3 L per nasal cannula is 94%, patient is afebrile, hemodynamically stable , denies any worsening dyspnea, lung sounds are positive for bibasilar crackles , patient is receiving oral Lasix, we will switch to IV Lasix was 24 hours as the patient still has 2+ bilateral lower extremity edema latest chest x-ray from 02/12/2018 showed worsening changes of congestive heart failure.no fever, no chills, has been treated with empiric antibiotics in the form of Zosyn for possibility of pneumonia. No chest congestion, no significant sputum production. his lab work has been reviewed, no leukocytosis. On 02/15/2018 patient seen again in follow-up on medical surgical floor. Her weight today is 128.5 kg, and it is down 7 kg in the last 48 hours, patient's dry weight on admission was 122 kg which subsequently peaked to 135.5 kg while the patient was in the ICU. Patient is responding to diuretics, the swelling in her legs has decreased, the patient still has significant amount of residual edema. Lung sounds are positive for minimal crackles, wheezing, some 3 L per nasal cannula is 93%, vital signs are stable, patient is afebrile, yesterday we discontinued Zosyn, today's lab work has been reviewed, no leukocytosis, renal profile is within normal limits, chloride is 94, CO2 is 39, sodium and potassium are within normal limits. Irritated repeat 2 view chest x-ray today, which has not been completed yet. No fever or chills, denies dyspnea, denies any chest pain. Microbiology results have been reviewed, and remain negative thus far. Continue current medical treatment, will continue another 24 hours of IV diuresis. On 02/16/2017 patient's follow-up on medical surgical floor. She continues to diurese, and her weight is down another 6 kg in the 24 hours. She is back to her baseline dry weight of 122.5 kg. Reports being less short of breath, FiO2 down to 2 L per nasal cannula, pulse ox 90-96%, remains afebrile, microbiology remains negative, fever, no chills, no chest tenderness. Yesterday his chest x- ray was reviewed by Dr. Reinoso, and showed stable findings of prominent interstitium, which could be chronic. She still has significant amount of bilateral lower extremity edema, although this is improving in response to diuretics. Continue current plan of care, continue IV diuresis for 24 hours. Obtain room air pulse ox, increase activity as tolerated. On 02/17/2018 patient seen again in follow-up. Her diuresis continues, this seems to be slowing down, patient is still has residual bilateral lower extremity edema. Renal profile and electrolytes are all within normal limits, vitals remained stable, lung sounds are positive for minimal end expiratory wheezes, no crackles. We'll continue with IV diuretics, we will increase the dose to 40 mg every 8 hours. On 02/18/2018 patient seen in follow-up on medical surgical floor. Sitting up on the edge the bed, in no acute distress, still has 1+ edema in her bilateral lower extremities, and there has been improvement in that regard. Continues to diurese on Lasix at 40 mg every 8 hours. Denies any worsening dyspnea, lung sounds are positive for some scattered bibasilar crackles, no significant wheezing noted on today's exam. Denies any chest pain, still becomes short of breath with exertion, but otherwise no acute distress. Room air pulse ox was 84 %, she is currently on 3 L per nasal cannula at 99%. We'll repeat chest x-ray today. She denies any fever or chills. Today's lab work has been reviewed, WBCs 8.3, hemoglobin is 12.5, sodium is 143, potassium is 5.1, chloride is 92, CO2 is 39, B1 17, and creatinine is 0.70. Patient's weight has remained stable , patient is at 122 kg, as it was yesterday on 02/17/2018. Objective - Vital Signs Vital signs: Vital Signs Temp 97.8 F 02/18/18 06:25 Pulse 88 02/18/18 11:08 Resp 18 02/18/18 06:25 BP 112/69 02/18/18 06:25 Pulse Ox 99 02/18/18 12:21 Intake & Output 02/17/18 02/18/18 02/18/18 18:59 06:59 18:59 Weight 122 kg Other: Voiding Method Toilet # Voids 1 2 ABP, PAP, CO, CI - Last Documented Arterial Blood Pressure 151/71 - Exam No acute distress, on nasal O2, and no acute distress, oriented 3. HEENT examination is grossly unremarkable. Mucous membranes are moist. No oral lesions. Neck supple. Full range of motion. No adenopathy thyromegaly or neck vein distention. Cardiovascular examination reveals regular rhythm rate. S1-S2 normal. No S3 or S4. No discernible murmur noted. Heart sounds are distant. Lungs reveal a few scattered bibasilar crackles, no wheezes noted today Abdomen is obese and soft. Bowel sounds are noted. No tenderness. Extremities are intact. 1+ bilateral lower extremity edema is present, improving Skin is without rash or lesion. Neurologic examination is completely normal. - Labs CBC & Chem 7: 02/18/18 09:08 02/18/18 09:08 Labs: Abnormal Lab Results - Last 24 Hours (Table) 02/17/18 02/17/18 02/18/18 Range/Units 17:07 21:00 07:15 RDW (11.5-15.5) % Plt Count (150-450) k/uL Lymphocytes # (1.0-4.8) k/uL Chloride (98-107) mmol/L Carbon Dioxide (22-30) mmol/L Glucose (74-99) mg/dL POC Glucose (mg/dL) 166 H 141 H 103 H (75-99) mg/dL AST (14-36) U/L ALT (9-52) U/L 02/18/18 02/18/18 Range/Units 09:08 09:08 RDW 15.7 H (11.5-15.5) % Plt Count 567 H (150-450) k/uL Lymphocytes # 0.9 L (1.0-4.8) k/uL Chloride 92 L (98-107) mmol/L Carbon Dioxide 39 H (22-30) mmol/L Glucose 196 H (74-99) mg/dL POC Glucose (mg/dL) (75-99) mg/dL AST 51 H (14-36) U/L ALT 95 H (9-52) U/L Assessment and Plan Plan: Assessment: Acute respiratory failure, both hypoxemic and hypercapnic in nature, secondary to COPD, sleep apnea syndrome, possible pickwickian syndrome, congestive heart failure, and possible pneumonia. Status post extubation on 02/09/2018 Suspect severe underlying COPD with chronic hypercapnic respiratory failure Diastolic heart failure Community-acquired pneumonia Possible pickwickian syndrome History of metastatic lung cancer, with previous right-sided lobectomy and brain metastases with previous brain resection. History of sleep apnea syndrome Morbid obesity. History of hypertension Plan: Repeat chest x-ray, continue with IV diuretics for another 24 hours, wean FiO2. Continue with nebulized bronchodilators, Symbicort. Increase activity as tolerated. I performed a history & physical examination of the patient and discussed their management with my nurse practitioner, Birgit Barajas. I reviewed the nurse practitioner's note and agree with the documented findings and plan of care. Lung sounds are minimal wheezes. The findings and the impression was discussed with the patient. I attest to the documentation by the nurse practitioner. Time with Patient: Less than 30
[2018-02-18 21:16] LABS: Glucose,Whole Blood 124 mg/dL (75-99)
[2018-02-19] MEDS: SYMBICORT 160-4.5 MCG INHALER INHALATION SCH (07:28)
[2018-02-19] MEDS: IPRATROPIUM-ALBUTEROL 3 ML NEB INHALATION SCH ×4 (07:28→16:16)
[2018-02-19 07:43] LABS: Glucose,Whole Blood 100 mg/dL (75-99)
[2018-02-19] MEDS: INSULIN ASPART 100 UNIT/ML 1 ML 10 ML VIAL SQ SCH ×3 (08:06→17:16)
[2018-02-19] MEDS: FUROSEMIDE 10 MG/ML 4 ML VIAL IV SCH (08:10)
[2018-02-19] MEDS: PANTOPRAZOLE 40 MG TABLET PO SCH (08:11)
[2018-02-19] MEDS: guaiFENesin 600 MG TABLET.ER PO SCH (08:11)
[2018-02-19] MEDS: ASPIRIN 81 MG PO SCH (08:11)
[2018-02-19] MEDS: ENOXAPARIN 40 MG/0.4 ML SYRINGE SQ SCH (08:11)
[2018-02-19 08:30] LABS: Basophils # (A) 0.1 k/uL (0-0.2); Basophils % (A) 1 %; Eosinophils # (A) 0.3 k/uL (0-0.7); Eosinophils % (A) 3 %; HCT 42.1 % (34.0-46.0); Hypochromasia Moderate; Lymphocytes # (A) 1.2 k/uL (1.0-4.8); Lymphocytes % (A) 14 %; MCH 28.9 pg (25.0-35.0); MCHC 30.8 g/dL (31.0-37.0); Mean Platelet Volume 7.2; Monocytes # (A) 0.7 k/uL (0-1.0); Monocytes % (A) 7 %; Neutrophils # (A) 6.4 k/uL (1.3-7.7); Neutrophils % (A) 74 %; Platelet Count 612 k/uL (150-450); RBC 4.48 m/uL (3.80-5.40); RDW 15.5 % (11.5-15.5); WBC 8.7 k/uL (3.8-10.6)
[2018-02-19 08:49] LABS: ALT 85 U/L (9-52); AST 53 U/L (14-36); Albumin 3.7 g/dL (3.5-5.0); Alkaline Phosphatase 63 U/L (38-126); Blood Urea Nitrogen 22 mg/dL (7-17); Calcium 9.4 mg/dL (8.4-10.2); Chloride 92 mmol/L (98-107); Glucose 105 mg/dL (74-99); Potassium 5.3 mmol/L (3.5-5.1); Sodium 139 mmol/L (137-145); Total Bilirubin 0.9 mg/dL (0.2-1.3); Total Protein 7.2 g/dL (6.3-8.2)
[2018-02-19 08:56] LABS: Anion Gap 8 mmol/L
[2018-02-19 09:13] LABS: Carbon Dioxide 39 mmol/L (22-30)
[2018-02-19 12:30] LABS: Glucose,Whole Blood 89 mg/dL (75-99)
--- NOTE | 2018-02-19 14:36 | P.DS ---
Providers Date of admission: 02/05/18 14:18 Expected date of discharge: 02/19/18 Attending physician: Erica Moreno Consults: 02/05/18 14:17 Consult Physician Routine Consulting Provider: [facility] Consult Reason/Comments: Pulmonary edema Do you want consulting provider notified?: Yes 02/05/18 17:53 Consult Physician Routine Consulting Provider: Rosa Beaulieu Reason/Comments: pneumonia Do you want consulting provider notified?: Yes Primary care physician: Carmen Dc Hospital Course: Diagnoses on discharge: #1 acute hypoxic and hypercapnic respiratory failure secondary to chronic obstructive pulmonary disease, obstructive sleep apnea syndrome and obesity hypoventilation syndrome, congestive heart failure and possible underlining community-acquired pneumonia. Patient was extubated on 02/09/2018. Pulmonary following. Patient is down to 2 L of oxygen satting at 92%. Evaluate patient to see if we can wean off of oxygen #2 evidence of acute diastolic congestive heart failure exacerbation with shortness of breath, chest x-ray evidence of pulmonary congestion, and elevated BNP at 14,100. 2-D echo completed EF between 50-60%. Cardiology has signed off. Pulmonary has started Lasix 40 mg IV every 8 hours yesterday. There is now some improvement in her lower extremity edema #3 previous history of lung cancer status post partial lung resection and resection of metastatic brain disease in 2000. #4 underlying history of COPD patient is a former smoker #5 underlying history of obstructive sleep apnea #6 elevated troponin level at 0.18H and denies chest pain. Per cardiology abnormal cardiac enzymes is not consistent with acute coronary syndrome and likely related to hypotension. #7 community-acquired pneumonia treated during her hospitalization and is off of antibiotics #8 diarrhea: Improving. Stool for C. diff negative. #9 mildly elevated LFTs AST 110 ALT 135. No abdominal pain. Possibly related to liver congestion. Continue Lasix. LFTs trending down. Hospital Course: Ophelia Ruffin is a 62-year-old female who presented to [facility] emergency room with a chief complaint of worsening shortness of breath patient states that her symptoms started 2 days ago and has been worsening she stated that she had some fever and chills and cough and developed worsening shortness of breath otherwise she denies any other complaints there was no headache no dizziness no chest pain no nausea or vomiting no abdominal pain and no urinary symptoms patient denies having any sputum production was her cough. Patient has a history of lung cancer she underwent partial lung resection in 2000 she also underwent brain metastatic disease removal, she states that she has been stable and cancer free since 2000. On 02/06/2018 patient is seen and examined in the intensive care unit, during last night patient developed worsening shortness of breath and unresponsiveness , she was transferred to intensive care unit initially she was started on BiPAP however she required intubation and mechanical ventilation, patient was hypotensive and required pressure support. On 02/07/2018 patient is seen in the ICU remained on mechanical ventilation. Patient currently on hold and patient following commands. Patient remains on norepinephrine for blood pressure support. Per nursing staff extubation hopefully tomorrow. Pulmonary services and critical care team following. Lasix remains on hold due to hypotension. Cardiology services are following 02/08/2018 patient remains in the ICU and on mechanical ventilation. Patient failed weaning trial today. Vasopressors were discontinued yesterday. Patient had a low-grade temp of 100 yesterday evening. White count has decreased from 16.3-13.3. Urine culture negative and blood culture negative so far. Sputum culture also negative 02/09/2018 patient remains in ICU but has been extubated. Currently on 4 L NC. Per nursing staff patient did have some expiratory stridor upon extubation and was given Decadron and IV Lasix per critical care team. Patient's WBC today 14.3. Urine, blood and sputum are negative so far. Patient has remained afebrile. 02/10/2018 patient remains in the ICU. Patient was extubated yesterday .She is requiring 4 to 6 L of oxygen. She becomes very short of breath with any activity. Patient denies any chest pain. Denies any nausea or vomiting. Patient did have a small bowel movement this morning 02/11/2018 patient requiring about 6 L of oxygen. She is short of breath with activity. She denies any chest pain. Denies any nausea or vomiting. Reports having bowel movements. She will likely be transferred out of the ICU later today. She does report some cough and having difficulty breaking up the phlegm. Mucinex added On 02/12/2018 patient is alert and oriented 3 in no apparent distress, she is sitting up in a chair, vitals are stable, pulse ox 94% on 4 L nasal cannula, CO2 level elevated at 40 patient denies any fever or chills no headache or dizziness no chest pain no shortness of breath at rest with oxygen, there is minimal cough without sputum production, no nausea or vomiting no abdominal pain , she is complaining of diarrhea, no burning was urination no frequency or urgency and no hematuria. On 02/13/2018 patient is alert and oriented 3 having shortness of breath with activity, also complaining of diarrhea otherwise no complaints at this time there is no fever or chills, no chest pain no cough no nausea or vomiting no abdominal pain and no urinary symptoms. 02/14/2018 patient sitting up in bedside chair. She reports improvement in her shortness of breath. She is down to 3 L of oxygen satting at 96%. She is complaining of some lower extremity edema bilaterally. And will be restarted on her home Lasix. Stool for C. diff was negative. She had one loose stool this morning. But the diarrhea is slowing down. Elevation in her LFTs AST 110 and ALT 135. Reports no abdominal pain. Patient was transferred out of the ICU over the weekend 02/15/2018 patient was started on IV Lasix yesterday pulmonary service. She is still having lower extremity edema with some improvement. She is still requiring 3 L of oxygen satting at 93%. Denies any chest pain. Has worked with physical therapy, they're reporting patient can go home at time of discharge. She denies any chest pain. Denies any nausea or vomiting. Stools are more formed today. Denies any difficulty urinating. 02/16/2018 patient is currently resting comfortably in bed stating improvement with her lower extremity edema. Patient is still receiving IV Lasix 20mg every 12 hours. She is currently down to 2 L of oxygen satting 90-93%. Chest x-ray completed showing findings related to prior exam. Suspect chronic interstitial lung disease. Difficult to exclude pneumonia. Patient denies chest pain, shortness of breath. Denies any nausea or vomiting at this time 02/17/2018 patient still having bilateral lower extremity edema. There has been some improvement. She is maintained on the IV Lasix. She is down to 2 L of oxygen satting around 92%. She has been up and ambulating in the hallway. She does report some shortness of breath after walking and pressure in her legs after walking. Denies any chest pain. Reports urinating without burning. Denies any bowel movement changes 02/18/2018 patient reports feeling better. There is some improvement in her lower extremity edema. Pulmonary service had increased her IV Lasix to 40 mg every 8 hours. Patient is reporting improvement in her breathing. She is currently on 2 L. We'll try to wean her off of the oxygen. Her CO2 is 39. Patient denies any chest pain. Reports having bowel movements. Denies any difficulty urinating. On 02/19/2018 patient is feeling better she is alert and oriented 3 she is able to ambulate her shortness of breath has improved she was evaluated by pulmonary Dr. Reinoso and was cleared for discharge, patient is very eager to go home, she will be discharged home she will be placed on Lasix 40 mg by mouth twice daily, DuoNeb updraft 4 times daily, Symbicort inhaler twice daily, she will follow-up with cardiology and was pulmonary in 1 week, she will also follow -up with her primary care physician at [facility] initiated within 1 week Plan - Discharge Summary New Discharge Prescriptions: New Budesonide-Formot 160-4.5 Mcg [Symbicort 160-4.5 Mcg Inhaler] 2 puff INHALATION RT-BID puff Furosemide [Lasix] 40 mg PO BID@0900,1600 tab guaiFENesin [Mucinex] 1,200 mg PO Q12HR tablet.er Ipratropium-Albuterol Nebulize [Duoneb 0.5 mg-3 mg/3 ml Soln] 3 ml INHALATION RT-QID ampul.neb Pantoprazole [Protonix] 40 mg PO AC-BRKFST tablet.dr Continue Aspirin EC [Ecotrin Low Dose] 81 mg PO DAILY Discontinued Furosemide [Lasix] 20 mg PO DAILY Discharge Medication List Aspirin EC [Ecotrin Low Dose] 81 mg PO DAILY 02/05/18 [History] Budesonide-Formot 160-4.5 Mcg [Symbicort 160-4.5 Mcg Inhaler] 2 puff INHALATION RT-BID puff 02/19/18 [Rx] Furosemide [Lasix] 40 mg PO BID@0900,1600 tab 02/19/18 [Rx] Ipratropium-Albuterol Nebulize [Duoneb 0.5 mg-3 mg/3 ml Soln] 3 ml INHALATION RT -QID ampul.neb 02/19/18 [Rx] Pantoprazole [Protonix] 40 mg PO AC-BRKFST tablet. 02/19/18 [Rx] guaiFENesin [Mucinex] 1,200 mg PO Q12HR tablet.er 02/19/18 [Rx] Follow up Appointment(s)/Referral(s): Carmen Dc DO [Primary Care Provider] - 1-2 days
[2018-02-19 14:50] VITALS: BP 135/86; PULSE 93; RESP 16; TEMP 97.5
--- NOTE | 2018-02-19 15:10 | P.PN ---
Subjective Progress Note Date: 02/19/18 On 02/20/2008 and I'm seeing this patient for a follow-up in the patient did extremely well. No magistral difficulties. Pulse ox is 92% reason oxygen nasal cannula. 84% on room air. The patient will need home O2. The patient also has a CPAP unit at home that needs to be reevaluated on outpatient basis. No cough or sputum production. Lower extremity edema is improving as the patient has been diuresed with IV Lasix over the past few days. The chest x- ray from 02/18/2018 showed improvement in the volume status and elevation of the lungs. No altered mentation. No chest pain. No other complaints otherwise for now. Objective - Vital Signs Vital signs: Vital Signs Temp 97.5 F L 02/19/18 14:49 Pulse 93 02/19/18 14:49 Resp 16 02/19/18 14:49 BP 135/86 02/19/18 14:49 Pulse Ox 95 02/19/18 14:49 Intake & Output 02/18/18 02/19/18 02/19/18 18:59 06:59 18:59 Intake Total 400 240 Balance 400 240 Weight 124 kg Intake: Oral 400 240 Other: Voiding Method Toilet # Voids 3 2 ABP, PAP, CO, CI - Last Documented Arterial Blood Pressure 151/71 - Exam No acute distress, on nasal O2, and no acute distress, oriented 3. HEENT examination is grossly unremarkable. Mucous membranes are moist. No oral lesions. Neck supple. Full range of motion. No adenopathy thyromegaly or neck vein distention. Cardiovascular examination reveals regular rhythm rate. S1-S2 normal. No S3 or S4. No discernible murmur noted. Heart sounds are distant. Lungs reveal a few scattered bibasilar crackles, no wheezes noted today Abdomen is obese and soft. Bowel sounds are noted. No tenderness. Extremities are intact. 1+ bilateral lower extremity edema is present, improving Skin is without rash or lesion. Neurologic examination is completely normal. - Labs CBC & Chem 7: 02/19/18 07:53 02/19/18 07:53 Labs: Abnormal Lab Results - Last 24 Hours (Table) 02/18/18 02/18/18 02/19/18 Range/Units 16:49 21:11 07:37 MCHC (31.0-37.0) g/dL Plt Count (150-450) k/uL Potassium (3.5-5.1) mmol/L Chloride (98-107) mmol/L Carbon Dioxide (22-30) mmol/L BUN (7-17) mg/dL Glucose (74-99) mg/dL POC Glucose (mg/dL) 126 H 124 H 100 H (75-99) mg/dL AST (14-36) U/L ALT (9-52) U/L 02/19/18 02/19/18 Range/Units 07:53 07:53 MCHC 30.8 L (31.0-37.0) g/dL Plt Count 612 H (150-450) k/uL Potassium 5.3 H (3.5-5.1) mmol/L Chloride 92 L (98-107) mmol/L Carbon Dioxide 39 H (22-30) mmol/L BUN 22 H (7-17) mg/dL Glucose 105 H (74-99) mg/dL POC Glucose (mg/dL) (75-99) mg/dL AST 53 H (14-36) U/L ALT 85 H (9-52) U/L Assessment and Plan Plan: Acute respiratory failure, both hypoxemic and hypercapnic in nature, secondary to COPD, sleep apnea syndrome, possible pickwickian syndrome, congestive heart failure, and possible pneumonia. The patient is improved considerably. The patient is currently on 2 L of oxygen by nasal cannula. Chest x-ray from yesterday showed improvement in the volume status and examination of the left lung. Status post extubation on 02/09/2018 Suspect severe underlying COPD with chronic hypercapnic respiratory failure Diastolic heart failure Community-acquired pneumonia Possible pickwickian syndrome History of metastatic lung cancer, with previous right-sided lobectomy and brain metastases with previous brain resection. History of sleep apnea syndrome Morbid obesity. History of hypertension Plan: The patient can be discharged home today. The patient will be requiring O2 knowing that she has demonstrated exertional desaturation. We'll be glad to see this patient in outpatient basis in regards to her CPAP treatment regarding her obstructive sleep apnea and obesity hypoventilation syndrome. Suggest discharging, Lasix 40 mg by mouth twice a day. Symbicort will be resumed. We' ll follow on outpatient basis.
[2018-02-19] MEDS ORDERED: FUROSEMIDE 40 MG TAB PO SCH (16:00)
--- NOTE | 2018-02-21 16:06 | CDI ---
Last Revision, July 2017 Documentation Clarification Form Date: 02/21/2018 12:00:00 AM From: MICHELLE Lozano; Renay Parks Cold Rolling Supervisor Phone: If you have a question about this query, please contact Renay Parks Cold Rolling Supervisor at [phone] between 8am and 5pm. Admit Date: 02/05/2018 2:18:00 PM Patient Name: Ophelia Ruffin Visit Number: [id number] Discharge Date: 02/19/2018 ATTENTION: The Clinical Documentation Specialists (CDI) and [facility] Coding Staff appreciate your assistance in clarifying documentation. Please respond to the clarification below the line at the bottom and electronically sign. The CDI & [facility] Coding staff will review the response and follow-up if needed. Please note: Queries are made part of the Legal Health Record. If you have any questions, please contact the author of this message via ITS. Dr. Erica Moreno The patient was admitted with shortness of breath, pneumonia and congestive heart failure. Consultation dated 02/06, states sepsis and possibly septic shock. She did develop hypotension and required pressors. In your professional opinion, please clarify if you agree with the consultants findings? Sepsis with septic shock ruled in? Sepsis with septic shock ruled out? Other, please specify Unable to determine If sepsis ruled in, was it impending/present on admission? Yes No MTDD
--- NOTE | 2018-02-23 17:22 | CDI ---
Documentation Clarification Form Date: 02/23/18 From: MICHELLE Lozano Phone: If you have a question, please contact Renay Parks, [employer] Project Manager at [phone] between 8am and 5pm. Admit Date: 02/05/2018 2:18:00 PM Patient Name: Ophelia Ruffin Visit Number: [id number] Discharge Date: 02/19/2018 ATTENTION: The Clinical Documentation Specialists (CDI) and [facility] Coding Staff appreciate your assistance in clarifying documentation. Please respond to the clarification below the line at the bottom and electronically sign. The CDI & [facility] Coding staff will review the response and follow-up if needed. Please note: Queries are made part of the Legal Health Record. Dr. Erica Moreno Patient admitted with shortness of breath, pneumonia and congestive heart failure. Consultation by Dr. Estrada dated 02/06, states sepsis and possibly septic shock. Clinical indicators 02/05 in ED: WBC 13.2 Temp 100.1 HR 122 RR 32 Lactic Acid 1.3 Developed hypotension 02/06 (83/61, 95/46, 86/70) and required pressors. In your professional opinion as attending physician, please clarify: Sepsis with septic shock ruled in and if Present on Admission - Yes or No Sepsis with septic shock ruled out Other, please specify Unable to determine MTDD
--- NOTE | 2018-02-28 09:05 | CDI ---
Documentation Clarification Form Date: 02/28/2018 12:00:00 AM From: MICHELLE Lozano; Renay Parks Sustainment Logistics Analyst Phone: If you have a question about this query, please contact Renay Parks Sustainment Logistics Analyst at [phone] between 8am and 5pm. Admit Date: 02/05/2018 2:18:00 PM Patient Name: Ophelia Ruffin Visit Number: [id number] Discharge Date: 02/19/2018 ATTENTION: The Clinical Documentation Specialists (CDI) and [facility] Coding Staff appreciate your assistance in clarifying documentation. Please respond to the clarification below the line at the bottom and electronically sign. The CDI & [facility] Coding staff will review the response and follow-up if needed. Please note: Queries are made part of the Legal Health Record. If you have any questions, please contact the author of this message via ITS. Dr. Erica Moreno The patient was admitted with shortness of breath, pneumonia and congestive heart failure. Cardiology Consultation dated 02/06, states sepsis and possibly septic shock. She did develop hypotension and required pressors. In your professional opinion, please clarify if you agree with the consultants findings? Sepsis with septic shock ruled in? Sepsis with septic shock ruled out? Other, please specify Unable to determine If sepsis ruled in, was it impending/present on admission? Yes No MTDD
--- NOTE | 2018-03-02 14:47 | CDI ---
Documentation Clarification Form Date: 02/21/2018 12:00:00 AM From: MICHELLE Lozano; Renay Parks Php Developer Phone: If you have a question about this query, please contact Renay Parks Php Developer at [phone] between 8am and 5pm. Admit Date: 02/05/2018 2:18:00 PM Patient Name: Ophelia Ruffin Visit Number: [id number] Discharge Date: 02/19/2018 ATTENTION: The Clinical Documentation Specialists (CDI) and [facility] Coding Staff appreciate your assistance in clarifying documentation. Please respond to the clarification below the line at the bottom and electronically sign. The CDI & [facility] Coding staff will review the response and follow-up if needed. Please note: Queries are made part of the Legal Health Record. If you have any questions, please contact the author of this message via ITS. Dr. Erica Moreno The patient was admitted with shortness of breath, pneumonia and congestive heart failure. Presenting vitals include; temp 100.1, Pulse 122, Resp 32, BP 138/73, WBC 13.2. Treatment: Rocephin, Zithromax and norepinephrine. Patient transferred to ICU and required intubation and mechanical ventilation. Consultation dated 02/06, states sepsis and possibly septic shock. In your professional opinion, please clarify if you agree with the consultants findings? Sepsis with septic shock ruled in? Sepsis with septic shock ruled out? Other, please specify Unable to determine If sepsis ruled in, was it impending/present on admission? Yes or No MTDD
--- NOTE | 2018-03-21 10:40 | CDI ---
Last Revision, July 2017 Documentation Clarification Form Date: 03/21/2018 12:00:00 AM From: MICHELLE Lozano; Renay Parks Hemodialysis Charge Nurse Phone: If you have a question about this query, please contact Renay Parks Hemodialysis Charge Nurse at [phone] between 8am and 5pm. Admit Date: 02/05/2018 2:18:00 PM Patient Name: Ophelia Ruffin Visit Number: [id number] Discharge Date: 02/19/2018 ATTENTION: The Clinical Documentation Specialists (CDI) and [facility] Coding Staff appreciate your assistance in clarifying documentation. Please respond to the clarification below the line at the bottom and electronically sign. The CDI & [facility] Coding staff will review the response and follow-up if needed. Please note: Queries are made part of the Legal Health Record. If you have any questions, please contact the author of this message via ITS. Dr. Erica Moreno The patient was admitted with shortness of breath, pneumonia and congestive heart failure. Intubation was required and she was transferred to the ICU. Vital signs in the ED included; Temp 100.1, pulse 122, resp 32, BP 138/73, and WBC 13.2. Treatment: IV Rocephin and Zithromax. Consultation dated 02/06, states sepsis and possibly septic shock. In your professional opinion, please clarify if you agree with the consultants findings? Sepsis with septic shock ruled in? Sepsis with septic shock ruled out? Other, please specify Unable to determine If sepsis ruled in, was it impending/present on admission? Yes No MTDD
== END 2018-02-19 18:08 | disposition home or self-care (01) | DRG 871 ==
LOC: EC 11:41 → 6SEL 14:18 → 6ICU 02-06 06:08 → 4MS4W 02-12 18:37
PROVIDERS: ADMIT Internal Medicine; ATTEND Internal Medicine
PROC: 5A1945Z Respiratory Ventilation, 24-96 Consecutive Hours (ICD-10-PCS; principal; 2018-02-06)
PROC: 06HM33Z Insertion of Infusion Device into Right Femoral Vein, Percutaneous Approach (ICD-10-PCS; principal; 2018-02-06)
PROC: 04HY32Z Insertion of Monitoring Device into Lower Artery, Percutaneous Approach (ICD-10-PCS; principal; 2018-02-06)
PROC: 4A133B1 Monitoring of Arterial Pressure, Peripheral, Percutaneous Approach (ICD-10-PCS; principal; 2018-02-06)
PROC: 4A133J1 Monitoring of Arterial Pulse, Peripheral, Percutaneous Approach (ICD-10-PCS; principal; 2018-02-06)
PROC: 0BH18EZ Insertion of Endotracheal Airway into Trachea, Via Natural or Artificial Opening Endoscopic (ICD-10-PCS; principal; 2018-02-06)
PROC: 4A133J1 Monitoring of Arterial Pulse, Peripheral, Percutaneous Approach (ICD-10-PCS; 2018-02-07)
PROC: 03HY32Z Insertion of Monitoring Device into Upper Artery, Percutaneous Approach (ICD-10-PCS; 2018-02-07)
PROC: 4A133B1 Monitoring of Arterial Pressure, Peripheral, Percutaneous Approach (ICD-10-PCS; 2018-02-07)
DX: A41.9 Sepsis, unspecified organism (principal); I50.33 Acute on chronic diastolic (congestive) heart failure; J18.9 Pneumonia, unspecified organism; J96.01 Acute respiratory failure with hypoxia; J96.02 Acute respiratory failure with hypercapnia; E66.2 Morbid (severe) obesity with alveolar hypoventilation; J44.0 Chronic obstructive pulmonary disease with (acute) lower respiratory infection; J44.1 Chronic obstructive pulmonary disease with (acute) exacerbation; C79.31 Secondary malignant neoplasm of brain; Z68.42 Body mass index [BMI] 45.0-49.9, adult; I11.0 Hypertensive heart disease with heart failure; Z23 Encounter for immunization; Z85.118 Personal history of other malignant neoplasm of bronchus and lung; Z87.891 Personal history of nicotine dependence; Z90.2 Acquired absence of lung [part of]; Z88.8 Allergy status to other drugs, medicaments and biological substances; R19.7 Diarrhea, unspecified; Z99.89 Dependence on other enabling machines and devices; Z79.82 Long term (current) use of aspirin; Z79.899 Other long term (current) drug therapy
CPT/HCPCS: 36415; 36600; 71045; 71046; 80048; 80053; 81001; 82550; 82553; 82805; 83036; 83605; 83735; 83880; 84100; 84484; 85025; 85610; 85730; 87040; 87070; 87086; 87205; 87324; 93005; 93306; 94002; 94003; 94640; 94660; 94760; 96374; 96375; 99291

== ENCOUNTER 2021-05-18 22:46 | Emergency (ER) | payer BC, MEDICARE ==
[2021-05-18 22:58] VITALS: TEMP 98.2
[2021-05-18] MEDS ORDERED: TRANEXAMIC ACID 1,000 MG/10 ML VIAL IRRIGATION ONE (23:19)
[2021-05-18 23:52] LABS: Basophils % (A) 0 %; Eosinophils # (A) 0.4 k/uL (0-0.7); Eosinophils % (A) 5 %; HCT 44.3 % (34.0-46.0); Lymphocytes # (A) 0.8 k/uL (1.0-4.8); Lymphocytes % (A) 10 %; MCH 30.2 pg (25.0-35.0); MCHC 31.6 g/dL (31.0-37.0); MCV 95.4 fL (80.0-100.0); Mean Platelet Volume 7.6; Monocytes # (A) 0.5 k/uL (0-1.0); Monocytes % (A) 6 %; Neutrophils # (A) 6.3 k/uL (1.3-7.7); Neutrophils % (A) 78 %; Platelet Count 313 k/uL (150-450); RBC 4.65 m/uL (3.80-5.40); RDW 15.8 % (11.5-15.5); WBC 8.1 k/uL (3.8-10.6)
[2021-05-19 00:13] LABS: Prothrombin Time 10.6 sec (9.0-12.0)
[2021-05-19] MEDS ORDERED: AMOXIC-POT CLAV 875MG STARTER PACK 2 TAB BTL PO STA (01:02)
[2021-05-19] MEDS ORDERED: ONDANSETRON 4 MG/2 ML VIAL IVP STA (01:02)
[2021-05-19] MEDS ORDERED: MORPHINE SULFATE 2 MG/ML SYRINGE IVP STA (01:02)
--- NOTE | 2021-05-19 01:17 | ED ---
General Adult HPI - General Chief complaint: ENT Stated complaint: Nosebleed Time Seen by Provider: 05/18/21 23:19 Source: patient Mode of arrival: ambulatory - History of Present Illness Initial comments: 65 year-old female patient presents to the emergency department for evaluation of nose bleed. States that it started around 8pm and has not let up. She denies history of nosebleeds or use of blood thinners. Patient did recently have increase in her dosage of methotrexate, took 8 tablets this morning. She takes this for rheumatoid arthritis. She denies dizziness or feeling faint. Denies any facial pain or headache. Denies trauma. - Related Data Home Medications Medication Instructions Recorded Confirmed Aspirin EC [Ecotrin Low Dose] 81 mg PO DAILY 02/05/18 02/05/18 Previous Rx's Medication Instructions Recorded Budesonide-Formot 160-4.5 Mcg 2 puff INHALATION RT-BID puff 02/19/18 [Symbicort 160-4.5 Mcg Inhaler] Furosemide [Lasix] 40 mg PO BID@0900,1600 tab 02/19/18 Ipratropium-Albuterol Nebulize 3 ml INHALATION RT-QID ampul.neb 02/19/18 [Duoneb 0.5 mg-3 mg/3 ml Soln] Pantoprazole [Protonix] 40 mg PO AC-BRKFST tablet. 02/19/18 guaiFENesin [Mucinex] 1,200 mg PO Q12HR tablet.er 02/19/18 Amoxic-Pot Clav 875-125Mg 1 tab PO BID #6 tab 05/19/21 [Augmentin 875-125] Allergies Allergy/AdvReac Type Severity Reaction Status Date / Time metoprolol [From Toprol XL] AdvReac Itching Verified 05/18/21 22:58 band aids Allergy Rash/Hives Uncoded 05/18/21 22:58 Review of Systems ROS Statement: Those systems with pertinent positive or pertinent negative responses have been documented in the HPI. ROS Other: All systems not noted in ROS Statement are negative. Past Medical History Past Medical History: Cancer, COPD, Hypertension, Sleep Apnea/CPAP/BIPAP Additional Past Medical History / Comment(s): RA History of Any Multi-Drug Resistant Organisms: None Reported Additional Past Surgical History / Comment(s): Lung resection for her lung cancer. Resection of a brain metastasis without radiation therapy. Past Anesthesia/Blood Transfusion Reactions: No Reported Reaction Past Psychological History: No Psychological Hx Reported Smoking Status: Never smoker Past Alcohol Use History: None Reported Past Drug Use History: None Reported - Past Family History Father Family Medical History: Cancer General Exam General appearance: alert, in no apparent distress, other (This is a well- developed, well-nourished adult female patient in no acute distress. Vital signs upon presentation temperature 98.2F, pulse 100, respirations 21, blood pressure 187/86, pulse ox 98% on room air.) Eye exam: Present: normal appearance, PERRL, EOMI. Absent: scleral icterus, conjunctival injection, periorbital swelling ENT exam: Present: normal oropharynx, mucous membranes moist, other (Active bl eeding to the right nare, unable to visualize area of bleeding) Respiratory exam: Present: normal lung sounds bilaterally. Absent: respiratory distress, wheezes, rales, rhonchi, stridor Cardiovascular Exam: Present: regular rate, normal rhythm, normal heart sounds. Absent: systolic murmur, diastolic murmur, rubs, gallop, clicks Neurological exam: Present: alert, oriented X3, CN II-XII intact Psychiatric exam: Present: normal affect, normal mood Skin exam: Present: warm, dry, intact, normal color. Absent: rash Course Vital Signs 05/18/21 05/19/21 22:54 01:33 Temperature 98.2 F Pulse Rate 100 89 Respiratory 21 18 Rate Blood Pressure 187/86 165/79 O2 Sat by Pulse 98 97 Oximetry Procedures - Procedures Initial comment: Verbal consent for nasal packing. Merocel 8cm nasal packing inserted into right nare, coated with bacitracin. Saline instilled to expand packing. Patient tolerated well. Reported headache after insertion. Medical Decision Making - Medical Decision Making 65-year-old female patient presented to the emergency department for evaluation of nosebleed. Physical examination did reveal bright red blood draining from the right nostril. Unable to visualize area of bleeding in the anterior nasal passage. Did pack the nose with TXA soaked gauze applied clamp for approximately 30 minutes. Upon reevaluation bleeding persists. Labs reviewed and did reveal normal hemoglobin, normal platelet count. Normal PT/INR. Decision was made to pack the nose using Merocel nasal tampon. Cipro cessation of bleeding. Patient will be discharged to follow up with ENT specialist in the morning. She was started on Augmentin prophylactically. Return parameters were discussed in detail. She verbalizes understanding and agrees with this plan. Case discussed with my attending Dr. John. - Lab Data Result diagrams: 05/18/21 23:39 Lab Results 05/18/21 05/18/21 Range/Units 23:39 23:39 WBC 8.1 (3.8-10.6) k/uL RBC 4.65 (3.80-5.40) m/uL Hgb 14.0 (11.4-16.0) gm/dL Hct 44.3 (34.0-46.0) % MCV 95.4 (80.0-100.0) fL MCH 30.2 (25.0-35.0) pg MCHC 31.6 (31.0-37.0) g/dL RDW 15.8 H (11.5-15.5) % Plt Count 313 (150-450) k/uL MPV 7.6 Neutrophils % 78 % Lymphocytes % 10 % Monocytes % 6 % Eosinophils % 5 % Basophils % 0 % Neutrophils # 6.3 (1.3-7.7) k/uL Lymphocytes # 0.8 L (1.0-4.8) k/uL Monocytes # 0.5 (0-1.0) k/uL Eosinophils # 0.4 (0-0.7) k/uL Basophils # 0.0 (0-0.2) k/uL PT 10.6 (9.0-12.0) sec INR 1.0 (<1.2) Disposition Clinical Impression: Epistaxis Disposition: HOME SELF-CARE Condition: Good Instructions (If sedation given, give patient instructions): Nosebleed (ED) Additional Instructions: Leave packing in place for maximum of 3 days. Follow-up with ENT specialist for further evaluation as soon as possible, call the morning for an appointment. Denies able to get in within 3 days return to the emergency department to have the packing removed. Follow-up with her primary care physician for recheck in 1-2 days. Return for any new, worsening, or concerning symptoms. Prescriptions: Amoxic-Pot Clav 875-125Mg [Augmentin 875-125] 1 tab PO BID #6 tab Is patient prescribed a controlled substance at d/c from ED?: No Referrals: Carmen Dc DO [Primary Care Provider] - 1-2 days Melvin Carr MD [STAFF PHYSICIAN] - 1-2 days Time of Disposition: 01:17
[2021-05-19 01:34] VITALS: BP 165/79; PULSE 89; RESP 18
== END 2021-05-19 01:34 | disposition home or self-care (01) ==
LOC: EC 22:46
DX: R04.0 Epistaxis (principal); J44.9 Chronic obstructive pulmonary disease, unspecified; I10 Essential (primary) hypertension; Z91.09 Other allergy status, other than to drugs and biological substances; Z88.8 Allergy status to other drugs, medicaments and biological substances; Z79.82 Long term (current) use of aspirin
CPT/HCPCS: 36415; 85025; 85610; 99283; 96374; 96375; 30903; J2405; J2270

== ENCOUNTER 2022-01-14 09:25 | Inpatient (IN) | payer MEDICARE ==
[2022-01-14] MEDS ORDERED: SODIUM CHLORIDE 0.9% 500 ML 500 ML IV STA (10:00)
[2022-01-14 10:43] LABS: Albumin 4.1 g/dL (3.5-5.0); Calcium 8.8 mg/dL (8.4-10.2); Total Bilirubin 1.7 mg/dL (0.2-1.3); Total Protein 7.9 g/dL (6.3-8.2)
[2022-01-14 10:46] LABS: Potassium 3.8 mmol/L (3.5-5.1)
[2022-01-14 10:58] LABS: Partial Thromboplastin Time 22.2 sec (22.0-30.0); Prothrombin Time 10.8 sec (9.0-12.0)
[2022-01-14 10:59] LABS: Anisocytosis Slight; HCT 48.5 % (34.0-46.0); HGB 15.6 gm/dL (11.4-16.0); Hypochromasia Slight; MCH 28.6 pg (25.0-35.0); MCHC 32.3 g/dL (31.0-37.0); MCV 88.7 fL (80.0-100.0); Mean Platelet Volume 7.2; Platelet Count 585 k/uL (150-450); Poikilocytosis Slight; RBC 5.46 m/uL (3.80-5.40); RDW 16.7 % (11.5-15.5); WBC 4.8 k/uL (3.8-10.6)
--- NOTE | 2022-01-14 11:06 | XR ---
EXAMINATION TYPE: XR KUB DATE OF EXAM: 01/14/2022 COMPARISON: NONE HISTORY: Abdominal pain TECHNIQUE: One view abdominal series FINDINGS: The osseous structures are intact. The bowel gas pattern is nonspecific. Numerous dilated bowel loop s are seen with air-fluid levels. Hypertrophic and degenerative changes of the spine. Arthropathy of the hips. IMPRESSION: 1. Multiple dilated bowel loops with air-fluid levels. Bowel obstruction in the differential diagnosi s.
--- NOTE | 2022-01-14 11:15 | CT ---
EXAMINATION TYPE: CT abdomen pelvis wo con DATE OF EXAM: 01/14/2022 COMPARISON: No previous CT scan is available for comparison HISTORY: Abdominal pain, N/V/D CT DLP: 1217.4 mGycm Automated exposure control for dose reduction was used. TECHNIQUE: Helical acquisition of images was performed from the lung bases through the pelvis. FINDINGS: LUNG BASES: Small atelectasis and subtle fibrotic changes. LIVER/GB: Cholelithiasis without evidence of acute cholecystitis. No definite hepatic focal lesion. PANCREAS: No significant abnormality is seen. SPLEEN: No significant abnormality is seen. ADRENALS: No significant abnormality is seen. KIDNEYS: No significant abnormality is seen. FREE AIR: No free air is visualized RETROPERITONEAL ADENOPATHY: None visualized REPRODUCTIVE ORGANS: No gross uterine or adnexal mass. URINARY BLADDER: Nondistended. PELVIC ADENOPATHY: No pathologically enlarged pelvic lymph nodes. OSSEOUS STRUCTURES: Multilevel lumbar facet osteoarthropathy with grade 1 anterolisthesis of L4 over L5. No aggressive bone lesion. BOWEL: Circumferential wall thickening of the proximal portion of the sigmoid colon extending for ab out 4.8 cm causing significant luminal narrowing. This could be due to colonic stricture secondary to diverticulosis however underlying colon cancer at that location can't be excluded. Multiple divertic ulosis are seen involving the remainder of the colon. The described lesion causes at least partial ob struction of the colon with the proximal colon demonstrates marked dilatation being fluid-filled with mild dilatation of the distal ileal loops. The cecum measures up to 11.4 cm. Unremarkable nondistend ed stomach, duodenum and remainder of the small bowel. Normal appendix. OTHER: Arterial atherosclerotic calcification. No sizable ascites. IMPRESSION: Markedly distended fluid-filled colon with a transition point seen at the proximal portion of the sig moid colon where there is circumferential wall thickening as detailed above. This is consistent with mechanical colonic obstruction. The underlying etiology could be related to a colonic stricture secon adeola to diverticulosis however colon cancer at that location can't be excluded. Recommend clinical co rrelation and correlation with colonoscopy results. [place] syndrome is less likely. Other findings a s described above.
[2022-01-14] MEDS ORDERED: MORPHINE SULFATE 2 MG/ML SYRINGE IVP STA (11:34)
--- NOTE | 2022-01-14 11:42 | ED ---
General Adult HPI - General Chief complaint: Abdominal Pain Stated complaint: abd pain, N/V/D Time Seen by Provider: 01/14/22 09:30 Source: patient, RN notes reviewed, old records reviewed Mode of arrival: ambulatory Limitations: no limitations - History of Present Illness Initial comments: 66-year-old female presenting for evaluation of abdominal pain, vomiting and diarrhea. Patient states that several days ago she had taken some magnesium citrate for constipation over the preceding 2 weeks. This resulted in minimal diarrhea but significant vomiting including vomiting stool. Patient's does report generalized abdominal pain associated with this. No chest pain or respiratory symptoms. No urinary symptoms. - Related Data Home Medications Medication Instructions Recorded Confirmed Aspirin EC [Ecotrin Low Dose] 81 mg PO DAILY 02/05/18 02/05/18 Previous Rx's Medication Instructions Recorded Budesonide-Formot 160-4.5 Mcg 2 puff INHALATION RT-BID puff 02/19/18 [Symbicort 160-4.5 Mcg Inhaler] Furosemide [Lasix] 40 mg PO BID@0900,1600 tab 02/19/18 Ipratropium-Albuterol Nebulize 3 ml INHALATION RT-QID ampul.neb 02/19/18 [Duoneb 0.5 mg-3 mg/3 ml Soln] Pantoprazole [Protonix] 40 mg PO AC-BRKFST tablet. 02/19/18 guaiFENesin [Mucinex] 1,200 mg PO Q12HR tablet.er 02/19/18 Amoxic-Pot Clav 875-125Mg 1 tab PO BID #6 tab 05/19/21 [Augmentin 875-125] Allergies Allergy/AdvReac Type Severity Reaction Status Date / Time metoprolol [From Toprol XL] AdvReac Itching Verified 01/14/22 09:39 band aids Allergy Rash/Hives Uncoded 01/14/22 09:39 Review of Systems ROS Statement: Those systems with pertinent positive or pertinent negative responses have been documented in the HPI. ROS Other: All systems not noted in ROS Statement are negative. Past Medical History Past Medical History: Cancer, COPD, Hypertension, Sleep Apnea/CPAP/BIPAP Additional Past Medical History / Comment(s): RA History of Any Multi-Drug Resistant Organisms: None Reported Additional Past Surgical History / Comment(s): Lung resection for her lung cancer. Resection of a brain metastasis without radiation therapy. Past Anesthesia/Blood Transfusion Reactions: No Reported Reaction Past Psychological History: No Psychological Hx Reported Smoking Status: Never smoker Past Alcohol Use History: None Reported Past Drug Use History: None Reported - Past Family History Father Family Medical History: Cancer General Exam Limitations: no limitations General appearance: alert, in no apparent distress Head exam: Present: atraumatic, normocephalic Eye exam: Present: normal appearance, PERRL ENT exam: Present: mucous membranes dry Neck exam: Present: normal inspection. Absent: tenderness, meningismus Respiratory exam: Present: normal lung sounds bilaterally. Absent: respiratory distress, wheezes Cardiovascular Exam: Present: regular rate, normal rhythm GI/Abdominal exam: Present: soft, distended, tenderness. Absent: guarding, rebound Extremities exam: Present: pedal edema Neurological exam: Present: alert, oriented X3, CN II-XII intact. Absent: motor sensory deficit Psychiatric exam: Present: normal affect, normal mood Skin exam: Present: warm, dry, intact. Absent: cyanosis, diaphoretic Course Vital Signs 01/14/22 01/14/22 09:31 10:38 Temperature 97.8 F 97.9 F Pulse Rate 85 95 Respiratory 20 24 Rate Blood Pressure 123/73 118/100 O2 Sat by Pulse 89 L 97 Oximetry Procedures - [place] Protocol (Time Out) Nurse: Mely El Medical Decision Making - Medical Decision Making 58-year-old female presenting with abdominal pain, distention, and concern for obstructive symptoms. Workup was initiated including CBC, CMP, patient has a normal white blood cell count, stable hemoglobin, she has a hyponatremia as well as acute kidney injury with minimal lactic acid of 2.5. Urinalysis is pending. CT is performed without contrast given the patient's kidney function. This does show a obstructive process with significant distention of the colon and a transition point in the sigmoid colon with circumferential wall thickening possible stricture versus mass. Patient is given IV fluid. NG tube will be placed in the emergency department. Case discussed with Dr. Broderick. Case discussed with Dr. Caldwell who will admit. - Lab Data Result diagrams: 01/14/22 10:00 01/14/22 10:00 Lab Results 01/14/22 01/14/22 01/14/22 Range/Units 10:00 10:00 10:00 WBC 4.8 (3.8-10.6) k/uL RBC 5.46 H (3.80-5.40) m/uL Hgb 15.6 (11.4-16.0) gm/dL Hct 48.5 H (34.0-46.0) % MCV 88.7 (80.0-100.0) fL MCH 28.6 (25.0-35.0) pg MCHC 32.3 (31.0-37.0) g/dL RDW 16.7 H (11.5-15.5) % Plt Count 585 H (150-450) k/uL MPV 7.2 Hypochromasia Slight Poikilocytosis Slight Anisocytosis Slight PT 10.8 (9.0-12.0) sec INR 1.0 (<1.2) APTT 22.2 (22.0-30.0) sec Sodium 130 L (137-145) mmol/L Potassium 3.8 (3.5-5.1) mmol/L Chloride 84 L (98-107) mmol/L Carbon Dioxide 34 H (22-30) mmol/L Anion Gap 12 mmol/L BUN 42 H (7-17) mg/dL Creatinine 1.41 H (0.52-1.04) mg/dL Est GFR (CKD-EPI)AfAm 44 (>60 ml/min/1.73 sqM) Est GFR (CKD-EPI)NonAf 38 (>60 ml/min/1.73 sqM) Glucose 146 H (74-99) mg/dL Plasma Lactic Acid Tong (0.7-2.0) mmol/L Calcium 8.8 (8.4-10.2) mg/dL Total Bilirubin 1.7 H (0.2-1.3) mg/dL AST 41 H (14-36) U/L ALT 17 (4-34) U/L Alkaline Phosphatase 104 (38-126) U/L Total Protein 7.9 (6.3-8.2) g/dL Albumin 4.1 (3.5-5.0) g/dL Amylase 44 (30-110) U/L Lipase 25 (23-300) U/L 01/14/22 Range/Units 10:00 WBC (3.8-10.6) k/uL RBC (3.80-5.40) m/uL Hgb (11.4-16.0) gm/dL Hct (34.0-46.0) % MCV (80.0-100.0) fL MCH (25.0-35.0) pg MCHC (31.0-37.0) g/dL RDW (11.5-15.5) % Plt Count (150-450) k/uL MPV Hypochromasia Poikilocytosis Anisocytosis PT (9.0-12.0) sec INR (<1.2) APTT (22.0-30.0) sec Sodium (137-145) mmol/L Potassium (3.5-5.1) mmol/L Chloride (98-107) mmol/L Carbon Dioxide (22-30) mmol/L Anion Gap mmol/L BUN (7-17) mg/dL Creatinine (0.52-1.04) mg/dL Est GFR (CKD-EPI)AfAm (>60 ml/min/1.73 sqM) Est GFR (CKD-EPI)NonAf (>60 ml/min/1.73 sqM) Glucose (74-99) mg/dL Plasma Lactic Acid Tong 2.5 H* (0.7-2.0) mmol/L Calcium (8.4-10.2) mg/dL Total Bilirubin (0.2-1.3) mg/dL AST (14-36) U/L ALT (4-34) U/L Alkaline Phosphatase (38-126) U/L Total Protein (6.3-8.2) g/dL Albumin (3.5-5.0) g/dL Amylase (30-110) U/L Lipase (23-300) U/L Disposition Clinical Impression: Colonic obstruction, Large bowel obstruction Disposition: ADMITTED IP TO THIS [facility] Condition: Stable Is patient prescribed a controlled substance at d/c from ED?: No Referrals: Carmen Dc DO [Primary Care Provider] - 1-2 days Time of Disposition: 11:42
[2022-01-14] MEDS ORDERED: HYDROmorphone 0.5 MG/0.5 ML SYRINGE IVP PRN (11:56)
[2022-01-14] MEDS ORDERED: NALOXONE 0.4 MG/ML 1 ML VIAL IV PRN (11:56)
[2022-01-14 12:21] LABS: Amorphous Sediment,Urine Few /hpf; Appearance,Urine Cloudy (Clear); Bacteria,Urine Rare /hpf; Bilirubin,Urine 1+ (Negative); Blood,Urine Negative (Negative); Color,Urine Yellow; Glucose,Urine (UA) Negative (Negative); Hyaline Casts,Urine 65 /lpf (0-2); Ketones,Urine Trace (Negative); Leukocyte Esterase,Urine Negative (Negative); Mucus,Urine Few /hpf; Nitrite,Urine Negative (Negative); PH, Urine 5.5 (5.0-8.0); Protein,Urine 1+ (Negative); RBC,Urine 2 /hpf (0-5); Specific Gravity,Urine 1.028 (1.001-1.035); Squamous Epithelial Cell,Urine 17 /hpf (0-4); WBC,Urine 3 /hpf (0-5)
[2022-01-14] MEDS: ONDANSETRON 4 MG/2 ML VIAL IVP PRN ×2 (12:40→22:15)
[2022-01-14] MEDS: SODIUM CHLORIDE 0.9% 1,000 ML IV SCH ×2 (12:41→23:14)
--- NOTE | 2022-01-14 12:47 | P.GSCN ---
History of Present Illness Consult date: 01/14/22 History of present illness: CHIEF COMPLAINT: Abdominal pain HISTORY OF PRESENT ILLNESS: This is a 66-year-old female presented to the hospital with complaints of abdominal pain with vomiting and diarrhea. She reports that she's been doing with constipation over the last 2 weeks. She took a laxative and did have a bowel movement. However, since then she's been deal ing with diarrhea. Yesterday she had diarrhea with vomiting of fecal material. The last episode of emesis and diarrhea were at 4 AM. She reports lower abdominal pain. The pain has been intermittent and Becomes sharp. She's never had a colonoscopy. She had Cologuard in June but is unsure of the results. Her past medical history does include lung cancer and brain cancer about 10-20 years ago. Both required surgical intervention. She denies any chemotherapy or radiation history. Patient also has a history of rheumatoid arthritis. Patient denies any prior abdominal surgeries. Denies any cardiac history. Patient had a computed tomography scan abdomen and pelvis showing markedly distended fluid- filled colon with transition point seen at the proximal portion of the sigmoid colon where there is circumferential wall thickening. This is consistent with mechanical colonic obstruction. The underlying etiology could be related to colonic stricture secondary to diverticulosis however colon cancer at that location can't be excluded. Surgical service has been consulted for colonic obstruction. PAST MEDICAL HISTORY: See list. PAST SURGICAL HISTORY: See list. MEDICATIONS: See list. ALLERGIES: See list. SOCIAL HISTORY: No illicit drug use. REVIEW OF SYSTEMS: CONSTITUTIONAL: Denies fever or chills. HEENT: Denies blurred vision, vision changes, or eye pain. Denies hemoptysis CARDIOVASCULAR: Denies chest pain or pressure. RESPIRATORY: No shortness of breath. GASTROINTESTINAL: See HPI for pertinent findings HEMATOLOGIC: Denies bleeding disorders. GENITOURINARY: Denies any blood in urine or increased urinary frequency. SKIN: Denies pruitis. Denies rash. PHYSICAL EXAM: VITAL SIGNS: Reviewed GENERAL: Well-developed in no acute distress. HEENT: No sclera icterus. Extraocular movements grossly intact. Moist buccal mucosa. Head is atraumatic, normocephalic. No nasal drainage. ABDOMEN: Distended. Tenderness with palpation of the lower abdomen. NEUROLOGIC: Alert and oriented. Cranial nerves II through XII grossly intact. LABORATORY DATA: WBC is 4.8 hemoglobin 15.6 platelets 585 Sodium is 130 potassium 3.8 creatinine 1.41 Lactic acid 2.5 Total bili 1.7 AST 41 ALT 17 alk phos 104 Lipase 25 IMAGING: computed tomography scan abdomen and pelvis showing markedly distended fluid- filled colon with transition point seen at the proximal portion of the sigmoid colon where there is circumferential wall thickening. This is consistent with mechanical colonic obstruction. The underlying etiology could be related to colonic stricture secondary to diverticulosis however colon cancer at that location can't be excluded. Recommended clinical correlation and correlation with colonoscopy results. [place] Syndrome is less likely. KUB x-ray multiple dilated bowel loops with air-fluid levels. Bowel obstruction in the differential diagnosis. ASSESSMENT: 1. Mechanical colonic obstruction. CAT scan reports underlying etiology could be related to colonic stricture secondary to diverticulosis however colon cancer at that location can't be excluded 2. Patient has prior history of lung cancer and brain cancer status post surgical interventions PLAN: -Patient is scheduled for exploratory laparotomy with possible colon resection and colostomy placement today with Dr. Broderick, 01/15/2022 -NG tube will be placed for decompression -Keep patient nothing by mouth -Continue IV fluids -Continue pain medication and antiemetics as needed Thank you for this consultation Physician Tractor Trailer Operator note has been reviewed by physician. Signing provider agrees with the documented findings, assessment, and plan of care. I have personally seen and examined the patient, reviewed the ENGINE REPAIR SUPERVISOR /PAs history, exam and MDM and agree with the assessment and plan as written. Based on total visit time, I have performed more than 50% of the visit. As above: Patient's history and diagnostic studies reviewed in detail. Discussed in detail with patient and her . Patient with CAT scan showing colonic obstruction at the proximal sigmoid colon most likely related to either chronic diverticulitis or malignancy. Patient's abdomen is distended, tense, and she does have right lower quadrant and suprapubic tenderness. Bandemia present on initial CBC and lactic acidosis also initially identified on lab draw. Surgical recommendation to proceed with exploratory laparotomy with possible colectomy and ostomy formation reviewed. Risks of bleeding, infection, need for ostomy, bladder bowel and ureteral injury, abscess, ostomy complications, hernia, dehiscence, possibly for further surgery reviewed. She understands wished to proceed. Past Medical History Past Medical History: Cancer, COPD, Hypertension, Sleep Apnea/CPAP/BIPAP Additional Past Medical History / Comment(s): RA History of Any Multi-Drug Resistant Organisms: None Reported Additional Past Surgical History / Comment(s): Lung resection for her lung cancer. Resection of a brain metastasis without radiation therapy. Past Anesthesia/Blood Transfusion Reactions: No Reported Reaction Past Psychological History: No Psychological Hx Reported Smoking Status: Never smoker Past Alcohol Use History: None Reported Past Drug Use History: None Reported - Past Family History Father Family Medical History: Cancer Medications and Allergies Home Medications Medication Instructions Recorded Confirmed Type Cholecalciferol (Vitamin D3) 75 mcg PO DAILY 01/14/22 01/14/22 History [Vitamin D3 (3000 Iu)] Furosemide [Lasix] 20 mg PO AC-SUPPER 01/14/22 01/14/22 History Furosemide [Lasix] 40 mg PO DAILY 01/14/22 01/14/22 History Leflunomide 20 mg PO DAILY 01/14/22 01/14/22 History Magnesium 250 mg PO DAILY 01/14/22 01/14/22 History Potassium Gluconate [Potassium 99 mg PO DAILY 01/14/22 01/14/22 History Gluconate ER] Allergies Allergy/AdvReac Type Severity Reaction Status Date / Time metoprolol [From Toprol XL] AdvReac Itching Verified 01/14/22 12:22 band aids Allergy Rash/Hives Uncoded 01/14/22 12:22 Surgical - Exam Vital Signs Temp Pulse Resp BP Pulse Ox 97.8 F 85 20 123/73 89 L 01/14/22 09:31 01/14/22 09:31 01/14/22 09:31 01/14/22 09:31 01/14/22 09:31 Results - Labs 01/14/22 10:00 01/14/22 10:00 Abnormal Lab Results - Last 24 Hours (Table) 01/14/22 01/14/22 01/14/22 Range/Units 10:00 10:00 10:00 RBC 5.46 H (3.80-5.40) m/uL Hct 48.5 H (34.0-46.0) % RDW 16.7 H (11.5-15.5) % Plt Count 585 H (150-450) k/uL Sodium 130 L (137-145) mmol/L Chloride 84 L (98-107) mmol/L Carbon Dioxide 34 H (22-30) mmol/L BUN 42 H (7-17) mg/dL Creatinine 1.41 H (0.52-1.04) mg/dL Glucose 146 H (74-99) mg/dL Plasma Lactic Acid Tong 2.5 H* (0.7-2.0) mmol/L Total Bilirubin 1.7 H (0.2-1.3) mg/dL AST 41 H (14-36) U/L Diabetes panel 01/14/22 Range/Units 10:00 Sodium 130 L (137-145) mmol/L Potassium 3.8 (3.5-5.1) mmol/L Chloride 84 L (98-107) mmol/L Carbon Dioxide 34 H (22-30) mmol/L BUN 42 H (7-17) mg/dL Creatinine 1.41 H (0.52-1.04) mg/dL Glucose 146 H (74-99) mg/dL Calcium 8.8 (8.4-10.2) mg/dL AST 41 H (14-36) U/L ALT 17 (4-34) U/L Alkaline Phosphatase 104 (38-126) U/L Total Protein 7.9 (6.3-8.2) g/dL Albumin 4.1 (3.5-5.0) g/dL Calcium panel 01/14/22 Range/Units 10:00 Calcium 8.8 (8.4-10.2) mg/dL Albumin 4.1 (3.5-5.0) g/dL Pituitary panel 01/14/22 Range/Units 10:00 Sodium 130 L (137-145) mmol/L Potassium 3.8 (3.5-5.1) mmol/L Chloride 84 L (98-107) mmol/L Carbon Dioxide 34 H (22-30) mmol/L BUN 42 H (7-17) mg/dL Creatinine 1.41 H (0.52-1.04) mg/dL Glucose 146 H (74-99) mg/dL Calcium 8.8 (8.4-10.2) mg/dL Adrenal panel 01/14/22 Range/Units 10:00 Sodium 130 L (137-145) mmol/L Potassium 3.8 (3.5-5.1) mmol/L Chloride 84 L (98-107) mmol/L Carbon Dioxide 34 H (22-30) mmol/L BUN 42 H (7-17) mg/dL Creatinine 1.41 H (0.52-1.04) mg/dL Glucose 146 H (74-99) mg/dL Calcium 8.8 (8.4-10.2) mg/dL Total Bilirubin 1.7 H (0.2-1.3) mg/dL AST 41 H (14-36) U/L ALT 17 (4-34) U/L Alkaline Phosphatase 104 (38-126) U/L Total Protein 7.9 (6.3-8.2) g/dL Albumin 4.1 (3.5-5.0) g/dL
[2022-01-14 13:16] LABS: Band Neutrophils % 5 %; Lymphocytes # (M) 0.77 k/uL (1.0-4.8); Monocytes # (M) 0.48 k/uL (0-1.0); Myelocytes # (M) 0.05 k/uL (0); Myelocytes % 1 %; Neutrophils % (M) 70 %; Nucleated Red Blood Cells 0 /100 WBC (0-0); Total Cells Counted 200
[2022-01-14] MEDS ORDERED: SODIUM CHLORIDE 0.9% 1,000 ML IV ONE ×2 (13:22→20:06)
[2022-01-14] MEDS ORDERED: metroNIDAZOLE-NS PMX 500 MG in SALINE 1 100ML.BAG IVPB STA (13:28)
[2022-01-14] MEDS: HEPARIN SODIUM,PORCINE/PF 5,000 UNIT/0.5 ML SYRINGE SQ SCH ×2 (16:27→23:14)
[2022-01-14] MEDS ORDERED: fentaNYL (PF) 50 MCG/ML 2 ML AMP ONE (19:37)
[2022-01-14] MEDS ORDERED: GLYCOPYRROLATE 0.2 MG/ML 2 ML VIAL ONE (19:37)
[2022-01-14] MEDS ORDERED: LIDOCAINE 2% INJ 20 MG/ML (2 ML VIAL) ONE (19:37)
[2022-01-14] MEDS ORDERED: PHENYLEPHRINE-0.9% NACL SYG 1,000 MCG/10 ML SYRINGE ONE (19:37)
[2022-01-14] MEDS ORDERED: PROPOFOL 10 MG/ML 20 ML VIAL IV ONE (19:37)
[2022-01-14] MEDS ORDERED: HYDROmorphone (PF) 1 MG/ML ONE (19:37)
[2022-01-14] MEDS ORDERED: ROCURONIUM 10 MG/ML (5 ML VIAL) IV ONE (19:37)
[2022-01-14] MEDS ORDERED: SUCCINYLCHOLINE CHLORIDE 100 MG/5 ML SYR IV ONE (19:37)
[2022-01-14] MEDS ORDERED: MIDAZOLAM 2 MG/2 ML VIAL ONE (19:37)
[2022-01-14] MEDS ORDERED: NEOSTIGMINE 1 MG/ML 10 ML VIAL ONE (19:37)
[2022-01-14] MEDS ORDERED: HEPARIN SODIUM,PORCINE 5,000 UNIT/ML 1 ML VIAL ONE (19:37)
[2022-01-14] MEDS ORDERED: IV FLUID CONTINUATION 100 ML IV ONE (19:41)
[2022-01-14] MEDS ORDERED: LACTATED RINGERS 1,000 ML IV ONE (21:14)
[2022-01-14] MEDS ORDERED: METOCLOPRAMIDE 5 MG/ML 2 ML VIAL IVP PRN (21:43)
--- NOTE | 2022-01-14 21:50 | P.OP ---
Date of Procedure: 01/14/22 Procedure(s) Performed: PREOPERATIVE DIAGNOSIS: Colon obstruction POSTOPERATIVE DIAGNOSIS: Same, umbilical hernia PROCEDURE: Sigmoid colectomy with end colostomy, repaired an umbilical hernia SURGEON: Meggan EBL: 75mL ANESTHESIA: General COMPLICATIONS: None OPERATIVE PROCEDURE: Patient place in the operative table in the supine position. The patient was placed under general anesthesia. The abdomen was prepped and draped in usual sterile fashion. A vertical incision was made encompassing extending from the suprapubic region above the umbilicus. The fascia was divided as well. The patient had a fascial defect at the umbilicus that was incorporated into our incision and later closed with our fascial closure. Upon entrance into the peritoneal cavity serous fluid was identified. The Bookwalter retractor was utilized. There was significant small bowel distention. The small bowel contents were milked back to the stomach where they were evacuated. Approximately 600 mL of succus was removed. The colon was distended throughout. The cecum was inspected and there was no ischemic changes. Thankfully were able to mobilize the bowel without decompressing the colon. There were adhesions in the proximal to mid sigmoid colon where the obstruction was present. The patient's colon was quite narrow in that location. The etiology appeared to be most likely consistent with subacute diverticulitis. No definite malignancy was identified. No adenopathy was seen. The bowel was able to be mobilized medially using both electrocautery and blunt dissection. The colon was divided beyond the colon obstruction site using a green load contour stapler. The mesentery was divided at that time using the LigaSure device and 2-0 Vicryl sutures once we had adequate mobilization a circular incision was made in the left midabdomen. Dissection through the subcutaneous fat and fascia took place using electrocautery. I bluntly entered the peritoneal cavity and this was further bluntly opened. The bowel including the strictured segment was brought out through this defect in the left midabdomen. The abdomen was copiously irrigated with saline. There was no purulent fluid or bleeding seen. The midline fascia was then reapproximated using 3 separate double-stranded #1 PDS sutures. The subcutaneous tissues were irrigated. The subcutaneous tissues were closed using 3-0 Vicryl sutures. The skin was then closed using taran. The KLEVER drain was left anterior to the fascia exiting from the right lower quadrant. This was sutured to the skin using a 3-0 silk stitch. The ostomy was then addressed. A portion of the pericolonic fat was removed using the LigaSure device. The staple line was then removed using electrocautery. The ostomy was then matured in a [place] fashion using interrupted 3-0 Vicryl sutures. An ostomy appliance was then applied. Sterile dressings were then applied to the midline incision. DISPOSITION: Stable to recovery room
[2022-01-14] MEDS ORDERED: HYDROmorphone 0.5 MG/0.5 ML SYRINGE IVP ONE ×2 (21:56→22:06)
[2022-01-14] MEDS ORDERED: HYDROmorphone 1 MG/ML 1 ML SYRINGE IVP ONE (22:15)
--- NOTE | 2022-01-14 23:11 | P.HPIM ---
History of Present Illness H&P Date: 01/14/22 Chief Complaint: abdominal pain Patient is a 66-year-old female with a known history of hypertension, rheumatoid arthritis, obstructive sleep apnea, history of lung cancer status postresection and brain radiation due to metastatic lesion about 15 years ago and using remission since then presents to ER with complaints of abdominal pain associate with nausea vomiting and diarrhea. Patient has been having loose stools and also vomiting contains fecal material. Patient has been having worsening symptoms for the past 2 days.. Patient states that she did have constipation about 2 weeks ago and took laxatives and since then she has been having diarrhea. Abdominal pain is mainly in the lower abdomen sharp and cramping pain. Denies any prior abdominal surgeries. Patient states that she has not been eating well. Noted to have some weight loss. CT of the abdomen pelvis in the ER showed markedly distended fluid-filled colon with a transition point seen in the proximal portion of the sigmoid colon where there is circumferential wall thickening. This is consistent with mechanical colonic obstruction. Could be related to colonic stricture versus colon cancer cannot be excluded. KUB x-ray showed multiple dilated bowel loops with air-fluid levels. Bowel obstruction in the differential diagnosis. Laboratory data showed WBC 4.8 hemoglobin 15.6 platelets 485 Sodium 130 potassium 3.8 chloride 84 bicarb is 34 BUN 42 and creatinine 1.41 lactic acid 2.5 and total bilirubin level is 1.7 and urinalysis is negative for infection. Review of Systems Constitutional: Patient denies any fever or chills . No generalized weakness or weight loss. Abdomen: Patient does have abdominal pain associated with nausea vomiting and diarrhea.. Cardiovascular: Patient denies any chest pain or short of breath no palpitations. Respiratory: patient denied any cough is from production. No shortness of breath Neurologic: Patient denied any numbness or tingling headache. Musculoskeletal: Patient denies any complaints of joint swelling or deformity. Skin: Negative Psychiatric: Negative Endocrine: No heat or cold intolerance. No recent weight gain. Genitourinary: No dysuria or hematuria. All other 14 point ROS negative except the above Past Medical History Past Medical History: Cancer, COPD, Hypertension, Sleep Apnea/CPAP/BIPAP Additional Past Medical History / Comment(s): RA History of Any Multi-Drug Resistant Organisms: None Reported Additional Past Surgical History / Comment(s): Lung resection for her lung cancer. Resection of a brain metastasis without radiation therapy. Past Anesthesia/Blood Transfusion Reactions: No Reported Reaction Past Psychological History: No Psychological Hx Reported Smoking Status: Never smoker Past Alcohol Use History: None Reported Past Drug Use History: None Reported - Past Family History Father Family Medical History: Cancer Medications and Allergies Home Medications Medication Instructions Recorded Confirmed Type Cholecalciferol (Vitamin D3) 75 mcg PO DAILY 01/14/22 01/14/22 History [Vitamin D3 (3000 Iu)] Furosemide [Lasix] 20 mg PO AC-SUPPER 01/14/22 01/14/22 History Furosemide [Lasix] 40 mg PO DAILY 01/14/22 01/14/22 History Leflunomide 20 mg PO DAILY 01/14/22 01/14/22 History Magnesium 250 mg PO DAILY 01/14/22 01/14/22 History Potassium Gluconate [Potassium 99 mg PO DAILY 01/14/22 01/14/22 History Gluconate ER] Allergies Allergy/AdvReac Type Severity Reaction Status Date / Time metoprolol [From Toprol XL] AdvReac Itching Verified 01/14/22 12:22 band aids Allergy Rash/Hives Uncoded 01/14/22 12:22 Physical Exam Vitals: Vital Signs Temp Pulse Resp BP Pulse Ox 01/14/22 13:00 91 22 127/82 95 01/14/22 10:38 97.9 F 95 24 118/100 97 01/14/22 09:31 97.8 F 85 20 123/73 89 L Intake and Output 01/13/22 01/14/22 01/14/22 22:59 06:59 14:59 Other: Weight 104.326 kg PHYSICAL EXAMINATION: Patient is lying in the bed comfortably, no acute distress, awake alert and oriented. Morbidly obese.. HEENT: Normocephalic. Neck is supple. Pupils reactive. Nostrils clear. Oral cavity is moist. Neck reveals no JVD, carotid bruits, or thyromegaly. CHEST EXAMINATION: Trachea is central. Symmetrical expansion. Lung pierce clear to auscultation and percussion. CARDIAC: Normal S1, S2 with no gallops. No murmurs ABDOMEN: Soft. Bowel sounds are sluggish/diminished... No organomegaly. No abdominal bruits. Extremities: reveal no edema. No clubbing or cyanosis Neurologically awake, alert, oriented x3 with well-coordinated movements. No focal deficits noted Skin: No rash or skin lesions. Psychiatric: Coperative. Nonsuicidal Musculoskeletal: No joint swelling or deformity. Normal range of motion. Results CBC & Chem 7: 01/15/22 08:18 01/15/22 08:18 Labs: Abnormal Lab Results - Last 24 Hours (Table) 01/14/22 01/14/22 01/14/22 Range/Units 10:00 10:00 10:00 RBC 5.46 H (3.80-5.40) m/uL Hct 48.5 H (34.0-46.0) % RDW 16.7 H (11.5-15.5) % Plt Count 585 H (150-450) k/uL Lymphocytes # (Manual) 0.77 L (1.0-4.8) k/uL Myelocytes # (Manual) 0.05 H (0) k/uL Sodium 130 L (137-145) mmol/L Chloride 84 L (98-107) mmol/L Carbon Dioxide 34 H (22-30) mmol/L BUN 42 H (7-17) mg/dL Creatinine 1.41 H (0.52-1.04) mg/dL Glucose 146 H (74-99) mg/dL Plasma Lactic Acid Tong 2.5 H* (0.7-2.0) mmol/L Total Bilirubin 1.7 H (0.2-1.3) mg/dL AST 41 H (14-36) U/L Urine Appearance (Clear) Urine Protein (Negative) Urine Ketones (Negative) Urine Bilirubin (Negative) Ur Squamous Epith Cells (0-4) /hpf Amorphous Sediment (None) /hpf Urine Bacteria (None) /hpf Hyaline Casts (0-2) /lpf Urine Mucus (None) /hpf 01/14/22 Range/Units 11:31 RBC (3.80-5.40) m/uL Hct (34.0-46.0) % RDW (11.5-15.5) % Plt Count (150-450) k/uL Lymphocytes # (Manual) (1.0-4.8) k/uL Myelocytes # (Manual) (0) k/uL Sodium (137-145) mmol/L Chloride (98-107) mmol/L Carbon Dioxide (22-30) mmol/L BUN (7-17) mg/dL Creatinine (0.52-1.04) mg/dL Glucose (74-99) mg/dL Plasma Lactic Acid Tong (0.7-2.0) mmol/L Total Bilirubin (0.2-1.3) mg/dL AST (14-36) U/L Urine Appearance Cloudy H (Clear) Urine Protein 1+ H (Negative) Urine Ketones Trace H (Negative) Urine Bilirubin 1+ H (Negative) Ur Squamous Epith Cells 17 H (0-4) /hpf Amorphous Sediment Few H (None) /hpf Urine Bacteria Rare H (None) /hpf Hyaline Casts 65 H (0-2) /lpf Urine Mucus Few H (None) /hpf Thrombosis Risk Factor Assmnt - DVT/VTE Prophylaxis DVT/VTE Prophylaxis: Pharmacologic Prophylaxis ordered Assessment and Plan Assessment: Mechanical sigmoid colonic obstruction. Stricture versus malignancy cannot be excluded. Nausea vomiting and constipation followed by diarrhea secondary above. Hypovolemic hyponatremia Acute kidney injury likely prerenal Lactic acidosis 2.5 on admission History of lung cancer status postresection and brain metastasis with radiation treatment 15 years ago. Obstructive sleep apnea Hypertension COPD not in exacerbation Rheumatoid arthritis currently on leflunomide DVT prophylaxis with heparin subcu Plan: Patient will be continued on IV hydration with normal saline. Nothing by mouth and PT was placed. General surgery was consulted. Continue with conservative management and replace electrolytes. Follow-up CBC and BMP. Discussed with the patient and her at bedside in detail. Time with Patient: Greater than 30
[2022-01-15] MEDS: metroNIDAZOLE-NS PMX 500 MG in SALINE 1 100ML.BAG IVPB SCH ×4 (00:01→23:29)
[2022-01-15] MEDS: HYDROmorphone 1 MG/ML 1 ML SYRINGE IVP PRN ×4 (04:35→23:17)
--- NOTE | 2022-01-15 08:37 | XR ---
EXAMINATION TYPE: XR chest 1V confirm line [facility] DATE OF EXAM: 01/14/2022 COMPARISON: 02/18/2018 HISTORY: NG tube placement TECHNIQUE: Single frontal view of the chest is obtained. FINDINGS: NG tube seen coursing in the left upper quadrant. Subsegmental changes lung bases. Underly ing COPD suspected. Heart size normal atherosclerotic change aorta. No pneumothorax arthropathy of th e shoulders. IMPRESSION: Basilar subsegmental consolidation most likely atelectasis. NG tube seen in the left upp er quadrant likely within the gastric fundus.
[2022-01-15] MEDS: HEPARIN SODIUM,PORCINE/PF 5,000 UNIT/0.5 ML SYRINGE SQ SCH ×3 (08:44→23:29)
[2022-01-15] MEDS: SODIUM CHLORIDE 0.9% 1,000 ML IV SCH ×3 (08:45→19:15)
[2022-01-15 10:44] LABS: HCT 46.9 % (37.2-46.3); HGB 14.2 g/dL (12.0-15.0); MCH 27.1 pg (27.0-32.0); MCHC 30.3 g/dL (32.0-37.0); MCV 89.5 fL (80.0-97.0); Mean Platelet Volume 9.3 fL (9.5-12.2); NRBC Per 100 WBC 0 /100 WBCS (0.0-0.0); Platelet Count 421 X 10*3/uL (140-440); RBC 5.24 X 10*6/uL (4.10-5.20); RDW 16.7 % (11.5-14.5); WBC 5.71 X 10*3/uL (4.50-10.00)
[2022-01-15 11:59] LABS: Basophils # (A) 0.09 X 10*3/uL (0.00-0.10); Basophils % (A) 1.6 %; Eosinophils # (A) 0.08 X 10*3/uL (0.04-0.35); Eosinophils % (A) 1.4 %; Immature Grans, Automated 0.4 %; Lymphocytes # (A) 0.26 X 10*3/uL (0.90-5.00); Lymphocytes % (A) 4.6 %; Monocytes # (A) 0.59 X 10*3/uL (0.20-1.00); Monocytes % (A) 10.3 %; Neutrophils # (A) 4.67 X 10*3/uL (1.80-7.70); Neutrophils % (A) 81.7 %
--- NOTE | 2022-01-15 12:00 | P.PN ---
Subjective Progress Note Date: 01/15/22 CHIEF COMPLAINT: Abdominal pain HISTORY OF PRESENT ILLNESS: Patient is POD#1 status post Sigmoid colectomy with end colostomy and repair of umbilical hernia. Patient lying in bed comfortably. She reports that her pain is controlled. She did have some nausea. She does feel thirsty. NG tube output has been 250 mL of bilious output. She does have stool through her ostomy. Urine output has been low. Afebrile. WBC 5.71 HGB 14.2 BMP pending PHYSICAL EXAM: VITAL SIGNS: Reviewed. GENERAL: Well-developed in no acute distress. HEENT: No sclera icterus. Extraocular movements grossly intact. Moist buccal mucosa. Head is atraumatic, normocephalic. ABDOMEN: Soft. Mildly distended. Ostomy bag on the left with stool and serosanguineous drainage. Stoma beefy red. KLEVER drain with minimal sanguinous output NEUROLOGIC: Alert and oriented. Cranial nerves II through XII grossly intact. ASSESSMENT: 1. Colon obstruction and umbilical hernia status post Sigmoid colectomy with end colostomy and repair of umbilical hernia PLAN: -Continue NG tube for decompression -Keep patient nothing by mouth -Increase IV fluids 125 mL/hr normal saline for low urine output. Discussed with nursing staff to have fluids and antibiotics run at the same time. -Repeat labs in a.m. -Continue antibiotics -Continue pain medication as needed -Continue antiemetics -Encouraged patient to use incentive spirometer -DVT prophylaxis subcu heparin Physician Carry All Driver note has been reviewed by physician. Signing provider agrees with the documented findings, assessment, and plan of care. I have personally seen and examined the patient, reviewed the VITAMIN MANAGER /PAs history, exam and MDM and agree with the assessment and plan as written. Based on total visit time, I have performed more than 50% of the visit. As above: Patient more comfortable today. Feels less bloated. She is having stool through the ostomy. Nasogastric tube output remains heavily as well. Continue antibiotics. Continue nasogastric tube to suction. May have ice chips and popsicles intermittently. Monitor urine output. Repeat labs tomorrow. Objective - Vital Signs Vital signs: Vital Signs Temp 97.9 F 01/15/22 05:42 Pulse 70 01/15/22 08:00 Resp 16 01/15/22 08:00 BP 101/67 01/15/22 06:19 Pulse Ox 99 01/15/22 05:42 FiO2 Intake & Output 01/14/22 01/15/22 01/15/22 18:59 06:59 18:59 Intake Total 1850 Output Total 475 Balance 1375 Weight 104.326 kg 104.326 kg Intake: IV 1700 Intake, IV Titration 150 Amount ceFAZolin 2 gm In Sodium 50 Chloride 0.9% 50 ml @ 100 mls/hr IVPB Q8HR [facility] Rx# :[id number] metroNIDAZOLE-NS PMX 500 100 mg In Saline 1 100ml.bag @ 100 mls/hr IVPB Q8HR [facility] Rx#:[id number] Output: Gastric Drainage 300 Urine 100 Estimated Blood Loss 75 Other: Voiding Method Indwelling Catheter Indwelling Catheter - Labs CBC & Chem 7: 01/15/22 08:18 01/15/22 08:18 Labs: Abnormal Lab Results - Last 24 Hours (Table) 01/14/22 01/14/22 01/15/22 Range/Units 10:00 11:31 08:18 RBC 5.24 H (4.10-5.20) X 10*6/uL Hct 46.9 H (37.2-46.3) % MCHC 30.3 L (32.0-37.0) g/dL RDW 16.7 H (11.5-14.5) % MPV 9.3 L (9.5-12.2) fL Lymphocytes # (Manual) 0.77 L (1.0-4.8) k/uL Myelocytes # (Manual) 0.05 H (0) k/uL Urine Appearance Cloudy H (Clear) Urine Protein 1+ H (Negative) Urine Ketones Trace H (Negative) Urine Bilirubin 1+ H (Negative) Ur Squamous Epith Cells 17 H (0-4) /hpf Amorphous Sediment Few H (None) /hpf Urine Bacteria Rare H (None) /hpf Hyaline Casts 65 H (0-2) /lpf Urine Mucus Few H (None) /hpf
[2022-01-15 12:51] LABS: African American GFR (CKD) 48.8 (60.0-200.0); Anion Gap 20.1 mmol/L (10.00-18.00); BUN/Creat Ratio 19.31 Ratio (12.00-20.00); Blood Urea Nitrogen 25.1 mg/dL (9.0-27.0); Calcium 7.6 mg/dL (8.7-10.3); Carbon Dioxide 21.9 mmol/L (20.0-27.5); Non-African American GFR(CKD) 42.1 (60.0-200.0); Potassium 3.4 mmol/L (3.5-5.5)
[2022-01-15] MEDS ORDERED: Potassium Replacement Protocol 1 EACH MISC MISCELLANE PRN (23:39)
--- NOTE | 2022-01-15 23:39 | P.PN ---
Subjective Progress Note Date: 01/15/22 Patient is a 66-year-old female with a known history of hypertension, rheumatoid arthritis, obstructive sleep apnea, history of lung cancer status postresection and brain radiation due to metastatic lesion about 15 years ago and using remission since then presents to ER with complaints of abdominal pain associate with nausea vomiting and diarrhea. Patient has been having loose stools and also vomiting contains fecal material. Patient has been having worsening symptoms for the past 2 days.. Patient states that she did have constipation about 2 weeks ago and took laxatives and since then she has been having diarrhea. Abdominal pain is mainly in the lower abdomen sharp and cramping pain. Denies a ny prior abdominal surgeries. Patient states that she has not been eating well. Noted to have some weight loss. CT of the abdomen pelvis in the ER showed markedly distended fluid-filled colon with a transition point seen in the proximal portion of the sigmoid colon where there is circumferential wall thickening. This is consistent with mechanical colonic obstruction. Could be related to colonic stricture versus colon cancer cannot be excluded. KUB x-ray showed multiple dilated bowel loops with air-fluid levels. Bowel obstruction in the differential diagnosis. Laboratory data showed WBC 4.8 hemoglobin 15.6 platelets 485 Sodium 130 potassium 3.8 chloride 84 bicarb is 34 BUN 42 and creatinine 1.41 lactic acid 2.5 and total bilirubin level is 1.7 and urinalysis is negative for infection. 01/15/2022 Patient is currently lying in the bed. Awake Actiban x3. Complains of soreness/pain at the surgical site. No nausea vomiting. Remains on NG tube. No complaints of chest pain or shortness of breath. Patient is using incentive spirometry. Status post sigmoid colectomy and end colostomy umbilical hernia postoperative day 1 No fever no chills. No cough or sputum production. Level data showed WBC 5.7 hemoglobin 14.2 and platelets 421 sodium 136 potassium 3.4 chloride 94 bicarb is 21.9 and BUN 25.1 and creatinine 1.3 and calcium 7.6. Patient is on antibiotics in the form of cefazolin and Flagyl. Current medications reviewed. Objective - Vital Signs Vital signs: Vital Signs Temp 97.9 F 01/15/22 05:42 Pulse 70 01/15/22 08:00 Resp 16 01/15/22 08:00 BP 101/67 01/15/22 06:19 Pulse Ox 99 01/15/22 05:42 FiO2 Intake & Output 01/14/22 01/15/22 01/15/22 18:59 06:59 18:59 Intake Total 1850 Output Total 475 Balance 1375 Weight 104.326 kg 104.326 kg Intake: IV 1700 Intake, IV Titration 150 Amount ceFAZolin 2 gm In Sodium 50 Chloride 0.9% 50 ml @ 100 mls/hr IVPB Q8HR [facility] Rx# :[id number] metroNIDAZOLE-NS PMX 500 100 mg In Saline 1 100ml.bag @ 100 mls/hr IVPB Q8HR [facility] Rx#:[id number] Output: Gastric Drainage 300 Urine 100 Estimated Blood Loss 75 Other: Voiding Method Indwelling Catheter Indwelling Catheter - Exam PHYSICAL EXAMINATION: Patient is lying in the bed comfortably, no acute distress, awake alert and oriented. Morbidly obese.. HEENT: Normocephalic. Neck is supple. Pupils reactive. Nostrils clear. Oral cavity is moist. Neck reveals no JVD, carotid bruits, or thyromegaly. CHEST EXAMINATION: Trachea is central. Symmetrical expansion. Bibasilar diminished sounds. Lung pierce clear to auscultation and percussion. CARDIAC: Normal S1, S2 with no gallops. No murmurs ABDOMEN: Soft. Bowel sounds are sluggish/diminished.. Surgical site is bandaged. Colostomy bag in place.. No organomegaly. No abdominal bruits. Extremities: reveal no edema. No clubbing or cyanosis Neurologically awake, alert, oriented x3 with well-coordinated movements. No focal deficits noted Skin: No rash or skin lesions. Psychiatric: Coperative. Nonsuicidal Musculoskeletal: No joint swelling or deformity. Normal range of motion. - Labs CBC & Chem 7: 01/15/22 08:18 01/15/22 08:18 Labs: Abnormal Lab Results - Last 24 Hours (Table) 01/15/22 01/15/22 Range/Units 08:18 08:18 RBC 5.24 H (4.10-5.20) X 10*6/uL Hct 46.9 H (37.2-46.3) % MCHC 30.3 L (32.0-37.0) g/dL RDW 16.7 H (11.5-14.5) % MPV 9.3 L (9.5-12.2) fL Lymphocytes # 0.26 L (0.90-5.00) X 10*3/uL Potassium 3.4 L (3.5-5.5) mmol/L Chloride 94 L (96-109) mmol/L Anion Gap 20.10 H (10.00-18.00) mmol/L Est GFR (CKD-EPI)AfAm 48.8 L (60.0-200.0) Est GFR (CKD-EPI)NonAf 42.1 L (60.0-200.0) Glucose 144 H (70-110) mg/dL Calcium 7.6 L (8.7-10.3) mg/dL Assessment and Plan Assessment: Mechanical sigmoid colonic obstruction. Stricture versus malignancy cannot be excluded. Status post sigmoid colectomy and end colostomy umbilical hernia postoperative day 1 Nausea vomiting and constipation followed by diarrhea secondary above. Hypovolemic hyponatremia Acute kidney injury likely prerenal Lactic acidosis 2.5 on admission History of lung cancer status postresection and brain metastasis with radiation treatment 15 years ago. Obstructive sleep apnea Hypertension COPD not in exacerbation Rheumatoid arthritis currently on leflunomide DVT prophylaxis with heparin subcu Plan: Patient will be continued on IV hydration with normal saline. Nothing by mouth and NGT was placed. Status post sigmoid colectomy and end colostomy umbilical hernia postoperative day 1 General surgery is following. replace electrolytes. Follow-up CBC and BMP. Patient is on antibiotics in the form of cefazolin and Flagyl. Time with Patient: Greater than 30
[2022-01-16] MEDS: HYDROmorphone 1 MG/ML 1 ML SYRINGE IVP PRN ×3 (03:03→23:39)
[2022-01-16] MEDS: HEPARIN SODIUM,PORCINE/PF 5,000 UNIT/0.5 ML SYRINGE SQ SCH ×3 (09:09→23:24)
[2022-01-16] MEDS: metroNIDAZOLE-NS PMX 500 MG in SALINE 1 100ML.BAG IVPB SCH ×3 (09:09→23:25)
[2022-01-16] MEDS: SODIUM CHLORIDE 0.9% 1,000 ML IV SCH ×3 (10:46→23:40)
[2022-01-16 10:54] LABS: African American GFR (CKD) 63.2 (60.0-200.0); BUN/Creat Ratio 18.38 Ratio (12.00-20.00); Blood Urea Nitrogen 19.3 mg/dL (9.0-27.0); Calcium 7.6 mg/dL (8.7-10.3); Carbon Dioxide 26.7 mmol/L (20.0-27.5); Non-African American GFR(CKD) 54.5 (60.0-200.0); Potassium 3.2 mmol/L (3.5-5.5)
[2022-01-16 12:06] LABS: HGB 12.9 g/dL (12.0-15.0); MCH 27.5 pg (27.0-32.0); MCV 91.7 fL (80.0-97.0); Mean Platelet Volume 8.9 fL (9.5-12.2); NRBC Per 100 WBC 0 /100 WBCS (0.0-0.0); Platelet Count 395 X 10*3/uL (140-440); RBC 4.69 X 10*6/uL (4.10-5.20); RDW 16.7 % (11.5-14.5); WBC 9.02 X 10*3/uL (4.50-10.00)
[2022-01-16 12:07] LABS: Basophils # (M) 0 X 10*3/uL (0.00-0.10); Eosinophils # (M) 0.27 X 10*3/uL (0.04-0.35); Lymphocytes # (M) 0.45 X 10*3/uL (0.90-5.00); Metamyelocytes % 1 % (0-0); Monocytes # (M) 1.44 X 10*3/uL (0.20-1.00); Myelocytes % 2 % (0-0); Neutrophils # (M) 6.58 X 10*3/uL (2.00-8.90); Neutrophils % (M) 73 %; RBC Morphology NORMAL
--- NOTE | 2022-01-16 13:15 | P.PN ---
Subjective Progress Note Date: 01/16/22 CHIEF COMPLAINT: Abdominal pain HISTORY OF PRESENT ILLNESS: Patient is POD#2 status post Sigmoid colectomy with end colostomy and repair of umbilical hernia. Patient lying in bed comfortably. She reports that her pain is controlled. She denies any nausea or vomiting. She has had increased output through her ostomy. NG tube with 700 mL of dark output through the night. Urine output is on the lower side. 350 ML reported from this morning. KLEVER drain 10 mL sanguinous output. Afebrile. WBC 9.02 h emoglobin 12.9 fluids 395 sodium 139 potassium is 3.2 creatinine 1.1 PHYSICAL EXAM: VITAL SIGNS: Reviewed. GENERAL: Well-developed in no acute distress. HEENT: No sclera icterus. Extraocular movements grossly intact. Moist buccal mucosa. Head is atraumatic, normocephalic. ABDOMEN: Soft. Mildly distended. Ostomy bag on the left with liquidy stool Stoma beefy red. KLEVER drain with dark sanguinous output NEUROLOGIC: Alert and oriented. Cranial nerves II through XII grossly intact. ASSESSMENT: 1. Colon obstruction and umbilical hernia status post Sigmoid colectomy with end colostomy and repair of umbilical hernia 2. Hypokalemia PLAN: -Continue NG tube for decompression -Keep patient nothing by mouth except ice chips and popsicles -Continue IV fluids -Continue to monitor urine output -Replace potassium -Check magnesium level -Repeat labs in a.m. -Continue antibiotics -Continue pain medication as needed -Continue antiemetics -Encouraged patient to use incentive spirometer -DVT prophylaxis subcu heparin Physician Bill Of Lading Clerk note has been reviewed by physician. Signing provider agrees with the documented findings, assessment, and plan of care. Objective - Vital Signs Vital signs: Vital Signs Temp 98.1 F 01/16/22 12:19 Pulse 94 01/16/22 12:19 Resp 15 01/16/22 12:19 BP 124/77 01/16/22 12:19 Pulse Ox 96 01/16/22 12:19 FiO2 Intake & Output 01/15/22 01/16/22 01/16/22 18:59 06:59 18:59 Intake Total 1375 Output Total 2523 342 9712 Balance 20 -356 -1200 Intake: IV 1375 Sodium Chloride 0.9% 1, 1375 000 ml @ 125 mls/hr IV . Q8H [facility] Rx#:[id number] Output: Gastric Drainage 700 Drainage 5 5 Anterior Abdomen 5 5 Urine 350 350 Stool 300 1 1200 Other: Voiding Method Indwelling Catheter Indwelling Catheter Indwelling Catheter - Labs CBC & Chem 7: 01/16/22 07:48 01/16/22 07:48 Labs: Abnormal Lab Results - Last 24 Hours (Table) 01/16/22 01/16/22 Range/Units 07:48 07:48 MCHC 30.0 L (32.0-37.0) g/dL RDW 16.7 H (11.5-14.5) % MPV 8.9 L (9.5-12.2) fL Metamyelocytes % 1 H (0-0) % Myelocytes % 2 H (0-0) % Lymphocytes # (Manual) 0.45 L (0.90-5.00) X 10*3/uL Monocytes # (Manual) 1.44 H (0.20-1.00) X 10*3/uL Potassium 3.2 L (3.5-5.5) mmol/L Est GFR (CKD-EPI)NonAf 54.5 L (60.0-200.0) Glucose 112 H (70-110) mg/dL Calcium 7.6 L (8.7-10.3) mg/dL
[2022-01-16] MEDS: POTASSIUM CHLORIDE 10 MEQ in WATER FOR INJECTION 1 100ML.BAG IVPB SCH ×4 (16:03→21:48)
--- NOTE | 2022-01-16 19:05 | P.PN ---
Subjective Progress Note Date: 01/16/22 66-year-old female with a known history of hypertension, rheumatoid arthritis, obstructive sleep apnea, history of lung cancer status postresection and brain radiation due to metastatic lesion about 15 years ago and using remission since then presents to ER with complaints of abdominal pain associate with nausea vomiting and diarrhea. Patient has been having loose stools and also vomiting contains fecal material. Patient has been having worsening symptoms for the past 2 days.. Patient states that she did have constipation about 2 weeks ago and took laxatives and since then she has been having diarrhea. Abdominal pain is mainly in the lower abdomen sharp and cramping pain. Denies any prior abdominal surgeries. Patient states that she has not been eating well. Noted to have some weight loss. CT of the abdomen pelvis in the ER showed markedly distended fluid-filled colon with a transition point seen in the proximal portion of the sigmoid colon where there is circumferential wall thickening. This is consistent with mechanical colonic obstruction. Could be related to colonic stricture versus colon cancer cannot be excluded. KUB x-ray showed multiple dilated bowel loops with air-fluid levels. Bowel obstruction in the differential diagnosis. Laboratory data showed WBC 4.8 hemoglobin 15.6 platelets 485 Sodium 130 potassium 3.8 chloride 84 bicarb is 34 BUN 42 and creatinine 1.41 lac tic acid 2.5 and total bilirubin level is 1.7 and urinalysis is negative for infection. Objective - Vital Signs Vital signs: Vital Signs Temp 98.1 F 01/16/22 12:19 Pulse 94 01/16/22 12:19 Resp 15 01/16/22 12:19 BP 124/77 01/16/22 12:19 Pulse Ox 96 01/16/22 12:19 FiO2 Intake & Output 01/15/22 01/16/22 01/16/22 18:59 06:59 18:59 Intake Total 1375 Output Total 9616 039 0446 Balance 20 -356 -1200 Intake: IV 1375 Sodium Chloride 0.9% 1, 1375 000 ml @ 125 mls/hr IV . Q8H [facility] Rx#:[id number] Output: Gastric Drainage 700 Drainage 5 5 Anterior Abdomen 5 5 Urine 350 350 Stool 300 1 1200 Other: Voiding Method Indwelling Catheter Indwelling Catheter Indwelling Catheter - Exam Patient is lying in the bed comfortably, no acute distress, awake alert and oriented. Morbidly obese.. HEENT: Normocephalic. Neck is supple. Pupils reactive. Nostrils clear. Oral cavity is moist. Neck reveals no JVD, carotid bruits, or thyromegaly. CHEST EXAMINATION: Trachea is central. Symmetrical expansion. Bibasilar diminished sounds. Lung pierce clear to auscultation and percussion. CARDIAC: Normal S1, S2 with no gallops. No murmurs ABDOMEN: Soft. Bowel sounds are sluggish/diminished.. Surgical site is bandaged. Colostomy bag in place.. No organomegaly. No abdominal bruits. Extremities: reveal no edema. No clubbing or cyanosis Neurologically awake, alert, oriented x3 with well-coordinated movements. No focal deficits noted Skin: No rash or skin lesions. - Labs CBC & Chem 7: 01/16/22 07:48 01/16/22 07:48 Labs: Abnormal Lab Results - Last 24 Hours (Table) 01/16/22 01/16/22 Range/Units 07:48 07:48 MCHC 30.0 L (32.0-37.0) g/dL RDW 16.7 H (11.5-14.5) % MPV 8.9 L (9.5-12.2) fL Metamyelocytes % 1 H (0-0) % Myelocytes % 2 H (0-0) % Lymphocytes # (Manual) 0.45 L (0.90-5.00) X 10*3/uL Monocytes # (Manual) 1.44 H (0.20-1.00) X 10*3/uL Potassium 3.2 L (3.5-5.5) mmol/L Est GFR (CKD-EPI)NonAf 54.5 L (60.0-200.0) Glucose 112 H (70-110) mg/dL Calcium 7.6 L (8.7-10.3) mg/dL Assessment and Plan Assessment: Mechanical sigmoid colonic obstruction. Stricture versus malignancy cannot be excluded. Status post sigmoid colectomy and end colostomy umbilical hernia postoperative day 1 Nausea vomiting and constipation followed by diarrhea secondary above. Hypovolemic hyponatremia Acute kidney injury likely prerenal Lactic acidosis 2.5 on admission History of lung cancer status postresection and brain metastasis with radiation treatment 15 years ago. Obstructive sleep apnea Hypertension COPD not in exacerbation Rheumatoid arthritis currently on leflunomide DVT prophylaxis with heparin subcu Plan: Patient will be continued on IV hydration with normal saline. Nothing by mouth and NGT was placed. Status post sigmoid colectomy and end colostomy umbilical hernia postoperative day 1 General surgery is following. replace electrolytes. Follow-up CBC and BMP. Patient is on antibiotics in the form of cefazolin and Flagyl.
[2022-01-17] MEDS: metroNIDAZOLE-NS PMX 500 MG in SALINE 1 100ML.BAG IVPB SCH ×2 (08:14→15:28)
[2022-01-17] MEDS: HEPARIN SODIUM,PORCINE/PF 5,000 UNIT/0.5 ML SYRINGE SQ SCH ×3 (08:16→23:44)
[2022-01-17] MEDS: HYDROmorphone 1 MG/ML 1 ML SYRINGE IVP PRN ×2 (08:16→17:11)
[2022-01-17 11:41] LABS: Magnesium 2.9 mg/dL (1.5-2.4)
[2022-01-17 11:59] LABS: African American GFR (CKD) 76.1 (60.0-200.0); Anion Gap 15.7 mmol/L (10.00-18.00); BUN/Creat Ratio 18.22 Ratio (12.00-20.00); Blood Urea Nitrogen 16.4 mg/dL (9.0-27.0); Calcium 7.9 mg/dL (8.7-10.3); Carbon Dioxide 27.3 mmol/L (20.0-27.5); Non-African American GFR(CKD) 65.7 (60.0-200.0); Potassium 2.8 mmol/L (3.5-5.5)
--- NOTE | 2022-01-17 11:59 | P.PN ---
Progress Note - Text Progress Note Date: 01/17/22 Patient feels better. She's had smoked through colostomy. On exam vital signs are stable. Abdomen soft. Incisions clean dry intact. There is some gas and stool in the colostomy bag. The prep patient will have her nasogastric tube removed. She'll start on clear liquids
[2022-01-17] MEDS: SODIUM CHLORIDE 0.9% 1,000 ML IV SCH ×2 (15:01→16:28)
[2022-01-17] MEDS: ONDANSETRON 4 MG/2 ML VIAL IVP PRN (15:28)
[2022-01-17] MEDS: POTASSIUM CHLORIDE 10 MEQ in WATER FOR INJECTION 1 100ML.BAG IVPB SCH ×5 (17:41→23:44)
--- NOTE | 2022-01-17 19:46 | P.PN ---
Subjective Progress Note Date: 01/17/22 Principal diagnosis: Mechanical sigmoid colonic obstruction. Stricture versus malignancy cannot be excluded. Status post sigmoid colectomy and end colostomy umbilical hernia postoperative day 1 Nausea vomiting and constipation followed by diarrhea secondary above. Hypovolemic hyponatremia Acute kidney injury likely prerenal 66-year-old female with a known history of hypertension, rheumatoid arthritis, obstructive sleep apnea, history of lung cancer status postresection and brain radiation due to metastatic lesion about 15 years ago and using remission since then presents to ER with complaints of abdominal pain associate with nausea vomiting and diarrhea. Patient has been having loose stools and also vomiting contains fecal material. Patient has been having worsening symptoms for the past 2 days.. Patient states that she did have constipation about 2 weeks ago and took laxatives and since then she has been having diarrhea. Abdominal pain is mainly in the lower abdomen sharp and cramping pain. Denies any prior abdominal surgeries. Patient states that she has not been eating well. Noted to have some weight loss. CT of the abdomen pelvis in the ER showed markedly distended fluid-filled colon with a transition point seen in the proximal portion of the sigmoid colon where there is circumferential wall thickening. This is consistent with mechanical colonic obstruction. Could be related to colonic stricture versus colon cancer cannot be excluded. KUB x-ray showed multiple dilated bowel loops with air-fluid levels. Bowel obstruction in the differential diagnosis. Laboratory data showed WBC 4.8 hemoglobin 15.6 platelets 485 Sodium 130 potassium 3.8 chloride 84 bicarb is 34 BUN 42 and creatinine 1.41 lactic acid 2.5 and total bilirubin level is 1.7 and urinalysis is negative for infection. 01/17/2022 Patient feels better. She's had smoked through colostomy. Vital signs are reviewed and remained stable with temperature quite some 0.2, pulse 107, respiration 20 and blood pressure 104/73 with O2 saturation of 95% on 3 L On exam vital signs are stable. Abdomen soft. Incisions clean dry intact. There is some gas and stool in the colostomy bag. The prep patient will have her nasogastric tube removed. She'll start on clear liquids Objective - Vital Signs Vital signs: Vital Signs Temp 97.2 F L 01/17/22 11:35 Pulse 110 H 01/17/22 12:14 Resp 20 01/17/22 12:14 BP 104/73 01/17/22 11:35 Pulse Ox 90 L 01/17/22 11:35 FiO2 Intake & Output 01/16/22 01/17/22 01/17/22 18:59 06:59 18:59 Output Total 4210 2700 800 Balance -4210 -2700 -800 Output: Drainage 2410 Anterior Abdomen 2410 Urine 500 400 Stool 1300 1000 800 Emesis 1300 Other: Voiding Method Indwelling Catheter Indwelling Catheter Indwelling Catheter - Exam Patient is lying in the bed comfortably, no acute distress, awake alert and oriented. Morbidly obese.. HEENT: Normocephalic. Neck is supple. Pupils reactive. Nostrils clear. Oral cavity is moist. Neck reveals no JVD, carotid bruits, or thyromegaly. CHEST EXAMINATION: Trachea is central. Symmetrical expansion. Bibasilar diminished sounds. Lung pierce clear to auscultation and percussion. CARDIAC: Normal S1, S2 with no gallops. No murmurs ABDOMEN: Soft. Bowel sounds are sluggish/diminished.. Surgical site is bandaged. Colostomy bag in place.. No organomegaly. No abdominal bruits. Extremities: reveal no edema. No clubbing or cyanosis Neurologically awake, alert, oriented x3 with well-coordinated movements. No focal deficits noted Skin: No rash or skin lesions. - Labs CBC & Chem 7: 01/16/22 07:48 01/17/22 07:32 Labs: Abnormal Lab Results - Last 24 Hours (Table) 01/17/22 Range/Units 07:32 Sodium 147 H (135-145) mmol/L Potassium 2.8 L (3.5-5.5) mmol/L Calcium 7.9 L (8.7-10.3) mg/dL Magnesium 2.9 H (1.5-2.4) mg/dL Assessment and Plan Assessment: Mechanical sigmoid colonic obstruction. Stricture versus malignancy cannot be e xcluded. Status post sigmoid colectomy and end colostomy umbilical hernia postoperative day 1 Nausea vomiting and constipation followed by diarrhea secondary above. Hypovolemic hyponatremia Acute kidney injury likely prerenal Lactic acidosis 2.5 on admission History of lung cancer status postresection and brain metastasis with radiation treatment 15 years ago. Obstructive sleep apnea Hypertension COPD not in exacerbation Rheumatoid arthritis currently on leflunomide DVT prophylaxis with heparin subcu Plan: Patient will be continued on IV hydration with normal saline. Nothing by mouth and NGT was placed. Status post sigmoid colectomy and end colostomy umbilical hernia postoperative day 1 General surgery is following. replace electrolytes. Follow-up CBC and BMP. Patient is on antibiotics in the form of cefazolin and Flagyl.
[2022-01-17] MEDS ORDERED: DEXTROSE 5%-0.45% NACL 1,000 ML IV SCH (22:15)
--- NOTE | 2022-01-17 23:00 | XR ---
EXAMINATION TYPE: XR chest 1V portable DATE OF EXAM: 01/17/2022 COMPARISON: 01/14/2022 HISTORY: Short of breath TECHNIQUE: Single view FINDINGS: There is extensive airspace consolidation right lower lobe with volume loss. Heart is shift ed to the right side. There is no heart failure. Mild subsegmental atelectasis left lung base is pres ent. IMPRESSION: There is dense consolidation and atelectasis right lower lobe which is a significant soria ge compared to last exam. No heart failure.
[2022-01-18] MEDS ORDERED: FUROSEMIDE 10 MG/ML 4 ML VIAL IV STA (00:47)
[2022-01-18] MEDS: metroNIDAZOLE-NS PMX 500 MG in SALINE 1 100ML.BAG IVPB SCH ×4 (01:01→23:27)
[2022-01-18] MEDS: POTASSIUM CHLORIDE 10 MEQ in WATER FOR INJECTION 1 100ML.BAG IVPB SCH ×7 (01:02→17:19)
[2022-01-18 03:10] LABS: Glucose,Whole Blood 78 mg/dL (75-99)
[2022-01-18 03:11] LABS: ABG Base Excess 0.5 mmol/L; ABG HCO3 27 mmol/L (21-25); ABG Oxygen Saturation 93.7 % (94-97); ABG PCO2 50 mmHg (35-45); ABG PH 7.33 (7.35-7.45); ABG PO2 76 mmHg (83-108); ABG TCO2 28 mmol/L (19-24); Allen Test Performed? Yes
--- NOTE | 2022-01-18 03:23 | XR ---
EXAMINATION TYPE: XR chest 1V portable DATE OF EXAM: 01/18/2022 COMPARISON: Yesterday HISTORY: Respiratory distress TECHNIQUE: Single view FINDINGS: There is airspace consolidation and atelectasis right lower lobe. Left lung is fairly clear . No heart failure seen. There are chest leads. Bony thorax is intact. IMPRESSION: There is improvement in the right lower lobe pulmonary consolidation and atelectasis com pared to recent exam. Atelectasis appears improved.
[2022-01-18] MEDS ORDERED: propofoL 100 ML IV ONE (03:28)
[2022-01-18] MEDS ORDERED: NOREPINEPHRIN 4 MG-0.9% NS PMX 4 MG/250 ML ML IV ONE (03:49)
[2022-01-18 04:03] LABS: Calcium 8.2 mg/dL (8.4-10.2); Potassium 2.9 mmol/L (3.5-5.1)
[2022-01-18 04:04] LABS: Anisocytosis Slight; Basophils # (A) 0.4 k/uL (0-0.2); Basophils % (A) 2 %; Eosinophils # (A) 0.1 k/uL (0-0.7); Eosinophils % (A) 0 %; HCT 46.9 % (34.0-46.0); HGB 13.3 gm/dL (11.4-16.0); Hypochromasia Marked; Lymphocytes # (A) 1.9 k/uL (1.0-4.8); Lymphocytes % (A) 10 %; MCH 26.9 pg (25.0-35.0); MCHC 28.4 g/dL (31.0-37.0); Mean Platelet Volume 7.9; Monocytes # (A) 0.9 k/uL (0-1.0); Monocytes % (A) 5 %; Neutrophils # (A) 15.2 k/uL (1.3-7.7); Neutrophils % (A) 81 %; Platelet Count 636 k/uL (150-450); Poikilocytosis Slight; RBC 4.95 m/uL (3.80-5.40); RDW 16.1 % (11.5-15.5); WBC 18.7 k/uL (3.8-10.6)
[2022-01-18 04:05] LABS: MCV 94.6 fL (80.0-100.0)
[2022-01-18] MEDS ORDERED: Potassium Replacement Protocol 1 EACH MISC MISCELLANE PRN ×2 (04:06→20:56)
[2022-01-18] MEDS: NOREPINEPHRINE 4 MG in SODIUM CHLORIDE 0.9% 250 ML IV SCH ×4 (04:11→09:04)
[2022-01-18] MEDS ORDERED: SODIUM CHLORIDE 0.9% 1,000 ML IV ONE ×4 (05:00→11:17)
--- NOTE | 2022-01-18 05:00 | XR ---
EXAMINATION TYPE: XR chest 1V portable DATE OF EXAM: 01/18/2022 COMPARISON: Today HISTORY: Tube placement TECHNIQUE: FINDINGS: Endotracheal tube is 4 cm from the thu. There is some consolidation and atelectasis righ t lower lobe there is elevated right diaphragm. Heart shifted slightly to the right side. There is so me minimal infiltrate left lung base. No heart failure seen. There is nasogastric tube in the stomach. IMPRESSION: There is some infiltrate and atelectasis right lower lobe slightly improved.
[2022-01-18] MEDS ORDERED: ACETAMINOPHEN IV (For NPO) 1,000 MG in EMPTY BAG 1 BAG IVPB PRN (05:31)
[2022-01-18 06:05] LABS: VBG PH 7.25 (7.31-7.41)
[2022-01-18 07:17] LABS: Glucose,Whole Blood 114 mg/dL (75-99)
[2022-01-18 08:00] LABS: African American GFR (CKD) 36 (>60 ml/min/1.73 sqM); Anion Gap 13 mmol/L; Blood Urea Nitrogen 30 mg/dL (7-17); Calcium 7.4 mg/dL (8.4-10.2); Carbon Dioxide 23 mmol/L (22-30); Chloride 107 mmol/L (98-107); Glucose 118 mg/dL (74-99); Magnesium 2.7 mg/dL (1.6-2.3); Non-African American GFR(CKD) 31 (>60 ml/min/1.73 sqM); Potassium 2.8 mmol/L (3.5-5.1); Sodium 143 mmol/L (137-145)
[2022-01-18 08:13] LABS: Anisocytosis Slight; HGB 13.5 gm/dL (11.4-16.0); Hypochromasia Marked; MCH 28.1 pg (25.0-35.0); MCV 93.9 fL (80.0-100.0); Mean Platelet Volume 7.5; Platelet Count 551 k/uL (150-450); Poikilocytosis Slight; RDW 16.3 % (11.5-15.5); WBC 18.3 k/uL (3.8-10.6)
[2022-01-18 08:57] LABS: Band Neutrophils % 13 %; Eosinophils # (M) 0.18 k/uL (0-0.7); Lymphocytes # (M) 0.37 k/uL (1.0-4.8); Monocytes # (M) 1.46 k/uL (0-1.0); Myelocytes # (M) 0.18 k/uL (0); Myelocytes % 1 %; Neutrophils % (M) 77 %; Nucleated Red Blood Cells 0 /100 WBC (0-0); Total Cells Counted 200; Toxic Granulation Present; Toxic Vacuolation Present
[2022-01-18 08:58] LABS: Polychromasia Present
[2022-01-18] MEDS: PIPERACILLIN-TAZOBACTAM 3.375 GM in SODIUM CHLORIDE 0.9% 100 ML IVPB SCH ×3 (09:04→23:27)
[2022-01-18] MEDS: HEPARIN SODIUM,PORCINE/PF 5,000 UNIT/0.5 ML SYRINGE SQ SCH ×3 (09:04→23:27)
[2022-01-18] MEDS: CHLORHEXIDINE GLUCONATE 15 ML CUP MUCOUS MEM SCH ×2 (09:04→21:12)
[2022-01-18] MEDS: NOREPINEPHRINE 8 MG in SODIUM CHLORIDE 0.9% 250 ML IV SCH ×5 (10:34→22:02)
[2022-01-18] MEDS ORDERED: VANCOMYCIN IV PER PHARMACY 1 EACH MISC MISCELLANE PRN (11:14)
--- NOTE | 2022-01-18 11:14 | P.CNPUL ---
History of Present Illness Consult date: 01/18/22 Chief complaint: Respiratory failure, acute, hypoxic History of present illness: This is a 66-year-old here patient came into the intensive care unit because of an acute hypoxic/hypercapnic respiratory failure that occurred yesterday. The patient was found to be in significant respiratory distress and this progressed over several hours on the medical floor. The patient was placed briefly on a BiPAP and she failed the BiPAP and at that point, the patient got transferred to the intensive care unit and she was immediately intubated and placed on a mechanical ventilator. She was febrile, hypoxic and she was having significant respiratory distress. Note that this patient has history of lung cancer and she has undergone resection. 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 She is obese and she has obstructive sleep apnea rheumatoid arthritis and hypertension and her initial admission to the hospital was for nausea vomiting and diarrhea and she was having loose stools and emesis and further investigation revealed that the patient a mechanical obstruction with a transition point and the patient was taken to the operating room and the patient underwent a colectomy and diverting colostomy. The patient was recovering well on the medical floor and she was on few liters of oxygen by nasal cannula. I reviewed a series of chest x-rays as were done yesterday. Obviously, the patient's first chest x-ray showed a right lower lobe consolidation and same time there was volume loss in the right lung base highly suggestive of pneumonia/mucous plug/aspiration in the right lower lobe. Subsequent x-rays showed the same. This morning, the patient is sedated and she is currently on propofol running at 40 mcg/kg per minute. She is on assist-control mechanical ventilation with a rate of 24, tidal volume of 400 and FiO2 of 100% with a PEEP of 10. The chest x-ray from today still showing an extensive right lung consolidation involving the right middle right lower lobe and some in the right upper lobe. ET tube is in a good location. Left lung is essentially clear for now. The patient had a blood gases this morning that showed a pH of 7.33 with a pCO2 of 50 and a pO2 of 76. This was immediately immediately post intubation and subsequent blood gases were unable to obtain and there is only a venous sample at this point in time. The patient's current pulse ox is 98% on room air oxygen. She received IV fluids a total of 3 L and currently she is on a maintenance of 50 mL an hour and the patient is also on pressors running at high dose of norepinephrine infusion at 0.58 mcg/kg per minute. The patient was febrile. The patient developed a le ukocytosis. The patient was started on Zosyn and pharyngeal was Also on board. Cultures were sent. Results are still pending for now. Meanwhile, the BUN is at 30 with a creatinine of 1.68 and the patient has developed an acute kidney injury knowing that her baseline creatinine was normal since yesterday. Potassium level is at 2.8 and has been replaced and his sodium level is at 143. Lactic acid level was 5.3 dropped down to 3.2. ProBNP level was 6500. The patient has a Pandey catheter and urine output is around 25 mL an hour. In terms of her abdominal exam, the abdomen is soft and the patient has a KLEVER drain this draining minimally at this point in time. Surgical wound site is dry clean and intact and the patient has a functioning colostomy with stool is acutely taking in the colostomy bag in the left upper quadrant. No direct tenderness. No rebound tenderness. No abdominal distention. No ascites at this point in time. Review of Systems ROS unobtainable: due to endotracheal tube Past Medical History Past Medical History: Cancer, COPD, Hypertension, Sleep Apnea/CPAP/BIPAP Additional Past Medical History / Comment(s): RA History of Any Multi-Drug Resistant Organisms: None Reported Additional Past Surgical History / Comment(s): Lung resection for her lung cancer. Resection of a brain metastasis without radiation therapy. Past Anesthesia/Blood Transfusion Reactions: No Reported Reaction Past Psychological History: No Psychological Hx Reported Smoking Status: Never smoker Past Alcohol Use History: None Reported Past Drug Use History: None Reported - Past Family History Father Family Medical History: Cancer Medications and Allergies Home Medications Medication Instructions Recorded Confirmed Type Cholecalciferol (Vitamin D3) 75 mcg PO DAILY 01/14/22 01/14/22 History [Vitamin D3 (3000 Iu)] Furosemide [Lasix] 20 mg PO AC-SUPPER 01/14/22 01/14/22 History Furosemide [Lasix] 40 mg PO DAILY 01/14/22 01/14/22 History Leflunomide 20 mg PO DAILY 01/14/22 01/14/22 History Magnesium 250 mg PO DAILY 01/14/22 01/14/22 History Potassium Gluconate [Potassium 99 mg PO DAILY 01/14/22 01/14/22 History Gluconate ER] Allergies Allergy/AdvReac Type Severity Reaction Status Date / Time metoprolol [From Toprol XL] AdvReac Itching Verified 01/14/22 12:22 band aids Allergy Rash/Hives Uncoded 01/14/22 12:22 Physical Exam Vitals: Vital Signs Temp Pulse Pulse Resp BP BP Pulse Ox 01/18/22 10:50 90 24 107/71 98 01/18/22 10:40 90 24 89/50 96 01/18/22 10:30 91 25 H 83/28 96 01/18/22 10:20 90 26 H 78/26 96 01/18/22 10:10 90 24 93/36 98 01/18/22 10:00 89 24 90/61 98 01/18/22 09:50 87 24 95/29 98 01/18/22 09:40 86 24 96/64 97 01/18/22 09:30 89 24 106/67 96 01/18/22 09:20 90 24 114/53 97 01/18/22 09:10 90 24 117/65 01/18/22 09:00 89 24 91/57 97 01/18/22 08:50 89 24 102/56 98 01/18/22 08:40 89 24 66/44 01/18/22 08:33 01/18/22 08:30 89 24 102/66 01/18/22 08:20 92 24 109/62 93 L 01/18/22 08:10 89 24 107/55 94 L 01/18/22 08:00 99.2 F 89 24 112/58 95 01/18/22 07:50 89 19 88/50 94 L 01/18/22 07:40 90 24 92/59 96 01/18/22 07:30 93 24 95/63 95 01/18/22 07:20 93 24 90/60 96 01/18/22 07:10 93 24 93/62 01/18/22 07:00 95 24 96/65 95 01/18/22 06:50 95 24 100/62 97 01/18/22 06:40 95 24 107/63 98 01/18/22 06:30 95 24 95/59 98 01/18/22 06:20 96 24 104/67 98 01/18/22 06:10 94 24 100/64 98 01/18/22 06:00 98 24 97/56 98 01/18/22 05:50 101 H 25 H 94/56 98 01/18/22 05:40 103 H 25 H 98/36 98 01/18/22 05:30 103 H 24 88/55 98 01/18/22 05:20 105 H 24 145/99 97 01/18/22 05:10 108 H 23 96 01/18/22 05:00 102.7 F H 112 H 22 89/36 98 01/18/22 04:50 112 H 26 H 115/76 97 01/18/22 04:40 116 H 27 H 116/76 94 L 01/18/22 04:30 114 H 32 H 83/59 92 L 01/18/22 04:20 114 H 26 H 101/23 91 L 01/18/22 04:10 112 H 28 H 86/42 85 L 01/18/22 04:06 01/18/22 04:00 102 H 24 93/78 90 L 01/18/22 03:50 108 H 41 H 53/21 01/18/22 03:40 115 H 44 H 93 L 01/18/22 03:39 115 H 41 H 94 L 01/18/22 03:33 01/18/22 02:35 01/17/22 22:30 01/17/22 21:36 24 01/17/22 21:00 100.1 F H 114 H 20 113/67 92 L 01/17/22 12:14 110 H 20 01/17/22 11:35 97.2 F L 107 H 20 104/73 90 L FiO2 01/18/22 10:50 01/18/22 10:40 01/18/22 10:30 01/18/22 10:20 01/18/22 10:10 01/18/22 10:00 01/18/22 09:50 01/18/22 09:40 01/18/22 09:30 01/18/22 09:20 01/18/22 09:10 01/18/22 09:00 01/18/22 08:50 01/18/22 08:40 01/18/22 08:33 100 01/18/22 08:30 01/18/22 08:20 01/18/22 08:10 01/18/22 08:00 01/18/22 07:50 01/18/22 07:40 01/18/22 07:30 01/18/22 07:20 01/18/22 07:10 01/18/22 07:00 01/18/22 06:50 01/18/22 06:40 01/18/22 06:30 01/18/22 06:20 01/18/22 06:10 01/18/22 06:00 01/18/22 05:50 01/18/22 05:40 01/18/22 05:30 01/18/22 05:20 01/18/22 05:10 01/18/22 05:00 01/18/22 04:50 01/18/22 04:40 01/18/22 04:30 01/18/22 04:20 01/18/22 04:10 01/18/22 04:06 01/18/22 04:00 01/18/22 03:50 01/18/22 03:40 01/18/22 03:39 01/18/22 03:33 01/18/22 02:35 35 01/17/22 22:30 35 01/17/22 21:36 01/17/22 21:00 01/17/22 12:14 01/17/22 11:35 Intake and Output 01/17/22 01/18/22 01/18/22 22:59 06:59 14:59 Intake Total 3514.664 1275.113 Output Total 410 40 270 Balance -410 4378.885 0120.113 Intake: IV 1000 1000 Sodium Chloride 0.9% 1, 1000 1000 000 ml @ 999 mls/hr IV . Q1H1M [facility] Rx#:[id number] Intake, IV Titration 276.789 415.113 Amount Norepinephrine 4 mg In 221.862 415.113 Sodium Chloride 0.9% 250 ml @ 0.05 MCG/KG/MIN 19. 874 mls/hr IV .[id number] [facility] Rx#:[id number] propofoL 1,000 mg In 54.927 Empty Bag 1 bag @ 5 MCG/ KG/MIN 3.13 mls/hr IV . Q24H [facility] Rx#:[id number] Output: Drainage 10 Anterior Abdomen 10 Urine 40 Stool 400 270 Other: Voiding Method Indwelling Catheter Indwelling Catheter Currently sedated on a mechanical ventilator and she is calm and comfortable on propofol, orotracheal and orogastric tube are both in place. Head exam was generally normal. There was no scleral icterus or corneal arcus. Mucous membranes were moist. Neck was supple and without jugular venous distension, thyromegaly, or carotid bruits. Carotids were easily palpable bilaterally. There was no adenopathy. Lungs were clear to auscultation and percussion, and with normal diaphragmatic excursion. No wheezes or rales were noted. Cardiac exam revealed the PMI to be normally situated and sized. The rhythm was regular and no extrasystoles were noted during several minutes of auscultation. The first and second heart sounds were normal and physiologic splitting of the second heart sound was noted. There were no murmurs, rubs, clicks, or gallops. Abdomen is soft and bowel sounds are hypoactive. The colostomy site is viable and functioning is a systolic emanating in the colostomy bag. The patient also has a KLEVER drain in the right lower quadrant. Surgical wound site is dry clean and intact. Examination of the extremities revealed easily palpable radial, femoral and pedal pulses. There was no cyanosis, clubbing or edema. Examination of the skin revealed no evidence of significant rashes, suspicious appearing nevi or other concerning lesions. Neurologically sedated. Results - Laboratory Findings CBC and BMP: 01/18/22 07:21 01/18/22 07:21 ABG ABG pH 7.33 (7.35-7.45) L 01/18/22 02:55 ABG pCO2 50 mmHg (35-45) H 01/18/22 02:55 ABG pO2 76 mmHg (83-108) L 01/18/22 02:55 ABG O2 Saturation 93.7 % (94-97) L 01/18/22 02:55 PT/INR, D-dimer PT 10.8 sec (9.0-12.0) 01/14/22 10:00 INR 1.0 (<1.2) 01/14/22 10:00 Abnormal lab findings: Abnormal Labs 01/14/22 01/14/22 01/14/22 10:00 10:00 10:00 WBC RBC 5.46 H Hct 48.5 H MCHC RDW 16.7 H Plt Count 585 H MPV Metamyelocytes % Myelocytes % Neutrophils # Neutrophils # (Manual) Lymphocytes # Lymphocytes # (Manual) 0.77 L Monocytes # (Manual) Basophils # Myelocytes # (Manual) 0.05 H ABG pH ABG pCO2 ABG pO2 ABG HCO3 ABG Total CO2 ABG O2 Saturation VBG pH VBG pCO2 Sodium 130 L Potassium Chloride 84 L Carbon Dioxide 34 H Anion Gap BUN 42 H Creatinine 1.41 H Est GFR (CKD-EPI)AfAm Est GFR (CKD-EPI)NonAf Glucose 146 H POC Glucose (mg/dL) Plasma Lactic Acid Tong 2.5 H* Calcium Magnesium Total Bilirubin 1.7 H AST 41 H Urine Appearance Urine Protein Urine Ketones Urine Bilirubin Ur Squamous Epith Cells Amorphous Sediment Urine Bacteria Hyaline Casts Urine Mucus 01/14/22 01/15/22 01/15/22 11:31 08:18 08:18 WBC RBC 5.24 H Hct 46.9 H MCHC 30.3 L RDW 16.7 H Plt Count MPV 9.3 L Metamyelocytes % Myelocytes % Neutrophils # Neutrophils # (Manual) Lymphocytes # 0.26 L Lymphocytes # (Manual) Monocytes # (Manual) Basophils # Myelocytes # (Manual) ABG pH ABG pCO2 ABG pO2 ABG HCO3 ABG Total CO2 ABG O2 Saturation VBG pH VBG pCO2 Sodium Potassium 3.4 L Chloride 94 L Carbon Dioxide Anion Gap 20.10 H BUN Creatinine Est GFR (CKD-EPI)AfAm 48.8 L Est GFR (CKD-EPI)NonAf 42.1 L Glucose 144 H POC Glucose (mg/dL) Plasma Lactic Acid Tong Calcium 7.6 L Magnesium Total Bilirubin AST Urine Appearance Cloudy H Urine Protein 1+ H Urine Ketones Trace H Urine Bilirubin 1+ H Ur Squamous Epith Cells 17 H Amorphous Sediment Few H Urine Bacteria Rare H Hyaline Casts 65 H Urine Mucus Few H 01/16/22 01/16/22 01/17/22 07:48 07:48 07:32 WBC RBC Hct MCHC 30.0 L RDW 16.7 H Plt Count MPV 8.9 L Metamyelocytes % 1 H Myelocytes % 2 H Neutrophils # Neutrophils # (Manual) Lymphocytes # Lymphocytes # (Manual) 0.45 L Monocytes # (Manual) 1.44 H Basophils # Myelocytes # (Manual) ABG pH ABG pCO2 ABG pO2 ABG HCO3 ABG Total CO2 ABG O2 Saturation VBG pH VBG pCO2 Sodium 147 H Potassium 3.2 L 2.8 L Chloride Carbon Dioxide Anion Gap BUN Creatinine Est GFR (CKD-EPI)AfAm Est GFR (CKD-EPI)NonAf 54.5 L Glucose 112 H POC Glucose (mg/dL) Plasma Lactic Acid Tong Calcium 7.6 L 7.9 L Magnesium 2.9 H Total Bilirubin AST Urine Appearance Urine Protein Urine Ketones Urine Bilirubin Ur Squamous Epith Cells Amorphous Sediment Urine Bacteria Hyaline Casts Urine Mucus 01/18/22 01/18/22 01/18/22 02:55 03:08 03:08 WBC 18.7 H RBC Hct 46.9 H MCHC 28.4 L RDW 16.1 H Plt Count 636 H MPV Metamyelocytes % Myelocytes % Neutrophils # 15.2 H Neutrophils # (Manual) Lymphocytes # Lymphocytes # (Manual) Monocytes # (Manual) Basophils # 0.4 H Myelocytes # (Manual) ABG pH 7.33 L ABG pCO2 50 H ABG pO2 76 L ABG HCO3 27 H ABG Total CO2 28 H ABG O2 Saturation 93.7 L VBG pH VBG pCO2 Sodium Potassium 2.9 L Chloride Carbon Dioxide Anion Gap BUN 28 H Creatinine 1.75 H Est GFR (CKD-EPI)AfAm Est GFR (CKD-EPI)NonAf Glucose 105 H POC Glucose (mg/dL) Plasma Lactic Acid Tong Calcium 8.2 L Magnesium 3.0 H Total Bilirubin AST Urine Appearance Urine Protein Urine Ketones Urine Bilirubin Ur Squamous Epith Cells Amorphous Sediment Urine Bacteria Hyaline Casts Urine Mucus 01/18/22 01/18/22 01/18/22 03:08 05:40 07:16 WBC RBC Hct MCHC RDW Plt Count MPV Metamyelocytes % Myelocytes % Neutrophils # Neutrophils # (Manual) Lymphocytes # Lymphocytes # (Manual) Monocytes # (Manual) Basophils # Myelocytes # (Manual) ABG pH ABG pCO2 ABG pO2 ABG HCO3 ABG Total CO2 ABG O2 Saturation VBG pH 7.25 L VBG pCO2 60 H Sodium Potassium Chloride Carbon Dioxide Anion Gap BUN Creatinine Est GFR (CKD-EPI)AfAm Est GFR (CKD-EPI)NonAf Glucose POC Glucose (mg/dL) 114 H Plasma Lactic Acid Tong 5.3 H* Calcium Magnesium Total Bilirubin AST Urine Appearance Urine Protein Urine Ketones Urine Bilirubin Ur Squamous Epith Cells Amorphous Sediment Urine Bacteria Hyaline Casts Urine Mucus 01/18/22 01/18/22 01/18/22 07:21 07:21 07:21 WBC 18.3 H RBC Hct MCHC 30.0 L RDW 16.3 H Plt Count 551 H MPV Metamyelocytes % Myelocytes % Neutrophils # Neutrophils # (Manual) 16.40 H Lymphocytes # Lymphocytes # (Manual) 0.37 L Monocytes # (Manual) 1.46 H Basophils # Myelocytes # (Manual) 0.18 H ABG pH ABG pCO2 ABG pO2 ABG HCO3 ABG Total CO2 ABG O2 Saturation VBG pH VBG pCO2 Sodium Potassium 2.8 L Chloride Carbon Dioxide Anion Gap BUN 30 H Creatinine 1.68 H Est GFR (CKD-EPI)AfAm Est GFR (CKD-EPI)NonAf Glucose 118 H POC Glucose (mg/dL) Plasma Lactic Acid Tong 3.2 H* Calcium 7.4 L Magnesium 2.7 H Total Bilirubin AST Urine Appearance Urine Protein Urine Ketones Urine Bilirubin Ur Squamous Epith Cells Amorphous Sediment Urine Bacteria Hyaline Casts Urine Mucus 01/18/22 10:19 WBC RBC Hct MCHC RDW Plt Count MPV Metamyelocytes % Myelocytes % Neutrophils # Neutrophils # (Manual) Lymphocytes # Lymphocytes # (Manual) Monocytes # (Manual) Basophils # Myelocytes # (Manual) ABG pH ABG pCO2 ABG pO2 ABG HCO3 ABG Total CO2 ABG O2 Saturation VBG pH VBG pCO2 Sodium Potassium Chloride Carbon Dioxide Anion Gap BUN Creatinine Est GFR (CKD-EPI)AfAm Est GFR (CKD-EPI)NonAf Glucose POC Glucose (mg/dL) Plasma Lactic Acid Tong 3.4 H* Calcium Magnesium Total Bilirubin AST Urine Appearance Urine Protein Urine Ketones Urine Bilirubin Ur Squamous Epith Cells Amorphous Sediment Urine Bacteria Hyaline Casts Urine Mucus - Diagnostic Findings Chest x-ray: image reviewed Assessment and Plan Plan: Acute hypoxic/hypercapnic respiratory failure secondary to development of an extensive right lung consolidation with volume loss. Rule out pneumonia/mucous plug and the patient is currently intubated on a mechanical ventilator. Bowel obstruction, post sigmoid colectomy and end colostomy for colonic obstruction and repair of a umbilical hernia. And the patient is postop day #4 Septic shock, currently hypotensive on pressors, resuscitated IV fluids Acute kidney injury with oligoria and the creatinine is up to 1.68 Acute leukocytosis secondary to above Obesity with a BMI of 40.7 Obstructive sleep apnea History of rheumatoid arthritis Hypertension Remote history of lung cancer, metastatic treated by lobectomy and radiation therapy Plan Continue ventilator support for now. We'll obtain a blood gas and will do this is a ventilator changes. Given another bolus of normal saline and increase the maintenance up to 150 mL an hour Continue pressors for now Established triple-lumen catheter Continue Zosyn and add vancomycin and continue the Flagyl for now Keep the patient nothing by mouth for now and may start enteral feeding as of tomorrow Possible bronchoscopy in a.m. if the right lung does not show adequate expansion Continue IV Protonix Dilaudid for pain control Heparin subcu for DVT prophylaxis Condition is critical we'll continue to follow we'll titrate the pressors will check a baseline cortisol level will make further recommendations based on her progress. Condition is critical for now. Time with Patient: Greater than 30
--- NOTE | 2022-01-18 11:40 | P.PCN ---
Date of Procedure: 01/18/22 Preoperative Diagnosis: Septic shock Postoperative Diagnosis: Septic shock Procedure(s) Performed: Central line and arterial line insertion Anesthesia: local Surgeon: Jie Reinoso Estimated Blood Loss (ml): 0 Pathology: other Condition: critical Disposition: ICU Operative Findings: Indication: Hemodynamic monitoring/Intravenous access. A time-out was completed verifying correct patient, procedure, site, positioning, and implant(s) or special equipment if applicable. The patient was placed in a dependent position appropriate for central line placement based on the vein to be cannulated. The patients left neck was prepped and draped in sterile fashion. 1% Lidocaine was used to anesthetize the surrounding skin area. A triple lumen 9F Cordis catheter was introduced into the internal jugular technique. The catheter was threaded smoothly over the guide wire and appropriate blood return was obtained. Each lumen of the catheter was evacuated of air and flushed with sterile saline. The catheter was then sutured in place to the skin and a sterile dressing applied. Perfusion to the extremity distal to the point of catheter insertion was checked and found to be adequate. The patient tolerated the procedure well and there were no complications. Indication: Hemodynamic monitoring. A time-out was completed verifying correct patient, procedure, site, positioning, and implant(s) or special equipment if applicable. Allens test was performed to ensure adequate perfusion. The patients right groin was prepped and draped in sterile fashion. 1% Lidocaine was used to anesthetize the area. An 18G Arrow arterial line was introduced into the femoral artery. The catheter was threaded over the guide wire and the needle was removed with appropriate pulsatile blood return. Blood loss was minimal. The catheter was then sutured in place to the skin and a sterile dressing applied. Perfusion to the extremity distal to the point of catheter insertion was checked and found to be adequate. The patient tolerated the procedure well and there were no complications.
[2022-01-18 11:53] LABS: ABG Base Excess -6.5 mmol/L; ABG HCO3 21 mmol/L (21-25); ABG Oxygen Saturation 97.9 % (94-97); ABG PCO2 49 mmHg (35-45); ABG PH 7.24 (7.35-7.45); ABG PO2 189 mmHg (83-108); ABG TCO2 22 mmol/L (19-24)
[2022-01-18 11:55] LABS: Allen Test Performed? no
--- NOTE | 2022-01-18 11:58 | P.PN ---
Progress Note - Text Progress Note Date: 01/18/22 Patient was transferred from the floor to the ICU last night. A 18 was called. Patient's found be hypoxic. She is also hypertensive. Apparently she may have a right lower lobe pneumonia. Patient is on the ventilator in IC. She is hypotensive. Her abdomen is soft. Her stoma has minimal functioning. Status post Shea procedure for diverticulitis. Patient appears to have developed a right lower lobe pneumonia on chest x-ray. She is supported aggressively.
--- NOTE | 2022-01-18 12:24 | XR ---
EXAMINATION TYPE: XR chest 1V portable DATE OF EXAM: 01/18/2022 COMPARISON: 01/18/2022 HISTORY: Central line placement TECHNIQUE: Single frontal view of the chest is obtained. FINDINGS: There has been interval insertion of a left jugular central venous catheter tip of which a ppears to be in the SVC/RA junction. There is an ET tube 2.8 cm above the thu. There is an NG tube within the stomach. There has been significant interval increase in the multifocal diffuse airspace consolidation in the right lung. The left lung remains clear. The heart size normal vasculature does not appear congested. The osseous structures are intact. IMPRESSION: 1. Significant increase in the right lung airspace infiltrate 2. Central line catheter tip in the SVC/R junction. 3. ET tube 2.8 cm above the thu.
[2022-01-18] MEDS ORDERED: VANCOMYCIN 2,000 MG in SODIUM CHLORIDE 0.9% 500 ML 500 ML IVPB ONE (12:30)
[2022-01-18 17:48] LABS: Glucose,Whole Blood 95 mg/dL (75-99)
[2022-01-18] MEDS: SODIUM CHLORIDE 0.9% 1,000 ML IV SCH (19:57)
[2022-01-18 20:29] LABS: Calcium 6.9 mg/dL (8.4-10.2); Potassium 2.8 mmol/L (3.5-5.1)
[2022-01-18] MEDS: INSULIN ASPART (NovoLOG) 100 UNIT/ML VIAL SQ SCH (20:34)
[2022-01-18 20:53] VITALS: BP 79/48
[2022-01-18] MEDS ORDERED: SODIUM CHLORIDE 0.9% 150 ML with VASOPRESSIN 60 UNIT IV SCH ×2 (21:00)
[2022-01-18] MEDS: POTASSIUM CHLORIDE 20 MEQ in WATER FOR INJECTION 1 100ML.BAG IVPB SCH ×2 (21:13→22:59)
[2022-01-18] MEDS: NOREPINEPHRINE 32 MG in SODIUM CHLORIDE 0.9% 218 ML IV SCH (22:28)
[2022-01-18 23:54] LABS: Glucose,Whole Blood 91 mg/dL (75-99)
[2022-01-19] MEDS: NOREPINEPHRINE 8 MG in SODIUM CHLORIDE 0.9% 250 ML IV SCH (00:21)
[2022-01-19 00:52] LABS: ABG Base Excess -9.6 mmol/L; ABG HCO3 19 mmol/L (21-25); ABG Oxygen Saturation 88.8 % (94-97); ABG PCO2 52 mmHg (35-45); ABG PO2 60 mmHg (83-108); ABG TCO2 21 mmol/L (19-24)
[2022-01-19 00:57] LABS: ABG PH 7.17 (7.35-7.45); Allen Test Performed? no
[2022-01-19] MEDS: POTASSIUM CHLORIDE 20 MEQ in WATER FOR INJECTION 1 100ML.BAG IVPB SCH (01:21)
[2022-01-19] MEDS: NOREPINEPHRINE 32 MG in SODIUM CHLORIDE 0.9% 218 ML IV SCH ×2 (01:45→09:43)
[2022-01-19] MEDS: INSULIN ASPART (NovoLOG) 100 UNIT/ML VIAL SQ SCH ×2 (02:34→06:14)
[2022-01-19] MEDS: SODIUM CHLORIDE 0.9% 1,000 ML IV SCH ×2 (03:58→09:41)
--- NOTE | 2022-01-19 04:01 | XR ---
EXAMINATION TYPE: XR chest 1V portable DATE OF EXAM: 01/19/2022 COMPARISON: Yesterday HISTORY: Tube placement TECHNIQUE: FINDINGS: Endotracheal tube is 4.5 cm There is extensive airspace infiltrate in the right lung. There is a small infiltrate left lower lobe . No heart failure. Heart size is normal. There is nasogastric tube and the tip appears to be in the stomach. IMPRESSION: There is some diffuse airspace infiltrate in the right lung without much change compared to yesterday. There is small infiltrate left lower lobe also not significantly different. No heart fa ilure
[2022-01-19 04:11] LABS: ABG Base Excess -12.7 mmol/L; ABG HCO3 18 mmol/L (21-25); ABG PCO2 62 mmHg (35-45); ABG PO2 190 mmHg (83-108); ABG TCO2 20 mmol/L (19-24)
[2022-01-19 04:21] LABS: Anisocytosis Slight; HCT 47.2 % (34.0-46.0); Hypochromasia Marked; MCH 28.8 pg (25.0-35.0); MCHC 29.7 g/dL (31.0-37.0); Mean Platelet Volume 7.6; Platelet Count 510 k/uL (150-450); Poikilocytosis Slight; RBC 4.87 m/uL (3.80-5.40); RDW 16.6 % (11.5-15.5)
[2022-01-19] MEDS ORDERED: SODIUM BICARB 8.4% 50 ML SYR (1 MEQ/ML) IV STA ×3 (04:44→10:04)
[2022-01-19] MEDS ORDERED: SODIUM CHLORIDE 0.9% 1,000 ML IV ONE ×3 (04:44→09:09)
[2022-01-19 04:52] LABS: Calcium 7.1 mg/dL (8.4-10.2); Magnesium 2.3 mg/dL (1.6-2.3); Phosphorus 3.1 mg/dL (2.5-4.5); Potassium 3.9 mmol/L (3.5-5.1)
[2022-01-19 04:53] LABS: Band Neutrophils % 55 %; Lymphocytes # (M) 0.78 k/uL (1.0-4.8); Monocytes # (M) 0.78 k/uL (0-1.0); Neutrophils % (M) 39 %; Nucleated Red Blood Cells 3 /100 WBC (0-0); Total Cells Counted 200; WBC 25.9 k/uL (3.8-10.6)
[2022-01-19 04:54] LABS: Anisocytosis (M) Present; Toxic Granulation Present
[2022-01-19 04:57] LABS: ABG PH 7.06 (7.35-7.45); Allen Test Performed? no
[2022-01-19 05:50] VITALS: RESP 34
[2022-01-19 05:56] LABS: Glucose,Whole Blood 62 mg/dL (75-99)
[2022-01-19 06:04] LABS: Glucose,Whole Blood 86 mg/dL (75-99)
[2022-01-19] MEDS: metroNIDAZOLE-NS PMX 500 MG in SALINE 1 100ML.BAG IVPB SCH (07:53)
[2022-01-19] MEDS: PIPERACILLIN-TAZOBACTAM 3.375 GM in SODIUM CHLORIDE 0.9% 100 ML IVPB SCH (07:57)
[2022-01-19] MEDS ORDERED: VANCOMYCIN 2,000 MG in SODIUM CHLORIDE 0.9% 500 ML 500 ML IVPB ONE (08:00)
[2022-01-19] MEDS: ARTIFICIAL TEARS-HYPROMELLOSE DROPS 15 ML BTL BOTH EYES PRN ×2 (08:00→11:38)
[2022-01-19] MEDS: CHLORHEXIDINE GLUCONATE 15 ML CUP MUCOUS MEM SCH (08:06)
[2022-01-19] MEDS: HEPARIN SODIUM,PORCINE/PF 5,000 UNIT/0.5 ML SYRINGE SQ SCH (08:06)
[2022-01-19 08:30] VITALS: TEMP 101.9
[2022-01-19] MEDS ORDERED: SODIUM BICARB 8.4% 50 ML SYR (1 MEQ/ML) ONE (09:03)
[2022-01-19] MEDS ORDERED: DEXTROSE 5% IN WATER 1,000 ML with SODIUM BICARB (1 MEQ/ML) 150 ML IV SCH (10:00)
[2022-01-19 10:02] LABS: ABG Base Excess -11.1 mmol/L; ABG HCO3 19 mmol/L (21-25); ABG Oxygen Saturation 97.9 % (94-97); ABG PCO2 64 mmHg (35-45); ABG PO2 166 mmHg (83-108); ABG TCO2 21 mmol/L (19-24)
[2022-01-19 10:05] LABS: ABG PH 7.08 (7.35-7.45); Allen Test Performed? No
--- NOTE | 2022-01-19 10:58 | P.PN ---
Subjective Progress Note Date: 01/18/22 Principal diagnosis: Mechanical sigmoid colonic obstruction. Stricture versus malignancy cannot be excluded. Status post sigmoid colectomy and end colostomy umbilical hernia postoperative day 1 Nausea vomiting and constipation followed by diarrhea secondary above. Hypovolemic hyponatremia Acute kidney injury likely prerenal 66-year-old female with a known history of hypertension, rheumatoid arthritis, obstructive sleep apnea, history of lung cancer status postresection and brain radiation due to metastatic lesion about 15 years ago and using remission since then presents to ER with complaints of abdominal pain associate with nausea vomiting and diarrhea. Patient has been having loose stools and also vomiting contains fecal material. Patient has been having worsening symptoms for the past 2 days.. Patient states that she did have constipation about 2 weeks ago and took laxatives and since then she has been having diarrhea. Abdominal pain is mainly in the lower abdomen sharp and cramping pain. Denies any prior abdominal surgeries. Patient states that she has not been eating well. Noted to have some weight loss. CT of the abdomen pelvis in the ER showed markedly distended fluid-filled colon with a transition point seen in the proximal portion of the sigmoid colon where there is circumferential wall thickening. This is consistent with mechanical colonic obstruction. Could be related to colonic stricture versus colon cancer cannot be excluded. KUB x-ray showed multiple dilated bowel loops with air-fluid levels. Bowel obst ruction in the differential diagnosis. Laboratory data showed WBC 4.8 hemoglobin 15.6 platelets 485 Sodium 130 potassium 3.8 chloride 84 bicarb is 34 BUN 42 and creatinine 1.41 lactic acid 2.5 and total bilirubin level is 1.7 and urinalysis is negative for infection. 01/17/2022 Patient feels better. She's had smoked through colostomy. Vital signs are reviewed and remained stable with temperature quite some 0.2, pulse 107, respiration 20 and blood pressure 104/73 with O2 saturation of 95% on 3 L On exam vital signs are stable. Abdomen soft. Incisions clean dry intact. There is some gas and stool in the colostomy bag. The prep patient will have her nasogastric tube removed. She'll start on clear liquids 01/18/2022 Patient was transferred to MICU today morning. Due to acute hypoxic and hypercapnic respiratory failure. Patient was on BiPAP while on the medical floor without much improvement due to progressive respiratory failure and distress patient was transferred to MICU. Pulmonary was consulted. Chest x-ray showed there is dense consolidation and atelectasis right lower lobe which is significant change compared to last exam. No heart failure. Patient was started on antibiotics in the form of Zosyn. Laboratory data showed WBC 18.3 hemoglobin 13.5 and platelets 551, sodium 142 potassium 2.9 chloride 103 bicarb is 23 BUN 28 and creatinine 1.75 lactic acid 5.3 and cortisol level is 3.0 ABG showed pH 7.1 pCO2 32 pO2 60 and bicarb 19. Current medications reviewed. Objective - Vital Signs Vital signs: Vital Signs Temp 102.7 F H 01/18/22 05:00 Pulse 95 01/18/22 07:00 Resp 24 01/18/22 07:00 BP 96/65 01/18/22 07:00 Pulse Ox 95 01/18/22 07:00 FiO2 100 01/18/22 08:33 Intake & Output 01/17/22 01/18/22 01/18/22 18:59 06:59 18:59 Intake Total 6353.399 5760.113 Output Total 1210 240 270 Balance -1210 9167.322 6745.113 Intake: IV 1000 1000 Sodium Chloride 0.9% 1, 1000 1000 000 ml @ 999 mls/hr IV . Q1H1M [facility] Rx#:[id number] Intake, IV Titration 276.789 415.113 Amount Norepinephrine 4 mg In 221.862 415.113 Sodium Chloride 0.9% 250 ml @ 0.05 MCG/KG/MIN 19. 874 mls/hr IV .[id number] [facility] Rx#:[id number] propofoL 1,000 mg In 54.927 Empty Bag 1 bag @ 5 MCG/ KG/MIN 3.13 mls/hr IV . Q24H [facility] Rx#:[id number] Output: Drainage 10 Anterior Abdomen 10 Urine 40 Stool 1200 200 270 Other: Voiding Method Indwelling Catheter Indwelling Catheter - Exam - Exam Patient is lying in the bed on mechanical ventilator. Sedated... HEENT: Normocephalic. Neck is supple. Pupils reactive. Nostrils clear. Oral cavity is moist. Neck reveals no JVD, carotid bruits, or thyromegaly. CHEST EXAMINATION: Trachea is central. Symmetrical expansion. Bibasilar diminished sounds. Lung pierce clear to auscultation and percussion. CARDIAC: Normal S1, S2 with no gallops. No murmurs ABDOMEN: Soft. Bowel sounds are sluggish/diminished.. Surgical site is bandaged. Colostomy bag in place.. No organomegaly. No abdominal bruits. Extremities: reveal no edema. No clubbing or cyanosis Neurologically patient is sedated and intubated. No gross focal deficits noted Skin: No rash or skin lesions. - Labs CBC & Chem 7: 01/19/22 04:00 01/19/22 04:00 Labs: Abnormal Lab Results - Last 24 Hours (Table) 01/17/22 01/18/22 01/18/22 Range/Units 07:32 02:55 03:08 WBC 18.7 H (3.8-10.6) k/uL Hct 46.9 H (34.0-46.0) % MCHC 28.4 L (31.0-37.0) g/dL RDW 16.1 H (11.5-15.5) % Plt Count 636 H (150-450) k/uL Neutrophils # 15.2 H (1.3-7.7) k/uL Neutrophils # (Manual) (1.3-7.7) k/uL Lymphocytes # (Manual) (1.0-4.8) k/uL Monocytes # (Manual) (0-1.0) k/uL Basophils # 0.4 H (0-0.2) k/uL Myelocytes # (Manual) (0) k/uL ABG pH 7.33 L (7.35-7.45) ABG pCO2 50 H (35-45) mmHg ABG pO2 76 L (83-108) mmHg ABG HCO3 27 H (21-25) mmol/L ABG Total CO2 28 H (19-24) mmol/L ABG O2 Saturation 93.7 L (94-97) % VBG pH (7.31-7.41) VBG pCO2 (37-51) mmHg Sodium 147 H (135-145) mmol/L Potassium 2.8 L (3.5-5.5) mmol/L BUN (7-17) mg/dL Creatinine (0.52-1.04) mg/dL Glucose (74-99) mg/dL POC Glucose (mg/dL) (75-99) mg/dL Plasma Lactic Acid Tong (0.7-2.0) mmol/L Calcium 7.9 L (8.7-10.3) mg/dL Magnesium 2.9 H (1.5-2.4) mg/dL 01/18/22 01/18/22 01/18/22 Range/Units 03:08 03:08 05:40 WBC (3.8-10.6) k/uL Hct (34.0-46.0) % MCHC (31.0-37.0) g/dL RDW (11.5-15.5) % Plt Count (150-450) k/uL Neutrophils # (1.3-7.7) k/uL Neutrophils # (Manual) (1.3-7.7) k/uL Lymphocytes # (Manual) (1.0-4.8) k/uL Monocytes # (Manual) (0-1.0) k/uL Basophils # (0-0.2) k/uL Myelocytes # (Manual) (0) k/uL ABG pH (7.35-7.45) ABG pCO2 (35-45) mmHg ABG pO2 (83-108) mmHg ABG HCO3 (21-25) mmol/L ABG Total CO2 (19-24) mmol/L ABG O2 Saturation (94-97) % VBG pH 7.25 L (7.31-7.41) VBG pCO2 60 H (37-51) mmHg Sodium (135-145) mmol/L Potassium 2.9 L (3.5-5.5) mmol/L BUN 28 H (7-17) mg/dL Creatinine 1.75 H (0.52-1.04) mg/dL Glucose 105 H (74-99) mg/dL POC Glucose (mg/dL) (75-99) mg/dL Plasma Lactic Acid Tong 5.3 H* (0.7-2.0) mmol/L Calcium 8.2 L (8.7-10.3) mg/dL Magnesium 3.0 H (1.5-2.4) mg/dL 01/18/22 01/18/22 01/18/22 Range/Units 07:16 07:21 07:21 WBC 18.3 H (3.8-10.6) k/uL Hct (34.0-46.0) % MCHC 30.0 L (31.0-37.0) g/dL RDW 16.3 H (11.5-15.5) % Plt Count 551 H (150-450) k/uL Neutrophils # (1.3-7.7) k/uL Neutrophils # (Manual) 16.40 H (1.3-7.7) k/uL Lymphocytes # (Manual) 0.37 L (1.0-4.8) k/uL Monocytes # (Manual) 1.46 H (0-1.0) k/uL Basophils # (0-0.2) k/uL Myelocytes # (Manual) 0.18 H (0) k/uL ABG pH (7.35-7.45) ABG pCO2 (35-45) mmHg ABG pO2 (83-108) mmHg ABG HCO3 (21-25) mmol/L ABG Total CO2 (19-24) mmol/L ABG O2 Saturation (94-97) % VBG pH (7.31-7.41) VBG pCO2 (37-51) mmHg Sodium (135-145) mmol/L Potassium 2.8 L (3.5-5.5) mmol/L BUN 30 H (7-17) mg/dL Creatinine 1.68 H (0.52-1.04) mg/dL Glucose 118 H (74-99) mg/dL POC Glucose (mg/dL) 114 H (75-99) mg/dL Plasma Lactic Acid Tong (0.7-2.0) mmol/L Calcium 7.4 L (8.7-10.3) mg/dL Magnesium 2.7 H (1.5-2.4) mg/dL 01/18/22 Range/Units 07:21 WBC (3.8-10.6) k/uL Hct (34.0-46.0) % MCHC (31.0-37.0) g/dL RDW (11.5-15.5) % Plt Count (150-450) k/uL Neutrophils # (1.3-7.7) k/uL Neutrophils # (Manual) (1.3-7.7) k/uL Lymphocytes # (Manual) (1.0-4.8) k/uL Monocytes # (Manual) (0-1.0) k/uL Basophils # (0-0.2) k/uL Myelocytes # (Manual) (0) k/uL ABG pH (7.35-7.45) ABG pCO2 (35-45) mmHg ABG pO2 (83-108) mmHg ABG HCO3 (21-25) mmol/L ABG Total CO2 (19-24) mmol/L ABG O2 Saturation (94-97) % VBG pH (7.31-7.41) VBG pCO2 (37-51) mmHg Sodium (135-145) mmol/L Potassium (3.5-5.5) mmol/L BUN (7-17) mg/dL Creatinine (0.52-1.04) mg/dL Glucose (74-99) mg/dL POC Glucose (mg/dL) (75-99) mg/dL Plasma Lactic Acid Tong 3.2 H* (0.7-2.0) mmol/L Calcium (8.7-10.3) mg/dL Magnesium (1.5-2.4) mg/dL Assessment and Plan Assessment: Acute hypoxic and hypercapnic respiratory failure with extensive right lung consolidation. Possible pneumonia/aspiration/mucous plug suspected. Currently on mechanical ventilator. Septic shock secondary to above requiring pressor support. Mechanical sigmoid colonic obstruction on admission. Stricture versus malignancy cannot be excluded. Status post sigmoid colectomy and end colostomy umbilical hernia postoperative day 4 Nausea vomiting and constipation followed by diarrhea secondary above. Hypovolemic hyponatremia Acute kidney injury likely prerenal Lactic acidosis 2.5 on admission History of lung cancer status postresection and brain metastasis with radiation treatment 15 years ago. Obstructive sleep apnea Hypertension COPD not in exacerbation Rheumatoid arthritis currently on leflunomide DVT prophylaxis with heparin subcu Plan: Patient is on mechanical ventilator. Transferred to MICU. Patient will be continued on IV hydration with normal saline and antibiotics Zosyn.. Was added. Continue with Flagyl. Continued on pressor support and follow-up lactic acid level. replace electrolytes. Follow-up CBC and BMP. Gen. surgery and critical care team on board. GI and DVT prophylaxis. Prognosis is guarded this time. Time with Patient: Greater than 30
[2022-01-19 11:19] LABS: Glucose,Whole Blood 59 mg/dL (75-99)
[2022-01-19] MEDS ORDERED: DEXTROSE 50% SYRINGE 50 ML IVP STA (11:19)
[2022-01-19] MEDS ORDERED: DEXTROSE 50% SYRINGE 50 ML IVP ONE (11:20)
[2022-01-19 11:42] VITALS: PULSE 122
--- NOTE | 2022-01-19 11:44 | P.PN ---
Subjective Progress Note Date: 01/19/22 Principal diagnosis: Acute hypoxia, bowel obstruction, septic shock, acute kidney injury This is a 66-year-old here patient came into the intensive care unit because of an acute hypoxic/hypercapnic respiratory failure that occurred yesterday. The patient was found to be in significant respiratory distress and this progressed over several hours on the medical floor. The patient was placed briefly on a BiPAP and she failed the BiPAP and at that point, the patient got transferred to the intensive care unit and she was immediately intubated and placed on a mechanical ventilator. She was febrile, hypoxic and she was having significant respiratory distress. Note that this patient has history of lung cancer and she has undergone resection. Apparently the patient also had [employer] metastases that was radiated and she has been in remission for the past 15 years. She is obese and she has obstructive sleep apnea rheumatoid arthritis and hypertension and her initial admission to the hospital was for nausea vomiting and diarrhea and she was having loose stools and emesis and further investigation revealed that the patient a mechanical obstruction with a transition point and the patient was taken to the operating room and the patient underwent a colectomy and diverting colostomy. The patient was recovering well on the medical floor and she was on few liters of oxygen by nasal cannula. I reviewed a series of chest x-rays as were done yesterday. Obviously, the patient's first chest x-ray showed a right lower lobe consolidation and same time there was volume loss in the right lung base highly suggestive of pneumonia/mucous plug/aspiration in the right lower lobe. Subsequent x-rays showed the same. This morning, the patient is sedated and she is currently on propofol running at 40 mcg/kg per minute. She is on assist-control mechanical ventilation with a rate of 24, tidal volume of 400 and FiO2 of 100% with a PEEP of 10. The chest x-ray from today still showing an extensive right lung consolidation involving the right middle right lower lobe and some in the right upper lobe. ET tube is in a good location. Left lung is essentially clear for now. The patient had a blood gases this morning that showed a pH of 7.33 with a pCO2 of 50 and a pO2 of 76. This was immediately immediately post intubation and subsequent blood gases were unable to obtain and there is only a venous sample at this point in time. The patient's current pulse ox is 98% on room air oxygen. She received IV fluids a total of 3 L and currently she is on a maintenance of 50 mL an hour and the patient is also on pressors running at high dose of norepinephrine infusion at 0.58 mcg/kg per minute. The patient was febrile. The patient developed a leukocytosis. The patient was started on Zosyn and pharyngeal was Also on board. Cultures were sent. Results are still pending for now. Meanwhile, the BUN is at 30 with a creatinine of 1.68 and the patient has developed an acute kidney injury knowing that her baseline creatinine was normal since yesterday. Potassium level is at 2.8 and has been replaced and his sodium level is at 143. Lactic acid level was 5.3 dropped down to 3.2. ProBNP level was 6500. The patient has a Pandey catheter and urine output is around 25 mL an hour. In terms of her abdominal exam, the abdomen is soft and the patient has a KLEVER drain this draining minimally at this point in time. Surgical wound site is dry clean and intact and the patient has a functioning colostomy with stool is acutely taking in the colostomy bag in the left upper quadrant. No direct tenderness. No rebound tenderness. No abdominal distention. No ascites at this point in time. On 01/19/2022 patient seen in follow-up in the intensive care unit. Patient has underwent sigmoid colectomy with end colostomy and a hernia repair on 01/14/2022. Patient has required intubation and mechanical support in addition to aggressive fluid resuscitation, vasopressors support and antibiotics however her condition remains critical. Patient remains intubated and sedated, on assist-control mode of ventilation with a rate of 34, tidal volume is 400, FiO2 of 100% and PEEP of 15. This morning's blood gas showed pO2 of 190, pCO2 of 62, and pH of 7.06 and this was done on the above-mentioned ventilator settings. Patient is requiring high amount of vasopressor support, she is currently on norepinephrine at 0.58, vasopressin at 0.03 units per minute, 0.9 at 150 ML per hour, and improving and is at 50 mics per kilo per minute. Patient has received a total of 6 L and fluid boluses, and she was given 3 A of bicarbonate this morning for the above-mentioned blood gas. Chest x-ray showed diffuse airspace infiltrate in the right lung without much change, small infiltrate in the left lower lung. Today's labs have been reviewed, white blood cell count has increased and is at 25.9, hemoglobin is 14.0, sodium is 141, potassium is 3.9, chloride is 1:15, CO2 is 18, B1 is 29, creatinine is 1.9. Lactic acid was 5.5 this morning. Patient was given 2 additional liters of fluids. Cortisol level is 107. Patient has been anuric, colostomy is not producing any gas or stool yet. Abdomen is soft. Patient is pretty well unresponsive, she is sedated with Diprivan and for mechanical ventilator compliance. She has mottled skin, and per nursing reports she has developed unequal pupils. Patient remains on Zosyn, vancomycin and Diflucan. Her sputum culture showing gram-negative bacilli, blood cultures are pending. Patient was given 3 more amps of sodium bicarb, and was placed on bicarbonate infusion at 150 ML per hour. Patient's condition at this time is critical, patient is suspected to have bowel ischemia on the case was discussed with general surgery on the case at this time patient is unstable to have any surgical intervention, we'll continue supportive medical treatment, and we'll have to discuss patient's prognosis with patient's family and obtain f wilda direction Objective - Vital Signs Vital signs: Vital Signs Temp 101.9 F H 01/19/22 08:00 Pulse 110 H 01/19/22 10:30 Resp 34 H 01/19/22 10:30 BP 79/48 01/18/22 20:20 Pulse Ox 87 L 01/19/22 03:50 FiO2 80 01/19/22 10:06 Intake & Output 01/18/22 01/19/22 01/19/22 18:59 06:59 18:59 Intake Total 4248.986 5854.140 3120.261 Output Total 1264 278 0 Balance 2984.986 5576.140 3120.261 Weight 114.9 kg Intake: IV 2000 4500 600 Dextrose 5% in Water 1, 150 000 ml @ 150 mls/hr IV . Q7H40M [facility] with Sodium Bicarb (1 Meq/ml) 150 ml Rx#:[id number] Piperacillin-Tazobactam 3 100 .375 gm In Sodium Chloride 0.9% 100 ml @ 25 mls/hr IVPB Q8HR [facility] Rx# :[id number] Potassium Chloride 20 meq 350 In Water For Injection 1 100ml.bag @ 50 mls/hr IVPB Q2H [facility] Rx#: [id number] Sodium Chloride 0.9% 1, 1952 150 000 ml @ 150 mls/hr IV . Q6H40M [facility] Rx#:[id number] Sodium Chloride 0.9% 1, 2000 2000 000 ml @ 999 mls/hr IV . Q1H1M [facility] Rx#:[id number] Sodium bicarb 300 metroNIDAZOLE-NS PMX 500 100 mg In Saline 1 100ml.bag @ 100 mls/hr IVPB Q8HR [facility] Rx#:[id number] Intake, IV Titration 2248.986 3294.051 2299.261 Amount IV Fluid Continuation 100 1450 ml @ 0 mls/hr IV .STK- [facility] Rx#:[id number] Norepinephrine 32 mg In 95.500 126.889 Sodium Chloride 0.9% 218 ml @ 0.05 MCG/KG/MIN 2. 445 mls/hr IV .Q24H [facility] Rx#:[id number] Norepinephrine 4 mg In 415.113 Sodium Chloride 0.9% 250 ml @ 0.05 MCG/KG/MIN 19. 874 mls/hr IV .[id number] [facility] Rx#:[id number] Norepinephrine 8 mg In 283.873 891.305 Sodium Chloride 0.9% 250 ml @ 0.48 MCG/KG/MIN 96. 898 mls/hr IV .Q2H40M [facility] Rx#:[id number] Piperacillin-Tazobactam 3 100 .375 gm In Sodium Chloride 0.9% 100 ml @ 25 mls/hr IVPB Q8HR [facility] Rx# :[id number] Sodium Chloride 0.9% 1, 1000 000 ml @ 999 mls/hr IV . Q1H1M [facility] Rx#:[id number] Vancomycin 2,000 mg In 1000 Sodium Chloride 0.9% 500 ml 500 ml @ 167 mls/hr IVPB ONCE [facility] Rx#: [id number] metroNIDAZOLE-NS PMX 500 100 mg In Saline 1 100ml.bag @ 100 mls/hr IVPB Q8HR [facility] Rx#:[id number] propofoL 1,000 mg In 100 367.335 193.372 Empty Bag 1 bag @ 5 MCG/ KG/MIN 3.13 mls/hr IV . Q24H [facility] Rx#:[id number] Output: Gastric Drainage 200 Urine 314 78 0 Stool 950 Other: Voiding Method Indwelling Catheter Indwelling Catheter Indwelling Catheter # Bowel Movements 250 ABP, PAP, CO, CI - Last Documented Arterial Blood Pressure 82/40 - Exam GENERAL EXAM: Sedated, intubated, 58-year-old morbidly obese white female, on assist-control mode of ventilation, requiring FiO2 100% and PEEP of 15, mottled, tachypneic, unresponsive HEAD: Normocephalic/atraumatic. EYES: Normal reaction of pupils, equal size. Conjunctiva pink, sclera white. NOSE: Clear with pink turbinates. THROAT: No erythema or exudates. NECK: No masses, no JVD, no thyroid enlargement, no adenopathy. CHEST: No chest wall deformity. Symmetrical expansion. LUNGS: Equal air entry with no crackles, wheeze, rhonchi or dullness. CVS: Regular rate and rhythm, normal S1 and S2, no gallops, no murmurs, no rubs ABDOMEN: Soft, nontender. No hepatosplenomegaly, normal bowel sounds, no guarding or rigidity. Abdominal incision is clean dry and intact, covered with a surgical dressing, colostomy in place, with no gas or stool EXTREMITIES: No clubbing, no edema, no cyanosis, 2+ pulses and upper and lower extremities. MUSCULOSKELETAL: Muscle strength and tone normal. SPINE: No scoliosis or deformity SKIN: No rashes CENTRAL NERVOUS SYSTEM: Unresponsive, sedated, and intubated No focal deficits, tone is normal in all 4 extremities. - Labs CBC & Chem 7: 01/19/22 04:00 01/19/22 04:00 Labs: Abnormal Lab Results - Last 24 Hours (Table) 01/18/22 01/18/22 01/19/22 Range/Units 11:51 19:50 00:52 WBC (3.8-10.6) k/uL Hct (34.0-46.0) % MCHC (31.0-37.0) g/dL RDW (11.5-15.5) % Plt Count (150-450) k/uL Neutrophils # (Manual) (1.3-7.7) k/uL Lymphocytes # (Manual) (1.0-4.8) k/uL Nucleated RBCs (0-0) /100 WBC ABG pH 7.24 L 7.17 L* (7.35-7.45) ABG pCO2 49 H 52 H (35-45) mmHg ABG pO2 189 H 60 L (83-108) mmHg ABG HCO3 19 L (21-25) mmol/L ABG O2 Saturation 97.9 H 88.8 L (94-97) % ABG Lactic Acid (0.5-1.6) mmol/L Potassium 2.8 L (3.5-5.1) mmol/L Chloride 113 H (98-107) mmol/L Carbon Dioxide 19 L (22-30) mmol/L BUN 28 H (7-17) mg/dL Creatinine 1.62 H (0.52-1.04) mg/dL Glucose 116 H (74-99) mg/dL POC Glucose (mg/dL) (75-99) mg/dL Calcium 6.9 L (8.4-10.2) mg/dL 01/19/22 01/19/22 01/19/22 Range/Units 04:00 04:00 04:10 WBC 25.9 H (3.8-10.6) k/uL Hct 47.2 H (34.0-46.0) % MCHC 29.7 L (31.0-37.0) g/dL RDW 16.6 H (11.5-15.5) % Plt Count 510 H (150-450) k/uL Neutrophils # (Manual) 24.30 H (1.3-7.7) k/uL Lymphocytes # (Manual) 0.78 L (1.0-4.8) k/uL Nucleated RBCs 3 H (0-0) /100 WBC ABG pH 7.06 L* (7.35-7.45) ABG pCO2 62 H (35-45) mmHg ABG pO2 190 H (83-108) mmHg ABG HCO3 18 L (21-25) mmol/L ABG O2 Saturation 99.0 H (94-97) % ABG Lactic Acid (0.5-1.6) mmol/L Potassium (3.5-5.1) mmol/L Chloride 115 H (98-107) mmol/L Carbon Dioxide 18 L (22-30) mmol/L BUN 29 H (7-17) mg/dL Creatinine 1.90 H (0.52-1.04) mg/dL Glucose 106 H (74-99) mg/dL POC Glucose (mg/dL) (75-99) mg/dL Calcium 7.1 L (8.4-10.2) mg/dL 01/19/22 01/19/22 01/19/22 Range/Units 04:15 05:54 09:55 WBC (3.8-10.6) k/uL Hct (34.0-46.0) % MCHC (31.0-37.0) g/dL RDW (11.5-15.5) % Plt Count (150-450) k/uL Neutrophils # (Manual) (1.3-7.7) k/uL Lymphocytes # (Manual) (1.0-4.8) k/uL Nucleated RBCs (0-0) /100 WBC ABG pH (7.35-7.45) ABG pCO2 (35-45) mmHg ABG pO2 (83-108) mmHg ABG HCO3 (21-25) mmol/L ABG O2 Saturation (94-97) % ABG Lactic Acid 5.5 H* 3.7 H* (0.5-1.6) mmol/L Potassium (3.5-5.1) mmol/L Chloride (98-107) mmol/L Carbon Dioxide (22-30) mmol/L BUN (7-17) mg/dL Creatinine (0.52-1.04) mg/dL Glucose (74-99) mg/dL POC Glucose (mg/dL) 62 L (75-99) mg/dL Calcium (8.4-10.2) mg/dL 01/19/22 01/19/22 Range/Units 09:58 11:18 WBC (3.8-10.6) k/uL Hct (34.0-46.0) % MCHC (31.0-37.0) g/dL RDW (11.5-15.5) % Plt Count (150-450) k/uL Neutrophils # (Manual) (1.3-7.7) k/uL Lymphocytes # (Manual) (1.0-4.8) k/uL Nucleated RBCs (0-0) /100 WBC ABG pH 7.08 L* (7.35-7.45) ABG pCO2 64 H (35-45) mmHg ABG pO2 166 H (83-108) mmHg ABG HCO3 19 L (21-25) mmol/L ABG O2 Saturation 97.9 H (94-97) % ABG Lactic Acid (0.5-1.6) mmol/L Potassium (3.5-5.1) mmol/L Chloride (98-107) mmol/L Carbon Dioxide (22-30) mmol/L BUN (7-17) mg/dL Creatinine (0.52-1.04) mg/dL Glucose (74-99) mg/dL POC Glucose (mg/dL) 59 L (75-99) mg/dL Calcium (8.4-10.2) mg/dL Microbiology - Last 24 Hours (Table) 01/18/22 04:43 Gram Stain - Preliminary Sputum Sputum Culture - Preliminary Assessment and Plan Plan: Assessment: #1. Acute hypoxic and hypercapnic respiratory failure suspected to develop an extensive right lung consolidation with volume loss, rule out pneumonia/mucous plug and patient is currently intubated on mechanical ventilator #2. Septic shock, despite aggressive fluid resuscitation, patient continues to require high dose of vasopressor support including norepinephrine and vaso pressin #3. Acute kidney injury related to the above #4. Acute metabolic acidosis related to NATASHA #5. Lactic acidosis, likely related to ongoing bowel ischemia #6. Bowel obstruction, post sigmoid colectomy and end colostomy for colonic obstruction and repair of an umbilical hernia #7. Obstructive sleep apnea #8. History of rheumatoid arthritis #9. Hypertension #10. Remote history of lung cancer, metastatic, treated by lobectomy and radiation therapy Plan: Patient has been given another 6 A of sodium bicarbonate Repeat blood gas continues to show acute metabolic acidosis We'll start D5W with 3 A of bicarbonate at 150 ML per hour 2 additional liters of fluid bolus Continue antibiotics Case discussed with general surgery on the case, and ongoing bowel ischemia suspected However patient is a poor surgical candidate and will likely not survive surgery Case discussed with patient's Prognosis is quite poor CODE STATUS has been changed to DO NOT RESUSCITATE per 's request He wants to continue supportive medical treatment at this time If however patient continues to do poorly and takes a turn for the worst, he wants no aggressive resuscitation, and wants to let the patient pass peacefully We'll continue supportive medical treatment, vasopressor support, antibiotics and fluid resuscitation Continue ventilator support Drop PEEP down to 12, increase tidal volume to 420, Repeat blood gas was obtained and reviewed, chest x-ray and labs have been reviewed CONTINUE to closely follow I have personally seen and examined the patient, performed the documentation and the assessment and plan as written. Number of minutes spent on the visit: [15] Time with Patient: Greater than 30
[2022-01-19 11:48] LABS: Glucose,Whole Blood 140 mg/dL (75-99)
[2022-01-19] MEDS ORDERED: INSULIN ASPART (NovoLOG) 100 UNIT/ML VIAL SQ SCH (12:00)
[2022-01-19] MEDS ORDERED: ACETAMINOPHEN IV (For NPO) 1,000 MG in EMPTY BAG 1 BAG IVPB PRN (12:08)
[2022-01-19] MEDS ORDERED: MORPHINE SULFATE 4 MG/ML SYRINGE IVP ONE (13:23)
[2022-01-19] MEDS ORDERED: MORPHINE SULFATE 2 MG/ML SYRINGE IV PRN (13:23)
[2022-01-19 14:05] VITALS: BMI 44.9
--- NOTE | 2022-01-19 16:01 | P.PN ---
Subjective Progress Note Date: 01/19/22 Principal diagnosis: Colonic obstruction Patient was transferred to the ICU early yesterday morning and placed on the ventilator at that time for respiratory distress. Spoke with the patient's and also the nursing staff. Reason for transfer to the ICU was dyspnea, hypoxia, and generalized instability. Chest x-ray showed right-sided infiltrates. Apparently the patient was not having significant abdominal pain prior to the transfer to the ICU. On Wednesday when she was evaluated by myself the patient's pain was fairly well controlled in the nasogastric tube remained in place. She did have loose stools over the weekend. Unfortunately from yesterday to today the patient has progressively declined. The patient has required high-dose pressor support and is currently mottled diffusely. The patient has poor urine output. Labs noted. Patient was made no code earlier this morning by the family. Objective - Vital Signs Vital signs: Vital Signs Temp 101.9 F H 01/19/22 08:00 Pulse 122 H 01/19/22 13:30 Resp 34 H 01/19/22 13:30 BP 79/48 01/18/22 20:20 Pulse Ox 84 L 01/19/22 13:00 FiO2 80 01/19/22 11:37 Intake & Output 01/18/22 01/19/22 01/19/22 18:59 06:59 18:59 Intake Total 4248.986 5854.140 3395.825 Output Total 1264 278 0 Balance 2984.986 5576.140 3395.825 Weight 114.9 kg 114.9 kg Intake: IV 1999 4500 750 Dextrose 5% in Water 1, 300 000 ml @ 150 mls/hr IV . Q7H40M [facility] with Sodium Bicarb (1 Meq/ml) 150 ml Rx#:[id number] Piperacillin-Tazobactam 3 100 .375 gm In Sodium Chloride 0.9% 100 ml @ 25 mls/hr IVPB Q8HR [facility] Rx# :[id number] Potassium Chloride 20 meq 350 In Water For Injection 1 100ml.bag @ 50 mls/hr IVPB Q2H [facility] Rx#: [id number] Sodium Chloride 0.9% 1, 1952 150 000 ml @ 150 mls/hr IV . Q6H40M [facility] Rx#:[id number] Sodium Chloride 0.9% 1, 2000 2000 000 ml @ 999 mls/hr IV . Q1H1M [facility] Rx#:[id number] Sodium bicarb 300 metroNIDAZOLE-NS PMX 500 100 mg In Saline 1 100ml.bag @ 100 mls/hr IVPB Q8HR [facility] Rx#:[id number] Intake, IV Titration 2248.986 0563.051 8147.825 Amount IV Fluid Continuation 100 1450 ml @ 0 mls/hr IV .STK- [facility] Rx#:[id number] Norepinephrine 32 mg In 95.500 202.689 Sodium Chloride 0.9% 218 ml @ 0.05 MCG/KG/MIN 2. 445 mls/hr IV .Q24H [facility] Rx#:[id number] Norepinephrine 4 mg In 415.113 Sodium Chloride 0.9% 250 ml @ 0.05 MCG/KG/MIN 19. 874 mls/hr IV .[id number] [facility] Rx#:[id number] Norepinephrine 8 mg In 283.873 891.305 Sodium Chloride 0.9% 250 ml @ 0.48 MCG/KG/MIN 96. 898 mls/hr IV .Q2H40M [facility] Rx#:[id number] Piperacillin-Tazobactam 3 100 .375 gm In Sodium Chloride 0.9% 100 ml @ 25 mls/hr IVPB Q8HR [facility] Rx# :[id number] Sodium Chloride 0.9% 1, 1000 000 ml @ 999 mls/hr IV . Q1H1M [facility] Rx#:[id number] Vancomycin 2,000 mg In 1000 Sodium Chloride 0.9% 500 ml 500 ml @ 167 mls/hr IVPB ONCE [facility] Rx#: [id number] metroNIDAZOLE-NS PMX 500 100 mg In Saline 1 100ml.bag @ 100 mls/hr IVPB Q8HR [facility] Rx#:[id number] propofoL 1,000 mg In 100 367.335 243.136 Empty Bag 1 bag @ 5 MCG/ KG/MIN 3.13 mls/hr IV . Q24H [facility] Rx#:[id number] Output: Gastric Drainage 200 Urine 314 78 0 Stool 950 Other: Voiding Method Indwelling Catheter Indwelling Catheter Indwelling Catheter # Bowel Movements 250 ABP, PAP, CO, CI - Last Documented Arterial Blood Pressure 100/36 - Exam Abdomen: Soft, mildly distended, incision clean and dry, ostomy dusky, bilious output noted, mottled from head to toe. - Labs CBC & Chem 7: 01/19/22 04:00 01/19/22 04:00 Labs: Abnormal Lab Results - Last 24 Hours (Table) 01/18/22 01/19/22 01/19/22 Range/Units 19:50 00:52 04:00 WBC (3.8-10.6) k/uL Hct (34.0-46.0) % MCHC (31.0-37.0) g/dL RDW (11.5-15.5) % Plt Count (150-450) k/uL Neutrophils # (Manual) (1.3-7.7) k/uL Lymphocytes # (Manual) (1.0-4.8) k/uL Nucleated RBCs (0-0) /100 WBC ABG pH 7.17 L* (7.35-7.45) ABG pCO2 52 H (35-45) mmHg ABG pO2 60 L (83-108) mmHg ABG HCO3 19 L (21-25) mmol/L ABG O2 Saturation 88.8 L (94-97) % ABG Lactic Acid (0.5-1.6) mmol/L Potassium 2.8 L (3.5-5.1) mmol/L Chloride 113 H 115 H (98-107) mmol/L Carbon Dioxide 19 L 18 L (22-30) mmol/L BUN 28 H 29 H (7-17) mg/dL Creatinine 1.62 H 1.90 H (0.52-1.04) mg/dL Glucose 116 H 106 H (74-99) mg/dL POC Glucose (mg/dL) (75-99) mg/dL Calcium 6.9 L 7.1 L (8.4-10.2) mg/dL 01/19/22 01/19/22 01/19/22 Range/Units 04:00 04:10 04:15 WBC 25.9 H (3.8-10.6) k/uL Hct 47.2 H (34.0-46.0) % MCHC 29.7 L (31.0-37.0) g/dL RDW 16.6 H (11.5-15.5) % Plt Count 510 H (150-450) k/uL Neutrophils # (Manual) 24.30 H (1.3-7.7) k/uL Lymphocytes # (Manual) 0.78 L (1.0-4.8) k/uL Nucleated RBCs 3 H (0-0) /100 WBC ABG pH 7.06 L* (7.35-7.45) ABG pCO2 62 H (35-45) mmHg ABG pO2 190 H (83-108) mmHg ABG HCO3 18 L (21-25) mmol/L ABG O2 Saturation 99.0 H (94-97) % ABG Lactic Acid 5.5 H* (0.5-1.6) mmol/L Potassium (3.5-5.1) mmol/L Chloride (98-107) mmol/L Carbon Dioxide (22-30) mmol/L BUN (7-17) mg/dL Creatinine (0.52-1.04) mg/dL Glucose (74-99) mg/dL POC Glucose (mg/dL) (75-99) mg/dL Calcium (8.4-10.2) mg/dL 01/19/22 01/19/22 01/19/22 Range/Units 05:54 09:55 09:58 WBC (3.8-10.6) k/uL Hct (34.0-46.0) % MCHC (31.0-37.0) g/dL RDW (11.5-15.5) % Plt Count (150-450) k/uL Neutrophils # (Manual) (1.3-7.7) k/uL Lymphocytes # (Manual) (1.0-4.8) k/uL Nucleated RBCs (0-0) /100 WBC ABG pH 7.08 L* (7.35-7.45) ABG pCO2 64 H (35-45) mmHg ABG pO2 166 H (83-108) mmHg ABG HCO3 19 L (21-25) mmol/L ABG O2 Saturation 97.9 H (94-97) % ABG Lactic Acid 3.7 H* (0.5-1.6) mmol/L Potassium (3.5-5.1) mmol/L Chloride (98-107) mmol/L Carbon Dioxide (22-30) mmol/L BUN (7-17) mg/dL Creatinine (0.52-1.04) mg/dL Glucose (74-99) mg/dL POC Glucose (mg/dL) 62 L (75-99) mg/dL Calcium (8.4-10.2) mg/dL 01/19/22 01/19/22 Range/Units 11:18 11:36 WBC (3.8-10.6) k/uL Hct (34.0-46.0) % MCHC (31.0-37.0) g/dL RDW (11.5-15.5) % Plt Count (150-450) k/uL Neutrophils # (Manual) (1.3-7.7) k/uL Lymphocytes # (Manual) (1.0-4.8) k/uL Nucleated RBCs (0-0) /100 WBC ABG pH (7.35-7.45) ABG pCO2 (35-45) mmHg ABG pO2 (83-108) mmHg ABG HCO3 (21-25) mmol/L ABG O2 Saturation (94-97) % ABG Lactic Acid (0.5-1.6) mmol/L Potassium (3.5-5.1) mmol/L Chloride (98-107) mmol/L Carbon Dioxide (22-30) mmol/L BUN (7-17) mg/dL Creatinine (0.52-1.04) mg/dL Glucose (74-99) mg/dL POC Glucose (mg/dL) 59 L 140 H (75-99) mg/dL Calcium (8.4-10.2) mg/dL Microbiology - Last 24 Hours (Table) 01/18/22 04:43 Gram Stain - Preliminary Sputum Sputum Culture - Preliminary Gram Neg Bacilli Assessment and Plan (1) Colonic obstruction Narrative/Plan: 66-year-old female underwent recent Craig's procedure for colon obstruction. The patient had significant progressive shock symptoms over the last 24-48 hour s. Etiology remains unclear but currently the most likely etiology represents the right-sided pulmonary infiltrates. Discussed with the patient's that she is not stable enough to have any additional testing at this time nor does he want us to. They were considering comfort care measures and actually as of this dictation the patient was made comfort care and . I notified the patient's that I would contact him once the final pathology was back. All questions answered. Current Visit: Yes Status: Acute Code(s): K56.609 - [facility] [[email or web address]]P INTESTNL OBST, UNSP TO PARTIAL VERSUS COMPLETE OBST SNOMED Code(s): 08987075
--- NOTE | 2022-01-20 18:09 | CA ---
Transthoracic Echo Report Name: Ophelia Ruffin Age: 66 Gender: F : 1955 Exam Date: 01/19/2022 08:20 Exam Location: [facility] Ht (in): 63 Wt (lb): 253 Ordering Physician: Marilyn Schneider Attending/Referring Phys: Wyatt SONI Key Cutter Marlin Lang, MELISSA Procedure CPT: Indications: elevated proBNP Cardiac Hx: Copd, Htn. Technical Quality: Very technically difficult study Contrast 1: Total Dose (mL): Contrast 2: Total Dose (mL): MEASUREMENTS (Male / Female) Normal Values M-MODE Aortic Root Diameter MM 3.4 cm FINDINGS Left Ventricle Left ventricular ejection fraction is estimated at 55-60 %. Right Ventricle Right ventricle not well visualized. Right Atrium Right atrium not well visualized. Left Atrium Left atrium not well visualized. Mitral Valve Mitral valve not well visualized. Aortic Valve Aortic valve not well visualized. Tricuspid Valve Tricuspid valve not well visualized. Pulmonic Valve Pulmonic valve not well visualized. Pericardium Pericardium not visualized. Aorta Aortic root and proximal ascending aorta not well visualized. CONCLUSIONS Technically difficult and suboptimal study. Echo contrast was used. LV systolic function is normal. Other cardiac structures were poorly seen. Cannot comment upon them. Previewed by: Dr. Jose Thomason MD (Electronically Signed) Final Date: 20 January 2022 18:08
== END 2022-01-19 16:24 | disposition expired | DRG 329 ==
LOC: EC 09:25 → 4SSUR 11:56 → 5NMEDONC 20:15 → 3SCARD 01-18 02:37 → 2SICU 01-18 03:41
PROVIDERS: ADMIT Internal Medicine; ATTEND Family Medicine
PROC: 0D9670Z Drainage of Stomach with Drainage Device, Via Natural or Artificial Opening (ICD-10-PCS; 2022-01-14)
PROC: 0D1N0Z4 Bypass Sigmoid Colon to Cutaneous, Open Approach (ICD-10-PCS; principal; 2022-01-14 09:40)
PROC: 0DBN0ZZ Excision of Sigmoid Colon, Open Approach (ICD-10-PCS; principal; 2022-01-14 09:40)
PROC: 0WQF0ZZ Repair Abdominal Wall, Open Approach (ICD-10-PCS; principal; 2022-01-14 09:40)
PROC: 5A09357 Assistance with Respiratory Ventilation, Less than 24 Consecutive Hours, Continuous Positive Airway Pressure (ICD-10-PCS; 2022-01-17)
PROC: 5A1945Z Respiratory Ventilation, 24-96 Consecutive Hours (ICD-10-PCS; 2022-01-18)
PROC: 0D9670Z Drainage of Stomach with Drainage Device, Via Natural or Artificial Opening (ICD-10-PCS; 2022-01-18)
PROC: 0BH17EZ Insertion of Endotracheal Airway into Trachea, Via Natural or Artificial Opening (ICD-10-PCS; 2022-01-18)
PROC: 04HY32Z Insertion of Monitoring Device into Lower Artery, Percutaneous Approach (ICD-10-PCS; 2022-01-18)
PROC: 3E043XZ Introduction of Vasopressor into Central Vein, Percutaneous Approach (ICD-10-PCS; 2022-01-18)
PROC: 4A133B1 Monitoring of Arterial Pressure, Peripheral, Percutaneous Approach (ICD-10-PCS; 2022-01-18)
PROC: 4A133J1 Monitoring of Arterial Pulse, Peripheral, Percutaneous Approach (ICD-10-PCS; 2022-01-18)
PROC: 02HV33Z Insertion of Infusion Device into Superior Vena Cava, Percutaneous Approach (ICD-10-PCS; 2022-01-18)
DX: K56.50 Intestinal adhesions [bands], unspecified as to partial versus complete obstruction (principal); R65.21 Severe sepsis with septic shock; J96.01 Acute respiratory failure with hypoxia; J96.02 Acute respiratory failure with hypercapnia; A41.9 Sepsis, unspecified organism; J18.9 Pneumonia, unspecified organism; K55.9 Vascular disorder of intestine, unspecified; J44.0 Chronic obstructive pulmonary disease with (acute) lower respiratory infection; N17.9 Acute kidney failure, unspecified; E87.2 Acidosis; E87.1 Hypo-osmolality and hyponatremia; K57.32 Diverticulitis of large intestine without perforation or abscess without bleeding; Z68.41 Body mass index [BMI] 40.0-44.9, adult; J98.11 Atelectasis; E66.01 Morbid (severe) obesity due to excess calories; M06.9 Rheumatoid arthritis, unspecified; Z51.5 Encounter for palliative care; Z66 Do not resuscitate; K42.9 Umbilical hernia without obstruction or gangrene; G47.33 Obstructive sleep apnea (adult) (pediatric); E86.1 Hypovolemia; I10 Essential (primary) hypertension; E87.6 Hypokalemia; Z79.899 Other long term (current) drug therapy; Z90.2 Acquired absence of lung [part of]; Z85.841 Personal history of malignant neoplasm of brain; Z85.118 Personal history of other malignant neoplasm of bronchus and lung; Z92.3 Personal history of irradiation; Z98.890 Other specified postprocedural states; Z71.3 Dietary counseling and surveillance; Z88.8 Allergy status to other drugs, medicaments and biological substances; Z91.048 Other nonmedicinal substance allergy status
CPT/HCPCS: 36415; 71045; 74018; 74176; 80048; 80053; 81001; 82150; 82533; 82803; 82805; 83036; 83605; 83690; 83735; 83880; 84100; 85025; 85610; 85730; 86850; 86900; 86901; 87040; 87070; 87077; 87186; 87205; 88307; 93306; 94002; 94003; 94660; 96361; 96365; 96366; 96375; 99285